=== PATIENT | female | born 1960 | race Caucasian/White ===

== ENCOUNTER → 2018-05-20 | Outpatient (CLI) | payer OTHER ==
--- NOTE | 2018-05-20 11:28 | CT ---
EXAMINATION TYPE: CT chest wo con DATE OF EXAM: 05/20/2018 COMPARISON: Outside x-ray dated 05/04/2018 HISTORY: Sarcoidosis CT DLP: 739.3 mGycm. Automated Exposure Control for Dose Reduction was Utilized. TECHNIQUE: CT scan of the thorax is performed without IV contrast. FINDINGS: LUNGS: There is a 5 mm subpleural nodule posterior segment right upper lobe axial image 14. There is an additional nodule within the right middle lobe measuring 4 mm axial image 24. There is a subpleura l nodule within the right lower lobe measuring 6.2 mm. No pleural effusion. No pneumothorax. No conso lidative pneumonia.. MEDIASTINUM: Lack of IV contrast is noted to limit evaluation for mediastinal and especially hilar ad enopathy. There are no definitive greater than 1 cm hilar or mediastinal lymph nodes. Heart is mildly enlarged and there is a small pericardial effusion.. OTHER: Moderate sized hiatal hernia noted.. IMPRESSION: 1. There are multiple 6 mm left pulmonary nodules which appear predominantly subpleural. Most likely are postinflammatory however would recommend a repeat 6 month follow-up to confirm stability and excl ude other etiologies. 2. Moderate-sized hiatal hernia. 3. Mild cardiomegaly with small pericardial effusion.
== END ==
LOC: RADCTMAIN 07:34
PROVIDERS: ATTEND Internal Medicine Rheumatology
DX: I31.3 Pericardial effusion (noninflammatory) (principal); K44.9 Diaphragmatic hernia without obstruction or gangrene; R91.8 Other nonspecific abnormal finding of lung field; F17.200 Nicotine dependence, unspecified, uncomplicated
CPT/HCPCS: 71250

== ENCOUNTER → 2018-06-29 | Outpatient (CLI) | payer OTHER ==
--- NOTE | 2018-06-29 11:59 | MR ---
EXAMINATION TYPE: MR lumbar spine wo con DATE OF EXAM: 06/29/2018 COMPARISON: None HISTORY: 57-year-old female Radiculopathy, lumbar region TECHNIQUE: Multiplanar, multisequence images of the lumbar spine were acquired. FINDINGS: Vertebral body heights are preserved and alignment is maintained. No suspicious bone marrow replacement. Conus medullaris is normal. No prevertebral or paravertebral soft tissue abnormality. Mild multilevel degenerative disc disease characterized by variable mild disc desiccation and disc bu lging. Ligamentum flavum thickening mid to lower lumbar spine with facet arthropathy. There is a component of mild congenital spinal canal narrowing in the mid lumbar spine with AP canal dimension of 1.3 cm. At T12-L1, minimal bulging disc without significant canal or foraminal stenosis. At L1-L2, no significant canal or foraminal stenosis. At L2-L3, there is a left intraforaminal disc bulge minimally narrowing the left inferior foramen. Di sc material closely approaches but does not clearly abut the traversing left L3 nerve root. Mild face t arthropathy. No significant spinal canal stenosis. At L3-L4, mild disc bulge and facet degenerative change. No significant spinal canal or neuroforamina l stenosis. At L4-L5, hypertrophic facet arthropathy and minimal bulging disc. No significant spinal canal or for aminal stenosis. At L5-S1, facet arthropathy with prominent epidural fat ventrally narrowing the thecal sac. No signif icant spinal canal or neuroforaminal stenosis. IMPRESSION: 1. Mild multilevel degenerative disc disease. Hypertrophic facet arthropathy mid to lower lumbar spin e. 2. Changes are superimposed on a component of mild congenital canal narrowing in the mid lumbar spine . There is no significant spinal canal stenosis seen. 3. Prominent epidural fat at L5-S1 circumferentially attenuating the thecal sac causing trefoil confi guration. 4. Left intraforaminal disc bulge at L2-L3 minimally narrowing the inferior aspect of the left neurof oramen. Also, disc material closely approaches but does not clearly abut the traversing left L3 nerve root at this level. Correlate as to the level and side of radiculopathy.
== END ==
LOC: RADMRIMAIN 08:39
PROVIDERS: ATTEND Nurse Practitioner
DX: M48.061 Spinal stenosis, lumbar region without neurogenic claudication (principal); M51.16 Intervertebral disc disorders with radiculopathy, lumbar region; M46.96 Unspecified inflammatory spondylopathy, lumbar region
CPT/HCPCS: 72148

== ENCOUNTER → 2018-07-06 | Outpatient (CLI) | payer OTHER ==
[2018-07-06 17:01] LABS: T4, Free (Free Thyroxine) 0.8 ng/dL (0.80-1.80)
== END ==
LOC: LABWHC1 09:53
PROVIDERS: ATTEND Internal Medicine Interventional Cardiology
DX: E05.90 Thyrotoxicosis, unspecified without thyrotoxic crisis or storm (principal)
CPT/HCPCS: 36415; 84439; 84443

== ENCOUNTER → 2018-10-26 | Outpatient (CLI) | payer OTHER ==
[2018-10-26 12:48] VITALS: BP 140/81; PULSE 83; RESP 16
--- NOTE | 2018-10-26 13:06 | P.CONS ---
History of Present Illness - Reason for Consult Consult date: 10/26/18 - Chief Complaint Lower back and bilateral leg pain - History of Present Illness This is a 57-year-old morbidly obese lady with history of chronic lower back pain with radiation to the lower extremities down to the feet with numbness and tingling and mild weakness. The pain gets worse by activities and improves by lying down in bed. The patient works in [employer] and prolonged standing increases her back pain. She had what seems to be intramuscular steroid injection by her stress analyst which gave her. Her most recent MRI showed neural foraminal stenosis with possible compression of the left L3 nerve root, disc bulging, facet arthropathy. The patient denies any history of diabetes. The patient takes Lyrica for her history of fibromyalgia and occasionally she takes [place] for her back pain. Review of Systems Cardiovascular: Denies chest pain, Denies shortness of breath Respiratory: Denies cough Gastrointestinal: Denies abdominal pain, Denies diarrhea, Denies nausea, Denies vomiting Musculoskeletal: Reports as per HPI Neurological: Reports as per HPI Past Medical History Past Medical History: Cancer, Mitral Valve Prolapse (MVP), Musculoskeletal Disorder, Osteoarthritis (OA), Rheumatoid Arthritis (RA) Additional Past Medical History / Comment(s): bulging disc w/sciatic pain going down both legs, hx. uterine cancer 2017, ?RA-one says yes, one has said no History of Any Multi-Drug Resistant Organisms: None Reported Past Surgical History: Hysterectomy, Joint Replacement, Tonsillectomy Additional Past Surgical History / Comment(s): rojelio knees replaced, cataracts removed Past Anesthesia/Blood Transfusion Reactions: Postoperative Nausea & Vomiting (PONV) Past Psychological History: No Psychological Hx Reported Smoking Status: Former smoker Past Alcohol Use History: Rare Additional Past Alcohol Use History / Comment(s): quit smoking 16 yrs. ago, smoked <ppd for 20 yrs. Past Drug Use History: None Reported - Past Family History Mother Family Medical History: No Reported History Medications and Allergies Home Medications Medication Instructions Recorded Confirmed Type Effexor(Unknown Dose) 1 tab PO HS 10/24/18 History HYDROcodone/APAP 7.5-325MG [[place] 1 tab PO Q6HR PRN 10/24/18 10/24/18 History 7.5-325] Lipitor(Unknown Dose) 1 tab PO HS 10/24/18 History Pregabalin [Lyrica] 200 mg PO TID 10/24/18 10/24/18 History Ranitidine HCl [Zantac] 150 mg PO HS 10/24/18 10/24/18 History traZODone HCL 50 mg PO HS 10/24/18 10/24/18 History Allergies Allergy/AdvReac Type Severity Reaction Status Date / Time No Known Allergies Allergy Verified 10/26/18 12:42 Physical Exam Vitals: Vital Signs Pulse Resp BP Pulse Ox 10/26/18 12:43 83 16 140/81 97 - Constitutional General appearance: morbidly obese - EENT Eyes: PERRLA - Respiratory Respiratory: bilateral: CTA - Cardiovascular Rhythm: regular - Neurologic Neuro exam of the lower extremities showed absent knee reflexes due to her previous knee replacement bilaterally. Normal ankle reflexes. Normal muscle strength in the lower extremity is bilaterally. Straight leg raising test negative bilaterally. Positive facet loading test on the lumbar spine. Positive tenderness in the lower lumbar paravertebral musculature and around the sacroiliac joints. Caden's test positive bilaterally. Internal and external rotation of the hip joints did not elicit any pain. Neurologic: CNII-XII intact - Psychiatric Psychiatric: A&O x's 3, appropriate affect, intact judgment & insight Assessment and Plan Plan: This is a 57-year-old morbidly obese lady with lumbar spondylosis without myelopathy and lumbar radiculopathy. The patient may benefit from today because of procedures we will start by doing lumbar epidural steroid injection under fluoroscopic guidance at the L4 5 level and lower back pain continues to be a problem then we will plan on doing diagnostic lumbar medial branch block. The above-mentioned procedures were explained to the patient and she was agreeable to them. I thank you for the referral
== END | disposition home or self-care (01) ==
LOC: PNWHC3 12:04
PROVIDERS: ATTEND Anesthesiology
DX: G89.29 Other chronic pain (principal); M47.816 Spondylosis without myelopathy or radiculopathy, lumbar region; E66.01 Morbid (severe) obesity due to excess calories; Z87.891 Personal history of nicotine dependence; Z68.42 Body mass index [BMI] 45.0-49.9, adult
CPT/HCPCS: 99211

== ENCOUNTER 2018-11-07 09:20 | Day surgery (SDC) | payer OTHER ==
[2018-11-03 15:12] VITALS: BMI 45.2
[~2018-11-07 09:20] MED LIST: LACTATED RINGERS 1,000 ML IV SCH
[2018-11-07 09:40] VITALS: TEMP 97.2
--- NOTE | 2018-11-07 10:35 | P.PCN ---
Date of Procedure: 11/07/18 Procedure(s) Performed: PREOPERATIVE DIAGNOSIS: 1- Lumbar radiculopathy 2-Lumbar spondylosis with Facet arthropathy without myelopathy POSTOPERATIVE DIAGNOSIS: 1-Lumber radiculopathy 2-Lumbar spondylosis with Facet arthropathy without myelopathy PROCEDURE 1. Lumbar epidural steroid injection under fluoroscopic guidance at the L3-4 level. (Attempted at L4 5, and L5-S1 was not successful ) 2. Lumbar epidurogram. ANESTHESIA: Local with 1% lidocaine 3 ml and , moderate sedation with intravenous Versed 2 mg ,and fentanyle 100 Mcg EBL: Minimal PROCEDURE INDICATION: The patient with low back pain and radiculitis symptoms unresponsive to conservative treatment. Fluoroscopy was used to optimize visualization of the needle placement and to maximize safety. PROCEDURE DESCRIPTION / TECHNIQUE: The patient was seen and identified in the preoperative area. Risks, benefits, complications including but not limited to infections ,bleeding ,allergic reaction to the medications ,nerve damage and not complete pain releife , and alternatives were discussed with the patient. The patient agreed to proceed with the procedure and signed the consent. IV was started, and vital signs were stable. Patient was taken to the OR and time out was completed. The patient was placed in the prone position on procedure table and a pillow was placed under the abdomen to reduce lumbar lordosis. The lumbosacral area was prepped and draped in the usual sterile fashion.ere closely monitored during the procedure. Conscious sedation was used during the procedure to decrease patients anxiety. Vital signs was monitered during the entire procedure. Using anterior-posterior fluoroscopy, the L3-4 interlaminar space was identified and the skin over this site was marked and then infiltrated with 1% lidocaine subcutaneously. Subsequently, a 18 -gauge 6 inches long Tuohy epidural needle was inserted and advanced toward the epidural space using the ``Loss of resistance technique and guided by AP and lateral fluoroscopy. The correct needle position in the epidural space was verified with the injection of 2 mL of the water soluble contrast dye Isovue 200 contrast and observing an excellent epidurogram with the epidural spread of the dye, after negative aspiration for blood and CSF and in the absence of paresthesias. Again after negative aspiration, a 6 ml mixture containing 80 mg of Depo-medrol , and 2 ml of preservative free Normal Saline, and 2 ml of preservative free lidocaine 1% solution was injected and a washout of epidurogram was seen. Needle was withdrawn intact, skin was cleansed, and bandages were applied. The procedure was attempted at L4 5 and then at the L5-S1 was not successful, then I did the procedure at L3 4 levels. COMPLICATIONS: None DISPOSITION / PLANS: The patient was placed in a supine position and transferred to the recovery area in a stable condition for observation. There was no evidence of lower extremity motor or sensory deficit after the procedure. Patient was discharged from the recovery room after meeting discharge criteria. Home discharge instructions were given to the patient by the staff. The patient was reexamined prior to discharge. The patient will schedule a follow up in the clinic in 2-4 weeks.
[2018-11-07] MEDS ORDERED: IV FLUID CONTINUATION 1,000 ML IV ONE (10:41)
[2018-11-07 10:42] VITALS: RESP 18
[2018-11-07 11:01] VITALS: BP 111/68; PULSE 71
--- NOTE | 2018-11-07 14:24 | FL ---
Fluoroscopy HISTORY: Pain 18 seconds fluoroscopy time supplied to the referring clinician. 1 intraoperative C-arm images docum ent the procedure. See dictated report from anesthesia.
== END 2018-11-07 11:10 | disposition home or self-care (01) ==
LOC: ORPAIN 09:20
PROVIDERS: ATTEND Anesthesiology
DX: M47.26 Other spondylosis with radiculopathy, lumbar region (principal); M48.061 Spinal stenosis, lumbar region without neurogenic claudication; M51.16 Intervertebral disc disorders with radiculopathy, lumbar region; I34.1 Nonrheumatic mitral (valve) prolapse; M79.7 Fibromyalgia; M06.9 Rheumatoid arthritis, unspecified; M19.90 Unspecified osteoarthritis, unspecified site; E66.01 Morbid (severe) obesity due to excess calories; Z68.42 Body mass index [BMI] 45.0-49.9, adult; Z79.891 Long term (current) use of opiate analgesic; Z79.899 Other long term (current) drug therapy; Z85.42 Personal history of malignant neoplasm of other parts of uterus; Z90.710 Acquired absence of both cervix and uterus; Z96.653 Presence of artificial knee joint, bilateral; Z87.891 Personal history of nicotine dependence
CPT/HCPCS: 62323; J2250; J1030; J3010; 99152

== ENCOUNTER 2018-11-24 08:19 | Day surgery (SDC) | payer OTHER ==
[2018-11-23 11:48] VITALS: BMI 45.4
[2018-11-24 08:44] VITALS: RESP 16; TEMP 97.7
[2018-11-24] MEDS ORDERED: LIDOCAINE 1% 20 ML VIAL (10MG/ML) FOR IV START INTRADERMA ONE (08:51)
--- NOTE | 2018-11-24 09:45 | P.PCN ---
Date of Procedure: 11/24/18 Procedure(s) Performed: PREOPERATIVE DIAGNOSIS: 1- Lumbar radiculopathy, Lumbar Degenerative Disc Diseases 2-Lumbar spondylosis with Facet arthropathy without myelopathy POSTOPERATIVE DIAGNOSIS: 1-Lumber Degenerative Disc Diseases 2-Lumbar spondylosis with Facet arthropathy without myelopathy PROCEDURE 1. Lumbar epidural steroid injection under fluoroscopic guidance at the L2-L3 level using a left paramedian approach 2. Lumbar epidurogram. ANESTHESIA: Local with 1% lidocaine 3 ml, moderate sedation with intravenous Versed and fentanyl Fluoroscopy was used for the procedure and images were saved in the radiology portion of the chart. EBL: Minimal PROCEDURE INDICATION: The patient with low back pain and radiculitis symptoms unresponsive to conservative treatment. Fluoroscopy was used to optimize visualization of the needle placement and to maximize safety. PROCEDURE DESCRIPTION / TECHNIQUE: The patient was seen and identified in the preoperative area. Risks, benefits, complications including but not limited to infections ,bleeding ,allergic reaction to the medications ,nerve damage and incomplete pain releif , and alternatives were discussed with the patient. The patient agreed to proceed with the procedure and signed the consent. IV was started, and vital signs were stable. Patient was taken to the OR and time out was completed. The patient was placed in the prone position on procedure table and a pillow was placed under the abdomen to reduce lumbar lordosis. The lumbosacral area was prepped and draped in the usual sterile fashion. Vitals were closely monitored during the procedure. Conscious sedation was used during the procedure to decrease patients anxiety. Using anterior-posterior fluoroscopy, the L2L3 interlaminar space was identified and the skin over this site was marked and then infiltrated with 1% lidocaine subcutaneously. Subsequently, a 18 guage 6" Tuohy epidural needle was inserted and advanced toward the epidural space using the loss of resistance technique and guided by AP and lateral/ oblique fluoroscopy. The correct needle position in the epidural space was verified with the injection of 2 mL of the water soluble contrast dye Isovue 200 contrast under live fluoroscopy, observing an excellent epidurogram. Then, after negative aspiration for blood and CSF and in the absence of paresthesias, a 5 ml mixture containing 80 mg of Depo-medrol , 3 ml of preservative free Normal Saline, and 1 ml of preservative free lidocaine 1% solution was injected and a washout of epidurogram was seen. Needle was withdrawn intact, skin was cleansed, and bandages were applied. COMPLICATIONS: Dural puncture at L3-L4. Procedure aborted at L3-L4 and reattempted at L2-L3 with good epidurogram. DISPOSITION / PLANS: The patient was placed in a supine position and transferred to the recovery area in a stable condition for observation. There was no evidence of lower extremity motor or sensory deficit after the procedure. Patient was discharged from the recovery room after meeting discharge criteria. Home discharge instructions were given to the patient by the staff. The patient will schedule a follow up in the clinic in 2-4 weeks.
[2018-11-24] MEDS ORDERED: IV FLUID CONTINUATION 1,000 ML IV ONE (09:49)
[2018-11-24 10:22] VITALS: BP 116/58; PULSE 80
--- NOTE | 2018-11-24 12:23 | FL ---
Fluoroscopy HISTORY: Pain 20 seconds fluoroscopy time supplied to the referring clinician. 3 intraoperative C-arm images docum ent the procedure. See dictated report from anesthesia.
== END 2018-11-24 10:42 | disposition home or self-care (01) ==
LOC: ORPAIN 08:19
PROVIDERS: ATTEND Anesthesiology
DX: M51.16 Intervertebral disc disorders with radiculopathy, lumbar region (principal); M47.26 Other spondylosis with radiculopathy, lumbar region
CPT/HCPCS: 62323; J2250; J1030; J3010; Q9966; 99152

== ENCOUNTER → 2018-12-21 | Outpatient (CLI) | payer OTHER ==
--- NOTE | 2018-12-21 15:56 | P.PAINPG ---
Subjective Progress Note Date: 12/21/18 Patient returns for follow-up after her epidural steroid injections. She is extremely happy with the results and states that her leg pain is essentially resolved. She continues to have some mild axial back pain. She is extremely functional and works at all date. Otherwise she denies any new symptoms and has no new complaints. Most of the visit was taken discussing how to prevent symptoms from recurring and what the next steps would be. Objective - Vital Signs Vital signs: Vital Signs Temp Pulse 99 12/21/18 13:54 Resp 18 12/21/18 13:54 BP 131/86 12/21/18 13:54 Pulse Ox 96 12/21/18 13:54 Intake & Output 12/20/18 12/21/18 12/21/18 18:59 06:59 18:59 Weight 128.82 kg - Exam Vital Signs: Reviewed in EMR GENERAL: Well appearing, in no acute distress, PSYCH: Mood and affect is appropriate. Awake, alert, and oriented SKIN: Skin color, texture, turgor normal, no rashes or lesions HEENT: Normocephalic, atraumatic. EOM intact CV: No pedal edema RESP: Respirations are unlabored, no audible wheezing GI: Abdomen non-distended MUSCULOSKELETAL: Bilateral upper and lower extremity strength is normal and symmetric. No atrophy or tone abnormalities are noted. Lumbar spine: Mild pain to palpation over the lumbar spine and paraspinous muscles. Buttocks: No pain to palpation over the PSIS, Truong test is negative bilaterally Extremities: Peripheral joint ROM is full and pain free without obvious instability or laxity in all four extremities. No edema or skin discolorations noted. Gait: Gait is anantalgic NEUR: No loss of sensation is noted. Cranial nerves are grossly intact. Assessment and Plan Assessment: This is a 58-year-old who was suffering from lumbar radicular pain. This is essentially resolved with her epidural. Assessment and plan: 1. Lumbar radicular pain 2. DDD 1. Interventions none at this time if her symptoms return she can call to make an appointment 2. Physical Therapy continue home exercises 3. Medications none 4. Follow up: In 3 months or she can call to schedule another epidural. , PQRS Measure Charge Sheet Measure #226: Tobacco Use: Screen & Cessation Intervention: Pt not a tobacco user Measure #111: Pneumonia Vaccination: Pneumococcal vaccine NOT administered or previously given Measure #47: Advance Care Plan: Advance care planning discussed & documented, pt chose/unable to give Measure #408: Opioid Therapy Follow-up Evaluation: Patient had f/u eval minimum every 3 months during opioid therapy Measure #128: Body Mass Index (BMI) Screening & Follow-up: BMI documented ABOVE normal parameters - f/u documented Measure #131: Pain Assessment & Follow-up: Pain positive & plan documented Measure #431: Unhealthy Alcohol Use Preventative Care & Scrn: Patient not identified as an unhealthy alcohol user PQRS Narrative: Smoking Status Former smoker Blood Pressure 131/86 Pain Intensity [Lower Back] 4 Scale Used Numeric (1 - 10) Hx Alcohol Use (MH) Yes Home Medications: Ambulatory Orders Atorvastatin [Lipitor] 20 mg PO HS 10/24/18 HYDROcodone/APAP 7.5-325MG [[place] 7.5-325] 1 tab PO Q6HR PRN 10/24/18 Pregabalin [Lyrica] 200 mg PO TID 10/24/18 Ranitidine HCl [Zantac] 150 mg PO HS 10/24/18 Venlafaxine HCl [Effexor] 50 mg PO DAILY 10/24/18 Pantoprazole Sodium [Protonix] 20 mg PO BID 11/03/18 Controlled Substance Measures - Controlled Substance Measures Is patient prescribed a controlled substance at discharge?: No
== END ==
CPT/HCPCS: 99211

== ENCOUNTER → 2019-01-06 | Outpatient (CLI) | payer OTHER ==
[2019-01-06 13:06] LABS: Basophils % (A) 0 %; Eosinophils % (A) 1 %; HCT 41.7 % (34.0-46.0); HGB 13.3 gm/dL (11.4-16.0); Lymphocytes # (A) 1.7 k/uL (1.0-4.8); Lymphocytes % (A) 24 %; MCH 29.5 pg (25.0-35.0); MCHC 31.8 g/dL (31.0-37.0); MCV 92.5 fL (80.0-100.0); Mean Platelet Volume 6.8; Monocytes # (A) 0.4 k/uL (0-1.0); Monocytes % (A) 5 %; Neutrophils # (A) 4.8 k/uL (1.3-7.7); Neutrophils % (A) 67 %; Platelet Count 281 k/uL (150-450); RBC 4.51 m/uL (3.80-5.40); RDW 13.8 % (11.5-15.5); WBC 7.2 k/uL (3.8-10.6)
[2019-01-06 18:38] LABS: African American GFR (CKD) 82.8 (60.0-200.0); Albumin 4.5 g/dL (3.80-4.90); Albumin/Globulin Ratio 2.5 (1.60-3.17); Anion Gap 9.4 mmol/L (4.00-12.00); Calcium 9.6 mg/dL (8.7-10.3); Carbon Dioxide 25.6 mmol/L (21.6-31.8); Chol/HDL Ratio 2.24; Globulin 1.8 g/dL (1.6-3.3); LDL Cholesterol,Calculated 75.8 mg/dL (0.0-131.0); Potassium 4.2 mmol/L (3.5-5.5); Total Bilirubin 0.7 mg/dL (0.2-1.2); Total Protein 6.3 g/dL (6.2-8.2); VLDL Calculation 11.2 mg/dL (5.00-40.00)
[2019-01-06 19:42] LABS: Urine Alcohol Negative (Negative); Urine Barbiturate Negative (Negative); Urine Cocaine Negative (Negative); Urine Methadone Negative (Negative); Urine Opiates Positive (Negative); Urine Phencyclidine Negative (Negative)
== END | disposition home or self-care (01) ==
LOC: LABWHC1 12:34
PROVIDERS: ATTEND Nurse Practitioner
DX: Z13.220 Encounter for screening for lipoid disorders (principal); Z51.81 Encounter for therapeutic drug level monitoring; Z79.899 Other long term (current) drug therapy; M25.50 Pain in unspecified joint
CPT/HCPCS: 36415; 80053; 80061; 80306; 82306; 85025

== ENCOUNTER → 2019-06-14 | Outpatient (CLI) | payer OTHER ==
[2019-06-14 13:50] VITALS: BP 128/86; PULSE 100; RESP 18
--- NOTE | 2019-06-14 19:42 | P.PAINPG ---
Subjective Progress Note Date: 06/14/19 this is a follow-up visit for this 58 years old female, she was diagnosed with lumbar radiculopathy lumbar degenerative disc disease, lumbar spondylosis with lumbar facet arthropathy, in 2019. Have done lumbar epidural steroid injections 2 and at that time it helped her low back pain significantly, she had excellent pain relief for more than 6 months,thank you she is complaining of severe low back pain with radiation to the lower extremity bilaterally more prominent on the right side, associated with some numbness and tingling sensation, mostly of the pain interfere with her quality of life and ability to work, he continued to use pain medication [place] 10/325 every 6 hours and Lyrica 200 mg 3 times a day she denies any side effect of the medication and she reported that the current medication helping her to improve her pain, is getting prescription refills from her primary care Objective - Vital Signs Vital signs: Vital Signs Temp Pulse 100 06/14/19 13:44 Resp 18 06/14/19 13:44 BP 128/86 06/14/19 13:44 Pulse Ox 97 06/14/19 13:44 Intake & Output 06/14/19 06/14/19 06/15/19 06:59 18:59 06:59 Weight 131.542 kg - Exam Physical Examinations : -Constitutiona : Cooperative , not in acute distress . -HEENT : nech : supple , no Lymphadenopathy , normal thyroid size . : eyes : no ptosis , no icterus, no photophobia . - neurologic : Cranial nerve II to XII intact , no focal neurological deffecit . -psychatric : alert , oriented X 3 , appropriate affect , intact judgment and insight . -Lymphatic : no Lymphadenopathy . - musculoskeltal : Lumber spine moter stegnth lower extremities ,thigh and legs 4/5 Right side , 5/5 Left side deep tendon reflexes : normal Knee Jerk , normal ankle Jerk lumber facet Loading Test =positive Right , positive Left Range of motion of the lumbar spine Flexion 30 degrees, extension 10 degrees strait leg raising test = positive at 30 degree Fabere test= positive Right , and positive LT . Assessment and Plan Plan: assessment and plan= lumbar radiculopathy. Lumbar degenerative disc disease. Lumbar spondylosis with lumbar facet arthropathy. patient could benefit from lumbar epidural steroid injection at L3 4 levels , if she continued to have pain after lumbar epidural steroid injection will consider doing diagnostic medial branch block lumbar area at L2 /L 3/ L4/L 5. patient should continue to use her current medication [place] 7.5/325 when necessary,Lyrica 200 mg 3 times a day prescription from PCP Time with Patient: Less than 30 PQRS Measure Charge Sheet Measure #130: Documentation of Current Meds in Medical Chart: Patient's medications documented in chart Measure #226: Tobacco Use: Screen & Cessation Intervention: Pt not a tobacco user Measure #111: Pneumonia Vaccination: Pneumococcal vaccine NOT administered or previously given Measure #47: Advance Care Plan: Advance care planning discussed & documented, pt chose/unable to give Measure #412: Opioid Treatment Agreement: No documentation of signed opioid treatment agreement Measure #408: Opioid Therapy Follow-up Evaluation: Patient had NO f/u eval minimum every 3 months during opioid therapy Measure #317: Preventitive Care & Scrn High Bld Press & F/U: Normal blood pressure, f/u not required Measure #128: Body Mass Index (BMI) Screening & Follow-up: BMI documented ABOVE normal parameters - f/u documented Measure #131: Pain Assessment & Follow-up: Pain positive & plan documented, Follow-up scheduled Measure #431: Unhealthy Alcohol Use Preventative Care & Scrn: Patient not identified as an unhealthy alcohol user PQRS Narrative: Smoking Status Former smoker Blood Pressure 128/86 Pain Intensity [Lower Back] 4 Scale Used Numeric (1 - 10) Hx Alcohol Use (MH) No Home Medications: Ambulatory Orders Atorvastatin [Lipitor] 20 mg PO HS 10/24/18 HYDROcodone/APAP 7.5-325MG [[place] 7.5-325] 1 tab PO Q6HR PRN 10/24/18 Pregabalin [Lyrica] 200 mg PO TID 10/24/18 Ranitidine HCl [Zantac] 150 mg PO HS 10/24/18 Venlafaxine HCl [Effexor] 50 mg PO DAILY 10/24/18 Pantoprazole Sodium [Protonix] 20 mg PO BID 11/03/18 Controlled Substance Measures - Controlled Substance Measures Is patient prescribed a controlled substance at discharge?: No
== END | disposition home or self-care (01) ==
LOC: PNWHC3 13:26
PROVIDERS: ATTEND Anesthesiology
DX: G89.29 Other chronic pain (principal); M51.16 Intervertebral disc disorders with radiculopathy, lumbar region; M47.26 Other spondylosis with radiculopathy, lumbar region; M46.96 Unspecified inflammatory spondylopathy, lumbar region; Z87.891 Personal history of nicotine dependence; Z79.899 Other long term (current) drug therapy
CPT/HCPCS: 99211

== ENCOUNTER 2019-06-28 07:05 | Day surgery (SDC) | payer OTHER ==
[2019-06-27 08:11] VITALS: BMI 45.4
[~2019-06-28 07:05] MED LIST changes: +IOPAMIDOL M200 10 ML VIAL ONE; -LACTATED RINGERS 1,000 ML IV SCH; +MIDAZOLAM 2 MG/2 ML VIAL ONE; +fentaNYL (PF) 50 MCG/ML 2 ML AMP ONE; +methylPREDNISolone ACETATE 40 MG/ML 1 ML VIAL ONE
[2019-06-28] MEDS ORDERED: LACTATED RINGERS 1,000 ML IV ONE (07:30)
[2019-06-28 07:39] VITALS: TEMP 97.6
--- NOTE | 2019-06-28 08:29 | P.PCN ---
Date of Procedure: 06/28/19 Description of Procedure: PREOPERATIVE DIAGNOSIS: lumbar radiculopathy POSTOPERATIVE DIAGNOSIS: Lumbar radiculopathy PROCEDURE 1. Lumbar epidural steroid injection under fluoroscopic guidance at the L3/4 level via transforaminal approach - Unable to enter through interlaminar approach 2. Lumbar epidurogram. Imaging: Fluoroscopy was used, images where saved to the medical record ANESTHESIA: Local with 1% lidocaine 5 ml and fentanyl and Versed moderate sedation EBL: Minimal PROCEDURE INDICATION: The patient with low back pain and radiculitis symptoms unresponsive to conservative treatment. Fluoroscopy was used to optimize visualization of the needle placement and to maximize safety. PROCEDURE DESCRIPTION / TECHNIQUE: The patient was seen and identified in the preoperative area. Risks, benefits, complications including but not limited to infections ,bleeding ,allergic reaction to the medications, nerve damage and incomplete pain relief , as well as alternatives to the procedure were discussed with the patient. The patient agreed to proceed with the procedure and signed the consent. IV was started, and vital signs were stable. Patient was taken to the OR and time out was completed. The patient was placed in the prone position on procedure table and a pillow was placed under the abdomen to reduce lumbar lordosis. The lumbosacral area was prepped and draped in the usual sterile fashion. Vitals were closely monitored during the procedure. Using anterior-posterior fluoroscopy, the L 34 interlaminar space was identified and the skin over this site was marked and then infiltrated with 1% lidocaine subcutaneously. Subsequently, a 20-gauge Tuohy epidural needle was inserted and advanced toward the epidural space. Were unable to gain access through the interlaminar approach, so 22-gauge spinal needle was directed in the oblique view towards the L3 pedicle at the junction of the inferior articulating process. Supraneural approach was accessed through the foramen showed excellent epidurogram with spread of contrast to both sides of the epidural space. The correct needle position in the epidural space was verified with the injection of 1 mL of Omnipaque 180 contrast to observe an acceptable epidurogram, after negative aspiration for blood and CSF and in the absence of paresthesias. Again after negative aspiration, a 2 ml mixture containing 40mg of depomedrol and 1 ml of preservative free Normal Saline was injected and a washout of epidurogram was seen. Needle was withdrawn intact, skin was cleansed, and bandages were applied. COMPLICATIONS: None DISPOSITION / PLANS: The patient was placed in a supine position and transferred to the recovery area in a stable condition for observation. There was no evidence of lower extremity motor or sensory deficit after the procedure. Patient was discharged from the recovery room after meeting discharge criteria. Home discharge instructions were given to the patient by the staff. The patient was reexamined prior to discharge. The patient will follow up as directed.
[2019-06-28] MEDS ORDERED: IV FLUID CONTINUATION 1,000 ML IV ONE (08:38)
[2019-06-28 08:40] VITALS: PULSE 83
[2019-06-28 08:46] VITALS: BP 150/79; RESP 18
--- NOTE | 2019-06-28 09:20 | FL ---
Fluoroscopy HISTORY: Pain 14 seconds fluoroscopy time supplied to the referring clinician. 1 intraoperative C-arm images docum ent the procedure. See dictated report from anesthesia.
== END 2019-06-28 09:02 | disposition home or self-care (01) ==
LOC: ORPAIN 07:05
PROVIDERS: ATTEND Hospitalist
DX: M54.16 Radiculopathy, lumbar region (principal); Z90.710 Acquired absence of both cervix and uterus
CPT/HCPCS: 62323; J2250; J1030; J3010; Q9966; 99152

== ENCOUNTER 2019-08-14 13:20 | Inpatient (IN) | payer OTHER ==
[2019-08-14] MEDS ORDERED: SODIUM CHLORIDE 0.9% 1,000 ML IV ONE (14:13)
[2019-08-14 14:37] LABS: Basophils % (A) 0 %; Eosinophils % (A) 0 %; HCT 40.7 % (34.0-46.0); HGB 13.3 gm/dL (11.4-16.0); Lymphocytes # (A) 0.9 k/uL (1.0-4.8); Lymphocytes % (A) 19 %; MCH 28.9 pg (25.0-35.0); MCHC 32.6 g/dL (31.0-37.0); MCV 88.7 fL (80.0-100.0); Mean Platelet Volume 7.8; Monocytes # (A) 0.4 k/uL (0-1.0); Monocytes % (A) 9 %; Neutrophils # (A) 3.1 k/uL (1.3-7.7); Neutrophils % (A) 68 %; Platelet Count 269 k/uL (150-450); RDW 13.9 % (11.5-15.5); WBC 4.5 k/uL (3.8-10.6)
[2019-08-14 14:42] LABS: ALT 17 U/L (4-34); AST 45 U/L (14-36); African American GFR (CKD) >90 (>60 ml/min/1.73 sqM); Albumin 3.2 g/dL (3.5-5.0); Alkaline Phosphatase 77 U/L (38-126); Anion Gap 3 mmol/L; Blood Urea Nitrogen 14 mg/dL (7-17); Calcium 8.2 mg/dL (8.4-10.2); Carbon Dioxide 29 mmol/L (22-30); Chloride 106 mmol/L (98-107); Creatine Kinase 75 U/L (30-135); Glucose 105 mg/dL (74-99); LDH 1789 U/L (313-618); Non-African American GFR(CKD) >90 (>60 ml/min/1.73 sqM); Potassium 4.2 mmol/L (3.5-5.1); Sodium 138 mmol/L (137-145); Total Bilirubin 0.3 mg/dL (0.2-1.3); Total Protein 5.9 g/dL (6.3-8.2)
--- NOTE | 2019-08-14 14:59 | XR ---
EXAMINATION TYPE: XR chest 1V portable DATE OF EXAM: 08/14/2019 Comparison: None Clinical History: 58-year-old female Suspected COVID-19 pneumonia Findings: Heart upper limits of normal in size. Multifocal patchy and confluent airspace opacities, right great er than left. No pleural effusion. Impression: Multifocal airspace disease, right greater than left. Findings may be compatible with COVID pneumonia .
[2019-08-14] MEDS ORDERED: ACETAMINOPHEN TAB 325 MG TAB PO PRN (16:42)
[2019-08-14] MEDS ORDERED: NALOXONE 0.4 MG/ML 1 ML VIAL IV PRN (16:42)
--- NOTE | 2019-08-14 16:42 | ED ---
SOB HPI - General Chief Complaint: Shortness of Breath Stated Complaint: Shortness of Breath Time Seen by Provider: 08/14/19 13:30 Source: patient, EMS Mode of arrival: EMS Limitations: no limitations - History of Present Illness Initial Comments: The patient is a 58-year-old female past medical history of fibromyalgia and arthritis who presents to the emergency department with cough, shortness of breath and body aches for the past 8 days. She also reports to fatigue and headache. The patient took Tylenol at 10:00 today. She denies any sick conta cts with similar symptoms. No history of underlying lung conditions. When EMS arrived to her house for all oxygen sat was in the 70s. She is put on a nonrebreather and came up appropriately to 90%. She was also hypotensive and she was given 900 mL of normal saline. She denies having any exposures patient is a covid. Also denies recent travel. Denies a productive cough. No lower extremity edema. Denies a history of heart failure. No history of DVT or PE. No Pain or swelling. There are no alleviating, precipitating or modifying factors - Related Data Home Medications Medication Instructions Recorded Confirmed Atorvastatin [Lipitor] 20 mg PO HS 10/24/18 08/14/19 HYDROcodone/APAP 7.5-325MG [[place] 1 tab PO BID 10/24/18 08/14/19 7.5-325] Pregabalin [Lyrica] 200 mg PO TID 10/24/18 08/14/19 Diclofenac Sodium [Voltaren] 75 mg PO BID 08/14/19 08/14/19 Lidocaine 5% Patch [Lidoderm] 1 patch TOPICAL DAILY PRN 08/14/19 08/14/19 Pantoprazole Sodium [Protonix] 40 mg PO BID 08/14/19 08/14/19 Ranitidine HCl [Zantac] 150 mg PO BID 08/14/19 08/14/19 Venlafaxine HCl [Effexor XR] 150 mg PO DAILY 08/14/19 08/14/19 Allergies Allergy/AdvReac Type Severity Reaction Status Date / Time No Known Allergies Allergy Verified 08/14/19 14:14 Review of Systems ROS Statement: Those systems with pertinent positive or pertinent negative responses have been documented in the HPI. ROS Other: All systems not noted in ROS Statement are negative. Past Medical History Past Medical History: Cancer, Mitral Valve Prolapse (MVP), Musculoskeletal Disorder, Osteoarthritis (OA), Rheumatoid Arthritis (RA) Additional Past Medical History / Comment(s): bulging disc w/sciatic pain going down both legs, hx. uterine cancer 2017, ?RA-one says yes, one has said no History of Any Multi-Drug Resistant Organisms: None Reported Past Surgical History: Hysterectomy, Joint Replacement, Tonsillectomy Additional Past Surgical History / Comment(s): rojelio knees replaced, cataracts removed, PAIN CLINIC PROCEDURES Past Anesthesia/Blood Transfusion Reactions: Postoperative Nausea & Vomiting ( PONV) Past Psychological History: No Psychological Hx Reported Smoking Status: Former smoker Past Alcohol Use History: None Reported Past Drug Use History: None Reported - Past Family History Mother Family Medical History: No Reported History General Exam Limitations: no limitations General appearance: alert, in no apparent distress Eye exam: Present: normal appearance, PERRL, EOMI. Absent: scleral icterus, conjunctival injection, periorbital swelling ENT exam: Present: normal exam, mucous membranes moist Neck exam: Present: normal inspection. Absent: tenderness, meningismus, lymphadenopathy Respiratory exam: Present: other (tachypnia, mild conversational dyspnea) Cardiovascular Exam: Present: regular rate, normal rhythm, normal heart sounds. Absent: systolic murmur, diastolic murmur, rubs, gallop, clicks GI/Abdominal exam: Present: soft, normal bowel sounds. Absent: distended, tenderness, guarding, rebound, rigid Extremities exam: Present: normal inspection, full ROM, normal capillary refill. Absent: tenderness, pedal edema, joint swelling, calf tenderness Neurological exam: Present: alert, oriented X3, CN II-XII intact Psychiatric exam: Present: normal affect, normal mood Skin exam: Present: warm, dry, intact, normal color. Absent: rash Course Vital Signs 08/14/19 08/14/19 08/14/19 13:25 13:27 17:19 Temperature 98.3 F Pulse Rate 72 67 Pulse Rate [ Pulse Oximetery ] Respiratory 20 16 Rate Blood Pressure 123/76 130/87 Blood Pressure [Left Arm] O2 Sat by Pulse 87 L 98 97 Oximetry 08/14/19 17:47 Temperature 97.7 F Pulse Rate Pulse Rate [ 85 Pulse Oximetery ] Respiratory 20 Rate Blood Pressure Blood Pressure 95/63 [Left Arm] O2 Sat by Pulse 93 L Oximetry Medical Decision Making - Medical Decision Making Upon arrival the patient is placed into room 4. Thorough history and physical exam was performed. The patient is saturating 98% on nonrebreather. Blood pressure is stable after EMS fluid administration. Patient afebrile. Laboratory studies were conducted and demonstrate a d-dimer 0.94. LDH of 1789. Influenza A and B are negative. Patient has a portable chest x-ray performed which demonstrates multifocal airspace disease. Right greater than left. Might be compatible with Covid pneumonia. The patient's clinical picture is consistent with this. She is reevaluated and is resting comfortably in the room. No signs of respiratory distress. We attempted to take the patient off of the non rebreather however she did desaturate into the 80s. She is saturating 96% on the nonrebreather. At this time I did recommend admission to the hospital for 2 patient did agree. She'll be admitted to [facility]. I have paged them I am currently awaiting callback - Lab Data Result diagrams: 08/19/19 04:10 08/19/19 04:10 Lab Results 08/14/19 08/14/19 08/14/19 Range/Units 13:38 13:38 13:38 WBC 4.5 (3.8-10.6) k/uL RBC 4.60 (3.80-5.40) m/uL Hgb 13.3 (11.4-16.0) gm/dL Hct 40.7 (34.0-46.0) % MCV 88.7 (80.0-100.0) fL MCH 28.9 (25.0-35.0) pg MCHC 32.6 (31.0-37.0) g/dL RDW 13.9 (11.5-15.5) % Plt Count 269 (150-450) k/uL Neutrophils % 68 % Lymphocytes % 19 % Monocytes % 9 % Eosinophils % 0 % Basophils % 0 % Neutrophils # 3.1 (1.3-7.7) k/uL Lymphocytes # 0.9 L (1.0-4.8) k/uL Monocytes # 0.4 (0-1.0) k/uL Eosinophils # 0.0 (0-0.7) k/uL Basophils # 0.0 (0-0.2) k/uL D-Dimer 0.94 H (<0.60) mg/L FEU Sodium 138 (137-145) mmol/L Potassium 4.2 (3.5-5.1) mmol/L Chloride 106 (98-107) mmol/L Carbon Dioxide 29 (22-30) mmol/L Anion Gap 3 mmol/L BUN 14 (7-17) mg/dL Creatinine 0.65 (0.52-1.04) mg/dL Est GFR (CKD-EPI)AfAm >90 (>60 ml/min/1.73 sqM) Est GFR (CKD-EPI)NonAf >90 (>60 ml/min/1.73 sqM) Glucose 105 H (74-99) mg/dL Plasma Lactic Acid Gio (0.7-2.0) mmol/L Calcium 8.2 L (8.4-10.2) mg/dL Ferritin 367.8 H (10.0-291.0) ng/mL Total Bilirubin 0.3 (0.2-1.3) mg/dL AST 45 H (14-36) U/L ALT 17 (4-34) U/L Alkaline Phosphatase 77 (38-126) U/L Lactate Dehydrogenase 1789 H (313-618) U/L Creatine Kinase 75 (30-135) U/L Total Protein 5.9 L (6.3-8.2) g/dL Albumin 3.2 L (3.5-5.0) g/dL Procalcitonin (0.02-0.09) ng/mL Coronavirus (PCR) (Not Detected) Influenza Type A RNA (Not Detectd) Influenza Type B (PCR) (Not Detectd) 08/14/19 08/14/19 08/14/19 Range/Units 13:38 13:38 14:30 WBC (3.8-10.6) k/uL RBC (3.80-5.40) m/uL Hgb (11.4-16.0) gm/dL Hct (34.0-46.0) % MCV (80.0-100.0) fL MCH (25.0-35.0) pg MCHC (31.0-37.0) g/dL RDW (11.5-15.5) % Plt Count (150-450) k/uL Neutrophils % % Lymphocytes % % Monocytes % % Eosinophils % % Basophils % % Neutrophils # (1.3-7.7) k/uL Lymphocytes # (1.0-4.8) k/uL Monocytes # (0-1.0) k/uL Eosinophils # (0-0.7) k/uL Basophils # (0-0.2) k/uL D-Dimer (<0.60) mg/L FEU Sodium (137-145) mmol/L Potassium (3.5-5.1) mmol/L Chloride (98-107) mmol/L Carbon Dioxide (22-30) mmol/L Anion Gap mmol/L BUN (7-17) mg/dL Creatinine (0.52-1.04) mg/dL Est GFR (CKD-EPI)AfAm (>60 ml/min/1.73 sqM) Est GFR (CKD-EPI)NonAf (>60 ml/min/1.73 sqM) Glucose (74-99) mg/dL Plasma Lactic Acid Gio 1.0 (0.7-2.0) mmol/L Calcium (8.4-10.2) mg/dL Ferritin (10.0-291.0) ng/mL Total Bilirubin (0.2-1.3) mg/dL AST (14-36) U/L ALT (4-34) U/L Alkaline Phosphatase (38-126) U/L Lactate Dehydrogenase (313-618) U/L Creatine Kinase (30-135) U/L Total Protein (6.3-8.2) g/dL Albumin (3.5-5.0) g/dL Procalcitonin 0.05 (0.02-0.09) ng/mL Coronavirus (PCR) (Not Detected) Influenza Type A RNA Not Detected (Not Detectd) Influenza Type B (PCR) Not Detected (Not Detectd) 08/14/19 Range/Units 14:30 WBC (3.8-10.6) k/uL RBC (3.80-5.40) m/uL Hgb (11.4-16.0) gm/dL Hct (34.0-46.0) % MCV (80.0-100.0) fL MCH (25.0-35.0) pg MCHC (31.0-37.0) g/dL RDW (11.5-15.5) % Plt Count (150-450) k/uL Neutrophils % % Lymphocytes % % Monocytes % % Eosinophils % % Basophils % % Neutrophils # (1.3-7.7) k/uL Lymphocytes # (1.0-4.8) k/uL Monocytes # (0-1.0) k/uL Eosinophils # (0-0.7) k/uL Basophils # (0-0.2) k/uL D-Dimer (<0.60) mg/L FEU Sodium (137-145) mmol/L Potassium (3.5-5.1) mmol/L Chloride (98-107) mmol/L Carbon Dioxide (22-30) mmol/L Anion Gap mmol/L BUN (7-17) mg/dL Creatinine (0.52-1.04) mg/dL Est GFR (CKD-EPI)AfAm (>60 ml/min/1.73 sqM) Est GFR (CKD-EPI)NonAf (>60 ml/min/1.73 sqM) Glucose (74-99) mg/dL Plasma Lactic Acid Gio (0.7-2.0) mmol/L Calcium (8.4-10.2) mg/dL Ferritin (10.0-291.0) ng/mL Total Bilirubin (0.2-1.3) mg/dL AST (14-36) U/L ALT (4-34) U/L Alkaline Phosphatase (38-126) U/L Lactate Dehydrogenase (313-618) U/L Creatine Kinase (30-135) U/L Total Protein (6.3-8.2) g/dL Albumin (3.5-5.0) g/dL Procalcitonin (0.02-0.09) ng/mL Coronavirus (PCR) Detected H (Not Detected) Influenza Type A RNA (Not Detectd) Influenza Type B (PCR) (Not Detectd) - EKG Data EKG Comments: EKG demonstrates a normal sinus rhythm with ventricular rate of 73. NV interval 140. QRS 94. QTC of 434. No acute ST segment elevations or depressions concerning for ischemic changes Disposition Clinical Impression: Shortness of breath, Suspected COVID-19 virus infection Disposition: ADMITTED IP TO THIS HOSP Condition: Stable Is patient prescribed a controlled substance at d/c from ED?: No Decision to Admit Reason: Admit from EC Decision Date: 08/14/19 Decision Time: 16:42
[2019-08-14] MEDS ORDERED: AZITHROMYCIN 500 MG in SODIUM CHLORIDE 0.9% 250 ML IVPB STA (17:16)
[2019-08-14 19:08] LABS: Ferritin 367.8 ng/mL (10.0-291.0)
[2019-08-14] MEDS: ALBUTEROL HFA INHALER INHALATION SCH (19:34)
[2019-08-14] MEDS: ATORVASTATIN 20 MG TAB PO SCH (20:15)
[2019-08-14] MEDS: FAMOTIDINE 20 MG TAB PO SCH (20:15)
[2019-08-14] MEDS: PREGABALIN 100 MG CAP PO SCH (20:15)
[2019-08-14] MEDS: VENLAFAXINE HCL ER 150 MG CAP PO SCH (20:54)
[2019-08-14] MEDS ORDERED: HYDROcodone/APAP 7.5-325MG 1 EACH TAB PO PRN (21:00)
[2019-08-14] MEDS: LIDOCAINE 5% PATCH TOPICAL PRN (23:03)
[2019-08-14 23:48] LABS: Glucose,Whole Blood 106 mg/dL (75-99)
[2019-08-15 00:09] LABS: ABG Base Excess 0.5 mmol/L; ABG HCO3 25 mmol/L (21-25); ABG Oxygen Saturation 95.9 % (94-97); ABG PCO2 42 mmHg (35-45); ABG PH 7.39 (7.35-7.45); ABG PO2 80 mmHg (83-108); ABG TCO2 27 mmol/L (19-24); Allen Test Performed? Yes
[2019-08-15] MEDS: HYDROXYCHLOROQUINE SULFATE 200 MG TAB PO SCH ×2 (00:59→08:23)
[2019-08-15] MEDS: ALBUTEROL HFA INHALER INHALATION SCH ×4 (01:21→19:24)
[2019-08-15 05:43] LABS: Basophils % (A) 0 %; Eosinophils % (A) 0 %; HCT 39.6 % (34.0-46.0); HGB 12.7 gm/dL (11.4-16.0); Lymphocytes # (A) 0.8 k/uL (1.0-4.8); Lymphocytes % (A) 13 %; MCH 28.8 pg (25.0-35.0); MCHC 32.1 g/dL (31.0-37.0); MCV 89.8 fL (80.0-100.0); Mean Platelet Volume 7.8; Monocytes # (A) 0.4 k/uL (0-1.0); Monocytes % (A) 7 %; Neutrophils # (A) 4.7 k/uL (1.3-7.7); Neutrophils % (A) 78 %; Platelet Count 253 k/uL (150-450); RDW 13.9 % (11.5-15.5); WBC 6.1 k/uL (3.8-10.6)
[2019-08-15 06:02] LABS: ALT 15 U/L (4-34); AST 50 U/L (14-36); African American GFR (CKD) >90 (>60 ml/min/1.73 sqM); Albumin 2.9 g/dL (3.5-5.0); Alkaline Phosphatase 74 U/L (38-126); Anion Gap 6 mmol/L; Blood Urea Nitrogen 13 mg/dL (7-17); Carbon Dioxide 24 mmol/L (22-30); Chloride 107 mmol/L (98-107); Creatine Kinase 66 U/L (30-135); Glucose 117 mg/dL (74-99); Non-African American GFR(CKD) >90 (>60 ml/min/1.73 sqM); Potassium 4.1 mmol/L (3.5-5.1); Sodium 137 mmol/L (137-145); Total Bilirubin 0.4 mg/dL (0.2-1.3); Total Protein 5.5 g/dL (6.3-8.2)
[2019-08-15 06:15] LABS: LDH 1981 U/L (313-618)
[2019-08-15 06:16] LABS: C Reactive Protein 153.7 mg/L (<10.0)
--- NOTE | 2019-08-15 07:05 | XR ---
EXAMINATION TYPE: XR chest 1V portable DATE OF EXAM: 08/15/2019 Comparison: 08/14/2019 Clinical History: 58-year-old female shortness of breath Findings: Heart mildly enlarged. Diffuse bilateral airspace disease persists. No sizable pleural effusion. Impression: Persisting diffuse bilateral airspace disease.
[2019-08-15] MEDS: ZINC SULFATE 220 MG CAP PO SCH (08:23)
[2019-08-15] MEDS: FAMOTIDINE 20 MG TAB PO SCH ×2 (08:24→20:36)
[2019-08-15] MEDS: PREGABALIN 100 MG CAP PO SCH ×3 (08:25→21:46)
[2019-08-15] MEDS ORDERED: FUROSEMIDE 10 MG/ML 4 ML VIAL IV STA (08:32)
[2019-08-15 08:40] LABS: ABG Base Excess 0.8 mmol/L; ABG HCO3 26 mmol/L (21-25); ABG Oxygen Saturation 96.4 % (94-97); ABG PCO2 42 mmHg (35-45); ABG PO2 86 mmHg (83-108); ABG TCO2 27 mmol/L (19-24); Allen Test Performed? Yes
[2019-08-15] MEDS: methylPREDNISolone SOD SUCCI 125 MG/2 ML VIAL IV SCH ×2 (08:43→20:36)
[2019-08-15] MEDS ORDERED: VENLAFAXINE HCL ER 150 MG CAP PO SCH (09:00)
[2019-08-15] MEDS ORDERED: methylPREDNISolone SOD SUCCI 40 MG/ML 1 ML VIAL IV SCH (09:00)
[2019-08-15] MEDS ORDERED: SUCCINYLCHOLINE CHLORIDE VIAL 200 MG/10 ML VIAL IV ONE (09:12)
[2019-08-15] MEDS ORDERED: PROPOFOL 10 MG/ML 20 ML VIAL IV ONE (09:12)
[2019-08-15 09:28] LABS: Appearance,Urine Clear (Clear); Bilirubin,Urine Negative (Negative); Blood,Urine Negative (Negative); Color,Urine Yellow; Glucose,Urine (UA) Negative (Negative); Ketones,Urine 1+ (Negative); Leukocyte Esterase,Urine Negative (Negative); Nitrite,Urine Negative (Negative); Protein,Urine Trace (Negative); Specific Gravity,Urine 1.017 (1.001-1.035)
[2019-08-15] MEDS: PROPOFOL 1,000 MG in EMPTY BAG 1 BAG IV SCH ×4 (09:30→22:11)
[2019-08-15] MEDS ORDERED: CISATRACURIUM 2 MG/ML 5 ML VIAL IV ONE (09:36)
[2019-08-15] MEDS: CISATRACURIUM 200 MG in SODIUM CHLORIDE 0.9% 180 ML IV SCH (09:58)
[2019-08-15 10:20] LABS: ABG HCO3 27 mmol/L (21-25); ABG Oxygen Saturation 98.2 % (94-97); ABG PCO2 50 mmHg (35-45); ABG PH 7.34 (7.35-7.45); ABG PO2 336 mmHg (83-108); ABG TCO2 28 mmol/L (19-24)
[2019-08-15 10:23] LABS: Allen Test Performed? no
--- NOTE | 2019-08-15 10:53 | XR ---
EXAMINATION TYPE: XR chest 1V portable DATE OF EXAM: 08/15/2019 Comparison: Earlier today Clinical History: 58-year-old female Tube placement Findings: ET tube tip at the level of the medial clavicular heads. Heart normal size. Aorta within normal limit s. Diffuse bilateral airspace opacity persists. Minimal improving aeration. No pleural effusion. Impression: 1. ET tube tip at the medial clavicular heads. 2. Continued diffuse bilateral airspace disease. Aeration may be minimally improved.
[2019-08-15 11:34] LABS: Ferritin 303.3 ng/mL (10.0-291.0)
--- NOTE | 2019-08-15 12:24 | P.HPIM ---
History of Present Illness Patient is a pleasant 58-year-old female came to emergency department with compensative cough shortness of breath. She was comparing of fatigue and headache as well patient was having body aches for last 3 days. Patient is significant for hypoxic overnight patient was on 15 L of oxygen was transferred to ICU patient on her subsequently on 100% nonrebreather and today morning patient and up being intubated. Patient was hypotensive and received about a liter of IV fluids now presently is receiving Lasix as as per pulmonology. Patient is presently on 50% FiO2 PEEP of 16 set up respiratory of 18 breathing over the ventilator and a tidal volume of 450. Patient is also on the paralytic agents Nimbex and sedatives. Patient appears to have hypoxic respiratory failure now does have some hypercapnia as well. Patient was having high-grade fever highly suspicious for COVID 19 with a lymphopenia increased to pro- calcitonin and highly elevated LDH, typical chest x-ray findings of multifocal pneumonia or interstitial pneumonia. Review of Systems Unable to obtain as patient is intubated Past Medical History Past Medical History: Cancer, Mitral Valve Prolapse (MVP), Musculoskeletal Disorder, Osteoarthritis (OA), Rheumatoid Arthritis (RA) Additional Past Medical History / Comment(s): bulging disc w/sciatic pain going down both legs, hx. uterine cancer 2017, ?RA-one says yes, one has said no History of Any Multi-Drug Resistant Organisms: None Reported Past Surgical History: Hysterectomy, Joint Replacement, Tonsillectomy Additional Past Surgical History / Comment(s): rojleio knees replaced, cataracts removed, PAIN CLINIC PROCEDURES Past Anesthesia/Blood Transfusion Reactions: Postoperative Nausea & Vomiting (PONV) Past Psychological History: No Psychological Hx Reported Smoking Status: Former smoker Past Alcohol Use History: None Reported Additional Past Alcohol Use History / Comment(s): quit smoking 16 yrs. ago, smoked <ppd for 20 yrs. Past Drug Use History: None Reported - Past Family History Mother Family Medical History: No Reported History Medications and Allergies Home Medications Medication Instructions Recorded Confirmed Type Atorvastatin [Lipitor] 20 mg PO HS 10/24/18 08/14/19 History HYDROcodone/APAP 7.5-325MG [[place] 1 tab PO BID 10/24/18 08/14/19 History 7.5-325] Pregabalin [Lyrica] 200 mg PO TID 10/24/18 08/14/19 History Diclofenac Sodium [Voltaren] 75 mg PO BID 08/14/19 08/14/19 History Lidocaine 5% Patch [Lidoderm] 1 patch TOPICAL DAILY PRN 08/14/19 08/14/19 History Pantoprazole Sodium [Protonix] 40 mg PO BID 08/14/19 08/14/19 History Ranitidine HCl [Zantac] 150 mg PO BID 08/14/19 08/14/19 History Venlafaxine HCl [Effexor XR] 150 mg PO DAILY 08/14/19 08/14/19 History Allergies Allergy/AdvReac Type Severity Reaction Status Date / Time No Known Allergies Allergy Verified 08/14/19 14:14 Physical Exam Vitals: Vital Signs Temp Pulse Pulse Resp BP BP Pulse Ox 08/15/19 07:00 74 22 136/73 91 L 08/15/19 06:00 76 36 H 125/78 88 L 08/15/19 05:00 73 24 124/62 90 L 08/15/19 04:00 97.7 F 77 16 122/62 90 L 08/15/19 03:00 79 18 123/80 91 L 08/15/19 02:00 74 27 H 127/70 88 L 08/15/19 01:00 71 31 H 113/76 89 L 08/14/19 23:45 97.7 F 78 36 H 118/69 93 L 08/14/19 23:23 68 28 H 08/14/19 23:21 28 H 134/66 89 L 08/14/19 23:01 98.9 F 24 133/62 91 L 08/14/19 22:00 26 H 88 L 08/14/19 21:30 92 L 08/14/19 20:00 98.7 F 22 93 L 08/14/19 19:39 96 08/14/19 18:50 68 26 H 110/69 96 08/14/19 17:47 97.7 F 85 20 95/63 93 L 08/14/19 17:19 67 16 130/87 97 08/14/19 13:27 98 08/14/19 13:25 98.3 F 72 20 123/76 87 L Intake and Output 08/14/19 08/15/19 08/15/19 22:59 06:59 14:59 Intake Total 580 27.235 Balance 580 27.235 Intake: IV 100 20 0.9 100 20 Intake, IV Titration 7.235 Amount Cisatracurium 200 mg In 7.235 Sodium Chloride 0.9% 180 ml @ 1 MCG/KG/MIN 7.893 mls/hr IV .Q24H [facility] Rx#: [id number] Tube Feeding 480 Other: Voiding Method Bedside Commode Bedside Commode Weight 131.542 kg PHYSICAL EXAMINATION: GENERAL: Patient is intubated sedated, obese HEENT: Pupils are round and equally reacting to light. EOMI. No scleral icterus. No conjunctival pallor. Normocephalic, atraumatic. No pharyngeal erythema. No thyromegaly. CARDIOVASCULAR: S1 and S2 present. No murmurs, rubs, or gallops. PULMONARY: Crackles in the bases ABDOMEN: Soft, nontender, nondistended, normoactive bowel sounds. No palpable organomegaly. MUSCULOSKELETAL: No joint swelling or deformity. EXTREMITIES: No cyanosis, clubbing, or pedal edema. NEUROLOGICAL: Sedated and please refer to nursing staff documentation for level of sedation SKIN: No rashes. Note: Because of [facility] [place] 19 isolation, some of the history and physical exam findings or indirect and obtained from nursing staff, and other physician examinations to avoid unnecessary contact with the patient. Results CBC & Chem 7: 08/15/19 04:27 08/15/19 04:27 Labs: Abnormal Lab Results - Last 24 Hours (Table) 08/14/19 08/14/19 08/14/19 Range/Units 13:38 13:38 13:38 Lymphocytes # 0.9 L (1.0-4.8) k/uL D-Dimer 0.94 H (<0.60) mg/L FEU ABG pH (7.35-7.45) ABG pCO2 (35-45) mmHg ABG pO2 (83-108) mmHg ABG HCO3 (21-25) mmol/L ABG Total CO2 (19-24) mmol/L ABG O2 Saturation (94-97) % Glucose 105 H (74-99) mg/dL POC Glucose (mg/dL) (75-99) mg/dL Calcium 8.2 L (8.4-10.2) mg/dL Ferritin 367.8 H (10.0-291.0) ng/mL AST 45 H (14-36) U/L Lactate Dehydrogenase 1789 H (313-618) U/L C-Reactive Protein (<10.0) mg/L Total Protein 5.9 L (6.3-8.2) g/dL Albumin 3.2 L (3.5-5.0) g/dL Urine Protein (Negative) Urine Ketones (Negative) 08/14/19 08/15/19 08/15/19 Range/Units 23:46 00:02 04:27 Lymphocytes # 0.8 L (1.0-4.8) k/uL D-Dimer (<0.60) mg/L FEU ABG pH (7.35-7.45) ABG pCO2 (35-45) mmHg ABG pO2 80 L (83-108) mmHg ABG HCO3 (21-25) mmol/L ABG Total CO2 27 H (19-24) mmol/L ABG O2 Saturation (94-97) % Glucose (74-99) mg/dL POC Glucose (mg/dL) 106 H (75-99) mg/dL Calcium (8.4-10.2) mg/dL Ferritin (10.0-291.0) ng/mL AST (14-36) U/L Lactate Dehydrogenase (313-618) U/L C-Reactive Protein (<10.0) mg/L Total Protein (6.3-8.2) g/dL Albumin (3.5-5.0) g/dL Urine Protein (Negative) Urine Ketones (Negative) 08/15/19 08/15/19 08/15/19 Range/Units 04:27 08:38 09:00 Lymphocytes # (1.0-4.8) k/uL D-Dimer (<0.60) mg/L FEU ABG pH (7.35-7.45) ABG pCO2 (35-45) mmHg ABG pO2 (83-108) mmHg ABG HCO3 26 H (21-25) mmol/L ABG Total CO2 27 H (19-24) mmol/L ABG O2 Saturation (94-97) % Glucose 117 H (74-99) mg/dL POC Glucose (mg/dL) (75-99) mg/dL Calcium 8.0 L (8.4-10.2) mg/dL Ferritin 303.3 H (10.0-291.0) ng/mL AST 50 H (14-36) U/L Lactate Dehydrogenase 1981 H (313-618) U/L C-Reactive Protein 153.7 H (<10.0) mg/L Total Protein 5.5 L (6.3-8.2) g/dL Albumin 2.9 L (3.5-5.0) g/dL Urine Protein Trace H (Negative) Urine Ketones 1+ H (Negative) 08/15/19 Range/Units 10:18 Lymphocytes # (1.0-4.8) k/uL D-Dimer (<0.60) mg/L FEU ABG pH 7.34 L (7.35-7.45) ABG pCO2 50 H (35-45) mmHg ABG pO2 336 H (83-108) mmHg ABG HCO3 27 H (21-25) mmol/L ABG Total CO2 28 H (19-24) mmol/L ABG O2 Saturation 98.2 H (94-97) % Glucose (74-99) mg/dL POC Glucose (mg/dL) (75-99) mg/dL Calcium (8.4-10.2) mg/dL Ferritin (10.0-291.0) ng/mL AST (14-36) U/L Lactate Dehydrogenase (313-618) U/L C-Reactive Protein (<10.0) mg/L Total Protein (6.3-8.2) g/dL Albumin (3.5-5.0) g/dL Urine Protein (Negative) Urine Ketones (Negative) Thrombosis Risk Factor Assmnt - Choose All That Apply Any of the Below Risk Factors Present?: Yes Each Factor Represents 1 point: Age 41-60 years, Obesity (BMI >25) Thrombosis Risk Factor Assessment Total Risk Factor Score: 2 Thrombosis Risk Factor Assessment Level: Low Risk Assessment and Plan Plan: -Acute hypoxic and hypercapnic respiratory failure secondary to most probably COVID 19 and patient wasn't medically started on hydroxychloroquine patient is also on to make steroids. Patient received a dose of Lasix. Eventually may require IV fluids. Continue with ventilatory support -Sepsis secondary to Covid 19 infection most probably. -History of for gout arthritis -History of multiple mitral valve prolapse -Hyperlipidemia -Gastroesophageal reflux disease -DVT prophylaxis with subcutaneous heparin
--- NOTE | 2019-08-15 12:36 | PCN ---
PROCEDURE NOTE PROCEDURE: Placement of the left radial arterial line. PREOPERATIVE DIAGNOSIS: Acute hypoxic respiratory failure. POSTOPERATIVE DIAGNOSIS: Acute hypoxic respiratory failure. ANESTHESIA USED: None deployed. PROCEDURE DESCRIPTION: The patient was placed in the supine position, the left wrist was prepared in a sterile fashion. Drapes was applied. The left radial artery was palpated, cannulated easily and a guidewire was placed. A Cook catheter was inserted over the guidewire, and the guidewire was removed. Good blood flow and waveform noted, line was secured using 3.0 silk sutures. MMODL / IJN: [id number] /
--- NOTE | 2019-08-15 12:51 | PCN ---
PROCEDURE NOTE OPERATIVE REPORT: Placement of the right femoral arterial line. PREOPERATIVE DIAGNOSIS: Acute hypoxic respiratory failure. POSTOPERATIVE DIAGNOSIS: Acute hypoxic respiratory failure. ANESTHESIA USED: 2 mL of 1% lidocaine. PROCEDURE: The right groin was prepared in a sterile fashion and drapes were applied. The patient was already in a supine position. Then, the right groin was anesthetized with lidocaine. The right femoral vein was cannulated easily, a guidewire was placed. Triple-lumen catheter was inserted over the guidewire, and the guidewire was removed. Good flow was noted in the 3 different ports of the triple-lumen catheter. The line was secured using 3.0 silk sutures. No evidence of any complications. MMODL / IJN: [id number] /
--- NOTE | 2019-08-15 14:00 | P.CNPUL ---
History of Present Illness Consult date: 08/15/19 Reason for consult: pneumonia Chief complaint: Shortness of breath and cough History of present illness: This is a 58-year-old female with history of multiple medical problems including rheumatoid arthritis, degenerative joint disease, mitral valve prolapse, history of uterine cancer. History of dyslipidemia. Depression. Patient was brought into the ER yesterday with a few days' history of increased shortness of breath and cough. Patient has also been complaining of profound fatigue, headache, generalized aches and pains for the last 3 days. Her chest x-ray showed diffuse pneumonitis. Patient required a high flow nasal cannula to barely maintain O2 saturation in the low 90s and she was on 15 L/m via high flow nasal cannula. She was later switched to 100% nonrebreather, remained relatively hypoxic. Randa fernando was having intermittent episodes of cough, and she was noted to be profoundly short of breath. After evaluating the patient today, I felt that the patient is developing severe hypoxic respiratory failure, and I recommended intubation by the anesthesia team since the patient is highly suspicious for covid 19 pneumonitis. Patient was intubated, placed on assist control mode of mechanical ventilation. Rate of 18 tidal volume is 400 FiO2 is 100% and PEEP is 16. After repeat ABG, her FiO2 was decreased down to 50%. And tidal volume was changed to 450. Patient had to be placed on propofol, fentanyl, and Nimbex. She was also already placed on hydroxychloroquine, Zithromax, and on Solu-Medrol at 60 mg IV push every 12 hours. ABG post intubation showed a pO2 of 336 pCO2 of 50 pH of 7.34. Hence her FiO2 was decreased down to 50%. And A PEEP of 16. Inflammatory markers were noted to be elevated including C-reactive protein of 154 LDH 1981 ferritin 303 and no d-dimer was done. Review of Systems Constitutional: Aches and pains and profound weakness for the last 3 days. Plus fever. HEENT: Denies any sore throat, no loss of sensation of smell or taste. Pulmonary: Cough productive with yellow phlegm, and shortness of breath. Cardiac: Denies any orthopnea PND or palpitations. GI: Denies any nausea vomiting abdominal pain melena or hematemesis. Genitourinary: Denies any dysuria frequency urgency or hematuria. Musculoskeletal: Generalized aches and pains. Endocrine: Denies any heat or cold intolerance. Neurologic: Had headaches for the last 3 days, denies any blurred vision or dizziness. Psychiatric: No symptoms of active depression. Hematologic: No clotting bleeding or bruising Skin: No rashes. Past Medical History Past Medical History: Cancer, Mitral Valve Prolapse (MVP), Musculoskeletal Disorder, Osteoarthritis (OA), Rheumatoid Arthritis (RA) Additional Past Medical History / Comment(s): bulging disc w/sciatic pain going down both legs, hx. uterine cancer 2017, ?RA-one says yes, one has said no History of Any Multi-Drug Resistant Organisms: None Reported Past Surgical History: Hysterectomy, Joint Replacement, Tonsillectomy Additional Past Surgical History / Comment(s): rojelio knees replaced, cataracts removed, PAIN CLINIC PROCEDURES Past Anesthesia/Blood Transfusion Reactions: Postoperative Nausea & Vomiting (PONV) Past Psychological History: No Psychological Hx Reported Smoking Status: Former smoker Past Alcohol Use History: None Reported Additional Past Alcohol Use History / Comment(s): quit smoking 16 yrs. ago, smoked <ppd for 20 yrs. Past Drug Use History: None Reported - Past Family History Mother Family Medical History: No Reported History Medications and Allergies Home Medications Medication Instructions Recorded Confirmed Type Atorvastatin [Lipitor] 20 mg PO HS 10/24/18 08/14/19 History HYDROcodone/APAP 7.5-325MG [Holly 1 tab PO BID 10/24/18 08/14/19 History 7.5-325] Pregabalin [Lyrica] 200 mg PO TID 10/24/18 08/14/19 History Diclofenac Sodium [Voltaren] 75 mg PO BID 08/14/19 08/14/19 History Lidocaine 5% Patch [Lidoderm] 1 patch TOPICAL DAILY PRN 08/14/19 08/14/19 History Pantoprazole Sodium [Protonix] 40 mg PO BID 08/14/19 08/14/19 History Ranitidine HCl [Zantac] 150 mg PO BID 08/14/19 08/14/19 History Venlafaxine HCl [Effexor XR] 150 mg PO DAILY 08/14/19 08/14/19 History Allergies Allergy/AdvReac Type Severity Reaction Status Date / Time No Known Allergies Allergy Verified 08/14/19 14:14 Physical Exam Vitals: Vital Signs Temp Pulse Pulse Resp BP BP Pulse Ox 08/15/19 13:00 80 18 96 08/15/19 12:00 98 F 99 18 145/75 96 08/15/19 11:00 76 24 94 L 08/15/19 10:00 98 21 139/76 97 08/15/19 09:00 84 30 H 134/75 92 L 08/15/19 08:00 97.9 F 79 28 H 131/77 90 L 08/15/19 07:00 74 22 136/73 91 L 08/15/19 06:00 76 36 H 125/78 88 L 08/15/19 05:00 73 24 124/62 90 L 08/15/19 04:00 97.7 F 77 16 122/62 90 L 08/15/19 03:00 79 18 123/80 91 L 08/15/19 02:00 74 27 H 127/70 88 L 08/15/19 01:00 71 31 H 113/76 89 L 08/14/19 23:45 97.7 F 78 36 H 118/69 93 L 08/14/19 23:23 68 28 H 08/14/19 23:21 28 H 134/66 89 L 08/14/19 23:01 98.9 F 24 133/62 91 L 08/14/19 22:00 26 H 88 L 08/14/19 21:30 92 L 08/14/19 20:00 98.7 F 22 93 L 08/14/19 19:39 96 08/14/19 18:50 68 26 H 110/69 96 08/14/19 17:47 97.7 F 85 20 95/63 93 L 08/14/19 17:19 67 16 130/87 97 Intake and Output 08/14/19 08/15/19 08/15/19 22:59 06:59 14:59 Intake Total 580 249.629 Output Total 2225 Balance 580 -1975.371 Intake: IV 100 149 0.9 100 140 Pressure Bag 9 Intake, IV Titration 100.629 Amount Cisatracurium 200 mg In 7.235 Sodium Chloride 0.9% 180 ml @ 1 MCG/KG/MIN 7.893 mls/hr IV .Q24H RAYNE Rx#: [id number] Propofol 1,000 mg In 93.394 Empty Bag 1 bag @ Titrate IV .Q0M [facility] Rx#: [id number] Tube Feeding 480 Output: Urine 2225 Other: Voiding Method Bedside Commode Bedside Commode Weight 131.542 kg ABP, PAP, CO, CI - Last 8 Hours Arterial Blood Pressure 124/69 Arterial Blood Pressure 158/103 Arterial Blood Pressure 103/68 Physical Exam: Revealed 58-year-old female, obese, in moderate respiratory distress. Head: Atraumatic normocephalic. Moist mucous membranes. HEENT:[Neck is supple.] [No neck masses.] [No thyromegaly.] [No JVD.] Chest: [Symmetrical chest expansion, crackles at the bases bilaterally. Cardiac Exam: [Normal S1 and S2, no S3 gallop, no murmur.] Abdomen: [Soft, nontender, no megaly, no rebound, no guarding, normal bowel sounds.] Extremities: [No clubbing, no edema, no cyanosis.] Neurological Exam: Alert and oriented 3. No focal neurologic deficit.] Psychiatric: Normal mood, affect and normal mental status examination. Skin: No rashes. Musculoskeletal: No deformities and no limitation in range of motion. Results - Laboratory Findings CBC and BMP: 08/15/19 04:27 08/15/19 04:27 ABG ABG pH 7.34 (7.35-7.45) L 08/15/19 10:18 ABG pCO2 50 mmHg (35-45) H 08/15/19 10:18 ABG pO2 336 mmHg (83-108) H 08/15/19 10:18 ABG O2 Saturation 98.2 % (94-97) H 08/15/19 10:18 PT/INR, D-dimer D-Dimer 0.94 mg/L FEU (<0.60) H 08/14/19 13:38 Abnormal lab findings: Abnormal Labs 08/14/19 08/14/19 08/14/19 13:38 13:38 13:38 Lymphocytes # 0.9 L D-Dimer 0.94 H ABG pH ABG pCO2 ABG pO2 ABG HCO3 ABG Total CO2 ABG O2 Saturation Glucose 105 H POC Glucose (mg/dL) Calcium 8.2 L Ferritin 367.8 H AST 45 H Lactate Dehydrogenase 1789 H C-Reactive Protein Total Protein 5.9 L Albumin 3.2 L Urine Protein Urine Ketones 08/14/19 08/15/19 08/15/19 23:46 00:02 04:27 Lymphocytes # 0.8 L D-Dimer ABG pH ABG pCO2 ABG pO2 80 L ABG HCO3 ABG Total CO2 27 H ABG O2 Saturation Glucose POC Glucose (mg/dL) 106 H Calcium Ferritin AST Lactate Dehydrogenase C-Reactive Protein Total Protein Albumin Urine Protein Urine Ketones 08/15/19 08/15/19 08/15/19 04:27 08:38 09:00 Lymphocytes # D-Dimer ABG pH ABG pCO2 ABG pO2 ABG HCO3 26 H ABG Total CO2 27 H ABG O2 Saturation Glucose 117 H POC Glucose (mg/dL) Calcium 8.0 L Ferritin 303.3 H AST 50 H Lactate Dehydrogenase 1981 H C-Reactive Protein 153.7 H Total Protein 5.5 L Albumin 2.9 L Urine Protein Trace H Urine Ketones 1+ H 08/15/19 10:18 Lymphocytes # D-Dimer ABG pH 7.34 L ABG pCO2 50 H ABG pO2 336 H ABG HCO3 27 H ABG Total CO2 28 H ABG O2 Saturation 98.2 H Glucose POC Glucose (mg/dL) Calcium Ferritin AST Lactate Dehydrogenase C-Reactive Protein Total Protein Albumin Urine Protein Urine Ketones - Diagnostic Findings Chest x-ray: image reviewed (As noted in HPI.) Assessment and Plan Assessment: Impression: Acute hypoxic respiratory failure requiring intubation and mechanical ventilation felt to be secondary to covid 19 pneumonitis unless proven otherwise. Acute hypercapnic respiratory failure secondary to pneumonitis as above. Severe sepsis secondary to pneumonitis. History of gouty arthritis. History of mitral valve prolapse. History of dyslipidemia. History of uterine cancer. History of depression. History of GERD without esophagitis. Recommendation: Continue ventilatory support. Start the nutritional support. GI and DVT prophylaxis. Started the patient on hydroxychloroquine and on low-dose steroids. And Zithromax. Follow inflammatory markers Addressed ventilator settings accordingly and based on the ABG, presently on 50% and PEEP of 16, assist control rate of 18 and tidal volume is 450 Prognosis is guarded. Critical care time is 45 minutes not including time spent on procedures. Time with Patient: Greater than 30
[2019-08-15] MEDS: AZITHROMYCIN 500 MG in SODIUM CHLORIDE 0.9% 250 ML IVPB SCH (15:24)
[2019-08-15] MEDS: HEPARIN SODIUM,PORCINE 5,000 UNIT/ML 1 ML VIAL SQ SCH (15:26)
[2019-08-15] MEDS ORDERED: PANTOPRAZOLE 40 MG TABLET PO SCH ×2 (17:30→21:00)
[2019-08-15] MEDS ORDERED: AZITHROMYCIN 500 MG TAB PO SCH (18:00)
[2019-08-15] MEDS: VENLAFAXINE HCL ER 150 MG CAP PO SCH (20:36)
[2019-08-15] MEDS: ATORVASTATIN 20 MG TAB PO SCH (20:36)
[2019-08-15] MEDS: HYDROXYCHLOROQUINE ORAL SUSP 200 MG/8 ML ORAL.SYRG PO SCH (20:37)
[2019-08-15] MEDS: ARTIFICIAL TEARS OINTMENT 3.5 GM TUBE BOTH EYES SCH (21:47)
[2019-08-16] MEDS: CISATRACURIUM 200 MG in SODIUM CHLORIDE 0.9% 180 ML IV SCH (00:01)
[2019-08-16] MEDS: HEPARIN SODIUM,PORCINE 5,000 UNIT/ML 1 ML VIAL SQ SCH ×4 (00:01→23:43)
[2019-08-16] MEDS: ARTIFICIAL TEARS OINTMENT 3.5 GM TUBE BOTH EYES SCH ×7 (00:04→23:44)
[2019-08-16] MEDS: INSULIN ASPART (NovoLOG) 100 UNIT/ML VIAL SQ SCH ×5 (00:13→23:51)
[2019-08-16 00:14] LABS: Glucose,Whole Blood 186 mg/dL (75-99)
[2019-08-16] MEDS: PROPOFOL 1,000 MG in EMPTY BAG 1 BAG IV SCH ×9 (02:03→23:43)
[2019-08-16] MEDS: ALBUTEROL HFA INHALER INHALATION SCH ×4 (03:40→20:04)
[2019-08-16 05:54] LABS: Glucose,Whole Blood 157 mg/dL (75-99)
[2019-08-16 06:11] LABS: Basophils % (A) 0 %; Eosinophils % (A) 0 %; HCT 39.1 % (34.0-46.0); HGB 12.2 gm/dL (11.4-16.0); Lymphocytes # (A) 0.5 k/uL (1.0-4.8); Lymphocytes % (A) 7 %; MCHC 31.1 g/dL (31.0-37.0); MCV 90.1 fL (80.0-100.0); Monocytes # (A) 0.4 k/uL (0-1.0); Monocytes % (A) 5 %; Neutrophils # (A) 7.1 k/uL (1.3-7.7); Neutrophils % (A) 88 %; Platelet Count 279 k/uL (150-450); RBC 4.34 m/uL (3.80-5.40); RDW 13.9 % (11.5-15.5); WBC 8.1 k/uL (3.8-10.6)
[2019-08-16 06:23] LABS: ALT 14 U/L (4-34); AST 38 U/L (14-36); African American GFR (CKD) >90 (>60 ml/min/1.73 sqM); Alkaline Phosphatase 80 U/L (38-126); Anion Gap 4 mmol/L; Blood Urea Nitrogen 13 mg/dL (7-17); Calcium 8.4 mg/dL (8.4-10.2); Carbon Dioxide 30 mmol/L (22-30); Chloride 105 mmol/L (98-107); Creatine Kinase 44 U/L (30-135); Glucose 157 mg/dL (74-99); LDH 1617 U/L (313-618); Non-African American GFR(CKD) >90 (>60 ml/min/1.73 sqM); Sodium 139 mmol/L (137-145); Total Bilirubin 0.5 mg/dL (0.2-1.3); Total Protein 5.7 g/dL (6.3-8.2)
[2019-08-16 06:49] LABS: C Reactive Protein 212.6 mg/L (<10.0)
--- NOTE | 2019-08-16 07:18 | XR ---
EXAMINATION TYPE: XR chest 1V portable DATE OF EXAM: 08/16/2019 COMPARISON: 08/15/2019 HISTORY: SOB, Follow Up FINDINGS: Endotracheal tube is unchanged. NG tube seen coursing into the stomach. Slight improvement in mixed infiltrates seen throughout both lung milian right greater than left. Stable appearance of the cardio-mediastinal structures at this time. Pleural effusion unchanged. IMPRESSION: 1. Slight improvement in mixed infiltrates seen throughout both lung milian right greater than left.
[2019-08-16 08:02] LABS: ABG Base Excess 3.2 mmol/L; ABG HCO3 29 mmol/L (21-25); ABG Oxygen Saturation 97.1 % (94-97); ABG PCO2 51 mmHg (35-45); ABG PH 7.36 (7.35-7.45); ABG PO2 116 mmHg (83-108); ABG TCO2 30 mmol/L (19-24)
[2019-08-16 08:04] LABS: Allen Test Performed? no
[2019-08-16] MEDS: methylPREDNISolone SOD SUCCI 125 MG/2 ML VIAL IV SCH ×2 (08:38→21:19)
[2019-08-16] MEDS: PANTOPRAZOLE 40 MG/10 ML VIAL IVP SCH (08:38)
[2019-08-16] MEDS: AZITHROMYCIN 500 MG in SODIUM CHLORIDE 0.9% 250 ML IVPB SCH (08:39)
[2019-08-16] MEDS: PREGABALIN 100 MG CAP PO SCH ×3 (08:40→21:21)
[2019-08-16] MEDS: HYDROXYCHLOROQUINE ORAL SUSP 200 MG/8 ML ORAL.SYRG PO SCH ×2 (08:42→21:20)
[2019-08-16] MEDS: fentaNYL (PF) 1,000 MCG in SODIUM CHLORIDE 0.9% 80 ML IV SCH ×3 (09:47→22:18)
[2019-08-16] MEDS: ZINC SULFATE 220 MG CAP PO SCH (10:05)
--- NOTE | 2019-08-16 11:41 | P.PN ---
Subjective Patient is a 58-year-old female admitted for acute respiratory failure secondary to COVID 19 pneumonia, patient remains intubated patient PEEP is presently 15 FiO2 of 40% set up respiratory rate 18 breathing the or the ventilator tidal volume of 450. Patient remains on paralytic agents and sedatives. Patient the is positive for Covid 19. Patient is being evaluated for biologic agents which are interleukin-6 antagonists Tocilizumab. Review of systems: Unable to obtain due to her clinical condition All inpatient medications were reviewed and appropriate changes in these medications as dictated in the interval history and assessment and plan. Objective - Vital Signs Vital signs: Vital Signs Temp 98 F 08/16/19 08:00 Pulse 58 L 08/16/19 11:00 Resp 18 08/16/19 11:00 BP 121/80 08/15/19 23:00 Pulse Ox 95 08/16/19 11:00 Intake & Output 08/15/19 08/16/19 08/16/19 18:59 06:59 18:59 Intake Total 714.629 753.478 736.520 Output Total 2690 605 170 Balance -1975.371 148.478 566.520 Weight 131.542 kg 135 kg 135 kg Intake: IV 514 276 365 0.9 240 240 100 Azithromycin 500 mg In 250 250 Sodium Chloride 0.9% 250 ml @ 250 mls/hr IVPB DAILY [facility] Rx#:[id number] Pressure Bag 24 36 15 Intake, IV Titration 200.629 477.478 311.520 Amount Cisatracurium 200 mg In 7.235 192.765 119.967 Sodium Chloride 0.9% 180 ml @ 1 MCG/KG/MIN 7.893 mls/hr IV .Q24H [facility] Rx#: [id number] Propofol 1,000 mg In 193.394 284.713 191.553 Empty Bag 1 bag @ Titrate IV .Q0M [facility] Rx#: [id number] Tube Feeding 20 Other 40 Output: Urine 2690 605 170 Other: Voiding Method Indwelling Catheter Indwelling Catheter Indwelling Catheter ABP, PAP, CO, CI - Last Documented Arterial Blood Pressure 103/52 - Exam PHYSICAL EXAMINATION: GENERAL: Patient is intubated sedated, obese HEENT: Pupils are round and equally reacting to light. EOMI. No scleral icterus. No conjunctival pallor. Normocephalic, atraumatic. No pharyngeal erythema. No thyromegaly. CARDIOVASCULAR: S1 and S2 present. No murmurs, rubs, or gallops. PULMONARY: Crackles in the bases ABDOMEN: Soft, nontender, nondistended, normoactive bowel sounds. No palpable organomegaly. MUSCULOSKELETAL: No joint swelling or deformity. EXTREMITIES: No cyanosis, clubbing, or pedal edema. NEUROLOGICAL: Sedated and please refer to nursing staff documentation for level of sedation SKIN: No rashes. - Labs CBC & Chem 7: 08/16/19 05:48 08/16/19 05:48 Labs: Abnormal Lab Results - Last 24 Hours (Table) 08/14/19 08/16/19 08/16/19 Range/Units 14:30 00:12 05:48 Lymphocytes # 0.5 L (1.0-4.8) k/uL D-Dimer (<0.60) mg/L FEU ABG pCO2 (35-45) mmHg ABG pO2 (83-108) mmHg ABG HCO3 (21-25) mmol/L ABG Total CO2 (19-24) mmol/L ABG O2 Saturation (94-97) % Glucose (74-99) mg/dL POC Glucose (mg/dL) 186 H (75-99) mg/dL AST (14-36) U/L Lactate Dehydrogenase (313-618) U/L C-Reactive Protein (<10.0) mg/L Total Protein (6.3-8.2) g/dL Albumin (3.5-5.0) g/dL Coronavirus (PCR) Detected H (Not Detected) 08/16/19 08/16/19 08/16/19 Range/Units 05:48 05:48 05:53 Lymphocytes # (1.0-4.8) k/uL D-Dimer 14.15 H (<0.60) mg/L FEU ABG pCO2 (35-45) mmHg ABG pO2 (83-108) mmHg ABG HCO3 (21-25) mmol/L ABG Total CO2 (19-24) mmol/L ABG O2 Saturation (94-97) % Glucose 157 H (74-99) mg/dL POC Glucose (mg/dL) 157 H (75-99) mg/dL AST 38 H (14-36) U/L Lactate Dehydrogenase 1617 H (313-618) U/L C-Reactive Protein 212.6 H (<10.0) mg/L Total Protein 5.7 L (6.3-8.2) g/dL Albumin 3.0 L (3.5-5.0) g/dL Coronavirus (PCR) (Not Detected) 08/16/19 Range/Units 08:00 Lymphocytes # (1.0-4.8) k/uL D-Dimer (<0.60) mg/L FEU ABG pCO2 51 H (35-45) mmHg ABG pO2 116 H (83-108) mmHg ABG HCO3 29 H (21-25) mmol/L ABG Total CO2 30 H (19-24) mmol/L ABG O2 Saturation 97.1 H (94-97) % Glucose (74-99) mg/dL POC Glucose (mg/dL) (75-99) mg/dL AST (14-36) U/L Lactate Dehydrogenase (313-618) U/L C-Reactive Protein (<10.0) mg/L Total Protein (6.3-8.2) g/dL Albumin (3.5-5.0) g/dL Coronavirus (PCR) (Not Detected) Microbiology - Last 24 Hours (Table) 08/14/19 13:38 Blood Culture - Preliminary Blood No Growth after 24 hours Assessment and Plan Plan: -Acute hypoxic and hypercapnic respiratory failure secondary to COVID 19 pneumonia and patient is on hydroxychloroquine patient is also on to make steroids. Patient received a dose of Lasix. Patient is also being evaluated for Tocilizumab, a monoclonal antibody for interleukin-6 receptor. Continue with ventilatory support -Sepsis secondary to Covid 19 infection . -History of for gout arthritis -History of multiple mitral valve prolapse -Hyperlipidemia -Gastroesophageal reflux disease -DVT prophylaxis with subcutaneous heparin
[2019-08-16 11:43] LABS: Glucose,Whole Blood 159 mg/dL (75-99)
--- NOTE | 2019-08-16 12:59 | P.PN ---
Subjective Progress Note Date: 08/16/19 Principal diagnosis: Acute hypoxic respiratory failure secondary to covid 19 pneumonitis This is a 58-year-old female with history of multiple medical problems including rheumatoid arthritis, degenerative joint disease, mitral valve prolapse, history of uterine cancer. History of dyslipidemia. Depression. Patient was brought into the ER yesterday with a few days' history of increased shortness of breath and cough. Patient has also been complaining of profound fatigue, headache, generalized aches and pains for the last 3 days. Her chest x-ray showed diffuse pneumonitis. Patient required a high flow nasal cannula to barely maintain O2 saturation in the low 90s and she was on 15 L/m via high flow nasal cannula. She was later switched to 100% nonrebreather, remained relatively hypoxic. Patient was having intermittent episodes of cough, and she was noted to be prof oundly short of breath. After evaluating the patient today, I felt that the patient is developing severe hypoxic respiratory failure, and I recommended intubation by the anesthesia team since the patient is highly suspicious for covid 19 pneumonitis. Patient was intubated, placed on assist control mode of mechanical ventilation. Rate of 18 tidal volume is 400 FiO2 is 100% and PEEP is 16. After repeat ABG, her FiO2 was decreased down to 50%. And tidal volume was changed to 450. Patient had to be placed on propofol, fentanyl, and Nimbex. She was also already placed on hydroxychloroquine, Zithromax, and on Solu-Medrol at 60 mg IV push every 12 hours. ABG post intubation showed a pO2 of 336 pCO2 of 50 pH of 7.34. Hence her FiO2 was decreased down to 50%. And A PEEP of 16. Inflammatory markers were noted to be elevated including C-reactive protein of 154 LDH 1981 ferritin 303 and no d-dimer was done. Patient was reevaluated today on 08/16/19, patient is positive for covid 19, betsy ins on mechanical ventilation, presently in the ICU. She is presently on multiple drips including propofol at 50 mcg/kg/h, she is also on fentanyl, and on Nimbex. I plan to discontinue Nimbex today, and continue to sedate the patient with fentanyl and the prevent. Her ventilator settings today are assist control rate of 18 tidal volume is 450 FiO2 is 45% PEEP is 16, and I cut it down to 14. Her peak airway pressure is 29 and her plateau pressure is 26. FiO2 was cut down to 45% yesterday. ABG today showed a pO2 of 116 pCO2 of 51 pH of 7.36. Basic metabolic profile is normal, renal profile is normal. Inflammatory markers including C-reactive protein is 212 LDH is 1617 and d-dimer is 14.5. Interleukin-6 was ordered, will decide whether the patient could qualify for actemra, so far she doesn't. PaO2/FiO2 is 257 Objective - Vital Signs Vital signs: Vital Signs Temp 97.8 F 08/16/19 12:00 Pulse 62 08/16/19 12:00 Resp 18 08/16/19 12:00 BP 121/80 08/15/19 23:00 Pulse Ox 95 08/16/19 12:00 Intake & Output 08/15/19 08/16/19 08/16/19 18:59 06:59 18:59 Intake Total 714.629 753.478 799.520 Output Total 2690 605 215 Balance -1975.371 148.478 584.520 Weight 131.542 kg 135 kg 135 kg Intake: IV 514 276 388 0.9 240 240 120 Azithromycin 500 mg In 250 250 Sodium Chloride 0.9% 250 ml @ 250 mls/hr IVPB DAILY [facility] Rx#:[id number] Pressure Bag 24 36 18 Intake, IV Titration 200.629 477.478 311.520 Amount Cisatracurium 200 mg In 7.235 192.765 119.967 Sodium Chloride 0.9% 180 ml @ 1 MCG/KG/MIN 7.893 mls/hr IV .Q24H [facility] Rx#: [id number] Propofol 1,000 mg In 193.394 284.713 191.553 Empty Bag 1 bag @ Titrate IV .Q0M [facility] Rx#: [id number] Tube Feeding 30 Other 70 Output: Urine 2690 605 215 Other: Voiding Method Indwelling Catheter Indwelling Catheter Indwelling Catheter ABP, PAP, CO, CI - Last Documented Arterial Blood Pressure 112/54 - Exam Physical Exam: Revealed 58-year-old female, obese, on mechanical ventilation, sedated. Head: Atraumatic normocephalic. Moist mucous membranes. Endotracheal tube and orogastric tube are intact HEENT:[Neck is supple.] [No neck masses.] [No thyromegaly.] [No JVD.] Chest: [Symmetrical chest expansion, crackles at the bases bilaterally. Cardiac Exam: [Normal S1 and S2, no S3 gallop, no murmur.] Abdomen: [Soft, nontender, no megaly, no rebound, no guarding, normal bowel sounds.] Extremities: [No clubbing, no edema, no cyanosis.] Neurological Exam: Sedated, on propofol, and on Nimbex, cannot be assessed. Psychiatric: Cannot be assessed. Skin: No rashes. Musculoskeletal: No deformities - Labs CBC & Chem 7: 08/16/19 05:48 08/16/19 05:48 Labs: Abnormal Lab Results - Last 24 Hours (Table) 08/14/19 08/16/19 08/16/19 Range/Units 14:30 00:12 05:48 Lymphocytes # 0.5 L (1.0-4.8) k/uL D-Dimer (<0.60) mg/L FEU ABG pCO2 (35-45) mmHg ABG pO2 (83-108) mmHg ABG HCO3 (21-25) mmol/L ABG Total CO2 (19-24) mmol/L ABG O2 Saturation (94-97) % Glucose (74-99) mg/dL POC Glucose (mg/dL) 186 H (75-99) mg/dL AST (14-36) U/L Lactate Dehydrogenase (313-618) U/L C-Reactive Protein (<10.0) mg/L Total Protein (6.3-8.2) g/dL Albumin (3.5-5.0) g/dL Coronavirus (PCR) Detected H (Not Detected) 08/16/19 08/16/19 08/16/19 Range/Units 05:48 05:48 05:53 Lymphocytes # (1.0-4.8) k/uL D-Dimer 14.15 H (<0.60) mg/L FEU ABG pCO2 (35-45) mmHg ABG pO2 (83-108) mmHg ABG HCO3 (21-25) mmol/L ABG Total CO2 (19-24) mmol/L ABG O2 Saturation (94-97) % Glucose 157 H (74-99) mg/dL POC Glucose (mg/dL) 157 H (75-99) mg/dL AST 38 H (14-36) U/L Lactate Dehydrogenase 1617 H (313-618) U/L C-Reactive Protein 212.6 H (<10.0) mg/L Total Protein 5.7 L (6.3-8.2) g/dL Albumin 3.0 L (3.5-5.0) g/dL Coronavirus (PCR) (Not Detected) 08/16/19 08/16/19 Range/Units 08:00 11:43 Lymphocytes # (1.0-4.8) k/uL D-Dimer (<0.60) mg/L FEU ABG pCO2 51 H (35-45) mmHg ABG pO2 116 H (83-108) mmHg ABG HCO3 29 H (21-25) mmol/L ABG Total CO2 30 H (19-24) mmol/L ABG O2 Saturation 97.1 H (94-97) % Glucose (74-99) mg/dL POC Glucose (mg/dL) 159 H (75-99) mg/dL AST (14-36) U/L Lactate Dehydrogenase (313-618) U/L C-Reactive Protein (<10.0) mg/L Total Protein (6.3-8.2) g/dL Albumin (3.5-5.0) g/dL Coronavirus (PCR) (Not Detected) Microbiology - Last 24 Hours (Table) 08/14/19 13:38 Blood Culture - Preliminary Blood No Growth after 24 hours Assessment and Plan Assessment: Impression: Acute hypoxic respiratory failure requiring intubation and mechanical ventilation secondary to covid 19 pneumonitis Acute hypercapnic respiratory failure secondary to pneumonitis as above. Severe sepsis secondary to pneumonitis. History of gouty arthritis. History of mitral valve prolapse. History of dyslipidemia. History of uterine cancer. History of depression. History of GERD without esophagitis. Recommendation: Continue ventilatory support. Consider stopping Nimbex and replace it with fentanyl. Continue propofol. Decrease PEEP to 14. FiO2 at 45%. Start enteral feeding today. GI and DVT prophylaxis. Continue hydroxychloroquine and on low-dose steroids. Zithromax Follow inflammatory markers ordered interleukin-6 level. Prognosis is guarded. Critical care time is 35minutes Time with Patient: Greater than 30
[2019-08-16 15:47] LABS: Ferritin 363.6 ng/mL (10.0-291.0)
[2019-08-16 18:02] LABS: Glucose,Whole Blood 154 mg/dL (75-99)
[2019-08-16] MEDS: CHLORHEXIDINE GLUCONATE 15 ML CUP MUCOUS MEM SCH (21:20)
[2019-08-16] MEDS: ATORVASTATIN 20 MG TAB PO SCH (21:20)
[2019-08-16] MEDS: VENLAFAXINE HCL ER 150 MG CAP PO SCH (22:18)
[2019-08-16 23:49] LABS: Glucose,Whole Blood 170 mg/dL (75-99)
[2019-08-17] MEDS: PROPOFOL 1,000 MG in EMPTY BAG 1 BAG IV SCH ×11 (02:32→22:06)
[2019-08-17] MEDS: ALBUTEROL HFA INHALER INHALATION SCH ×4 (03:28→21:16)
[2019-08-17] MEDS: ARTIFICIAL TEARS OINTMENT 3.5 GM TUBE BOTH EYES SCH ×5 (03:57→22:24)
[2019-08-17 04:45] LABS: Basophils % (A) 0 %; Eosinophils % (A) 0 %; HCT 36.1 % (34.0-46.0); HGB 11.5 gm/dL (11.4-16.0); Lymphocytes # (A) 0.6 k/uL (1.0-4.8); Lymphocytes % (A) 7 %; MCH 28.6 pg (25.0-35.0); MCHC 31.7 g/dL (31.0-37.0); Mean Platelet Volume 7.8; Monocytes # (A) 0.4 k/uL (0-1.0); Monocytes % (A) 4 %; Neutrophils # (A) 7.6 k/uL (1.3-7.7); Neutrophils % (A) 87 %; Platelet Count 360 k/uL (150-450); RBC 4.01 m/uL (3.80-5.40); WBC 8.7 k/uL (3.8-10.6)
[2019-08-17 04:56] LABS: Anion Gap 3 mmol/L; Blood Urea Nitrogen 18 mg/dL (7-17); Carbon Dioxide 31 mmol/L (22-30); Chloride 104 mmol/L (98-107); Glucose 175 mg/dL (74-99); Potassium 4.2 mmol/L (3.5-5.1); Sodium 138 mmol/L (137-145)
[2019-08-17 04:57] LABS: ALT 13 U/L (4-34); AST 26 U/L (14-36); African American GFR (CKD) >90 (>60 ml/min/1.73 sqM); Albumin 2.8 g/dL (3.5-5.0); Alkaline Phosphatase 74 U/L (38-126); C Reactive Protein 84.7 mg/L (<10.0); Calcium 8.5 mg/dL (8.4-10.2); Creatine Kinase 37 U/L (30-135); LDH 1141 U/L (313-618); Non-African American GFR(CKD) >90 (>60 ml/min/1.73 sqM); Total Bilirubin 0.4 mg/dL (0.2-1.3); Total Protein 5.4 g/dL (6.3-8.2)
[2019-08-17 05:37] LABS: Glucose,Whole Blood 176 mg/dL (75-99)
[2019-08-17] MEDS: fentaNYL (PF) 1,000 MCG in SODIUM CHLORIDE 0.9% 80 ML IV SCH ×3 (05:37→21:25)
[2019-08-17] MEDS: INSULIN ASPART (NovoLOG) 100 UNIT/ML VIAL SQ SCH ×3 (05:41→18:02)
[2019-08-17 07:31] LABS: ABG Base Excess 4.3 mmol/L; ABG HCO3 29 mmol/L (21-25); ABG Oxygen Saturation 95.7 % (94-97); ABG PCO2 47 mmHg (35-45); ABG PO2 86 mmHg (83-108); ABG TCO2 31 mmol/L (19-24)
[2019-08-17 07:33] LABS: Allen Test Performed? no
--- NOTE | 2019-08-17 08:00 | XR ---
EXAMINATION TYPE: XR chest 1V portable DATE OF EXAM: 08/17/2019 COMPARISON: 08/16/2019 INDICATION: Tube placement TECHNIQUE: Single frontal view of the chest is obtained. FINDINGS: The heart size is normal. The pulmonary vasculature is prominent. Diffuse increased lung markings are present bilaterally. Endotracheal tube tip is above the genie. Nasogastric tube transverses the thorax. IMPRESSION: 1. Diffuse increased lung markings bilaterally essentially stable 2. Lines catheters discussed above.
[2019-08-17] MEDS: AZITHROMYCIN 500 MG in SODIUM CHLORIDE 0.9% 250 ML IVPB SCH (09:05)
[2019-08-17] MEDS: PANTOPRAZOLE 40 MG/10 ML VIAL IVP SCH (09:06)
[2019-08-17] MEDS: ZINC SULFATE 220 MG CAP PO SCH (09:06)
[2019-08-17] MEDS: PREGABALIN 100 MG CAP PO SCH ×3 (09:06→19:49)
[2019-08-17] MEDS: methylPREDNISolone SOD SUCCI 125 MG/2 ML VIAL IV SCH ×2 (09:08→19:48)
[2019-08-17] MEDS: HYDROXYCHLOROQUINE ORAL SUSP 200 MG/8 ML ORAL.SYRG PO SCH ×2 (09:08→22:06)
[2019-08-17] MEDS: HEPARIN SODIUM,PORCINE 5,000 UNIT/ML 1 ML VIAL SQ SCH ×3 (09:08→23:55)
[2019-08-17] MEDS: CHLORHEXIDINE GLUCONATE 15 ML CUP MUCOUS MEM SCH ×2 (09:09→19:50)
--- NOTE | 2019-08-17 10:56 | P.PN ---
Subjective Patient is a 58-year-old female admitted for acute respiratory failure secondary to COVID 19 pneumonia, patient remains intubated patient PEEP is presently 15 FiO2 of 40% set up respiratory rate 18 breathing the or the ventilator tidal volume of 450. Patient remains on paralytic agents and sedatives. Patient the is positive for Covid 19. Patient is being evaluated for biologic agents which are interleukin-6 antagonists Tocilizumab. 08/17/2019 Patient's IL 6 levels are still pending a pulmonary is recommending a low-dose of systemic steroids. Patient is presently on PEEP of 10 and FiO2 of 45%, patient is not undergoing weaning trial today. Set up respiratory of 18 patient is breathing over the ventilator patient is on high-dose of sedatives Review of systems: Unable to obtain due to her clinical condition All inpatient medications were reviewed and appropriate changes in these medications as dictated in the interval history and assessment and plan. Objective - Vital Signs Vital signs: Vital Signs Temp 99.1 F 08/17/19 09:00 Pulse 55 L 08/17/19 09:00 Resp 18 08/17/19 09:00 BP 99/57 08/16/19 19:00 Pulse Ox 94 L 08/17/19 09:00 Intake & Output 08/16/19 08/17/19 08/17/19 18:59 06:59 18:59 Intake Total 0492.922 5305.350 232.45 Output Total 445 378 70 Balance 943.620 707.350 162.45 Weight 135 kg 135 kg Intake: IV 526 276 46 0.9 240 240 40 Azithromycin 500 mg In 250 Sodium Chloride 0.9% 250 ml @ 250 mls/hr IVPB DAILY [facility] Rx#:[id number] Pressure Bag 36 36 6 Intake, IV Titration 662.620 589.350 136.45 Amount Cisatracurium 200 mg In 119.967 Sodium Chloride 0.9% 180 ml @ 1 MCG/KG/MIN 7.893 mls/hr IV .Q24H [facility] Rx#: [id number] Propofol 1,000 mg In 469.078 395.175 136.45 Empty Bag 1 bag @ Titrate IV .Q0M [facility] Rx#: [id number] fentaNYL (PF) 1,000 mcg 73.575 194.175 In Sodium Chloride 0.9% 80 ml @ 1 MCG/KG/HR 13.5 mls/hr IV .Q7H25M [facility] Rx# :[id number] Tube Feeding 100 160 20 Other 100 60 30 Output: Urine 445 378 70 Other: Voiding Method Indwelling Catheter Indwelling Catheter ABP, PAP, CO, CI - Last Documented Arterial Blood Pressure 112/56 - Exam PHYSICAL EXAMINATION: GENERAL: Patient is intubated sedated, obese HEENT: Pupils are round and equally reacting to light. EOMI. No scleral icterus. No conjunctival pallor. Normocephalic, atraumatic. No pharyngeal erythema. No thyromegaly. CARDIOVASCULAR: S1 and S2 present. No murmurs, rubs, or gallops. PULMONARY: Crackles in the bases ABDOMEN: Soft, nontender, nondistended, normoactive bowel sounds. No palpable organomegaly. MUSCULOSKELETAL: No joint swelling or deformity. EXTREMITIES: No cyanosis, clubbing, or pedal edema. NEUROLOGICAL: Sedated and please refer to nursing staff documentation for level of sedation SKIN: No rashes. - Labs CBC & Chem 7: 08/17/19 04:00 08/17/19 04:00 Labs: Abnormal Lab Results - Last 24 Hours (Table) 08/16/19 08/16/19 08/16/19 Range/Units 05:48 11:43 18:01 Lymphocytes # (1.0-4.8) k/uL ABG pCO2 (35-45) mmHg ABG HCO3 (21-25) mmol/L ABG Total CO2 (19-24) mmol/L Carbon Dioxide (22-30) mmol/L BUN (7-17) mg/dL Glucose (74-99) mg/dL POC Glucose (mg/dL) 159 H 154 H (75-99) mg/dL Ferritin 363.6 H (10.0-291.0) ng/mL Lactate Dehydrogenase (313-618) U/L C-Reactive Protein (<10.0) mg/L Total Protein (6.3-8.2) g/dL Albumin (3.5-5.0) g/dL 08/16/19 08/17/19 08/17/19 Range/Units 23:47 04:00 04:00 Lymphocytes # 0.6 L (1.0-4.8) k/uL ABG pCO2 (35-45) mmHg ABG HCO3 (21-25) mmol/L ABG Total CO2 (19-24) mmol/L Carbon Dioxide 31 H (22-30) mmol/L BUN 18 H (7-17) mg/dL Glucose 175 H (74-99) mg/dL POC Glucose (mg/dL) 170 H (75-99) mg/dL Ferritin (10.0-291.0) ng/mL Lactate Dehydrogenase 1141 H (313-618) U/L C-Reactive Protein 84.7 H (<10.0) mg/L Total Protein 5.4 L (6.3-8.2) g/dL Albumin 2.8 L (3.5-5.0) g/dL 08/17/19 08/17/19 Range/Units 05:35 07:27 Lymphocytes # (1.0-4.8) k/uL ABG pCO2 47 H (35-45) mmHg ABG HCO3 29 H (21-25) mmol/L ABG Total CO2 31 H (19-24) mmol/L Carbon Dioxide (22-30) mmol/L BUN (7-17) mg/dL Glucose (74-99) mg/dL POC Glucose (mg/dL) 176 H (75-99) mg/dL Ferritin (10.0-291.0) ng/mL Lactate Dehydrogenase (313-618) U/L C-Reactive Protein (<10.0) mg/L Total Protein (6.3-8.2) g/dL Albumin (3.5-5.0) g/dL Microbiology - Last 24 Hours (Table) 08/14/19 13:38 Blood Culture - Preliminary Blood No Growth after 48 hours Assessment and Plan Plan: -Acute hypoxic and hypercapnic respiratory failure secondary to COVID 19 pneumonia and patient is on hydroxychloroquine patient is also on to systemic steroids. Patient is also being evaluated for Tocilizumab, interleukin-6 receptor antagonist. Continue with ventilatory support. Patient has elevated highly elevated d-dimer which is expected in Covid 19 infection -Sepsis secondary to Covid 19 infection . -History of for gout arthritis -History of multiple mitral valve prolapse -Hyperlipidemia -Gastroesophageal reflux disease -DVT prophylaxis with subcutaneous heparin
[2019-08-17 11:33] LABS: Ferritin 454.7 ng/mL (10.0-291.0)
[2019-08-17 11:41] LABS: Glucose,Whole Blood 179 mg/dL (75-99)
--- NOTE | 2019-08-17 12:40 | P.PN ---
Subjective Progress Note Date: 08/17/19 Principal diagnosis: Acute hypoxic respiratory failure secondary to covid 19 pneumonitis This is a 58-year-old female with history of multiple medical problems including rheumatoid arthritis, degenerative joint disease, mitral valve prolapse, history of uterine cancer. History of dyslipidemia. Depression. Patient was brought into the ER yesterday with a few days' history of increased shortness of breath and cough. Patient has also been complaining of profound fatigue, headache, generalized aches and pains for the last 3 days. Her chest x-ray showed diffuse pneumonitis. Patient required a high flow nasal cannula to barely maintain O2 saturation in the low 90s and she was on 15 L/m via high flow nasal cannula. She was later switched to 100% nonrebreather, remained relatively hypoxic. Patient was having intermittent episodes of cough, and she was noted to be prof oundly short of breath. After evaluating the patient today, I felt that the patient is developing severe hypoxic respiratory failure, and I recommended intubation by the anesthesia team since the patient is highly suspicious for covid 19 pneumonitis. Patient was intubated, placed on assist control mode of mechanical ventilation. Rate of 18 tidal volume is 400 FiO2 is 100% and PEEP is 16. After repeat ABG, her FiO2 was decreased down to 50%. And tidal volume was changed to 450. Patient had to be placed on propofol, fentanyl, and Nimbex. She was also already placed on hydroxychloroquine, Zithromax, and on Solu-Medrol at 60 mg IV push every 12 hours. ABG post intubation showed a pO2 of 336 pCO2 of 50 pH of 7.34. Hence her FiO2 was decreased down to 50%. And A PEEP of 16. Inflammatory markers were noted to be elevated including C-reactive protein of 154 LDH 1981 ferritin 303 and no d-dimer was done. Patient was reevaluated today on 08/16/19, patient is positive for covid 19, betsy ins on mechanical ventilation, presently in the ICU. She is presently on multiple drips including propofol at 50 mcg/kg/h, she is also on fentanyl, and on Nimbex. I plan to discontinue Nimbex today, and continue to sedate the patient with fentanyl and the prevent. Her ventilator settings today are assist control rate of 18 tidal volume is 450 FiO2 is 45% PEEP is 16, and I cut it down to 14. Her peak airway pressure is 29 and her plateau pressure is 26. FiO2 was cut down to 45% yesterday. ABG today showed a pO2 of 116 pCO2 of 51 pH of 7.36. Basic metabolic profile is normal, renal profile is normal. Inflammatory markers including C-reactive protein is 212 LDH is 1617 and d-dimer is 14.5. Interleukin-6 was ordered, will decide whether the patient could qualify for actemra, so far she doesn't. PaO2/FiO2 is 257 Reevaluated today on 08/17/19, patient remains in the ICU, intubated and mechanically ventilated. Her ventilator settings are assist control rate of 18 tidal volume is 450 FiO2 is 45% PEEP is 14. Patient is on propofol at 60 mcg/kg/m, and she is also on fentanyl at 20 mcg/kg/h. Continues to have low- grade fever with a temp of 99.1. Chest x-ray is showing slight improvement in her interstitial infiltrates. Hence I was able to decrease the PEEP down to 10, however if she desaturates the patient is to have a PEEP increased back to 14, and continue FiO2 anywhere between 45-50%. ABG today on FiO2 of 45% and PEEP of 14 showed a pO2 of 86 pCO2 of 47 pH of 7.40. WBC count is 8.7 hemoglobin is 11.5. Electrolytes and renal profile are normal. Ferritin is 454 LDH is 1141 C-reactive protein is 84.7. Objective - Vital Signs Vital signs: Vital Signs Temp 98.3 F 08/17/19 12:00 Pulse 65 08/17/19 12:00 Resp 18 08/17/19 12:00 BP 99/57 08/17/19 12:00 Pulse Ox 90 L 08/17/19 12:00 Intake & Output 08/16/19 08/17/19 08/17/19 18:59 06:59 18:59 Intake Total 3807.867 4445.350 633.425 Output Total 445 378 160 Balance 943.620 707.350 473.425 Weight 135 kg 135 kg Intake: IV 526 276 138 0.9 240 240 120 Azithromycin 500 mg In 250 Sodium Chloride 0.9% 250 ml @ 250 mls/hr IVPB DAILY [facility] Rx#:[id number] Pressure Bag 36 36 18 Intake, IV Titration 662.620 589.350 215.425 Amount Cisatracurium 200 mg In 119.967 Sodium Chloride 0.9% 180 ml @ 1 MCG/KG/MIN 7.893 mls/hr IV .Q24H [facility] Rx#: [id number] Propofol 1,000 mg In 469.078 395.175 215.425 Empty Bag 1 bag @ Titrate IV .Q0M [facility] Rx#: [id number] fentaNYL (PF) 1,000 mcg 73.575 194.175 In Sodium Chloride 0.9% 80 ml @ 1 MCG/KG/HR 13.5 mls/hr IV .Q7H25M [facility] Rx# :[id number] Oral 100 Tube Feeding 100 160 120 Blood Product 30 Other 100 60 30 Output: Urine 445 378 160 Other: Voiding Method Indwelling Catheter Indwelling Catheter ABP, PAP, CO, CI - Last Documented Arterial Blood Pressure 129/66 - Exam Physical Exam: Revealed 58-year-old female, obese, on mechanical ventilation, seems to be arousable when propofol was on hold, and the patient was biting on her endotracheal tube. Hence she had to be given a bolus dose of propofol to prevent biting on the tube Head: Atraumatic normocephalic. Moist mucous membranes. Endotracheal tube and orogastric tube are intact HEENT:[Neck is supple.] [No neck masses.] [No thyromegaly.] [No JVD.] Chest: [Symmetrical chest expansion, crackles at the bases bilaterally. Cardiac Exam: [Normal S1 and S2, no S3 gallop, no murmur.] Abdomen: [Soft, nontender, no megaly, no rebound, no guarding, normal bowel sounds.] Extremities: [No clubbing, no edema, no cyanosis.] Neurological Exam: Arousable but extremely agitated required a bolus dose of propofol. Psychiatric: Agitated Skin: No rashes. Musculoskeletal: No deformities - Labs CBC & Chem 7: 08/17/19 04:00 08/17/19 04:00 Labs: Abnormal Lab Results - Last 24 Hours (Table) 08/16/19 08/16/19 08/16/19 Range/Units 05:48 18:01 23:47 Lymphocytes # (1.0-4.8) k/uL ABG pCO2 (35-45) mmHg ABG HCO3 (21-25) mmol/L ABG Total CO2 (19-24) mmol/L Carbon Dioxide (22-30) mmol/L BUN (7-17) mg/dL Glucose (74-99) mg/dL POC Glucose (mg/dL) 154 H 170 H (75-99) mg/dL Ferritin 363.6 H (10.0-291.0) ng/mL Lactate Dehydrogenase (313-618) U/L C-Reactive Protein (<10.0) mg/L Total Protein (6.3-8.2) g/dL Albumin (3.5-5.0) g/dL 08/17/19 08/17/19 08/17/19 Range/Units 04:00 04:00 05:35 Lymphocytes # 0.6 L (1.0-4.8) k/uL ABG pCO2 (35-45) mmHg ABG HCO3 (21-25) mmol/L ABG Total CO2 (19-24) mmol/L Carbon Dioxide 31 H (22-30) mmol/L BUN 18 H (7-17) mg/dL Glucose 175 H (74-99) mg/dL POC Glucose (mg/dL) 176 H (75-99) mg/dL Ferritin 454.7 H (10.0-291.0) ng/mL Lactate Dehydrogenase 1141 H (313-618) U/L C-Reactive Protein 84.7 H (<10.0) mg/L Total Protein 5.4 L (6.3-8.2) g/dL Albumin 2.8 L (3.5-5.0) g/dL 08/17/19 08/17/19 Range/Units 07:27 11:38 Lymphocytes # (1.0-4.8) k/uL ABG pCO2 47 H (35-45) mmHg ABG HCO3 29 H (21-25) mmol/L ABG Total CO2 31 H (19-24) mmol/L Carbon Dioxide (22-30) mmol/L BUN (7-17) mg/dL Glucose (74-99) mg/dL POC Glucose (mg/dL) 179 H (75-99) mg/dL Ferritin (10.0-291.0) ng/mL Lactate Dehydrogenase (313-618) U/L C-Reactive Protein (<10.0) mg/L Total Protein (6.3-8.2) g/dL Albumin (3.5-5.0) g/dL Microbiology - Last 24 Hours (Table) 08/14/19 13:38 Blood Culture - Preliminary Blood No Growth after 48 hours Assessment and Plan Assessment: Impression: Acute hypoxic respiratory failure requiring intubation and mechanical ventilation secondary to covid 19 pneumonitis Acute hypercapnic respiratory failure secondary to pneumonitis as above. Severe sepsis secondary to pneumonitis. History of gouty arthritis. History of mitral valve prolapse. History of dyslipidemia. History of uterine cancer. History of depression. History of GERD without esophagitis. Recommendation: Continue ventilatory support. Adjust PEEP and FiO2 accordingly. Continue propofol and fentanyl. Keep patient off Nimbex if possible. PEEP down to 10, FiO2 is now 50%. Continue enteral feeding. GI and DVT prophylaxis. Continue hydroxychloroquine and on low-dose steroids. Zithromax Follow inflammatory markers ordered interleukin-6 level. Prognosis remains relatively poor and guarded. Critical care time is 34 minutes We'll continue to follow Time with Patient: Greater than 30
[2019-08-17 17:57] LABS: Glucose,Whole Blood 172 mg/dL (75-99)
[2019-08-17] MEDS: ATORVASTATIN 20 MG TAB PO SCH (19:49)
[2019-08-17] MEDS: VENLAFAXINE HCL ER 150 MG CAP PO SCH (22:06)
[2019-08-18 00:05] LABS: Glucose,Whole Blood 159 mg/dL (75-99)
[2019-08-18] MEDS: INSULIN ASPART (NovoLOG) 100 UNIT/ML VIAL SQ SCH ×4 (00:09→17:31)
[2019-08-18] MEDS: PROPOFOL 1,000 MG in EMPTY BAG 1 BAG IV SCH ×8 (00:12→22:36)
[2019-08-18] MEDS: ARTIFICIAL TEARS OINTMENT 3.5 GM TUBE BOTH EYES SCH ×6 (02:44→20:15)
[2019-08-18] MEDS: ALBUTEROL HFA INHALER INHALATION SCH ×4 (03:01→20:36)
[2019-08-18] MEDS: fentaNYL (PF) 1,000 MCG in SODIUM CHLORIDE 0.9% 80 ML IV SCH ×4 (03:52→23:05)
[2019-08-18 05:10] LABS: Basophils % (A) 0 %; Eosinophils % (A) 0 %; HCT 36.2 % (34.0-46.0); HGB 11.4 gm/dL (11.4-16.0); Lymphocytes # (A) 0.5 k/uL (1.0-4.8); Lymphocytes % (A) 4 %; MCH 28.6 pg (25.0-35.0); MCHC 31.4 g/dL (31.0-37.0); MCV 90.9 fL (80.0-100.0); Mean Platelet Volume 7.9; Monocytes # (A) 0.6 k/uL (0-1.0); Monocytes % (A) 5 %; Neutrophils # (A) 10.4 k/uL (1.3-7.7); Neutrophils % (A) 89 %; Platelet Count 365 k/uL (150-450); RBC 3.98 m/uL (3.80-5.40); RDW 14.1 % (11.5-15.5); WBC 11.7 k/uL (3.8-10.6)
[2019-08-18 05:21] LABS: ALT 12 U/L (4-34); AST 19 U/L (14-36); African American GFR (CKD) >90 (>60 ml/min/1.73 sqM); Alkaline Phosphatase 75 U/L (38-126); Anion Gap 6 mmol/L; Blood Urea Nitrogen 23 mg/dL (7-17); C Reactive Protein 39.6 mg/L (<10.0); Calcium 8.6 mg/dL (8.4-10.2); Carbon Dioxide 28 mmol/L (22-30); Chloride 103 mmol/L (98-107); Creatine Kinase 23 U/L (30-135); Glucose 172 mg/dL (74-99); LDH 973 U/L (313-618); Non-African American GFR(CKD) >90 (>60 ml/min/1.73 sqM); Potassium 4.4 mmol/L (3.5-5.1); Sodium 137 mmol/L (137-145); Total Bilirubin 0.4 mg/dL (0.2-1.3); Total Protein 5.7 g/dL (6.3-8.2)
[2019-08-18 05:52] LABS: Glucose,Whole Blood 176 mg/dL (75-99)
--- NOTE | 2019-08-18 06:59 | XR ---
EXAMINATION TYPE: XR chest 1V portable DATE OF EXAM: 08/18/2019 CLINICAL HISTORY: Difficulty breathing progress study. TECHNIQUE: Single AP portable upright view of the chest is obtained. COMPARISON: Chest x-ray from one day earlier and older studies. FINDINGS: Stable endotracheal and orogastric tubes. Current exam suboptimal due to overlying tubes a nd devices. Overlying EKG leads redemonstrated. Some increased markings lateral left mid lung with im proved aeration left lung base. Increased markings throughout the right lung greatest in the right yoli ng base. No large pleural effusion or pneumothorax. Cardiac silhouette size stable and within normal limits. Osseous structures are intact. IMPRESSION: Right greater than left alveolar and interstitial edema and/or infiltrates. Right-sided f indings fairly stable. Prepped some interval improved left basilar infiltrates are felt present.
[2019-08-18 07:15] LABS: ABG Base Excess 3.1 mmol/L; ABG HCO3 28 mmol/L (21-25); ABG Oxygen Saturation 94.7 % (94-97); ABG PCO2 48 mmHg (35-45); ABG PH 7.38 (7.35-7.45); ABG PO2 80 mmHg (83-108); ABG TCO2 30 mmol/L (19-24)
[2019-08-18 07:57] LABS: Allen Test Performed? no
[2019-08-18] MEDS: methylPREDNISolone SOD SUCCI 125 MG/2 ML VIAL IV SCH ×2 (08:11→20:13)
[2019-08-18] MEDS: PANTOPRAZOLE 40 MG/10 ML VIAL IVP SCH (08:11)
[2019-08-18] MEDS: PREGABALIN 100 MG CAP PO SCH ×3 (08:12→21:00)
[2019-08-18] MEDS: CHLORHEXIDINE GLUCONATE 15 ML CUP MUCOUS MEM SCH ×2 (08:12→20:13)
[2019-08-18] MEDS: HEPARIN SODIUM,PORCINE 5,000 UNIT/ML 1 ML VIAL SQ SCH (08:12)
[2019-08-18] MEDS: AZITHROMYCIN 500 MG in SODIUM CHLORIDE 0.9% 250 ML IVPB SCH (08:18)
[2019-08-18] MEDS: ZINC SULFATE 220 MG CAP PO SCH (08:20)
[2019-08-18] MEDS: HYDROXYCHLOROQUINE ORAL SUSP 200 MG/8 ML ORAL.SYRG PO SCH ×2 (10:11→20:13)
[2019-08-18 11:18] LABS: Ferritin 375.1 ng/mL (10.0-291.0)
--- NOTE | 2019-08-18 11:19 | P.PN ---
Subjective Patient is a 58-year-old female admitted for acute respiratory failure secondary to COVID 19 pneumonia, patient remains intubated patient PEEP is presently 15 FiO2 of 40% set up respiratory rate 18 breathing the or the ventilator tidal volume of 450. Patient remains on paralytic agents and sedatives. Patient the is positive for Covid 19. Patient is being evaluated for biologic agents which are interleukin-6 antagonists Tocilizumab. 08/17/2019 Patient's IL 6 levels are still pending a pulmonary is recommending a low-dose of systemic steroids. Patient is presently on PEEP of 10 and FiO2 of 45%, patient is not undergoing weaning trial today. Set up respiratory of 18 patient is breathing over the ventilator patient is on high-dose of sedatives 08/18/2019 Patient appears to have been improving steadily and slowly. Patient is on PEEP of 10 as opposed of 15 yesterday and FiO2 of 40%. Patient remains on high doses of sedatives at this time. Review of systems: Unable to obtain due to her clinical condition All inpatient medications were reviewed and appropriate changes in these medications as dictated in the interval history and assessment and plan. Objective - Vital Signs Vital signs: Vital Signs Temp 98.2 F 08/18/19 08:00 Pulse 68 08/18/19 10:00 Resp 18 08/18/19 10:00 BP 121/70 08/18/19 10:00 Pulse Ox 94 L 08/18/19 10:00 Intake & Output 08/17/19 08/18/19 08/18/19 18:59 06:59 18:59 Intake Total 0302.862 2369.931 363.946 Output Total 505 505 150 Balance 603.867 0215.931 213.946 Weight 133.9 kg 138.1 kg Intake: IV 276 276 73 0.9 240 240 40 Pressure Bag 36 36 33 Intake, IV Titration 594.400 771.931 154.946 Amount Propofol 1,000 mg In 494.400 584.856 69.896 Empty Bag 1 bag @ Titrate IV .Q0M [facility] Rx#: [id number] fentaNYL (PF) 1,000 mcg 100 187.075 85.05 In Sodium Chloride 0.9% 80 ml @ 1 MCG/KG/HR 13.5 mls/hr IV .Q7H25M [facility] Rx# :[id number] Oral 100 Tube Feeding 316 408 136 Blood Product 30 Other 30 90 Output: Urine 505 505 150 Other: Voiding Method Indwelling Catheter Indwelling Catheter Indwelling Catheter ABP, PAP, CO, CI - Last Documented Arterial Blood Pressure 139/70 - Exam PHYSICAL EXAMINATION: GENERAL: Patient is intubated sedated, obese HEENT: Pupils are round and equally reacting to light. EOMI. No scleral icterus. No conjunctival pallor. Normocephalic, atraumatic. No pharyngeal erythema. No thyromegaly. CARDIOVASCULAR: S1 and S2 present. No murmurs, rubs, or gallops. PULMONARY: Crackles in the bases ABDOMEN: Soft, nontender, nondistended, normoactive bowel sounds. No palpable organomegaly. MUSCULOSKELETAL: No joint swelling or deformity. EXTREMITIES: No cyanosis, clubbing, or pedal edema. NEUROLOGICAL: Sedated and please refer to nursing staff documentation for level of sedation SKIN: No rashes. - Labs CBC & Chem 7: 08/18/19 04:40 08/18/19 04:40 Labs: Abnormal Lab Results - Last 24 Hours (Table) 08/17/19 08/17/19 08/17/19 Range/Units 04:00 11:38 17:55 WBC (3.8-10.6) k/uL Neutrophils # (1.3-7.7) k/uL Lymphocytes # (1.0-4.8) k/uL D-Dimer (<0.60) mg/L FEU ABG pCO2 (35-45) mmHg ABG pO2 (83-108) mmHg ABG HCO3 (21-25) mmol/L ABG Total CO2 (19-24) mmol/L BUN (7-17) mg/dL Glucose (74-99) mg/dL POC Glucose (mg/dL) 179 H 172 H (75-99) mg/dL Ferritin 454.7 H (10.0-291.0) ng/mL Lactate Dehydrogenase (313-618) U/L Creatine Kinase (30-135) U/L C-Reactive Protein (<10.0) mg/L Total Protein (6.3-8.2) g/dL Albumin (3.5-5.0) g/dL 08/18/19 08/18/19 08/18/19 Range/Units 00:03 04:40 04:40 WBC 11.7 H (3.8-10.6) k/uL Neutrophils # 10.4 H (1.3-7.7) k/uL Lymphocytes # 0.5 L (1.0-4.8) k/uL D-Dimer (<0.60) mg/L FEU ABG pCO2 (35-45) mmHg ABG pO2 (83-108) mmHg ABG HCO3 (21-25) mmol/L ABG Total CO2 (19-24) mmol/L BUN 23 H (7-17) mg/dL Glucose 172 H (74-99) mg/dL POC Glucose (mg/dL) 159 H (75-99) mg/dL Ferritin (10.0-291.0) ng/mL Lactate Dehydrogenase 973 H (313-618) U/L Creatine Kinase 23 L (30-135) U/L C-Reactive Protein 39.6 H (<10.0) mg/L Total Protein 5.7 L (6.3-8.2) g/dL Albumin 3.0 L (3.5-5.0) g/dL 08/18/19 08/18/19 08/18/19 Range/Units 04:40 05:50 07:11 WBC (3.8-10.6) k/uL Neutrophils # (1.3-7.7) k/uL Lymphocytes # (1.0-4.8) k/uL D-Dimer 10.80 H (<0.60) mg/L FEU ABG pCO2 48 H (35-45) mmHg ABG pO2 80 L (83-108) mmHg ABG HCO3 28 H (21-25) mmol/L ABG Total CO2 30 H (19-24) mmol/L BUN (7-17) mg/dL Glucose (74-99) mg/dL POC Glucose (mg/dL) 176 H (75-99) mg/dL Ferritin (10.0-291.0) ng/mL Lactate Dehydrogenase (313-618) U/L Creatine Kinase (30-135) U/L C-Reactive Protein (<10.0) mg/L Total Protein (6.3-8.2) g/dL Albumin (3.5-5.0) g/dL Microbiology - Last 24 Hours (Table) 08/14/19 13:38 Blood Culture - Preliminary Blood No Growth after 72 hours Assessment and Plan Plan: -Acute hypoxic and hypercapnic respiratory failure secondary to COVID 19 pneumonia and patient is on hydroxychloroquine patient is also on to systemic steroids. Patient is also being evaluated for Tocilizumab, interleukin-6 receptor antagonist. Continue with ventilatory support. Patient has elevated highly elevated d-dimer which is expected in Covid 19 infection patient remains on ventilator support with the above-mentioned settings. -Sepsis secondary to Covid 19 infection . -History of for gout arthritis -History of multiple mitral valve prolapse -Hyperlipidemia -Gastroesophageal reflux disease -DVT prophylaxis with subcutaneous heparin
--- NOTE | 2019-08-18 12:25 | P.PN ---
Subjective Progress Note Date: 08/18/19 Principal diagnosis: Acute hypoxic respiratory failure secondary to covid 19 pneumonitis This is a 58-year-old female with history of multiple medical problems including rheumatoid arthritis, degenerative joint disease, mitral valve prolapse, history of uterine cancer. History of dyslipidemia. Depression. Patient was brought into the ER yesterday with a few days' history of increased shortness of breath and cough. Patient has also been complaining of profound fatigue, headache, generalized aches and pains for the last 3 days. Her chest x-ray showed diffuse pneumonitis. Patient required a high flow nasal cannula to barely maintain O2 saturation in the low 90s and she was on 15 L/m via high flow nasal cannula. She was later switched to 100% nonrebreather, remained relatively hypoxic. Patient was having intermittent episodes of cough, and she was noted to be prof oundly short of breath. After evaluating the patient today, I felt that the patient is developing severe hypoxic respiratory failure, and I recommended intubation by the anesthesia team since the patient is highly suspicious for covid 19 pneumonitis. Patient was intubated, placed on assist control mode of mechanical ventilation. Rate of 18 tidal volume is 400 FiO2 is 100% and PEEP is 16. After repeat ABG, her FiO2 was decreased down to 50%. And tidal volume was changed to 450. Patient had to be placed on propofol, fentanyl, and Nimbex. She was also already placed on hydroxychloroquine, Zithromax, and on Solu-Medrol at 60 mg IV push every 12 hours. ABG post intubation showed a pO2 of 336 pCO2 of 50 pH of 7.34. Hence her FiO2 was decreased down to 50%. And A PEEP of 16. Inflammatory markers were noted to be elevated including C-reactive protein of 154 LDH 1981 ferritin 303 and no d-dimer was done. Patient was reevaluated today on 08/16/19, patient is positive for covid 19, betsy ins on mechanical ventilation, presently in the ICU. She is presently on multiple drips including propofol at 50 mcg/kg/h, she is also on fentanyl, and on Nimbex. I plan to discontinue Nimbex today, and continue to sedate the patient with fentanyl and the prevent. Her ventilator settings today are assist control rate of 18 tidal volume is 450 FiO2 is 45% PEEP is 16, and I cut it down to 14. Her peak airway pressure is 29 and her plateau pressure is 26. FiO2 was cut down to 45% yesterday. ABG today showed a pO2 of 116 pCO2 of 51 pH of 7.36. Basic metabolic profile is normal, renal profile is normal. Inflammatory markers including C-reactive protein is 212 LDH is 1617 and d-dimer is 14.5. Interleukin-6 was ordered, will decide whether the patient could qualify for actemra, so far she doesn't. PaO2/FiO2 is 257 Reevaluated today on 08/17/19, patient remains in the ICU, intubated and mechanically ventilated. Her ventilator settings are assist control rate of 18 tidal volume is 450 FiO2 is 45% PEEP is 14. Patient is on propofol at 60 mcg/kg/m, and she is also on fentanyl at 20 mcg/kg/h. Continues to have low- grade fever with a temp of 99.1. Chest x-ray is showing slight improvement in her interstitial infiltrates. Hence I was able to decrease the PEEP down to 10, however if she desaturates the patient is to have a PEEP increased back to 14, and continue FiO2 anywhere between 45-50%. ABG today on FiO2 of 45% and PEEP of 14 showed a pO2 of 86 pCO2 of 47 pH of 7.40. WBC count is 8.7 hemoglobin is 11.5. Electrolytes and renal profile are normal. Ferritin is 454 LDH is 1141 C-reactive protein is 84.7. Reevaluated today on 08/18/19, remains in the ICU, intubated and mechanically ventilated. Her ventilator settings are assist control rate of 18 tidal volume is 450 FiO2 is 50% and PEEP is 16 I cut it down to 14. ABG showed a pO2 of 80 pCO2 of 48 pH of 7.48. Electrolytes in the upper profile are normal CBC is normal d-dimer is 10.80, improved compared to yesterday were and it was 14.15. Inflammatory markers including ferritin, LDH, C-reactive protein are improving. Chest x-ray continues to show by bilateral interstitial infiltrates, slightly improved compared to baseline chest x-ray however the patient is on a relatively higher PEEP at present. Patient is sedated, she is on propofol at 55 and sentinel at 1 mcg/kg/h. Objective - Vital Signs Vital signs: Vital Signs Temp 98.2 F 08/18/19 08:00 Pulse 64 08/18/19 11:00 Resp 17 08/18/19 11:00 BP 121/70 08/18/19 10:00 Pulse Ox 92 L 08/18/19 11:00 Intake & Output 08/17/19 08/18/19 08/18/19 18:59 06:59 18:59 Intake Total 3207.072 3871.931 447.946 Output Total 505 505 200 Balance 439.818 6127.931 247.946 Weight 133.9 kg 138.1 kg Intake: IV 276 276 93 0.9 240 240 50 Pressure Bag 36 36 43 Intake, IV Titration 594.400 771.931 154.946 Amount Propofol 1,000 mg In 494.400 584.856 69.896 Empty Bag 1 bag @ Titrate IV .Q0M [facility] Rx#: [id number] fentaNYL (PF) 1,000 mcg 100 187.075 85.05 In Sodium Chloride 0.9% 80 ml @ 1 MCG/KG/HR 13.5 mls/hr IV .Q7H25M [facility] Rx# :[id number] Oral 100 Tube Feeding 316 408 170 Blood Product 30 Other 30 90 30 Output: Urine 505 505 200 Other: Voiding Method Indwelling Catheter Indwelling Catheter Indwelling Catheter ABP, PAP, CO, CI - Last Documented Arterial Blood Pressure 138/69 - Exam Physical Exam: Revealed 58-year-old female, obese, on mechanical ventilation, sedated, not paralyzed Head: Atraumatic normocephalic. Moist mucous membranes. Endotracheal tube and orogastric tube are intact HEENT:[Neck is supple.] [No neck masses.] [No thyromegaly.] [No JVD.] Chest: [Symmetrical chest expansion, crackles at the bases bilaterally. Cardiac Exam: [Normal S1 and S2, no S3 gallop, no murmur.] Abdomen: [Soft, nontender, no megaly, no rebound, no guarding, normal bowel sounds.] Extremities: [No clubbing, no edema, no cyanosis.] Neurological Exam: Sedated, could not be assessed. Psychiatric: Sedated, on propofol and fentanyl. Skin: No rashes. Musculoskeletal: No deformities - Labs CBC & Chem 7: 08/18/19 04:40 08/18/19 04:40 Labs: Abnormal Lab Results - Last 24 Hours (Table) 08/17/19 08/18/19 08/18/19 Range/Units 17:55 00:03 04:40 WBC 11.7 H (3.8-10.6) k/uL Neutrophils # 10.4 H (1.3-7.7) k/uL Lymphocytes # 0.5 L (1.0-4.8) k/uL D-Dimer (<0.60) mg/L FEU ABG pCO2 (35-45) mmHg ABG pO2 (83-108) mmHg ABG HCO3 (21-25) mmol/L ABG Total CO2 (19-24) mmol/L BUN (7-17) mg/dL Glucose (74-99) mg/dL POC Glucose (mg/dL) 172 H 159 H (75-99) mg/dL Ferritin (10.0-291.0) ng/mL Lactate Dehydrogenase (313-618) U/L Creatine Kinase (30-135) U/L C-Reactive Protein (<10.0) mg/L Total Protein (6.3-8.2) g/dL Albumin (3.5-5.0) g/dL 08/18/19 08/18/19 08/18/19 Range/Units 04:40 04:40 05:50 WBC (3.8-10.6) k/uL Neutrophils # (1.3-7.7) k/uL Lymphocytes # (1.0-4.8) k/uL D-Dimer 10.80 H (<0.60) mg/L FEU ABG pCO2 (35-45) mmHg ABG pO2 (83-108) mmHg ABG HCO3 (21-25) mmol/L ABG Total CO2 (19-24) mmol/L BUN 23 H (7-17) mg/dL Glucose 172 H (74-99) mg/dL POC Glucose (mg/dL) 176 H (75-99) mg/dL Ferritin 375.1 H (10.0-291.0) ng/mL Lactate Dehydrogenase 973 H (313-618) U/L Creatine Kinase 23 L (30-135) U/L C-Reactive Protein 39.6 H (<10.0) mg/L Total Protein 5.7 L (6.3-8.2) g/dL Albumin 3.0 L (3.5-5.0) g/dL 08/18/19 Range/Units 07:11 WBC (3.8-10.6) k/uL Neutrophils # (1.3-7.7) k/uL Lymphocytes # (1.0-4.8) k/uL D-Dimer (<0.60) mg/L FEU ABG pCO2 48 H (35-45) mmHg ABG pO2 80 L (83-108) mmHg ABG HCO3 28 H (21-25) mmol/L ABG Total CO2 30 H (19-24) mmol/L BUN (7-17) mg/dL Glucose (74-99) mg/dL POC Glucose (mg/dL) (75-99) mg/dL Ferritin (10.0-291.0) ng/mL Lactate Dehydrogenase (313-618) U/L Creatine Kinase (30-135) U/L C-Reactive Protein (<10.0) mg/L Total Protein (6.3-8.2) g/dL Albumin (3.5-5.0) g/dL Microbiology - Last 24 Hours (Table) 08/14/19 13:38 Blood Culture - Preliminary Blood No Growth after 72 hours Assessment and Plan Assessment: Impression: Acute hypoxic respiratory failure secondary to covid 19 pneumonitis Acute hypercapnic respiratory failure secondary to pneumonitis as above. Severe sepsis secondary to pneumonitis. History of gouty arthritis. History of mitral valve prolapse. History of dyslipidemia. History of uterine cancer. History of depression. History of GERD without esophagitis. Recommendation: Continue ventilatory support. Cut down PEEP to 14, continue FiO2 at 50%.. Continue propofol and fentanyl. Avoid paralytics if possible.. Continue enteral feeding. GI and DVT prophylaxis. Continue hydroxychloroquine and on low-dose steroids. Zithromax Follow inflammatory markers ordered interleukin-6 level. Seems to be improving today. Prognosis remains relatively poor and guarded. Critical care time is 33 minutes We'll continue to follow Time with Patient: Greater than 30
[2019-08-18 12:53] LABS: Glucose,Whole Blood 158 mg/dL (75-99)
[2019-08-18] MEDS ORDERED: ENOXAPARIN 40 MG/0.4 ML SYRINGE SQ SCH ×2 (16:00→21:00)
[2019-08-18 17:12] LABS: Glucose,Whole Blood 173 mg/dL (75-99)
[2019-08-18 17:59] LABS: Glucose,Whole Blood 187 mg/dL (75-99)
[2019-08-18] MEDS: ATORVASTATIN 20 MG TAB PO SCH (20:12)
[2019-08-18] MEDS: VENLAFAXINE HCL ER 150 MG CAP PO SCH (20:13)
[2019-08-18] MEDS: ENOXAPARIN 80 MG/0.8 ML SYRINGE SQ SCH (20:14)
[2019-08-18 23:52] LABS: Glucose,Whole Blood 165 mg/dL (75-99)
[2019-08-19] MEDS: PROPOFOL 1,000 MG in EMPTY BAG 1 BAG IV SCH ×10 (00:14→22:29)
[2019-08-19] MEDS: INSULIN ASPART (NovoLOG) 100 UNIT/ML VIAL SQ SCH ×4 (00:14→19:04)
[2019-08-19] MEDS: ARTIFICIAL TEARS OINTMENT 3.5 GM TUBE BOTH EYES SCH ×7 (00:15→23:41)
[2019-08-19] MEDS: ALBUTEROL HFA INHALER INHALATION SCH ×4 (03:30→19:20)
[2019-08-19 04:27] LABS: Basophils # (A) 0.1 k/uL (0-0.2); Basophils % (A) 0 %; Eosinophils % (A) 0 %; HCT 35.6 % (34.0-46.0); HGB 11.3 gm/dL (11.4-16.0); Lymphocytes # (A) 0.6 k/uL (1.0-4.8); Lymphocytes % (A) 6 %; MCH 28.9 pg (25.0-35.0); MCHC 31.7 g/dL (31.0-37.0); Mean Platelet Volume 7.8; Monocytes # (A) 0.5 k/uL (0-1.0); Monocytes % (A) 4 %; Neutrophils # (A) 10.2 k/uL (1.3-7.7); Neutrophils % (A) 89 %; Platelet Count 379 k/uL (150-450); RBC 3.91 m/uL (3.80-5.40); RDW 14.2 % (11.5-15.5); WBC 11.5 k/uL (3.8-10.6)
[2019-08-19 04:40] LABS: ALT 11 U/L (4-34); AST 16 U/L (14-36); African American GFR (CKD) >90 (>60 ml/min/1.73 sqM); Alkaline Phosphatase 71 U/L (38-126); Anion Gap 4 mmol/L; Blood Urea Nitrogen 25 mg/dL (7-17); C Reactive Protein 28.1 mg/L (<10.0); Calcium 8.3 mg/dL (8.4-10.2); Carbon Dioxide 30 mmol/L (22-30); Chloride 105 mmol/L (98-107); Creatine Kinase 20 U/L (30-135); Glucose 193 mg/dL (74-99); Non-African American GFR(CKD) >90 (>60 ml/min/1.73 sqM); Potassium 4.8 mmol/L (3.5-5.1); Sodium 139 mmol/L (137-145); Total Bilirubin 0.3 mg/dL (0.2-1.3); Total Protein 5.7 g/dL (6.3-8.2)
[2019-08-19] MEDS: fentaNYL (PF) 1,000 MCG in SODIUM CHLORIDE 0.9% 80 ML IV SCH ×3 (05:49→20:41)
[2019-08-19 05:56] LABS: Glucose,Whole Blood 191 mg/dL (75-99)
[2019-08-19 06:30] LABS: ABG HCO3 29 mmol/L (21-25); ABG Oxygen Saturation 95.4 % (94-97); ABG PCO2 48 mmHg (35-45); ABG PH 7.39 (7.35-7.45); ABG PO2 79 mmHg (83-108); ABG TCO2 31 mmol/L (19-24); Allen Test Performed? Yes
--- NOTE | 2019-08-19 06:52 | XR ---
EXAMINATION TYPE: XR chest 1V portable DATE OF EXAM: 08/19/2019 HISTORY: Tube placement. REFERENCE: Previous study dated 08/18/2019. FINDINGS: The patient is ET tube and NG tube remain in place, unchanged in appearance. Mildly enlarged. There is both interstitial and alveolar airspace disease present bilaterally. This i s worsened slightly. There is some blunting of the right CP angle. We difficult to exclude a small ri ght effusion. IMPRESSION: 1. WORSENING ALVEOLAR AND INTERSTITIAL AIRSPACE DISEASE. 2. IT WOULD BE DIFFICULT TO EXCLUDE A SMALL RIGHT EFFUSION.
[2019-08-19] MEDS: methylPREDNISolone SOD SUCCI 125 MG/2 ML VIAL IV SCH ×2 (08:52→20:44)
[2019-08-19] MEDS: CHLORHEXIDINE GLUCONATE 15 ML CUP MUCOUS MEM SCH ×2 (08:53→20:42)
[2019-08-19] MEDS: PANTOPRAZOLE 40 MG/10 ML VIAL IVP SCH (08:53)
[2019-08-19] MEDS: HYDROXYCHLOROQUINE ORAL SUSP 200 MG/8 ML ORAL.SYRG PO SCH (08:53)
[2019-08-19] MEDS: AZITHROMYCIN 500 MG in SODIUM CHLORIDE 0.9% 250 ML IVPB SCH (08:54)
[2019-08-19] MEDS: ZINC SULFATE 220 MG CAP PO SCH (08:55)
[2019-08-19] MEDS: ENOXAPARIN 80 MG/0.8 ML SYRINGE SQ SCH ×2 (08:55→20:42)
[2019-08-19] MEDS: PREGABALIN 100 MG CAP PO SCH ×3 (08:55→21:06)
[2019-08-19 11:18] LABS: Ferritin 300.8 ng/mL (10.0-291.0)
--- NOTE | 2019-08-19 12:37 | P.PN ---
Subjective Progress Note Date: 08/19/19 Principal diagnosis: Acute hypoxic respiratory failure secondary to covid 19 pneumonitis This is a 58-year-old female with history of multiple medical problems including rheumatoid arthritis, degenerative joint disease, mitral valve prolapse, history of uterine cancer. History of dyslipidemia. Depression. Patient was brought into the ER yesterday with a few days' history of increased shortness of breath and cough. Patient has also been complaining of profound fatigue, headache, generalized aches and pains for the last 3 days. Her chest x-ray showed diffuse pneumonitis. Patient required a high flow nasal cannula to barely maintain O2 saturation in the low 90s and she was on 15 L/m via high flow nasal cannula. She was later switched to 100% nonrebreather, remained relatively hypoxic. Patient was having intermittent episodes of cough, and she was noted to be prof oundly short of breath. After evaluating the patient today, I felt that the patient is developing severe hypoxic respiratory failure, and I recommended intubation by the anesthesia team since the patient is highly suspicious for covid 19 pneumonitis. Patient was intubated, placed on assist control mode of mechanical ventilation. Rate of 18 tidal volume is 400 FiO2 is 100% and PEEP is 16. After repeat ABG, her FiO2 was decreased down to 50%. And tidal volume was changed to 450. Patient had to be placed on propofol, fentanyl, and Nimbex. She was also already placed on hydroxychloroquine, Zithromax, and on Solu-Medrol at 60 mg IV push every 12 hours. ABG post intubation showed a pO2 of 336 pCO2 of 50 pH of 7.34. Hence her FiO2 was decreased down to 50%. And A PEEP of 16. Inflammatory markers were noted to be elevated including C-reactive protein of 154 LDH 1981 ferritin 303 and no d-dimer was done. Patient was reevaluated today on 08/16/19, patient is positive for covid 19, betsy ins on mechanical ventilation, presently in the ICU. She is presently on multiple drips including propofol at 50 mcg/kg/h, she is also on fentanyl, and on Nimbex. I plan to discontinue Nimbex today, and continue to sedate the patient with fentanyl and the prevent. Her ventilator settings today are assist control rate of 18 tidal volume is 450 FiO2 is 45% PEEP is 16, and I cut it down to 14. Her peak airway pressure is 29 and her plateau pressure is 26. FiO2 was cut down to 45% yesterday. ABG today showed a pO2 of 116 pCO2 of 51 pH of 7.36. Basic metabolic profile is normal, renal profile is normal. Inflammatory markers including C-reactive protein is 212 LDH is 1617 and d-dimer is 14.5. Interleukin-6 was ordered, will decide whether the patient could qualify for actemra, so far she doesn't. PaO2/FiO2 is 257 Reevaluated today on 08/17/19, patient remains in the ICU, intubated and mechanically ventilated. Her ventilator settings are assist control rate of 18 tidal volume is 450 FiO2 is 45% PEEP is 14. Patient is on propofol at 60 mcg/kg/m, and she is also on fentanyl at 20 mcg/kg/h. Continues to have low- grade fever with a temp of 99.1. Chest x-ray is showing slight improvement in her interstitial infiltrates. Hence I was able to decrease the PEEP down to 10, however if she desaturates the patient is to have a PEEP increased back to 14, and continue FiO2 anywhere between 45-50%. ABG today on FiO2 of 45% and PEEP of 14 showed a pO2 of 86 pCO2 of 47 pH of 7.40. WBC count is 8.7 hemoglobin is 11.5. Electrolytes and renal profile are normal. Ferritin is 454 LDH is 1141 C-reactive protein is 84.7. Reevaluated today on 08/18/19, remains in the ICU, intubated and mechanically ventilated. Her ventilator settings are assist control rate of 18 tidal volume is 450 FiO2 is 50% and PEEP is 16 I cut it down to 14. ABG showed a pO2 of 80 pCO2 of 48 pH of 7.48. Electrolytes in the upper profile are normal CBC is normal d-dimer is 10.80, improved compared to yesterday were and it was 14.15. Inflammatory markers including ferritin, LDH, C-reactive protein are improving. Chest x-ray continues to show by bilateral interstitial infiltrates, slightly improved compared to baseline chest x-ray however the patient is on a relatively higher PEEP at present. Patient is sedated, she is on propofol at 55 and sentinel at 1 mcg/kg/h. Reevaluated today on 08/19/19, patient remains intubated and mechanically ventilated. Patient vent settings are assist control rate of 18 tidal volume is 450 FiO2 is 50% and PEEP is 14. Peak airway pressure is 31 plateau pressures is 26. Patient remains on fentanyl at 1 mcg/kg/h, propofol at 60 mcg/kg/m. Her Lovenox was increased yesterday to 70 mg subcu every 12 hours mostly because of her elevated d-dimer. Chest x-ray showing slight improvement in her interstitial infiltrates. Endotracheal tube was noted to be high, and it will be advanced down by 2 cm. ABG showed a pO2 of 79 pCO2 of 48 patient of 7.39. CBC is relatively normal basic metabolic profile is normal.inflammatory markers noted to improve C-reactive protein is down to 28 ferritin is 300.8 d-dimer is down to 8.09. . Objective - Vital Signs Vital signs: Vital Signs Temp 98.4 F 08/19/19 08:00 Pulse 67 08/19/19 12:00 Resp 17 08/19/19 12:00 BP 134/72 08/19/19 08:00 Pulse Ox 96 08/19/19 12:00 Intake & Output 08/18/19 08/19/19 08/19/19 18:59 06:59 18:59 Intake Total 3943.219 6185.706 675 Output Total 875 860 465 Balance 539.721 507.706 210 Weight 139.2 kg 139.2 kg Intake: IV 313 283 173 0.9 200 240 120 Pressure Bag 113 43 53 Intake, IV Titration 535.721 552.706 200 Amount Propofol 1,000 mg In 369.896 368.206 200 Empty Bag 1 bag @ Titrate IV .Q0M [facility] Rx#: [id number] fentaNYL (PF) 1,000 mcg 165.825 184.5 In Sodium Chloride 0.9% 80 ml @ 1 MCG/KG/HR 13.5 mls/hr IV .Q7H25M [facility] Rx# :[id number] Tube Feeding 476 442 272 Other 90 90 30 Output: Urine 875 860 465 Other: Voiding Method Indwelling Catheter Indwelling Catheter Indwelling Catheter ABP, PAP, CO, CI - Last Documented Arterial Blood Pressure 147/69 - Exam Physical Exam: Revealed 58-year-old female, obese, on mechanical ventilation, sedated Head: Atraumatic normocephalic. Moist mucous membranes. Endotracheal tube and orogastric tube are intact, endotracheal tube will be advanced 2 cm HEENT:[Neck is supple.] [No neck masses.] [No thyromegaly.] [No JVD.] Chest: [Symmetrical chest expansion, crackles at the bases bilaterally. Cardiac Exam: [Normal S1 and S2, no S3 gallop, no murmur.] Abdomen: [Soft, nontender, no megaly, no rebound, no guarding, normal bowel sounds.] Extremities: [No clubbing, no edema, no cyanosis.] Neurological Exam: Sedated, could not be assessed. Psychiatric: Sedated, on propofol and fentanyl. Skin: No rashes. Musculoskeletal: No deformities - Labs CBC & Chem 7: 08/19/19 04:10 08/19/19 04:10 Labs: Abnormal Lab Results - Last 24 Hours (Table) 08/18/19 08/18/19 08/18/19 Range/Units 12:51 17:11 17:58 WBC (3.8-10.6) k/uL Hgb (11.4-16.0) gm/dL Neutrophils # (1.3-7.7) k/uL Lymphocytes # (1.0-4.8) k/uL D-Dimer (<0.60) mg/L FEU ABG pCO2 (35-45) mmHg ABG pO2 (83-108) mmHg ABG HCO3 (21-25) mmol/L ABG Total CO2 (19-24) mmol/L BUN (7-17) mg/dL Glucose (74-99) mg/dL POC Glucose (mg/dL) 158 H 173 H 187 H (75-99) mg/dL Calcium (8.4-10.2) mg/dL Ferritin (10.0-291.0) ng/mL Creatine Kinase (30-135) U/L C-Reactive Protein (<10.0) mg/L Total Protein (6.3-8.2) g/dL Albumin (3.5-5.0) g/dL 08/18/19 08/19/19 08/19/19 Range/Units 23:50 04:10 04:10 WBC 11.5 H (3.8-10.6) k/uL Hgb 11.3 L (11.4-16.0) gm/dL Neutrophils # 10.2 H (1.3-7.7) k/uL Lymphocytes # 0.6 L (1.0-4.8) k/uL D-Dimer 8.09 H (<0.60) mg/L FEU ABG pCO2 (35-45) mmHg ABG pO2 (83-108) mmHg ABG HCO3 (21-25) mmol/L ABG Total CO2 (19-24) mmol/L BUN (7-17) mg/dL Glucose (74-99) mg/dL POC Glucose (mg/dL) 165 H (75-99) mg/dL Calcium (8.4-10.2) mg/dL Ferritin (10.0-291.0) ng/mL Creatine Kinase (30-135) U/L C-Reactive Protein (<10.0) mg/L Total Protein (6.3-8.2) g/dL Albumin (3.5-5.0) g/dL 08/19/19 08/19/19 08/19/19 Range/Units 04:10 05:55 06:26 WBC (3.8-10.6) k/uL Hgb (11.4-16.0) gm/dL Neutrophils # (1.3-7.7) k/uL Lymphocytes # (1.0-4.8) k/uL D-Dimer (<0.60) mg/L FEU ABG pCO2 48 H (35-45) mmHg ABG pO2 79 L (83-108) mmHg ABG HCO3 29 H (21-25) mmol/L ABG Total CO2 31 H (19-24) mmol/L BUN 25 H (7-17) mg/dL Glucose 193 H (74-99) mg/dL POC Glucose (mg/dL) 191 H (75-99) mg/dL Calcium 8.3 L (8.4-10.2) mg/dL Ferritin 300.8 H (10.0-291.0) ng/mL Creatine Kinase 20 L (30-135) U/L C-Reactive Protein 28.1 H (<10.0) mg/L Total Protein 5.7 L (6.3-8.2) g/dL Albumin 3.0 L (3.5-5.0) g/dL Microbiology - Last 24 Hours (Table) 08/14/19 13:38 Blood Culture - Preliminary Blood No Growth after 96 hours Assessment and Plan Assessment: Impression: Acute hypoxic respiratory failure secondary to covid 19 pneumonitis Acute hypercapnic respiratory failure secondary to pneumonitis as above. Severe sepsis secondary to pneumonitis. History of gouty arthritis. History of mitral valve prolapse. History of dyslipidemia. History of uterine cancer. History of depression. History of GERD without esophagitis. Recommendation: Continue ventilatory support. no changes made on her present ventilator settings. My next move would be to cut down the PEEP from 14-12. Continue propofol and fentanyl. Continue enteral feeding. GI and DVT prophylaxis. Continue hydroxychloroquine and on low-dose steroids.and Zithromax. increase Lovenox to 70 mg subcu every 12 hours because of elevated d-dimer. Follow inflammatory markers , they continued to improve. Prognosis remains relatively poor and guarded. Critical care time is 32 minutes We'll continue to follow Time with Patient: Greater than 30
[2019-08-19 12:44] LABS: Glucose,Whole Blood 154 mg/dL (75-99)
[2019-08-19 18:50] LABS: Glucose,Whole Blood 173 mg/dL (75-99)
[2019-08-19] MEDS: ATORVASTATIN 20 MG TAB PO SCH (20:42)
[2019-08-19] MEDS: VENLAFAXINE HCL ER 150 MG CAP PO SCH (20:43)
[2019-08-19 23:57] LABS: Glucose,Whole Blood 175 mg/dL (75-99)
[2019-08-20] MEDS: INSULIN ASPART (NovoLOG) 100 UNIT/ML VIAL SQ SCH ×5 (00:04→23:48)
[2019-08-20] MEDS: PROPOFOL 1,000 MG in EMPTY BAG 1 BAG IV SCH ×11 (00:33→23:11)
[2019-08-20] MEDS: fentaNYL (PF) 1,000 MCG in SODIUM CHLORIDE 0.9% 80 ML IV SCH ×3 (02:09→17:01)
[2019-08-20] MEDS: ALBUTEROL HFA INHALER INHALATION SCH ×4 (03:16→19:19)
[2019-08-20] MEDS: ARTIFICIAL TEARS OINTMENT 3.5 GM TUBE BOTH EYES SCH ×3 (03:37→12:18)
[2019-08-20 05:03] LABS: Basophils % (A) 0 %; Eosinophils % (A) 0 %; HCT 34.6 % (34.0-46.0); HGB 11.1 gm/dL (11.4-16.0); Lymphocytes # (A) 0.7 k/uL (1.0-4.8); Lymphocytes % (A) 6 %; MCHC 32.2 g/dL (31.0-37.0); MCV 90.2 fL (80.0-100.0); Mean Platelet Volume 7.7; Monocytes # (A) 0.5 k/uL (0-1.0); Monocytes % (A) 4 %; Neutrophils # (A) 10.4 k/uL (1.3-7.7); Neutrophils % (A) 89 %; Platelet Count 449 k/uL (150-450); RBC 3.83 m/uL (3.80-5.40); RDW 14.1 % (11.5-15.5); WBC 11.7 k/uL (3.8-10.6)
[2019-08-20 05:17] LABS: ALT 11 U/L (4-34); AST 15 U/L (14-36); African American GFR (CKD) >90 (>60 ml/min/1.73 sqM); Albumin 2.9 g/dL (3.5-5.0); Alkaline Phosphatase 65 U/L (38-126); Anion Gap 3 mmol/L; Blood Urea Nitrogen 26 mg/dL (7-17); C Reactive Protein 16.4 mg/L (<10.0); Calcium 8.2 mg/dL (8.4-10.2); Carbon Dioxide 30 mmol/L (22-30); Chloride 105 mmol/L (98-107); Creatine Kinase 39 U/L (30-135); Glucose 174 mg/dL (74-99); Non-African American GFR(CKD) >90 (>60 ml/min/1.73 sqM); Potassium 4.9 mmol/L (3.5-5.1); Sodium 138 mmol/L (137-145); Total Bilirubin 0.3 mg/dL (0.2-1.3); Total Protein 5.6 g/dL (6.3-8.2)
[2019-08-20 06:10] LABS: Glucose,Whole Blood 163 mg/dL (75-99)
--- NOTE | 2019-08-20 06:54 | XR ---
EXAMINATION TYPE: XR chest 1V portable DATE OF EXAM: 08/20/2019 HISTORY: Tube placement. REFERENCE: Previous study dated 08/19/2019. FINDINGS: The patient's NG tube and ET tube remain in place, unchanged in appearance. Heart size upper limits of normal. Overall aeration of both lungs is improved. Some interstitial rich ge persists. Pleural spaces are clear. IMPRESSION: IMPROVED AERATION, BOTH LUNGS.
[2019-08-20 07:46] LABS: ABG Base Excess 5.9 mmol/L; ABG HCO3 31 mmol/L (21-25); ABG Oxygen Saturation 98.1 % (94-97); ABG PCO2 53 mmHg (35-45); ABG PH 7.38 (7.35-7.45); ABG PO2 117 mmHg (83-108); ABG TCO2 33 mmol/L (19-24); Allen Test Performed? Yes
[2019-08-20] MEDS: PANTOPRAZOLE 40 MG/10 ML VIAL IVP SCH (08:26)
[2019-08-20] MEDS: CHLORHEXIDINE GLUCONATE 15 ML CUP MUCOUS MEM SCH ×2 (08:27→20:29)
[2019-08-20] MEDS: ENOXAPARIN 80 MG/0.8 ML SYRINGE SQ SCH ×2 (08:27→20:28)
[2019-08-20] MEDS: methylPREDNISolone SOD SUCCI 125 MG/2 ML VIAL IV SCH ×2 (08:27→20:28)
[2019-08-20] MEDS: AZITHROMYCIN 500 MG in SODIUM CHLORIDE 0.9% 250 ML IVPB SCH (08:27)
[2019-08-20] MEDS: ZINC SULFATE 220 MG CAP PO SCH (08:28)
[2019-08-20] MEDS: PREGABALIN 100 MG CAP PO SCH ×3 (08:28→20:28)
[2019-08-20] MEDS ORDERED: PROPOFOL 10 MG/ML 20 ML VIAL IV ONE (09:12)
[2019-08-20] MEDS ORDERED: SUCCINYLCHOLINE CHLORIDE VIAL 200 MG/10 ML VIAL IV ONE (09:12)
--- NOTE | 2019-08-20 10:34 | XR ---
EXAMINATION TYPE: XR chest 1V portable DATE OF EXAM: 08/20/2019 HISTORY: tube placement. REFERENCE: Previous study dated 08/20/2019. FINDINGS: The patient is NG tube has its tip within the stomach. The patient's endotracheal tube has its tip above the level of the clavicles and should likely be advanced somewhat. Heart size upper limits of normal. There continue to be patchy infiltrates present bilaterally. These may have worsened on the right. There is blunting of the left CP angle. I could not exclude a small left effusion. IMPRESSION: 1. ET TUBE SOMEWHAT HIGH RIDING WITH ITS TIP OVERLYING THE T1 VERTEBRAL BODY. THIS SHOULD LIKELY BE A DVANCED. 2. WORSENING, PATCHY INFILTRATES MOSTLY IN THE RIGHT LUNG BUT ALSO PRESENT ON THE LEFT.
[2019-08-20 11:54] LABS: Glucose,Whole Blood 128 mg/dL (75-99)
--- NOTE | 2019-08-20 12:03 | P.PN ---
Subjective Progress Note Date: 08/20/19 Principal diagnosis: Acute hypoxic respiratory failure secondary to covid 19 pneumonitis This is a 58-year-old female with history of multiple medical problems including rheumatoid arthritis, degenerative joint disease, mitral valve prolapse, history of uterine cancer. History of dyslipidemia. Depression. Patient was brought into the ER yesterday with a few days' history of increased shortness of breath and cough. Patient has also been complaining of profound fatigue, headache, generalized aches and pains for the last 3 days. Her chest x-ray showed diffuse pneumonitis. Patient required a high flow nasal cannula to barely maintain O2 saturation in the low 90s and she was on 15 L/m via high flow nasal cannula. She was later switched to 100% nonrebreather, remained relatively hypoxic. Patient was having intermittent episodes of cough, and she was noted to be prof oundly short of breath. After evaluating the patient today, I felt that the patient is developing severe hypoxic respiratory failure, and I recommended intubation by the anesthesia team since the patient is highly suspicious for covid 19 pneumonitis. Patient was intubated, placed on assist control mode of mechanical ventilation. Rate of 18 tidal volume is 400 FiO2 is 100% and PEEP is 16. After repeat ABG, her FiO2 was decreased down to 50%. And tidal volume was changed to 450. Patient had to be placed on propofol, fentanyl, and Nimbex. She was also already placed on hydroxychloroquine, Zithromax, and on Solu-Medrol at 60 mg IV push every 12 hours. ABG post intubation showed a pO2 of 336 pCO2 of 50 pH of 7.34. Hence her FiO2 was decreased down to 50%. And A PEEP of 16. Inflammatory markers were noted to be elevated including C-reactive protein of 154 LDH 1981 ferritin 303 and no d-dimer was done. Patient was reevaluated today on 08/16/19, patient is positive for covid 19, betsy ins on mechanical ventilation, presently in the ICU. She is presently on multiple drips including propofol at 50 mcg/kg/h, she is also on fentanyl, and on Nimbex. I plan to discontinue Nimbex today, and continue to sedate the patient with fentanyl and the prevent. Her ventilator settings today are assist control rate of 18 tidal volume is 450 FiO2 is 45% PEEP is 16, and I cut it down to 14. Her peak airway pressure is 29 and her plateau pressure is 26. FiO2 was cut down to 45% yesterday. ABG today showed a pO2 of 116 pCO2 of 51 pH of 7.36. Basic metabolic profile is normal, renal profile is normal. Inflammatory markers including C-reactive protein is 212 LDH is 1617 and d-dimer is 14.5. Interleukin-6 was ordered, will decide whether the patient could qualify for actemra, so far she doesn't. PaO2/FiO2 is 257 Reevaluated today on 08/17/19, patient remains in the ICU, intubated and mechanically ventilated. Her ventilator settings are assist control rate of 18 tidal volume is 450 FiO2 is 45% PEEP is 14. Patient is on propofol at 60 mcg/kg/m, and she is also on fentanyl at 20 mcg/kg/h. Continues to have low- grade fever with a temp of 99.1. Chest x-ray is showing slight improvement in her interstitial infiltrates. Hence I was able to decrease the PEEP down to 10, however if she desaturates the patient is to have a PEEP increased back to 14, and continue FiO2 anywhere between 45-50%. ABG today on FiO2 of 45% and PEEP of 14 showed a pO2 of 86 pCO2 of 47 pH of 7.40. WBC count is 8.7 hemoglobin is 11.5. Electrolytes and renal profile are normal. Ferritin is 454 LDH is 1141 C-reactive protein is 84.7. Reevaluated today on 08/18/19, remains in the ICU, intubated and mechanically ventilated. Her ventilator settings are assist control rate of 18 tidal volume is 450 FiO2 is 50% and PEEP is 16 I cut it down to 14. ABG showed a pO2 of 80 pCO2 of 48 pH of 7.48. Electrolytes in the upper profile are normal CBC is normal d-dimer is 10.80, improved compared to yesterday were and it was 14.15. Inflammatory markers including ferritin, LDH, C-reactive protein are improving. Chest x-ray continues to show by bilateral interstitial infiltrates, slightly improved compared to baseline chest x-ray however the patient is on a relatively higher PEEP at present. Patient is sedated, she is on propofol at 55 and sentinel at 1 mcg/kg/h. Reevaluated today on 08/19/19, patient remains intubated and mechanically ventilated. Patient vent settings are assist control rate of 18 tidal volume is 450 FiO2 is 50% and PEEP is 14. Peak airway pressure is 31 plateau pressures is 26. Patient remains on fentanyl at 1 mcg/kg/h, propofol at 60 mcg/kg/m. Her Lovenox was increased yesterday to 70 mg subcu every 12 hours mostly because of her elevated d-dimer. Chest x-ray showing slight improvement in her interstitial infiltrates. Endotracheal tube was noted to be high, and it will be advanced down by 2 cm. ABG showed a pO2 of 79 pCO2 of 48 patient of 7.39. CBC is relatively normal basic metabolic profile is normal.inflammatory markers noted to improve C-reactive protein is down to 28 ferritin is 300.8 d-dimer is down to 8.09. Reevaluated today on 08/20/19, patient remains intubated and mechanically ventilated. Her ventilator settings are tidal volume of 450 assist-control rate of 18 FiO2 is 50% PEEP at 14 on a cardiac down to 10. ABG showed a pO2 of 117 pCO2 of 53 pH of 7.38. Patient remains on propofol at 60 mcg/kg/m, fentanyl 1 mcg/kg/h. Chest x-ray is showing slight improvement in her bilateral interstitial infiltrates. However the endotracheal tube was noted to be sitting high in the trachea, and I have recommended advancing the tube at least 2-3 cm down. Respirator therapy was instructed on advancing the endotracheal tube and have repeat chest x-ray. Patient is sedated, and seems to be doing better, compared to the last few days. ABG is reflecting improvement in her pulmonary status. CBC is relatively normal. Electrolytes and renal profile is normal. C-reactive protein today is down to 16.4. D-dimer is down to 6.6 to patient remains on therapeutic dose of Lovenox, 70 mg subcu every 12 hours. Objective - Vital Signs Vital signs: Vital Signs Temp 96.8 F L 08/20/19 08:00 Pulse 59 L 08/20/19 11:00 Resp 18 08/20/19 11:00 BP 134/72 08/20/19 08:00 Pulse Ox 95 08/20/19 11:00 Intake & Output 08/19/19 08/20/19 08/20/19 18:59 06:59 18:59 Intake Total 8649.325 9376.700 810.314 Output Total 1005 975 275 Balance 404.025 437.700 535.314 Weight 139.2 kg 139.1 kg 139.1 kg Intake: IV 353 283 365 0.9 240 240 100 Azithromycin 500 mg In 250 Sodium Chloride 0.9% 250 ml @ 250 mls/hr IVPB DAILY [facility] Rx#:[id number] Pressure Bag 113 43 15 Intake, IV Titration 492.025 727.700 277.314 Amount Propofol 1,000 mg In 400 553.900 181.014 Empty Bag 1 bag @ Titrate IV .Q0M [facility] Rx#: [id number] fentaNYL (PF) 1,000 mcg 92.025 173.8 96.3 In Sodium Chloride 0.9% 80 ml @ 1 MCG/KG/HR 13.5 mls/hr IV .Q7H25M [facility] Rx# :[id number] Tube Feeding 504 312 78 Other 60 90 90 Output: Urine 1005 975 275 Other: Voiding Method Indwelling Catheter Indwelling Catheter Indwelling Catheter ABP, PAP, CO, CI - Last Documented Arterial Blood Pressure 141/66 - Exam Physical Exam: Revealed 58-year-old female, obese, on mechanical ventilation, sedated Head: Atraumatic normocephalic. Moist mucous membranes. Endotracheal tube and orogastric tube are intact, endotracheal tube will be advanced 3 cm HEENT:[Neck is supple.] [No neck masses.] [No thyromegaly.] [No JVD.] Chest: [Symmetrical chest expansion, crackles at the bases bilaterally. Cardiac Exam: [Normal S1 and S2, no S3 gallop, no murmur.] Abdomen: [Soft, nontender, no megaly, no rebound, no guarding, normal bowel sounds.] Extremities: [No clubbing, no edema, no cyanosis.] Neurological Exam: Sedated, could not be assessed. Psychiatric: Sedated, on propofol and fentanyl. Skin: No rashes. Musculoskeletal: No deformities - Labs CBC & Chem 7: 08/20/19 04:45 08/20/19 04:45 Labs: Abnormal Lab Results - Last 24 Hours (Table) 08/19/19 08/19/19 08/19/19 Range/Units 12:41 18:50 23:56 WBC (3.8-10.6) k/uL Hgb (11.4-16.0) gm/dL Neutrophils # (1.3-7.7) k/uL Lymphocytes # (1.0-4.8) k/uL D-Dimer (<0.60) mg/L FEU ABG pCO2 (35-45) mmHg ABG pO2 (83-108) mmHg ABG HCO3 (21-25) mmol/L ABG Total CO2 (19-24) mmol/L ABG O2 Saturation (94-97) % BUN (7-17) mg/dL Glucose (74-99) mg/dL POC Glucose (mg/dL) 154 H 173 H 175 H (75-99) mg/dL Calcium (8.4-10.2) mg/dL C-Reactive Protein (<10.0) mg/L Total Protein (6.3-8.2) g/dL Albumin (3.5-5.0) g/dL 08/20/19 08/20/19 08/20/19 Range/Units 04:45 04:45 04:45 WBC 11.7 H (3.8-10.6) k/uL Hgb 11.1 L (11.4-16.0) gm/dL Neutrophils # 10.4 H (1.3-7.7) k/uL Lymphocytes # 0.7 L (1.0-4.8) k/uL D-Dimer 6.62 H (<0.60) mg/L FEU ABG pCO2 (35-45) mmHg ABG pO2 (83-108) mmHg ABG HCO3 (21-25) mmol/L ABG Total CO2 (19-24) mmol/L ABG O2 Saturation (94-97) % BUN 26 H (7-17) mg/dL Glucose 174 H (74-99) mg/dL POC Glucose (mg/dL) (75-99) mg/dL Calcium 8.2 L (8.4-10.2) mg/dL C-Reactive Protein 16.4 H (<10.0) mg/L Total Protein 5.6 L (6.3-8.2) g/dL Albumin 2.9 L (3.5-5.0) g/dL 08/20/19 08/20/19 08/20/19 Range/Units 06:09 07:42 11:52 WBC (3.8-10.6) k/uL Hgb (11.4-16.0) gm/dL Neutrophils # (1.3-7.7) k/uL Lymphocytes # (1.0-4.8) k/uL D-Dimer (<0.60) mg/L FEU ABG pCO2 53 H (35-45) mmHg ABG pO2 117 H (83-108) mmHg ABG HCO3 31 H (21-25) mmol/L ABG Total CO2 33 H (19-24) mmol/L ABG O2 Saturation 98.1 H (94-97) % BUN (7-17) mg/dL Glucose (74-99) mg/dL POC Glucose (mg/dL) 163 H 128 H (75-99) mg/dL Calcium (8.4-10.2) mg/dL C-Reactive Protein (<10.0) mg/L Total Protein (6.3-8.2) g/dL Albumin (3.5-5.0) g/dL Microbiology - Last 24 Hours (Table) 08/14/19 13:38 Blood Culture - Preliminary Blood No Growth after 120 hours Assessment and Plan Assessment: Impression: Acute hypoxic respiratory failure secondary to covid 19 pneumonitis Acute hypercapnic respiratory failure secondary to pneumonitis as above. Severe sepsis secondary to pneumonitis. History of gouty arthritis. History of mitral valve prolapse. History of dyslipidemia. History of uterine cancer. History of depression. History of GERD without esophagitis. Recommendation: Continue ventilatory support. Continue FiO2 at 50%, decrease PEEP to 10, titrate FiO2 to keep O2 saturation above 90%. Advanced endotracheal tube and have follow-up chest x-ray. Continue propofol and fentanyl. May consider a trial of sedation interruption if the patient maintains adequate saturation on a PEEP of 10. And may even consider a weaning trial. Continue enteral feeding. GI and DVT prophylaxis. Continue hydroxychloroquine and on low-dose steroids.and Zithromax. Continue Lovenox 70 mg subcu every 12 hours because of elevated d-dimer. Follow inflammatory markers , they continued to improve. Prognosis remains relatively poor and guarded. Critical care time is 34 minutes We'll continue to follow Time with Patient: Greater than 30
--- NOTE | 2019-08-20 13:00 | XR ---
EXAMINATION TYPE: XR chest 1V portable DATE OF EXAM: 08/20/2019 HISTORY: ETT advanced. REFERENCE: Previous study of earlier today. FINDINGS: ET tube remains in place. The tip still projects over the T2 vertebral body. Heart size upper limits of normal. There continue to be patchy infiltrates present bilaterally. There is blunting of the right CP angle. I could not exclude a small right effusion. IMPRESSION: THE PATIENT IS ET TUBE IS STILL SOMEWHAT HIGH RIDING.
--- NOTE | 2019-08-20 14:34 | XR ---
EXAMINATION TYPE: XR chest 1V portable DATE OF EXAM: 08/20/2019 HISTORY: Shortness of breath. COMPARISON: 08/20/2019 TECHNIQUE: Single view of the chest is submitted. FINDINGS: Endotracheal tube is noted with its distal tip 1.4 cm from the genie near the origin of the right ma instem bronchus. Endotracheal tube should be pulled back 2 to 3 cm. NG tube is seen coursing into the stomach. Demonstrated are scattered senescent parenchymal change. Bilateral infiltrates persist unchanged. The heart is stable. Hilar and mediastinal structures are within normal limits. Degenerative changes are seen of the dorsal spine. IMPRESSION: 1. Endotracheal tube is noted with its distal tip 1.4 cm from the genie near the origin of the righ t mainstem bronchus. Endotracheal tube should be pulled back 2 to 3 cm.
[2019-08-20] MEDS ORDERED: POLYETHYLENE GLYCOL 3350 17 GM POWD.PACK PO PRN (16:00)
[2019-08-20 17:07] LABS: Glucose,Whole Blood 164 mg/dL (75-99)
[2019-08-20] MEDS: ATORVASTATIN 20 MG TAB PO SCH (20:28)
[2019-08-20] MEDS: VENLAFAXINE HCL ER 150 MG CAP PO SCH (20:29)
--- NOTE | 2019-08-20 23:13 | P.PN ---
Subjective Progress Note Date: 08/20/19 Principal diagnosis: Acute hypoxic and hypercapnic respiratory failure Ms. Chiu is a 58-year-old female with a past medical history of mitral valve prolapse, osteoarthritis, rheumatoid arthritis who was admitted to the hospital on 08/14/2019 for the chief complaint of difficulty in breathing and generalized body aches for the past 8 days. Patient was also having fatigue and headache. In the emergency department patient was on a nonrebreather and was hypotensive. Patient was tested negative for influenza a and B. Chest x-ray was positive for multifocal air space disease right greater than left. The chest x-ray was compatible with covid pneumonia along with her labs which go in favor of it. Later on patient was intubated, and the patient tested positive for covid 19. On 08/19/2019 -patient still remains intubated and mechanically ventilated. She is sedated on propofol and also fentanyl. Patient is on assist control mode with 18 of tidal volume, 450 FiO2 is 50% and a PEEP of 14. Patient remains on azithromycin and Solu-Medrol 60 mg IV every 12 hours. She is also on zinc sulfate anticoagulation with Lovenox. Patient's labs reviewed today showing hemoglobin of 9.3, white count of 11.5, there is a slow uptrend of white count. There is a downtrend of CRP levels. On 08/20/2019 - Patient still remains intubated and mechanically ventilated. As per the nursing staff report patient had a chest x-ray this morning showing endotracheal tube is higher up. As they tried to push p.o. further down they could not do so the endotracheal tube has been replaced. Patient's CBC has been stable and electrolytes show no new changes. Inflammatory markers are trending down. Active Medications Acetaminophen (Tylenol Tab) 650 mg PO Q6HR PRN PRN Reason: Mild Pain or Fever > 100.5 Last Admin: 08/15/19 08:21 Dose: 650 mg Documented by: Hydrocodone Bitart/Acetaminophen (Rifle 7.5-325) 1 each PO BID PRN PRN Reason: Moderate pain Albuterol Sulfate (Ventolin Hfa Inhaler) 2 puff INHALATION RT-Q6H [facility] Last Admin: 08/20/19 19:19 Dose: 2 puff Documented by: Atorvastatin Calcium (Lipitor) 20 mg PO HS [facility] Last Admin: 08/19/19 20:42 Dose: 20 mg Documented by: Chlorhexidine Gluconate (Peridex) 15 ml MUCOUS MEM BID [facility] Last Admin: 08/20/19 08:27 Dose: 15 ml Documented by: Enoxaparin Sodium (Lovenox) 70 mg SQ Q12HR [facility] Last Admin: 08/20/19 08:27 Dose: 70 mg Documented by: Propofol 1,000 mg/ IV Solution 100 mls @ 0 mls/hr IV .Q0M [facility]; Protocol Last Admin: 08/20/19 18:26 Dose: 50 mcg/kg/min, 41.73 mls/hr Documented by: Azithromycin 500 mg/ Sodium (Chloride) 250 mls @ 250 mls/hr IVPB DAILY [facility] Last Admin: 08/20/19 08:27 Dose: 250 mls/hr Documented by: Fentanyl Citrate 1,000 mcg/ (Sodium Chloride) 100 mls @ 13.5 mls/hr IV .Q7H25M [facility] Last Admin: 08/20/19 17:01 Dose: 1 mcg/kg/hr, 13.5 mls/hr Documented by: Insulin Aspart (Novolog) 0 unit SQ Q6H [facility]; Protocol Last Admin: 08/20/19 17:19 Dose: 3 unit Documented by: Lidocaine (Lidoderm) 1 patch TOPICAL DAILY PRN PRN Reason: Pain Last Admin: 08/14/19 23:03 Dose: 1 patch Documented by: Methylprednisolone Sodium Succinate (Solu-Medrol) 60 mg IV Q12HR [facility] Last Admin: 08/20/19 08:27 Dose: 60 mg Documented by: Naloxone HCl (Narcan) 0.2 mg IV Q2M PRN PRN Reason: Opioid Reversal Pantoprazole Sodium (Protonix) 40 mg IVP DAILY [facility] Last Admin: 08/20/19 08:26 Dose: 40 mg Documented by: Polyethylene Glycol (Miralax) 17 gm PO ONCE PRN PRN Reason: Constipation Stop: 08/20/19 23:59 Pregabalin (Lyrica) 200 mg PO TID [facility] Last Admin: 08/20/19 15:59 Dose: 200 mg Documented by: Venlafaxine HCl (Effexor Xr) 150 mg PO HS [facility] Last Admin: 08/19/19 20:43 Dose: 150 mg Documented by: Zinc Sulfate (Orazinc) 220 mg PO DAILY [facility] Last Admin: 08/20/19 08:28 Dose: 220 mg Documented by: Objective - Vital Signs Vital signs: Vital Signs Temp 98.1 F 08/20/19 12:00 Pulse 55 L 08/20/19 15:00 Resp 17 08/20/19 15:00 BP 134/72 08/20/19 08:00 Pulse Ox 98 08/20/19 15:00 Intake & Output 08/19/19 08/20/19 08/20/19 18:59 06:59 18:59 Intake Total 2469.813 9112.700 1165.514 Output Total 7263 274 0988 Balance 404.025 437.700 -6805.486 Weight 139.2 kg 139.1 kg 139.1 kg Intake: IV 353 283 457 0.9 240 240 180 Azithromycin 500 mg In 250 Sodium Chloride 0.9% 250 ml @ 250 mls/hr IVPB DAILY [facility] Rx#:[id number] Pressure Bag 113 43 27 Intake, IV Titration 492.025 727.700 354.514 Amount Propofol 1,000 mg In 400 553.900 258.214 Empty Bag 1 bag @ Titrate IV .Q0M [facility] Rx#: [id number] fentaNYL (PF) 1,000 mcg 92.025 173.8 96.3 In Sodium Chloride 0.9% 80 ml @ 1 MCG/KG/HR 13.5 mls/hr IV .Q7H25M [facility] Rx# :[id number] Tube Feeding 504 312 234 Other 60 90 120 Output: Urine 8107 626 3634 Other: Voiding Method Indwelling Catheter Indwelling Catheter Indwelling Catheter ABP, PAP, CO, CI - Last Documented Arterial Blood Pressure 158/71 - Exam PHYSICAL EXAM GENERAL: She is intubated and sedated . Morbidly obese HEENT: ET tube and orogastric tube in place CARDIOVASCULAR: S1 and S2 present. PULMONARY: Crackles in the bases ABDOMEN: Soft, nontender, nondistended. Thick abdominal wall. MUSCULOSKELETAL: No joint swelling or deformity. EXTREMITIES: No cyanosis, clubbing or pedal edema. NEUROLOGICAL: Sedated and please refer to nursing staff documentation for level of sedation SKIN: No rashes. Note: Because of COVID 19 isolation, some of the history and physical exam findings are indirect and obtained from nursing staff, and other physician examinations to avoid unnecessary contact with the patient. - Labs CBC & Chem 7: 08/20/19 04:45 08/20/19 04:45 Labs: Abnormal Lab Results - Last 24 Hours (Table) 08/19/19 08/19/19 08/20/19 Range/Units 18:50 23:56 04:45 WBC 11.7 H (3.8-10.6) k/uL Hgb 11.1 L (11.4-16.0) gm/dL Neutrophils # 10.4 H (1.3-7.7) k/uL Lymphocytes # 0.7 L (1.0-4.8) k/uL D-Dimer (<0.60) mg/L FEU ABG pCO2 (35-45) mmHg ABG pO2 (83-108) mmHg ABG HCO3 (21-25) mmol/L ABG Total CO2 (19-24) mmol/L ABG O2 Saturation (94-97) % BUN (7-17) mg/dL Glucose (74-99) mg/dL POC Glucose (mg/dL) 173 H 175 H (75-99) mg/dL Calcium (8.4-10.2) mg/dL C-Reactive Protein (<10.0) mg/L Total Protein (6.3-8.2) g/dL Albumin (3.5-5.0) g/dL 08/20/19 08/20/19 08/20/19 Range/Units 04:45 04:45 06:09 WBC (3.8-10.6) k/uL Hgb (11.4-16.0) gm/dL Neutrophils # (1.3-7.7) k/uL Lymphocytes # (1.0-4.8) k/uL D-Dimer 6.62 H (<0.60) mg/L FEU ABG pCO2 (35-45) mmHg ABG pO2 (83-108) mmHg ABG HCO3 (21-25) mmol/L ABG Total CO2 (19-24) mmol/L ABG O2 Saturation (94-97) % BUN 26 H (7-17) mg/dL Glucose 174 H (74-99) mg/dL POC Glucose (mg/dL) 163 H (75-99) mg/dL Calcium 8.2 L (8.4-10.2) mg/dL C-Reactive Protein 16.4 H (<10.0) mg/L Total Protein 5.6 L (6.3-8.2) g/dL Albumin 2.9 L (3.5-5.0) g/dL 08/20/19 08/20/19 Range/Units 07:42 11:52 WBC (3.8-10.6) k/uL Hgb (11.4-16.0) gm/dL Neutrophils # (1.3-7.7) k/uL Lymphocytes # (1.0-4.8) k/uL D-Dimer (<0.60) mg/L FEU ABG pCO2 53 H (35-45) mmHg ABG pO2 117 H (83-108) mmHg ABG HCO3 31 H (21-25) mmol/L ABG Total CO2 33 H (19-24) mmol/L ABG O2 Saturation 98.1 H (94-97) % BUN (7-17) mg/dL Glucose (74-99) mg/dL POC Glucose (mg/dL) 128 H (75-99) mg/dL Calcium (8.4-10.2) mg/dL C-Reactive Protein (<10.0) mg/L Total Protein (6.3-8.2) g/dL Albumin (3.5-5.0) g/dL Microbiology - Last 24 Hours (Table) 08/14/19 13:38 Blood Culture - Preliminary Blood No Growth after 120 hours Assessment and Plan Assessment: ASSESSMENT Acute hypoxic and hypercapnic respiratory failure secondary to COVID 19 pneumonia Severe sepsis secondary to #1 History of mitral valve prolapse History of gouty arthritis History of uterine cancer Hyperlipidemia GERD Elevated d-dimer PLAN: Patient to be continued on mechanical ventilation. . She is being sudha nued on hydroxychloroquine and azithromycin. Patient's inflammatory markers are improving. Continue with Lovenox 70 mg subcu twice daily due to elevated d- dimer levels. Overall prognosis remains poor. Further recommendations depending on the progress of the patient.
--- NOTE | 2019-08-20 23:13 | P.PN ---
Subjective Progress Note Date: 08/19/19 Principal diagnosis: Acute hypoxic respiratory failure Ms. Chiu is a 58-year-old female with a past medical history of mitral valve prolapse, osteoarthritis, rheumatoid arthritis who was admitted to the hospital on 08/14/2019 for the chief complaint of difficulty in breathing and generalized body aches for the past 8 days. Patient was also having fatigue and headache. In the emergency department patient was on a nonrebreather and was hypotensive. Patient was tested negative for influenza a and B. Chest x-ray was positive for multifocal air space disease right greater than left. The chest x-ray was compatible with covid pneumonia along with her labs which go in favor of it. Later on patient was intubated, and the patient tested positive for covid 19. On 08/19/2019 -patient still remains intubated and mechanically ventilated. She is sedated on propofol and also fentanyl. Patient is on assist control mode with 18 of tidal volume, 450 FiO2 is 50% and a PEEP of 14. Patient remains on azithromycin and Solu-Medrol 60 mg IV every 12 hours. She is also on zinc sulfate anticoagulation with Lovenox. Patient's labs reviewed today showing hemoglobin of 9.3, white count of 11.5, there is a slow uptrend of white count. There is a downtrend of CRP levels. Active Medications Acetaminophen (Tylenol Tab) 650 mg PO Q6HR PRN PRN Reason: Mild Pain or Fever > 100.5 Last Admin: 08/15/19 08:21 Dose: 650 mg Documented by: Hydrocodone Bitart/Acetaminophen ([place] 7.5-325) 1 each PO BID PRN PRN Reason: Moderate pain Albuterol Sulfate (Ventolin Hfa Inhaler) 2 puff INHALATION RT-Q6H [facility] Last Admin: 08/19/19 15:02 Dose: 2 puff Documented by: Atorvastatin Calcium (Lipitor) 20 mg PO HS [facility] Last Admin: 08/18/19 20:12 Dose: 20 mg Documented by: Chlorhexidine Gluconate (Peridex) 15 ml MUCOUS MEM BID [facility] Last Admin: 08/19/19 08:53 Dose: 15 ml Documented by: Enoxaparin Sodium (Lovenox) 70 mg SQ Q12HR [facility] Last Admin: 08/19/19 08:55 Dose: 70 mg Documented by: Propofol 1,000 mg/ IV Solution 100 mls @ 0 mls/hr IV .Q0M [facility]; Protocol Last Admin: 08/19/19 15:16 Dose: 60 mcg/kg/min, 50.112 mls/hr Documented by: Azithromycin 500 mg/ Sodium (Chloride) 250 mls @ 250 mls/hr IVPB DAILY [facility] Last Admin: 08/19/19 08:54 Dose: 250 mls/hr Documented by: Fentanyl Citrate 1,000 mcg/ (Sodium Chloride) 100 mls @ 13.5 mls/hr IV .Q7H25M [facility] Last Admin: 08/19/19 12:38 Dose: 1 mcg/kg/hr, 13.5 mls/hr Documented by: Insulin Aspart (Novolog) 0 unit SQ Q6H [facility]; Protocol Last Admin: 08/19/19 12:48 Dose: 2 unit Documented by: Lidocaine (Lidoderm) 1 patch TOPICAL DAILY PRN PRN Reason: Pain Last Admin: 08/14/19 23:03 Dose: 1 patch Documented by: Methylprednisolone Sodium Succinate (Solu-Medrol) 60 mg IV Q12HR [facility] Last Admin: 08/19/19 08:52 Dose: 60 mg Documented by: Multi-Ingred Cream/Lotion/Oil/Oint (Lubrifresh Pm Ointment) 1 applic BOTH EYES Q4HR [facility] Last Admin: 08/19/19 15:18 Dose: 1 applic Documented by: Naloxone HCl (Narcan) 0.2 mg IV Q2M PRN PRN Reason: Opioid Reversal Pantoprazole Sodium (Protonix) 40 mg IVP DAILY [facility] Last Admin: 08/19/19 08:53 Dose: 40 mg Documented by: Pregabalin (Lyrica) 200 mg PO TID [facility] Last Admin: 08/19/19 08:55 Dose: 200 mg Documented by: Venlafaxine HCl (Effexor Xr) 150 mg PO HS [facility] Last Admin: 08/18/19 20:13 Dose: 150 mg Documented by: Zinc Sulfate (Orazinc) 220 mg PO DAILY [facility] Last Admin: 08/19/19 08:55 Dose: 220 mg Documented by: Objective - Vital Signs Vital signs: Vital Signs Temp 98.4 F 08/19/19 08:00 Pulse 61 08/19/19 14:00 Resp 18 08/19/19 14:00 BP 134/72 08/19/19 08:00 Pulse Ox 96 08/19/19 14:00 Intake & Output 08/18/19 08/19/19 08/19/19 18:59 06:59 18:59 Intake Total 7241.911 3326.706 929.025 Output Total 875 860 565 Balance 539.721 507.706 364.025 Weight 139.2 kg 139.2 kg Intake: IV 313 283 233 0.9 200 240 160 Pressure Bag 113 43 73 Intake, IV Titration 535.721 552.706 292.025 Amount Propofol 1,000 mg In 369.896 368.206 200 Empty Bag 1 bag @ Titrate IV .Q0M [facility] Rx#: [id number] fentaNYL (PF) 1,000 mcg 165.825 184.5 92.025 In Sodium Chloride 0.9% 80 ml @ 1 MCG/KG/HR 13.5 mls/hr IV .Q7H25M [facility] Rx# :[id number] Tube Feeding 476 442 374 Other 90 90 30 Output: Urine 875 860 565 Other: Voiding Method Indwelling Catheter Indwelling Catheter Indwelling Catheter ABP, PAP, CO, CI - Last Documented Arterial Blood Pressure 107/84 - Exam PHYSICAL EXAMINATION: GENERAL: She is intubated and sedated . Morbidly obese HEENT: ET tube and orogastric tube in place CARDIOVASCULAR: S1 and S2 present. PULMONARY: Crackles in the bases ABDOMEN: Soft, nontender, nondistended. Thick abdominal wall. MUSCULOSKELETAL: No joint swelling or deformity. EXTREMITIES: No cyanosis, clubbing or pedal edema. NEUROLOGICAL: Sedated and please refer to nursing staff documentation for level of sedation SKIN: No rashes. Note: Because of COVID 19 isolation, some of the history and physical exam findings are indirect and obtained from nursing staff, and other physician examinations to avoid unnecessary contact with the patient. - Labs CBC & Chem 7: 08/19/19 04:10 08/19/19 04:10 Labs: Abnormal Lab Results - Last 24 Hours (Table) 08/18/19 08/18/19 08/18/19 Range/Units 17:11 17:58 23:50 WBC (3.8-10.6) k/uL Hgb (11.4-16.0) gm/dL Neutrophils # (1.3-7.7) k/uL Lymphocytes # (1.0-4.8) k/uL D-Dimer (<0.60) mg/L FEU ABG pCO2 (35-45) mmHg ABG pO2 (83-108) mmHg ABG HCO3 (21-25) mmol/L ABG Total CO2 (19-24) mmol/L BUN (7-17) mg/dL Glucose (74-99) mg/dL POC Glucose (mg/dL) 173 H 187 H 165 H (75-99) mg/dL Calcium (8.4-10.2) mg/dL Ferritin (10.0-291.0) ng/mL Creatine Kinase (30-135) U/L C-Reactive Protein (<10.0) mg/L Total Protein (6.3-8.2) g/dL Albumin (3.5-5.0) g/dL 08/19/19 08/19/19 08/19/19 Range/Units 04:10 04:10 04:10 WBC 11.5 H (3.8-10.6) k/uL Hgb 11.3 L (11.4-16.0) gm/dL Neutrophils # 10.2 H (1.3-7.7) k/uL Lymphocytes # 0.6 L (1.0-4.8) k/uL D-Dimer 8.09 H (<0.60) mg/L FEU ABG pCO2 (35-45) mmHg ABG pO2 (83-108) mmHg ABG HCO3 (21-25) mmol/L ABG Total CO2 (19-24) mmol/L BUN 25 H (7-17) mg/dL Glucose 193 H (74-99) mg/dL POC Glucose (mg/dL) (75-99) mg/dL Calcium 8.3 L (8.4-10.2) mg/dL Ferritin 300.8 H (10.0-291.0) ng/mL Creatine Kinase 20 L (30-135) U/L C-Reactive Protein 28.1 H (<10.0) mg/L Total Protein 5.7 L (6.3-8.2) g/dL Albumin 3.0 L (3.5-5.0) g/dL 08/19/19 08/19/19 08/19/19 Range/Units 05:55 06:26 12:41 WBC (3.8-10.6) k/uL Hgb (11.4-16.0) gm/dL Neutrophils # (1.3-7.7) k/uL Lymphocytes # (1.0-4.8) k/uL D-Dimer (<0.60) mg/L FEU ABG pCO2 48 H (35-45) mmHg ABG pO2 79 L (83-108) mmHg ABG HCO3 29 H (21-25) mmol/L ABG Total CO2 31 H (19-24) mmol/L BUN (7-17) mg/dL Glucose (74-99) mg/dL POC Glucose (mg/dL) 191 H 154 H (75-99) mg/dL Calcium (8.4-10.2) mg/dL Ferritin (10.0-291.0) ng/mL Creatine Kinase (30-135) U/L C-Reactive Protein (<10.0) mg/L Total Protein (6.3-8.2) g/dL Albumin (3.5-5.0) g/dL Microbiology - Last 24 Hours (Table) 08/14/19 13:38 Blood Culture - Preliminary Blood No Growth after 96 hours Assessment and Plan Assessment: ASSESSMENT Acute hypoxic and hypercapnic respiratory failure secondary to COVID 19 pneumonia Severe sepsis secondary to #1 History of mitral valve prolapse History of gouty arthritis History of uterine cancer Hyperlipidemia GERD Elevated d-dimer PLAN: Patient to be continued on mechanical ventilation. Patient's white count has been slowly trending up and CRP levels are decreasing. She is being continued on hydroxychloroquine and azithromycin. As per the new guidelines due to her elevated d-dimer patient has been started on Lovenox 70 mg subcu twice daily. Overall prognosis is poor. Further recommendations to follow depending on the progress of the patient.
[2019-08-20 23:46] LABS: Glucose,Whole Blood 167 mg/dL (75-99)
[2019-08-21] MEDS: fentaNYL (PF) 1,000 MCG in SODIUM CHLORIDE 0.9% 80 ML IV SCH ×4 (00:03→19:44)
[2019-08-21] MEDS: PROPOFOL 1,000 MG in EMPTY BAG 1 BAG IV SCH ×9 (00:48→23:51)
[2019-08-21] MEDS: ALBUTEROL HFA INHALER INHALATION SCH ×4 (01:12→21:24)
[2019-08-21 03:47] LABS: Basophils % (A) 0 %; Eosinophils % (A) 0 %; HCT 36.5 % (34.0-46.0); HGB 11.4 gm/dL (11.4-16.0); Lymphocytes # (A) 0.6 k/uL (1.0-4.8); Lymphocytes % (A) 4 %; MCH 28.3 pg (25.0-35.0); MCHC 31.2 g/dL (31.0-37.0); MCV 90.7 fL (80.0-100.0); Mean Platelet Volume 7.7; Monocytes # (A) 0.5 k/uL (0-1.0); Monocytes % (A) 3 %; Neutrophils # (A) 13.7 k/uL (1.3-7.7); Neutrophils % (A) 92 %; Platelet Count 494 k/uL (150-450); RBC 4.03 m/uL (3.80-5.40); RDW 14.4 % (11.5-15.5); WBC 14.9 k/uL (3.8-10.6)
[2019-08-21 03:57] LABS: ALT 12 U/L (4-34); AST 18 U/L (14-36); African American GFR (CKD) >90 (>60 ml/min/1.73 sqM); Alkaline Phosphatase 67 U/L (38-126); Anion Gap 2 mmol/L; Blood Urea Nitrogen 27 mg/dL (7-17); C Reactive Protein 11.9 mg/L (<10.0); Calcium 8.3 mg/dL (8.4-10.2); Carbon Dioxide 32 mmol/L (22-30); Chloride 104 mmol/L (98-107); Creatine Kinase 72 U/L (30-135); Glucose 170 mg/dL (74-99); Non-African American GFR(CKD) >90 (>60 ml/min/1.73 sqM); Sodium 138 mmol/L (137-145); Total Bilirubin 0.4 mg/dL (0.2-1.3); Total Protein 5.8 g/dL (6.3-8.2)
[2019-08-21 05:20] LABS: Glucose,Whole Blood 167 mg/dL (75-99)
[2019-08-21] MEDS: INSULIN ASPART (NovoLOG) 100 UNIT/ML VIAL SQ SCH ×4 (05:21→23:50)
[2019-08-21 05:43] LABS: ABG Base Excess 5.8 mmol/L; ABG HCO3 31 mmol/L (21-25); ABG Oxygen Saturation 97.9 % (94-97); ABG PCO2 52 mmHg (35-45); ABG PH 7.39 (7.35-7.45); ABG PO2 109 mmHg (83-108); ABG TCO2 32 mmol/L (19-24)
[2019-08-21 06:20] LABS: Allen Test Performed? no
--- NOTE | 2019-08-21 07:31 | XR ---
EXAMINATION TYPE: XR chest 1V portable DATE OF EXAM: 08/21/2019 COMPARISON: 08/20/2019 HISTORY: SOB, Follow Up FINDINGS: Indwelling tubes and catheters are unchanged. Scattered interstitial and right infrahilar alveolar infiltrates persist. Slight progression noted ri ght lower lobe. Stable appearance of the cardio-mediastinal structures at this time. IMPRESSION: 1. Scattered interstitial and right infrahilar alveolar infiltrates persist. Slight progression note d right lower lobe. Clinical correlation and follow up until resolution is recommended.
[2019-08-21] MEDS: PANTOPRAZOLE 40 MG/10 ML VIAL IVP SCH (09:10)
[2019-08-21] MEDS: methylPREDNISolone SOD SUCCI 125 MG/2 ML VIAL IV SCH ×2 (09:10→20:01)
[2019-08-21] MEDS: CHLORHEXIDINE GLUCONATE 15 ML CUP MUCOUS MEM SCH ×2 (09:10→20:02)
[2019-08-21] MEDS: PREGABALIN 100 MG CAP PO SCH ×3 (09:11→20:01)
[2019-08-21] MEDS: AZITHROMYCIN 500 MG in SODIUM CHLORIDE 0.9% 250 ML IVPB SCH (09:11)
[2019-08-21] MEDS: ZINC SULFATE 220 MG CAP PO SCH (09:12)
[2019-08-21] MEDS: ENOXAPARIN 150 MG/ML SYRINGE SQ SCH ×2 (09:19→20:02)
[2019-08-21] MEDS ORDERED: CISATRACURIUM 2 MG/ML 5 ML VIAL IV ONE (09:55)
[2019-08-21 10:39] LABS: Ferritin 216.9 ng/mL (10.0-291.0)
[2019-08-21 11:49] LABS: Glucose,Whole Blood 130 mg/dL (75-99)
[2019-08-21 13:00] LABS: Ferritin 175.9 ng/mL (10.0-291.0)
--- NOTE | 2019-08-21 13:16 | P.PN ---
Subjective Progress Note Date: 08/21/19 Principal diagnosis: Acute hypoxic respiratory failure secondary to CoVID 19 pneumonitis This is a 58-year-old female with history of multiple medical problems including rheumatoid arthritis, degenerative joint disease, mitral valve prolapse, history of uterine cancer. History of dyslipidemia. Depression. Patient was brought into the ER yesterday with a few days' history of increased shortness of breath and cough. Patient has also been complaining of profound fatigue, headache, generalized aches and pains for the last 3 days. Her chest x-ray showed diffuse pneumonitis. Patient required a high flow nasal cannula to barely maintain O2 saturation in the low 90s and she was on 15 L/m via high flow nasal cannula. She was later switched to 100% nonrebreather, remained relatively hypoxic. Patient was having intermittent episodes of cough, and she was noted to be pro foundly short of breath. After evaluating the patient today, I felt that the patient is developing severe hypoxic respiratory failure, and I recommended intubation by the anesthesia team since the patient is highly suspicious for covid 19 pneumonitis. Patient was intubated, placed on assist control mode of mechanical ventilation. Rate of 18 tidal volume is 400 FiO2 is 100% and PEEP is 16. After repeat ABG, her FiO2 was decreased down to 50%. And tidal volume was changed to 450. Patient had to be placed on propofol, fentanyl, and Nimbex. She was also already placed on hydroxychloroquine, Zithromax, and on Solu-Medrol at 60 mg IV push every 12 hours. ABG post intubation showed a pO2 of 336 pCO2 of 50 pH of 7.34. Hence her FiO2 was decreased down to 50%. And A PEEP of 16. Inflammatory markers were noted to be elevated including C-reactive protein of 154 LDH 1981 ferritin 303 and no d-dimer was done. Patient was reevaluated today on 08/16/19, patient is positive for covid 19, rem ains on mechanical ventilation, presently in the ICU. She is presently on multiple drips including propofol at 50 mcg/kg/h, she is also on fentanyl, and on Nimbex. I plan to discontinue Nimbex today, and continue to sedate the patient with fentanyl and the prevent. Her ventilator settings today are assist control rate of 18 tidal volume is 450 FiO2 is 45% PEEP is 16, and I cut it down to 14. Her peak airway pressure is 29 and her plateau pressure is 26. FiO2 was cut down to 45% yesterday. ABG today showed a pO2 of 116 pCO2 of 51 pH of 7.36. Basic metabolic profile is normal, renal profile is normal. Inflammatory markers including C-reactive protein is 212 LDH is 1617 and d-dimer is 14.5. Interleukin-6 was ordered, will decide whether the patient could qualify for actemra, so far she doesn't. PaO2/FiO2 is 257 Reevaluated today on 08/17/19, patient remains in the ICU, intubated and mechanically ventilated. Her ventilator settings are assist control rate of 18 tidal volume is 450 FiO2 is 45% PEEP is 14. Patient is on propofol at 60 mcg/kg/m, and she is also on fentanyl at 20 mcg/kg/h. Continues to have low- grade fever with a temp of 99.1. Chest x-ray is showing slight improvement in her interstitial infiltrates. Hence I was able to decrease the PEEP down to 10, however if she desaturates the patient is to have a PEEP increased back to 14, and continue FiO2 anywhere between 45-50%. ABG today on FiO2 of 45% and PEEP of 14 showed a pO2 of 86 pCO2 of 47 pH of 7.40. WBC count is 8.7 hemoglobin is 11.5. Electrolytes and renal profile are normal. Ferritin is 454 LDH is 1141 C-reactive protein is 84.7. Reevaluated today on 08/18/19, remains in the ICU, intubated and mechanically ventilated. Her ventilator settings are assist control rate of 18 tidal volume is 450 FiO2 is 50% and PEEP is 16 I cut it down to 14. ABG showed a pO2 of 80 pCO2 of 48 pH of 7.48. Electrolytes in the upper profile are normal CBC is normal d-dimer is 10.80, improved compared to yesterday were and it was 14.15. Inflammatory markers including ferritin, LDH, C-reactive protein are improving. Chest x-ray continues to show by bilateral interstitial infiltrates, slightly improved compared to baseline chest x-ray however the patient is on a relatively higher PEEP at present. Patient is sedated, she is on propofol at 55 and sentinel at 1 mcg/kg/h. Reevaluated today on 08/19/19, patient remains intubated and mechanically ventilated. Patient vent settings are assist control rate of 18 tidal volume is 450 FiO2 is 50% and PEEP is 14. Peak airway pressure is 31 plateau pressures is 26. Patient remains on fentanyl at 1 mcg/kg/h, propofol at 60 mcg/kg/m. Her Lovenox was increased yesterday to 70 mg subcu every 12 hours mostly because of her elevated d-dimer. Chest x-ray showing slight improvement in her interstitial infiltrates. Endotracheal tube was noted to be high, and it will be advanced down by 2 cm. ABG showed a pO2 of 79 pCO2 of 48 patient of 7.39. CBC is relatively normal basic metabolic profile is normal.inflammatory markers noted to improve C-reactive protein is down to 28 ferritin is 300.8 d-dimer is down to 8.09. Reevaluated today on 08/20/19, patient remains intubated and mechanically ventilated. Her ventilator settings are tidal volume of 450 assist-control rate of 18 FiO2 is 50% PEEP at 14 on a cardiac down to 10. ABG showed a pO2 of 117 pCO2 of 53 pH of 7.38. Patient remains on propofol at 60 mcg/kg/m, fentanyl 1 mcg/kg/h. Chest x-ray is showing slight improvement in her bilateral interstitial infiltrates. However the endotracheal tube was noted to be sitting high in the trachea, and I have recommended advancing the tube at least 2-3 cm down. Respirator therapy was instructed on advancing the endotracheal tube and have repeat chest x-ray. Patient is sedated, and seems to be doing better, compared to the last few days. ABG is reflecting improvement in her pulmonary status. CBC is relatively normal. Electrolytes and renal profile is normal. C-reactive protein today is down to 16.4. D-dimer is down to 6.6 to patient remains on therapeutic dose of Lovenox, 70 mg subcu every 12 hours. The patient is seen today 08/21/2019 in follow-up in the intensive care unit. She remains intubated and on the mechanical ventilator. Current settings assist-control of 18, tidal volume 450, FiO2 60% and a PEEP of 10. Morning blood gases reveal a P O2 of 109, pCO2 52, pH 7.39. She did require endotracheal tube change out yesterday due to possible kinking of the tube and displacement. Today's chest x-ray reveals good placement of the endotracheal tube. There is scattered interstitial and right infrahilar alveolar infiltrates that persists. Slight progression noted in the right lower lobe. She has completed her course of Plaquenil. She is continued on azithromycin. Continue nonsedating. She is on Solu-Medrol 60 mg every 12 hours. She is sedated on propofol at 45 mcg/kg/m. Fentanyl at 1 mg per hour. 0.9 normal saline at 20. Vital HP at 26 ML's per hour which is goal. White count 14.9. Hemoglobin 11.4. Platelets 494. D-dimer remains elevated at 8.49. Lovenox 140 mg every 12 hours subcutaneous. Objective - Vital Signs Vital signs: Vital Signs Temp 97.4 F L 08/21/19 12:00 Pulse 62 08/21/19 13:00 Resp 22 08/21/19 13:00 BP 134/72 08/20/19 08:00 Pulse Ox 97 08/21/19 13:00 Intake & Output 08/20/19 08/21/19 08/21/19 18:59 06:59 18:59 Intake Total 8079.860 1034.459 614.825 Output Total 8106 645 275 Balance -6463.486 758.459 339.825 Weight 139.1 kg 138.6 kg Intake: IV 526 299 92 0.9 240 260 80 Azithromycin 500 mg In 250 Sodium Chloride 0.9% 250 ml @ 250 mls/hr IVPB DAILY [facility] Rx#:[id number] Pressure Bag 36 39 12 Intake, IV Titration 654.514 650.459 284.825 Amount Propofol 1,000 mg In 458.214 464.834 200 Empty Bag 1 bag @ Titrate IV .Q0M [facility] Rx#: [id number] fentaNYL (PF) 1,000 mcg 196.3 185.625 84.825 In Sodium Chloride 0.9% 80 ml @ 1 MCG/KG/HR 13.5 mls/hr IV .Q7H25M [facility] Rx# :[id number] Tube Feeding 312 364 208 Other 150 90 30 Output: Urine 8106 645 275 Other: Voiding Method Indwelling Catheter Indwelling Catheter Indwelling Catheter ABP, PAP, CO, CI - Last Documented Arterial Blood Pressure 141/62 - Exam GENERAL EXAM: Intubated, sedated 58-year-old female patient, maintaining O2 saturations in the 90s on 60% FiO2 and a PEEP of 10 comfortable in no apparent distress. HEAD: Normocephalic. EYES: Sluggish reaction of pupils, equal size. NOSE: Clear with pink turbinates. THROAT: Oral endotracheal tube and gastric tube secured in place erythema or exudates. NECK: No masses, no JVD. CHEST: No chest wall deformity. LUNGS: Equal air entry with bilateral scattered rhonchi. CVS: S1 and S2 normal with no audible murmur, regular rhythm. ABDOMEN: No hepatosplenomegaly, normal bowel sounds, no guarding or rigidity. SPINE: No scoliosis or deformity SKIN: No rashes CENTRAL NERVOUS SYSTEM: Sedated, tone is normal in all 4 extremities. EXTREMITIES: There is no peripheral edema. No clubbing, no cyanosis. Peripheral pulses are intact. - Labs CBC & Chem 7: 08/21/19 03:33 08/21/19 03:33 Labs: Abnormal Lab Results - Last 24 Hours (Table) 08/20/19 08/20/19 08/21/19 Range/Units 17:06 23:44 03:33 WBC 14.9 H (3.8-10.6) k/uL Plt Count 494 H (150-450) k/uL Neutrophils # 13.7 H (1.3-7.7) k/uL Lymphocytes # 0.6 L (1.0-4.8) k/uL D-Dimer (<0.60) mg/L FEU ABG pCO2 (35-45) mmHg ABG pO2 (83-108) mmHg ABG HCO3 (21-25) mmol/L ABG Total CO2 (19-24) mmol/L ABG O2 Saturation (94-97) % Carbon Dioxide (22-30) mmol/L BUN (7-17) mg/dL Glucose (74-99) mg/dL POC Glucose (mg/dL) 164 H 167 H (75-99) mg/dL Calcium (8.4-10.2) mg/dL C-Reactive Protein (<10.0) mg/L Total Protein (6.3-8.2) g/dL Albumin (3.5-5.0) g/dL 08/21/19 08/21/19 08/21/19 Range/Units 03:33 03:33 05:19 WBC (3.8-10.6) k/uL Plt Count (150-450) k/uL Neutrophils # (1.3-7.7) k/uL Lymphocytes # (1.0-4.8) k/uL D-Dimer 8.49 H (<0.60) mg/L FEU ABG pCO2 (35-45) mmHg ABG pO2 (83-108) mmHg ABG HCO3 (21-25) mmol/L ABG Total CO2 (19-24) mmol/L ABG O2 Saturation (94-97) % Carbon Dioxide 32 H (22-30) mmol/L BUN 27 H (7-17) mg/dL Glucose 170 H (74-99) mg/dL POC Glucose (mg/dL) 167 H (75-99) mg/dL Calcium 8.3 L (8.4-10.2) mg/dL C-Reactive Protein 11.9 H (<10.0) mg/L Total Protein 5.8 L (6.3-8.2) g/dL Albumin 3.0 L (3.5-5.0) g/dL 08/21/19 08/21/19 Range/Units 05:42 11:48 WBC (3.8-10.6) k/uL Plt Count (150-450) k/uL Neutrophils # (1.3-7.7) k/uL Lymphocytes # (1.0-4.8) k/uL D-Dimer (<0.60) mg/L FEU ABG pCO2 52 H (35-45) mmHg ABG pO2 109 H (83-108) mmHg ABG HCO3 31 H (21-25) mmol/L ABG Total CO2 32 H (19-24) mmol/L ABG O2 Saturation 97.9 H (94-97) % Carbon Dioxide (22-30) mmol/L BUN (7-17) mg/dL Glucose (74-99) mg/dL POC Glucose (mg/dL) 130 H (75-99) mg/dL Calcium (8.4-10.2) mg/dL C-Reactive Protein (<10.0) mg/L Total Protein (6.3-8.2) g/dL Albumin (3.5-5.0) g/dL Microbiology - Last 24 Hours (Table) 08/14/19 13:38 Blood Culture - Final Blood No Growth after 144 hours Assessment and Plan Assessment: 1 Acute hypoxic respiratory failure secondary to covid 19 pneumonitis 2 Acute hypercapnic respiratory failure secondary to pneumonitis as above. 3 Severe sepsis secondary to pneumonitis. 4 History of gouty arthritis. 5 History of mitral valve prolapse. 6 History of dyslipidemia. 7 History of uterine cancer. 8 History of depression. 9 History of GERD without esophagitis. Plan: The patient was seen and evaluated by Dr. Simons. Chest x-ray, ABGs and labs all reviewed. We did decrease the FiO2 to 50%, increase the PEEP to 13, increased respiratory rate 22 and decrease tidal volume to 350 Increase Lovenox to 140 mg subcu every 12 Continue azithromycin and zinc. Continue Solu-Medrol Daily interruption of sedation and weaning parameters We will continue to follow and make further recommendations based on her clinical status. Critical care time 40 minutes I, the cosigning physician, performed a history & physical examination of the patient. Lungs sounds with bilateral scattered rhonchi. Maintaining good O2 saturations in the 90s on 60% FiO2 via the mechanical ventilator. I discussed the assessment and plan of care with my nurse practitioner, Mirna Fraire. I attest to the above note as dictated by her.
[2019-08-21 18:35] LABS: Glucose,Whole Blood 146 mg/dL (75-99)
[2019-08-21] MEDS: ATORVASTATIN 20 MG TAB PO SCH (20:01)
[2019-08-21] MEDS: VENLAFAXINE HCL ER 150 MG CAP PO SCH (20:01)
--- NOTE | 2019-08-21 20:06 | P.PN ---
Subjective Progress Note Date: 08/21/19 Principal diagnosis: Acute hypoxic and hypercapnic respiratory failure Ms. Chiu is a 58-year-old female with a past medical history of mitral valve prolapse, osteoarthritis, rheumatoid arthritis who was admitted to the hospital on 08/14/2019 for the chief complaint of difficulty in breathing and generalized body aches for the past 8 days. Patient was also having fatigue and headache. In the emergency department patient was on a nonrebreather and was hypotensive. Patient was tested negative for influenza a and B. Chest x-ray was positive for multifocal air space disease right greater than left. The chest x-ray was compatible with covid pneumonia along with her labs which go in favor of it. Later on patient was intubated, and the patient tested positive for covid 19. On 08/19/2019 -patient still remains intubated and mechanically ventilated. She is sedated on propofol and also fentanyl. Patient is on assist control mode with 18 of tidal volume, 450 FiO2 is 50% and a PEEP of 14. Patient remains on azithromycin and Solu-Medrol 60 mg IV every 12 hours. She is also on zinc sulfate anticoagulation with Lovenox. Patient's labs reviewed today showing hemoglobin of 9.3, white count of 11.5, there is a slow uptrend of white count. There is a downtrend of CRP levels. On 08/20/2019 - Patient still remains intubated and mechanically ventilated. As per the nursing staff report patient had a chest x-ray this morning showing endotracheal tube is higher up. As they tried to push p.o. further down they could not do so the endotracheal tube has been replaced. Patient's CBC has been stable and electrolytes show no new changes. Inflammatory markers are trending down. On 08/21/2019 - Patient still remains intubated and mechanically ventilated in the ICU. Overnight no acute events reported by nursing staff. Chest x-ray from this morning shows good placement of endotracheal tube. Patient still did not have a bowel movement, will give a trial of MiraLAX. She continues to be sedated. She is continued on steroids IV Solu-Medrol 60 mg twice daily. Active Medications Acetaminophen (Tylenol Tab) 650 mg PO Q6HR PRN PRN Reason: Mild Pain or Fever > 100.5 Last Admin: 08/15/19 08:21 Dose: 650 mg Documented by: Hydrocodone Bitart/Acetaminophen ([place] 7.5-325) 1 each PO BID PRN PRN Reason: Moderate pain Albuterol Sulfate (Ventolin Hfa Inhaler) 2 puff INHALATION RT-Q6H [facility] Last Admin: 08/21/19 13:01 Dose: 2 puff Documented by: Atorvastatin Calcium (Lipitor) 20 mg PO HS [facility] Last Admin: 08/21/19 20:01 Dose: 20 mg Documented by: Chlorhexidine Gluconate (Peridex) 15 ml MUCOUS MEM BID [facility] Last Admin: 08/21/19 20:02 Dose: 15 ml Documented by: Enoxaparin Sodium (Lovenox) 140 mg SQ Q12HR [facility] Last Admin: 08/21/19 20:02 Dose: 140 mg Documented by: Propofol 1,000 mg/ IV Solution 100 mls @ 0 mls/hr IV .Q0M [facility]; Protocol Last Admin: 08/21/19 19:45 Dose: 45 mcg/kg/min, 37.422 mls/hr Documented by: Azithromycin 500 mg/ Sodium (Chloride) 250 mls @ 250 mls/hr IVPB DAILY [facility] Last Admin: 08/21/19 09:11 Dose: 250 mls/hr Documented by: Fentanyl Citrate 1,000 mcg/ (Sodium Chloride) 100 mls @ 13.5 mls/hr IV .Q7H25M [facility] Last Admin: 08/21/19 19:44 Dose: 1 mcg/kg/hr, 13.5 mls/hr Documented by: Insulin Aspart (Novolog) 0 unit SQ Q6H [facility]; Protocol Last Admin: 08/21/19 18:39 Dose: 2 unit Documented by: Lidocaine (Lidoderm) 1 patch TOPICAL DAILY PRN PRN Reason: Pain Last Admin: 08/14/19 23:03 Dose: 1 patch Documented by: Methylprednisolone Sodium Succinate (Solu-Medrol) 60 mg IV Q12HR [facility] Last Admin: 08/21/19 20:01 Dose: 60 mg Documented by: Naloxone HCl (Narcan) 0.2 mg IV Q2M PRN PRN Reason: Opioid Reversal Pantoprazole Sodium (Protonix) 40 mg IVP DAILY [facility] Last Admin: 08/21/19 09:10 Dose: 40 mg Documented by: Polyethylene Glycol (Miralax) 17 gm PO DAILY PRN PRN Reason: Constipation Pregabalin (Lyrica) 200 mg PO TID [facility] Last Admin: 08/21/19 20:01 Dose: 200 mg Documented by: Venlafaxine HCl (Effexor Xr) 150 mg PO HS [facility] Last Admin: 08/21/19 20:01 Dose: 150 mg Documented by: Zinc Sulfate (Orazinc) 220 mg PO DAILY [facility] Last Admin: 08/21/19 09:12 Dose: 220 mg Documented by: Objective - Vital Signs Vital signs: Vital Signs Temp 97.4 F L 08/21/19 12:00 Pulse 53 L 08/21/19 19:00 Resp 22 08/21/19 19:00 BP 134/72 08/20/19 08:00 Pulse Ox 97 08/21/19 19:00 Intake & Output 08/21/19 08/21/19 08/22/19 06:59 18:59 06:59 Intake Total 3274.138 6928.332 190.225 Output Total 645 790 Balance 758.459 475.332 190.225 Weight 138.6 kg Intake: IV 299 276 0.9 260 240 Pressure Bag 39 36 Intake, IV Titration 650.459 461.332 190.225 Amount Propofol 1,000 mg In 464.834 376.507 100 Empty Bag 1 bag @ Titrate IV .Q0M [facility] Rx#: [id number] fentaNYL (PF) 1,000 mcg 185.625 84.825 90.225 In Sodium Chloride 0.9% 80 ml @ 1 MCG/KG/HR 13.5 mls/hr IV .Q7H25M [facility] Rx# :[id number] Tube Feeding 364 468 Other 90 60 Output: Urine 645 790 Other: Voiding Method Indwelling Catheter Indwelling Catheter ABP, PAP, CO, CI - Last Documented Arterial Blood Pressure 132/62 - Exam PHYSICAL EXAM GENERAL: She is intubated and sedated . Morbidly obese HEENT: ET tube and orogastric tube in place CARDIOVASCULAR: S1 and S2 present. PULMONARY: Crackles in the bases ABDOMEN: Soft, nontender, nondistended. Thick abdominal wall. MUSCULOSKELETAL: No joint swelling or deformity. EXTREMITIES: No cyanosis, mild pedal edema. NEUROLOGICAL: Sedated and please refer to nursing staff documentation for level of sedation SKIN: No rashes. Note: Because of COVID 19 isolation, some of the history and physical exam findings are indirect and obtained from nursing staff, and other physician examinations to avoid unnecessary contact with the patient. - Labs CBC & Chem 7: 08/21/19 03:33 08/21/19 03:33 Labs: Abnormal Lab Results - Last 24 Hours (Table) 08/20/19 08/21/19 08/21/19 Range/Units 23:44 03:33 03:33 WBC 14.9 H (3.8-10.6) k/uL Plt Count 494 H (150-450) k/uL Neutrophils # 13.7 H (1.3-7.7) k/uL Lymphocytes # 0.6 L (1.0-4.8) k/uL D-Dimer 8.49 H (<0.60) mg/L FEU ABG pCO2 (35-45) mmHg ABG pO2 (83-108) mmHg ABG HCO3 (21-25) mmol/L ABG Total CO2 (19-24) mmol/L ABG O2 Saturation (94-97) % Carbon Dioxide (22-30) mmol/L BUN (7-17) mg/dL Glucose (74-99) mg/dL POC Glucose (mg/dL) 167 H (75-99) mg/dL Calcium (8.4-10.2) mg/dL C-Reactive Protein (<10.0) mg/L Total Protein (6.3-8.2) g/dL Albumin (3.5-5.0) g/dL 08/21/19 08/21/19 08/21/19 Range/Units 03:33 05:19 05:42 WBC (3.8-10.6) k/uL Plt Count (150-450) k/uL Neutrophils # (1.3-7.7) k/uL Lymphocytes # (1.0-4.8) k/uL D-Dimer (<0.60) mg/L FEU ABG pCO2 52 H (35-45) mmHg ABG pO2 109 H (83-108) mmHg ABG HCO3 31 H (21-25) mmol/L ABG Total CO2 32 H (19-24) mmol/L ABG O2 Saturation 97.9 H (94-97) % Carbon Dioxide 32 H (22-30) mmol/L BUN 27 H (7-17) mg/dL Glucose 170 H (74-99) mg/dL POC Glucose (mg/dL) 167 H (75-99) mg/dL Calcium 8.3 L (8.4-10.2) mg/dL C-Reactive Protein 11.9 H (<10.0) mg/L Total Protein 5.8 L (6.3-8.2) g/dL Albumin 3.0 L (3.5-5.0) g/dL 08/21/19 08/21/19 Range/Units 11:48 18:34 WBC (3.8-10.6) k/uL Plt Count (150-450) k/uL Neutrophils # (1.3-7.7) k/uL Lymphocytes # (1.0-4.8) k/uL D-Dimer (<0.60) mg/L FEU ABG pCO2 (35-45) mmHg ABG pO2 (83-108) mmHg ABG HCO3 (21-25) mmol/L ABG Total CO2 (19-24) mmol/L ABG O2 Saturation (94-97) % Carbon Dioxide (22-30) mmol/L BUN (7-17) mg/dL Glucose (74-99) mg/dL POC Glucose (mg/dL) 130 H 146 H (75-99) mg/dL Calcium (8.4-10.2) mg/dL C-Reactive Protein (<10.0) mg/L Total Protein (6.3-8.2) g/dL Albumin (3.5-5.0) g/dL Microbiology - Last 24 Hours (Table) 08/14/19 13:38 Blood Culture - Final Blood No Growth after 144 hours Assessment and Plan Assessment: ASSESSMENT Acute hypoxic and hypercapnic respiratory failure secondary to COVID 19 pneumonia Severe sepsis secondary to #1 History of mitral valve prolapse History of gouty arthritis History of uterine cancer Hyperlipidemia GERD Elevated d-dimer PLAN: Patient to be continued on mechanical ventilation. . She completed hydroxychloroquine and being continued on azithromycin. Patient's inflammatory markers are improving. MiraLAx for constipation. Continue with Lovenox 70 mg subcu twice daily due to elevated d-dimer levels. Overall prognosis remains poor. Further recommendations depending on the progress of the patient.
[2019-08-21 23:35] LABS: Glucose,Whole Blood 140 mg/dL (75-99)
[2019-08-22] MEDS: ALBUTEROL HFA INHALER INHALATION SCH ×6 (02:04→21:04)
[2019-08-22] MEDS: PROPOFOL 1,000 MG in EMPTY BAG 1 BAG IV SCH ×4 (02:37→09:25)
[2019-08-22] MEDS: fentaNYL (PF) 1,000 MCG in SODIUM CHLORIDE 0.9% 80 ML IV SCH ×2 (02:49→09:26)
[2019-08-22 05:04] LABS: ABG Base Excess 7.6 mmol/L; ABG HCO3 33 mmol/L (21-25); ABG Oxygen Saturation 97.5 % (94-97); ABG PCO2 55 mmHg (35-45); ABG PH 7.38 (7.35-7.45); ABG PO2 102 mmHg (83-108); ABG TCO2 34 mmol/L (19-24); Allen Test Performed? Yes
[2019-08-22] MEDS: POLYETHYLENE GLYCOL 3350 17 GM POWD.PACK PO PRN (05:11)
[2019-08-22 05:40] LABS: Basophils % (A) 0 %; Eosinophils % (A) 0 %; HCT 35.8 % (34.0-46.0); HGB 11.4 gm/dL (11.4-16.0); Lymphocytes # (A) 0.5 k/uL (1.0-4.8); Lymphocytes % (A) 6 %; MCHC 31.8 g/dL (31.0-37.0); MCV 91.2 fL (80.0-100.0); Monocytes # (A) 0.5 k/uL (0-1.0); Monocytes % (A) 5 %; Neutrophils # (A) 8.1 k/uL (1.3-7.7); Neutrophils % (A) 88 %; Platelet Count 431 k/uL (150-450); RBC 3.92 m/uL (3.80-5.40); RDW 14.5 % (11.5-15.5); WBC 9.2 k/uL (3.8-10.6)
[2019-08-22 05:55] LABS: ALT 12 U/L (4-34); AST 18 U/L (14-36); African American GFR (CKD) >90 (>60 ml/min/1.73 sqM); Albumin 2.8 g/dL (3.5-5.0); Alkaline Phosphatase 62 U/L (38-126); Anion Gap -1 mmol/L; Blood Urea Nitrogen 28 mg/dL (7-17); C Reactive Protein 19.8 mg/L (<10.0); Calcium 8.4 mg/dL (8.4-10.2); Carbon Dioxide 34 mmol/L (22-30); Chloride 103 mmol/L (98-107); Creatine Kinase 119 U/L (30-135); Glucose 138 mg/dL (74-99); LDH 873 U/L (313-618); Non-African American GFR(CKD) >90 (>60 ml/min/1.73 sqM); Potassium 4.8 mmol/L (3.5-5.1); Sodium 136 mmol/L (137-145); Total Bilirubin 0.4 mg/dL (0.2-1.3); Total Protein 5.4 g/dL (6.3-8.2)
[2019-08-22] MEDS: INSULIN ASPART (NovoLOG) 100 UNIT/ML VIAL SQ SCH ×3 (06:38→18:00)
--- NOTE | 2019-08-22 07:13 | XR ---
EXAMINATION TYPE: XR chest 1V portable DATE OF EXAM: 08/22/2019 COMPARISON: 08/21/2019 HISTORY: Shortness of breath TECHNIQUE: Single frontal view of the chest is obtained. FINDINGS: Persistent interstitial pattern seen with tiny bilateral effusions and right perihilar and left lower lobe infiltrate. No significant interval change. Thorax. IMPRESSION: 1. Mixed interstitial and alveolar bilateral pattern could been the basis. Venous congestion felt les s likely correlate clinically.
[2019-08-22] MEDS: methylPREDNISolone SOD SUCCI 125 MG/2 ML VIAL IV SCH ×2 (08:08→19:42)
[2019-08-22] MEDS: ENOXAPARIN 150 MG/ML SYRINGE SQ SCH ×2 (08:08→19:42)
[2019-08-22] MEDS: CHLORHEXIDINE GLUCONATE 15 ML CUP MUCOUS MEM SCH ×2 (08:08→19:42)
[2019-08-22] MEDS: AZITHROMYCIN 500 MG in SODIUM CHLORIDE 0.9% 250 ML IVPB SCH (08:08)
[2019-08-22] MEDS: PANTOPRAZOLE 40 MG/10 ML VIAL IVP SCH (08:09)
[2019-08-22] MEDS: PREGABALIN 100 MG CAP PO SCH ×3 (08:09→19:31)
[2019-08-22] MEDS: ZINC SULFATE 220 MG CAP PO SCH (08:09)
[2019-08-22 10:41] LABS: Ferritin 174.2 ng/mL (10.0-291.0)
--- NOTE | 2019-08-22 11:32 | P.PN ---
Subjective Progress Note Date: 08/22/19 Principal diagnosis: Acute hypoxic respiratory failure secondary to CoVID 19 pneumonitis This is a 58-year-old female with history of multiple medical problems including rheumatoid arthritis, degenerative joint disease, mitral valve prolapse, history of uterine cancer. History of dyslipidemia. Depression. Patient was brought into the ER yesterday with a few days' history of increased shortness of breath and cough. Patient has also been complaining of profound fatigue, headache, generalized aches and pains for the last 3 days. Her chest x-ray showed diffuse pneumonitis. Patient required a high flow nasal cannula to barely maintain O2 saturation in the low 90s and she was on 15 L/m via high flow nasal cannula. She was later switched to 100% nonrebreather, remained relatively hypoxic. Patient was having intermittent episodes of cough, and she was noted to be pro foundly short of breath. After evaluating the patient today, I felt that the patient is developing severe hypoxic respiratory failure, and I recommended intubation by the anesthesia team since the patient is highly suspicious for covid 19 pneumonitis. Patient was intubated, placed on assist control mode of mechanical ventilation. Rate of 18 tidal volume is 400 FiO2 is 100% and PEEP is 16. After repeat ABG, her FiO2 was decreased down to 50%. And tidal volume was changed to 450. Patient had to be placed on propofol, fentanyl, and Nimbex. She was also already placed on hydroxychloroquine, Zithromax, and on Solu-Medrol at 60 mg IV push every 12 hours. ABG post intubation showed a pO2 of 336 pCO2 of 50 pH of 7.34. Hence her FiO2 was decreased down to 50%. And A PEEP of 16. Inflammatory markers were noted to be elevated including C-reactive protein of 154 LDH 1981 ferritin 303 and no d-dimer was done. Patient was reevaluated today on 08/16/19, patient is positive for covid 19, rem ains on mechanical ventilation, presently in the ICU. She is presently on multiple drips including propofol at 50 mcg/kg/h, she is also on fentanyl, and on Nimbex. I plan to discontinue Nimbex today, and continue to sedate the patient with fentanyl and the prevent. Her ventilator settings today are assist control rate of 18 tidal volume is 450 FiO2 is 45% PEEP is 16, and I cut it down to 14. Her peak airway pressure is 29 and her plateau pressure is 26. FiO2 was cut down to 45% yesterday. ABG today showed a pO2 of 116 pCO2 of 51 pH of 7.36. Basic metabolic profile is normal, renal profile is normal. Inflammatory markers including C-reactive protein is 212 LDH is 1617 and d-dimer is 14.5. Interleukin-6 was ordered, will decide whether the patient could qualify for actemra, so far she doesn't. PaO2/FiO2 is 257 Reevaluated today on 08/17/19, patient remains in the ICU, intubated and mechanically ventilated. Her ventilator settings are assist control rate of 18 tidal volume is 450 FiO2 is 45% PEEP is 14. Patient is on propofol at 60 mcg/kg/m, and she is also on fentanyl at 20 mcg/kg/h. Continues to have low- grade fever with a temp of 99.1. Chest x-ray is showing slight improvement in her interstitial infiltrates. Hence I was able to decrease the PEEP down to 10, however if she desaturates the patient is to have a PEEP increased back to 14, and continue FiO2 anywhere between 45-50%. ABG today on FiO2 of 45% and PEEP of 14 showed a pO2 of 86 pCO2 of 47 pH of 7.40. WBC count is 8.7 hemoglobin is 11.5. Electrolytes and renal profile are normal. Ferritin is 454 LDH is 1141 C-reactive protein is 84.7. Reevaluated today on 08/18/19, remains in the ICU, intubated and mechanically ventilated. Her ventilator settings are assist control rate of 18 tidal volume is 450 FiO2 is 50% and PEEP is 16 I cut it down to 14. ABG showed a pO2 of 80 pCO2 of 48 pH of 7.48. Electrolytes in the upper profile are normal CBC is normal d-dimer is 10.80, improved compared to yesterday were and it was 14.15. Inflammatory markers including ferritin, LDH, C-reactive protein are improving. Chest x-ray continues to show by bilateral interstitial infiltrates, slightly improved compared to baseline chest x-ray however the patient is on a relatively higher PEEP at present. Patient is sedated, she is on propofol at 55 and sentinel at 1 mcg/kg/h. Reevaluated today on 08/19/19, patient remains intubated and mechanically ventilated. Patient vent settings are assist control rate of 18 tidal volume is 450 FiO2 is 50% and PEEP is 14. Peak airway pressure is 31 plateau pressures is 26. Patient remains on fentanyl at 1 mcg/kg/h, propofol at 60 mcg/kg/m. Her Lovenox was increased yesterday to 70 mg subcu every 12 hours mostly because of her elevated d-dimer. Chest x-ray showing slight improvement in her interstitial infiltrates. Endotracheal tube was noted to be high, and it will be advanced down by 2 cm. ABG showed a pO2 of 79 pCO2 of 48 patient of 7.39. CBC is relatively normal basic metabolic profile is normal.inflammatory markers noted to improve C-reactive protein is down to 28 ferritin is 300.8 d-dimer is down to 8.09. Reevaluated today on 08/20/19, patient remains intubated and mechanically ventilated. Her ventilator settings are tidal volume of 450 assist-control rate of 18 FiO2 is 50% PEEP at 14 on a cardiac down to 10. ABG showed a pO2 of 117 pCO2 of 53 pH of 7.38. Patient remains on propofol at 60 mcg/kg/m, fentanyl 1 mcg/kg/h. Chest x-ray is showing slight improvement in her bilateral interstitial infiltrates. However the endotracheal tube was noted to be sitting high in the trachea, and I have recommended advancing the tube at least 2-3 cm down. Respirator therapy was instructed on advancing the endotracheal tube and have repeat chest x-ray. Patient is sedated, and seems to be doing better, compared to the last few days. ABG is reflecting improvement in her pulmonary status. CBC is relatively normal. Electrolytes and renal profile is normal. C-reactive protein today is down to 16.4. D-dimer is down to 6.6 to patient remains on therapeutic dose of Lovenox, 70 mg subcu every 12 hours. The patient is seen today 08/21/2019 in follow-up in the intensive care unit. She remains intubated and on the mechanical ventilator. Current settings assist-control of 18, tidal volume 450, FiO2 60% and a PEEP of 10. Morning blood gases reveal a P O2 of 109, pCO2 52, pH 7.39. She did require endotracheal tube change out yesterday due to possible kinking of the tube and displacement. Today's chest x-ray reveals good placement of the endotracheal tube. There is scattered interstitial and right infrahilar alveolar infiltrates that persists. Slight progression noted in the right lower lobe. She has completed her course of Plaquenil. She is continued on azithromycin. Continue nonsedating. She is on Solu-Medrol 60 mg every 12 hours. She is sedated on propofol at 45 mcg/kg/m. Fentanyl at 1 mg per hour. 0.9 normal saline at 20. Vital HP at 26 ML's per hour which is goal. White count 14.9. Hemoglobin 11.4. Platelets 494. D-dimer remains elevated at 8.49. Lovenox 140 mg every 12 hours subcutaneous. Patient is seen today 08/22/2019 in follow-up in the intensive care unit. She remains intubated and on the mechanical ventilator currently with a rate of 22, tidal volume 350. FiO2 50% and a PEEP of 13. She is sedated on propofol at 45 mcg/kg/m. Fentanyl at 1 mcg/kg/h. 0.9 normal saline at 20 ML's per hour. She is being nourished with Vital HP at 26 ML's per hour which is her goal. Blood cultures reveal no growth. White count 9.2. Hemoglobin 11.4. D-dimer 6.82. Sodium 136. Potassium 4.8. Creatinine 0.53. LDH 873. C-reactive protein 19.8. Ferritin level 174. She is continued on Lovenox at 140 ML milligrams subcutaneous every 12 hours. Continue on azithromycin, zinc IV Solu-Medrol Objective - Vital Signs Vital signs: Vital Signs Temp 97.3 F L 08/22/19 08:00 Pulse 54 L 08/22/19 10:00 Resp 22 08/22/19 10:00 BP 125/72 08/22/19 07:00 Pulse Ox 95 08/22/19 10:00 Intake & Output 08/21/19 08/22/19 08/22/19 18:59 06:59 18:59 Intake Total 3380.298 2709.409 577.985 Output Total 790 625 355 Balance 475.332 745.409 222.985 Weight 139 kg 139 kg Intake: IV 276 253 115 0.9 240 220 100 Pressure Bag 36 33 15 Intake, IV Titration 461.332 637.409 250.985 Amount Propofol 1,000 mg In 376.507 451.559 161.660 Empty Bag 1 bag @ Titrate IV .Q0M [facility] Rx#: [id number] fentaNYL (PF) 1,000 mcg 84.825 185.850 89.325 In Sodium Chloride 0.9% 80 ml @ 1 MCG/KG/HR 13.5 mls/hr IV .Q7H25M [facility] Rx# :[id number] Tube Feeding 468 390 182 Other 60 90 30 Output: Urine 790 625 355 Other: Voiding Method Indwelling Catheter Indwelling Catheter Indwelling Catheter ABP, PAP, CO, CI - Last Documented Arterial Blood Pressure 128/65 - Exam GENERAL EXAM: Intubated, sedated 58-year-old female patient, maintaining O2 saturations in the 90s on 50% FiO2 and a PEEP of 13 comfortable in no apparent distress. HEAD: Normocephalic. EYES: Sluggish reaction of pupils, equal size. NOSE: Clear with pink turbinates. THROAT: Oral endotracheal tube and gastric tube secured in place erythema or exudates. NECK: No masses, no JVD. CHEST: No chest wall deformity. LUNGS: Equal air entry with bilateral scattered rhonchi. CVS: S1 and S2 normal with no audible murmur, regular rhythm. ABDOMEN: No hepatosplenomegaly, normal bowel sounds, no guarding or rigidity. SPINE: No scoliosis or deformity SKIN: No rashes CENTRAL NERVOUS SYSTEM: Sedated, tone is normal in all 4 extremities. EXTREMITIES: There is no peripheral edema. No clubbing, no cyanosis. Peripheral pulses are intact. - Labs CBC & Chem 7: 08/22/19 05:10 08/22/19 05:10 Labs: Abnormal Lab Results - Last 24 Hours (Table) 08/21/19 08/21/19 08/21/19 Range/Units 11:48 18:34 23:33 Neutrophils # (1.3-7.7) k/uL Lymphocytes # (1.0-4.8) k/uL D-Dimer (<0.60) mg/L FEU ABG pCO2 (35-45) mmHg ABG HCO3 (21-25) mmol/L ABG Total CO2 (19-24) mmol/L ABG O2 Saturation (94-97) % Sodium (137-145) mmol/L Carbon Dioxide (22-30) mmol/L BUN (7-17) mg/dL Glucose (74-99) mg/dL POC Glucose (mg/dL) 130 H 146 H 140 H (75-99) mg/dL Lactate Dehydrogenase (313-618) U/L C-Reactive Protein (<10.0) mg/L Total Protein (6.3-8.2) g/dL Albumin (3.5-5.0) g/dL 08/22/19 08/22/19 08/22/19 Range/Units 05:00 05:10 05:10 Neutrophils # 8.1 H (1.3-7.7) k/uL Lymphocytes # 0.5 L (1.0-4.8) k/uL D-Dimer 6.82 H (<0.60) mg/L FEU ABG pCO2 55 H (35-45) mmHg ABG HCO3 33 H (21-25) mmol/L ABG Total CO2 34 H (19-24) mmol/L ABG O2 Saturation 97.5 H (94-97) % Sodium (137-145) mmol/L Carbon Dioxide (22-30) mmol/L BUN (7-17) mg/dL Glucose (74-99) mg/dL POC Glucose (mg/dL) (75-99) mg/dL Lactate Dehydrogenase (313-618) U/L C-Reactive Protein (<10.0) mg/L Total Protein (6.3-8.2) g/dL Albumin (3.5-5.0) g/dL 08/22/19 Range/Units 05:10 Neutrophils # (1.3-7.7) k/uL Lymphocytes # (1.0-4.8) k/uL D-Dimer (<0.60) mg/L FEU ABG pCO2 (35-45) mmHg ABG HCO3 (21-25) mmol/L ABG Total CO2 (19-24) mmol/L ABG O2 Saturation (94-97) % Sodium 136 L (137-145) mmol/L Carbon Dioxide 34 H (22-30) mmol/L BUN 28 H (7-17) mg/dL Glucose 138 H (74-99) mg/dL POC Glucose (mg/dL) (75-99) mg/dL Lactate Dehydrogenase 873 H (313-618) U/L C-Reactive Protein 19.8 H (<10.0) mg/L Total Protein 5.4 L (6.3-8.2) g/dL Albumin 2.8 L (3.5-5.0) g/dL Assessment and Plan Assessment: 1 Acute hypoxic respiratory failure secondary to covid 19 pneumonitis requiring intubation mechanical ventilatory support 2 Acute hypercapnic respiratory failure secondary to pneumonitis as above. 3 Severe sepsis secondary to pneumonitis. 4 History of gouty arthritis. 5 History of mitral valve prolapse. 6 History of dyslipidemia. 7 History of uterine cancer. 8 History of depression. 9 History of GERD without esophagitis. Plan: The patient was seen and evaluated by Dr. Simons. Chest x-ray, ABGs and labs all reviewed. We did decrease the PEEP to 10. Interruption of sedation. Trial on pressure support of 10 and CPAP of 5. Obtain weaning parameters if tolerated. Continue Lovenox to 140 mg subcu every 12 Continue azithromycin and zinc. Continue Solu-Medrol We will continue to follow and make further recommendations based on her clinical status. Critical care time 35 minutes I, the cosigning physician, performed a history & physical examination of the patient. Lungs sounds with bilateral scattered rhonchi. Maintaining good O2 saturations in the 90s on 50% FiO2 with a PEEP of 13 via the mechanical ventilator. I discussed the assessment and plan of care with my nurse practitioner, Mirna Fraire. I attest to the above note as dictated by her.
[2019-08-22 11:55] LABS: Glucose,Whole Blood 127 mg/dL (75-99)
[2019-08-22] MEDS: CLEVIDIPINE BUTYRATE 25 MG in EMPTY BAG 1 BAG IV SCH ×3 (13:36→18:44)
--- NOTE | 2019-08-22 14:12 | CDI ---
Documentation Clarification Form Date: 08/22/2019 02:06:36 PM From: Loren Lan RN, CCDS Admit Date: 08/14/2019 04:42:00 PM Patient Name: Rosa Elena Chiu Visit Number: [id number] ATTENTION: The Clinical Documentation Specialists (CDI) and [facility] Coding Staff appreciate your assistance in clarifying documentation. Please respond to the clarification below the line at the bottom and electronically sign. The CDI & [facility] Coding staff will review the response and follow-up if needed. Please note: Queries are made part of the Legal Health Record. If you have any questions, please contact the author of this message via ITS. Dr. Rand Please render your opinion on the clinical significance of the patients low hemoglobin/hematocrit levels. History/Risk Factors: Severe sepsis, Gerd Clinical indicators: Hgb: 10.3/8.7/8.1/8 Hct: 31.7/27.3/25.5/25.4 Treatment: lab monitoring In order to capture the severity of condition, please clarify if the labs/clinical indicators signify: Acute on chronic blood loss anemia Chronic blood loss anemia Iron deficiency anemia Drug induced anemia Nutritional anemia Anemia of chronic disease Unable to determine Other, please specify (Last Form Revision: July 2019) Unable to determine MTDD
[2019-08-22 17:33] LABS: Glucose,Whole Blood 138 mg/dL (75-99)
--- NOTE | 2019-08-22 17:39 | P.PN ---
Subjective From records Ms. Chiu is a 58-year-old female with a past medical history of mitral valve prolapse, osteoarthritis, rheumatoid arthritis who was admitted to the hospital on 08/14/2019 for the chief complaint of difficulty in breathing and generalized body aches for the past 8 days. Patient was also having fatigue and headache. In the emergency department patient was on a nonrebreather and was hypotensive. Patient was tested negative for influenza a and B. Chest x-ray was positive for multifocal air space disease right greater than left. The chest x-ray was compatible with covid pneumonia along with her labs which go in favor of it. Later on patient was intubated, and the patient tested positive for covid 19. On 08/19/2019 -patient still remains intubated and mechanically ventilated. She is sedated on propofol and also fentanyl. Patient is on assist control mode with 18 of tidal volume, 450 FiO2 is 50% and a PEEP of 14. Patient remains on azithromycin and Solu-Medrol 60 mg IV every 12 hours. She is also on zinc sulfate anticoagulation with Lovenox. Patient's labs reviewed today showing hemoglobin of 9.3, white count of 11.5, there is a slow uptrend of white count. There is a downtrend of CRP levels. On 08/20/2019 - Patient still remains intubated and mechanically ventilated. As per the nursing staff report patient had a chest x-ray this morning showing endotracheal tube is higher up. As they tried to push p.o. further down they could not do so the endotracheal tube has been replaced. Patient's CBC has been stable and electrolytes show no new changes. Inflammatory markers are trending down. On 08/21/2019 - Patient still remains intubated and mechanically ventilated in the ICU. Overnight no acute events reported by nursing staff. Chest x-ray from this morning shows good placement of endotracheal tube. Patient still did not have a bowel movement, will give a trial of MiraLAX. She continues to be se dated. She is continued on steroids IV Solu-Medrol 60 mg twice daily. 08/22/2019 Patient is a 58 years old female who was admitted to the hospital on 08/14/19 headache and body aches, she was on 15 l oxygen via nonrebreather, next morning patient got intubated and found to have bilateral Covid 19 pneumonia, patient received Diaz at that time. Today patient remains in the ICU intubated, her chest x-ray showing Scattered interstitial on the right infrahilar alveolar infiltrates persist. Slight progression noted and right lower lobe, Her BNP is stable, sodium 136, creatinine 0.5, carbon dioxide is 34. While WBC came back to normal from 14.9 down to 9.2K, V photopenia presents at 0.5K. Patient is slightly tachycardic with heart rate 96-101. Blood pressure is stable on patient is afebrile. Patient is followed closely by pulmonary/critical care team Review of systems: N/a Active Medications Generic Name Dose Route Start Last Admin Trade Name Freq PRN Reason Stop Dose Admin Acetaminophen 650 mg 08/14/19 16:42 08/15/19 08:21 Tylenol Tab PO 650 mg Q6HR PRN Administration Mild Pain or Fever > 100.5 Hydrocodone Bitart/Acetaminophen 1 each 08/14/19 21:00 [place] 7.5-325 PO BID PRN Moderate pain Albuterol Sulfate 2 puff 08/14/19 20:00 08/22/19 16:20 Ventolin Hfa Inhaler INHALATION 2 puff RT-Q6H [facility] Administration Atorvastatin Calcium 20 mg 08/14/19 21:00 08/21/19 20:01 Lipitor PO 20 mg HS [facility] Administration Chlorhexidine Gluconate 15 ml 08/16/19 21:00 08/22/19 08:08 Peridex MUCOUS MEM 15 ml BID [facility] Administration Enoxaparin Sodium 140 mg 08/21/19 09:00 08/22/19 08:08 Lovenox SQ 140 mg Q12HR [facility] Administration Propofol 1,000 mg/ IV Solution 100 mls @ 0 mls/hr 08/15/19 09:30 08/22/19 11:26 IV 0 mcg/kg/min .Q0M [facility] 0 mls/hr Titration Protocol Titrate Fentanyl Citrate 1,000 mcg/ 100 mls @ 13.5 mls/hr 08/16/19 10:00 08/22/19 14:24 Sodium Chloride IV 0 mcg/kg/hr .Q7H25M [facility] 0 mls/hr Infusion 1 MCG/KG/HR Clevidipine 25 mg/ IV Solution 50 mls @ 2 mls/hr 08/22/19 13:45 08/22/19 15:29 IV 6 mg/hr .Q24H [facility] 12 mls/hr Titration Protocol 1 MG/HR Insulin Aspart 0 unit 08/16/19 00:00 08/22/19 12:35 Novolog SQ Not Given Q6H [facility] Protocol Lidocaine 1 patch 08/14/19 17:16 08/14/19 23:03 Lidoderm TOPICAL 1 patch DAILY PRN Administration Pain Methylprednisolone Sodium Succinate 60 mg 08/15/19 09:00 08/22/19 08:08 Solu-Medrol IV 60 mg Q12HR [facility] Administration Naloxone HCl 0.2 mg 08/14/19 16:42 Narcan IV Q2M PRN Opioid Reversal Pantoprazole Sodium 40 mg 08/16/19 09:00 08/22/19 08:09 Protonix IVP 40 mg DAILY [facility] Administration Polyethylene Glycol 17 gm 08/21/19 16:10 08/22/19 05:11 Miralax PO 17 gm DAILY PRN Administration Constipation Pregabalin 200 mg 08/14/19 22:00 08/22/19 17:24 Lyrica PO Not Given TID [facility] Venlafaxine HCl 150 mg 08/14/19 21:00 08/21/19 20:01 Effexor Xr PO 150 mg HS [facility] Administration Zinc Sulfate 220 mg 08/15/19 09:00 08/22/19 08:09 Orazinc PO 220 mg DAILY [facility] Administration Objective - Vital Signs Vital signs: Vital Signs Temp 98.1 F 08/22/19 12:00 Pulse 96 08/22/19 15:15 Resp 8 L 08/22/19 15:15 BP 136/74 08/22/19 15:15 Pulse Ox 98 08/22/19 15:15 Intake & Output 08/21/19 08/22/19 08/22/19 18:59 06:59 18:59 Intake Total 0916.477 7784.409 766.502 Output Total 790 625 430 Balance 475.332 745.409 336.502 Weight 139 kg 139 kg Intake: IV 276 253 138 0.9 240 220 120 Pressure Bag 36 33 18 Intake, IV Titration 461.332 637.409 338.502 Amount Clevidipine Butyrate 25 19.633 mg In Empty Bag 1 bag @ 1 MG/HR 2 mls/hr IV .Q24H [facility] Rx#:[id number] Propofol 1,000 mg In 376.507 451.559 162.494 Empty Bag 1 bag @ Titrate IV .Q0M [facility] Rx#: [id number] fentaNYL (PF) 1,000 mcg 84.825 185.850 156.375 In Sodium Chloride 0.9% 80 ml @ 1 MCG/KG/HR 13.5 mls/hr IV .Q7H25M [facility] Rx# :[id number] Tube Feeding 468 390 260 Other 60 90 30 Output: Urine 790 625 430 Other: Voiding Method Indwelling Catheter Indwelling Catheter Indwelling Catheter ABP, PAP, CO, CI - Last Documented Arterial Blood Pressure 150/64 - Exam GENERAL: Patient is intubated sedated, obese HEENT: Pupils are round and equally reacting to light. EOMI. No scleral icterus. No conjunctival pallor. Normocephalic, atraumatic. No pharyngeal erythema. No thyromegaly. CARDIOVASCULAR: S1 and S2 present. No murmurs, rubs, or gallops. PULMONARY: Crackles in the bases ABDOMEN: Soft, nontender, nondistended, normoactive bowel sounds. No palpable organomegaly. MUSCULOSKELETAL: No joint swelling or deformity. EXTREMITIES: No cyanosis, clubbing, or pedal edema. NEUROLOGICAL: Sedated and please refer to nursing staff documentation for level of sedation SKIN: No rashes. - Labs CBC & Chem 7: 08/22/19 05:10 08/22/19 05:10 Labs: Abnormal Lab Results - Last 24 Hours (Table) 08/21/19 08/21/19 08/22/19 Range/Units 18:34 23:33 05:00 Neutrophils # (1.3-7.7) k/uL Lymphocytes # (1.0-4.8) k/uL D-Dimer (<0.60) mg/L FEU ABG pCO2 55 H (35-45) mmHg ABG HCO3 33 H (21-25) mmol/L ABG Total CO2 34 H (19-24) mmol/L ABG O2 Saturation 97.5 H (94-97) % Sodium (137-145) mmol/L Carbon Dioxide (22-30) mmol/L BUN (7-17) mg/dL Glucose (74-99) mg/dL POC Glucose (mg/dL) 146 H 140 H (75-99) mg/dL Lactate Dehydrogenase (313-618) U/L C-Reactive Protein (<10.0) mg/L Total Protein (6.3-8.2) g/dL Albumin (3.5-5.0) g/dL 08/22/19 08/22/19 08/22/19 Range/Units 05:10 05:10 05:10 Neutrophils # 8.1 H (1.3-7.7) k/uL Lymphocytes # 0.5 L (1.0-4.8) k/uL D-Dimer 6.82 H (<0.60) mg/L FEU ABG pCO2 (35-45) mmHg ABG HCO3 (21-25) mmol/L ABG Total CO2 (19-24) mmol/L ABG O2 Saturation (94-97) % Sodium 136 L (137-145) mmol/L Carbon Dioxide 34 H (22-30) mmol/L BUN 28 H (7-17) mg/dL Glucose 138 H (74-99) mg/dL POC Glucose (mg/dL) (75-99) mg/dL Lactate Dehydrogenase 873 H (313-618) U/L C-Reactive Protein 19.8 H (<10.0) mg/L Total Protein 5.4 L (6.3-8.2) g/dL Albumin 2.8 L (3.5-5.0) g/dL 08/22/19 Range/Units 11:53 Neutrophils # (1.3-7.7) k/uL Lymphocytes # (1.0-4.8) k/uL D-Dimer (<0.60) mg/L FEU ABG pCO2 (35-45) mmHg ABG HCO3 (21-25) mmol/L ABG Total CO2 (19-24) mmol/L ABG O2 Saturation (94-97) % Sodium (137-145) mmol/L Carbon Dioxide (22-30) mmol/L BUN (7-17) mg/dL Glucose (74-99) mg/dL POC Glucose (mg/dL) 127 H (75-99) mg/dL Lactate Dehydrogenase (313-618) U/L C-Reactive Protein (<10.0) mg/L Total Protein (6.3-8.2) g/dL Albumin (3.5-5.0) g/dL Assessment and Plan Assessment: Acute hypoxic and hypercapnic respiratory failure secondary to COVID 19 pneumonia Severe sepsis secondary to #1 History of mitral valve prolapse History of gouty arthritis History of uterine cancer Hyperlipidemia GERD Elevated d-dimer Plan: Patient to be continued on mechanical ventilation. She completed hydroxychloroquine and being continued on azithromycin (today is last dose). Pulmonary/critical care team are following patient closely MiraLAx for constipation. Continue with Lovenox due to elevated d-dimer levels. Labs and medication were reviewed.. Continue same treatment. Continue with s ymptomatic treatment. Resume home medication. Monitor lytes and vitals. DVT and GI prophylaxis. Further recommendations of the clinical course of the patient DVT prophylaxis: Subcutaneous Lovenox GI Prophylaxis: Ppi Prognosis is guarded
[2019-08-22] MEDS: VENLAFAXINE HCL ER 150 MG CAP PO SCH (19:31)
[2019-08-22] MEDS: ATORVASTATIN 20 MG TAB PO SCH (19:31)
--- NOTE | 2019-08-22 23:26 | XR ---
EXAMINATION TYPE: XR chest 1V portable DATE OF EXAM: 08/22/2019 COMPARISON: Today HISTORY: Vomiting TECHNIQUE: FINDINGS: Endotracheal tube is 4.5 cm from the genie. There is nasogastric tube in the stomach. Ther e are chest leads. There is coarse pulmonary interstitial infiltrates. IMPRESSION: Inspiration is improved compared to exam this morning. Interstitial pneumonia slightly im proved.
[2019-08-23 00:11] LABS: Glucose,Whole Blood 155 mg/dL (75-99)
[2019-08-23] MEDS: PROPOFOL 1,000 MG in EMPTY BAG 1 BAG IV SCH ×8 (00:51→23:40)
[2019-08-23] MEDS: INSULIN ASPART (NovoLOG) 100 UNIT/ML VIAL SQ SCH ×4 (00:52→17:34)
[2019-08-23 05:06] LABS: ABG Base Excess 8.8 mmol/L; ABG HCO3 33 mmol/L (21-25); ABG Oxygen Saturation 97.7 % (94-97); ABG PCO2 48 mmHg (35-45); ABG PH 7.44 (7.35-7.45); ABG PO2 158 mmHg (83-108); ABG TCO2 35 mmol/L (19-24); Allen Test Performed? Yes
[2019-08-23] MEDS: CLEVIDIPINE BUTYRATE 25 MG in EMPTY BAG 1 BAG IV SCH (05:09)
[2019-08-23 05:51] LABS: Glucose,Whole Blood 118 mg/dL (75-99)
[2019-08-23] MEDS: fentaNYL (PF) 1,000 MCG in SODIUM CHLORIDE 0.9% 80 ML IV SCH (06:01)
[2019-08-23 08:13] LABS: Basophils # (A) 0.1 k/uL (0-0.2); Basophils % (A) 0 %; Eosinophils % (A) 0 %; HCT 37.6 % (34.0-46.0); HGB 11.9 gm/dL (11.4-16.0); Lymphocytes # (A) 0.6 k/uL (1.0-4.8); Lymphocytes % (A) 5 %; MCH 28.9 pg (25.0-35.0); MCHC 31.7 g/dL (31.0-37.0); MCV 90.9 fL (80.0-100.0); Mean Platelet Volume 7.8; Monocytes # (A) 0.7 k/uL (0-1.0); Monocytes % (A) 6 %; Neutrophils # (A) 10.6 k/uL (1.3-7.7); Neutrophils % (A) 88 %; Platelet Count 446 k/uL (150-450); RBC 4.14 m/uL (3.80-5.40); RDW 14.4 % (11.5-15.5); WBC 12.1 k/uL (3.8-10.6)
[2019-08-23] MEDS: ALBUTEROL HFA INHALER INHALATION SCH ×3 (08:26→20:16)
[2019-08-23 08:28] LABS: ALT 17 U/L (4-34); AST 35 U/L (14-36); African American GFR (CKD) >90 (>60 ml/min/1.73 sqM); Albumin 2.7 g/dL (3.5-5.0); Alkaline Phosphatase 64 U/L (38-126); Anion Gap 2 mmol/L; Blood Urea Nitrogen 30 mg/dL (7-17); Calcium 8.4 mg/dL (8.4-10.2); Carbon Dioxide 32 mmol/L (22-30); Chloride 104 mmol/L (98-107); Creatine Kinase 377 U/L (30-135); Glucose 114 mg/dL (74-99); LDH 965 U/L (313-618); Non-African American GFR(CKD) >90 (>60 ml/min/1.73 sqM); Potassium 4.4 mmol/L (3.5-5.1); Sodium 138 mmol/L (137-145); Total Bilirubin 0.8 mg/dL (0.2-1.3); Total Protein 5.3 g/dL (6.3-8.2)
[2019-08-23] MEDS: PREGABALIN 100 MG CAP PO SCH ×3 (09:03→20:41)
[2019-08-23] MEDS: ZINC SULFATE 220 MG CAP PO SCH (09:04)
[2019-08-23] MEDS: PANTOPRAZOLE 40 MG/10 ML VIAL IVP SCH ×2 (09:13→20:41)
[2019-08-23] MEDS: methylPREDNISolone SOD SUCCI 125 MG/2 ML VIAL IV SCH ×2 (09:13→20:41)
[2019-08-23] MEDS: ENOXAPARIN 150 MG/ML SYRINGE SQ SCH (09:14)
[2019-08-23] MEDS: CHLORHEXIDINE GLUCONATE 15 ML CUP MUCOUS MEM SCH ×2 (09:14→20:41)
[2019-08-23 09:54] LABS: C Reactive Protein 14.7 mg/L (<10.0)
[2019-08-23] MEDS ORDERED: CISATRACURIUM 2 MG/ML 5 ML VIAL IV ONE (11:32)
--- NOTE | 2019-08-23 11:47 | PCN ---
PROCEDURE NOTE PROCEDURE: Right radial arterial line. COAT CUTTER: Dr. Simons and Kee Carye. PREOPERATIVE DIAGNOSIS: Administration of frequent blood draws and blood gas monitoring. POSTOPERATIVE DIAGNOSIS: Administration of frequent blood draws and blood gas monitoring. A time-out was completed verifying correct patient, procedure, site, positioning, and implant(s) or special equipment if applicable. Rajesh's test was performed to ensure adequate perfusion. The patient's right wrist was prepped and draped in sterile fashion. 1% Lidocaine was used to anesthetize the area. An 18G Arrow arterial line was introduced into the radial artery. The catheter was threaded over the guide wire and the needle was removed with appropriate pulsatile blood return. Blood loss was minimal. The catheter was then sutured in place to the skin and a sterile dressing applied. Perfusion to the extremity distal to the point of catheter insertion was checked and found to be adequate. The patient tolerated the procedure well and there were no complications. The right radial art sterile site was used. There was no immediate complication. There was good blood return and waveform. Catheter was sutured in place. Sterile dressing was applied by the nurse. There was informed consent and universal timeout. Again, no immediate complication. MMODL / IJN: [id number] /
--- NOTE | 2019-08-23 12:11 | PCN ---
PROCEDURE NOTE PROCEDURE: Left internal jugular triple-lumen catheter. PREOPERATIVE DIAGNOSIS: Administration of fluids and pressors. POSTOPERATIVE DIAGNOSIS: Administration of fluids and pressors. OPERATORS: Dr. Simons, and Kee Carey. TRIPLE LUMEN CATHETER PLACEMENT: Indication: Hemodynamic monitoring/Intravenous access. A time-out was completed verifying correct patient, procedure, site, positioning, and implant(s) or special equipment if applicable. The patient was placed in a dependent position appropriate for triple lumen catheter placement based on the vein to be cannulated. The patient's left neck was prepped and draped in sterile fashion. 1% Lidocaine was used to anesthetize the surrounding skin area. A triple lumen 9F Cordis catheter was introduced into the internal jugular vein using Seldinger technique. The catheter was threaded smoothly over the guide wire and appropriate blood return was obtained. Each lumen of the catheter was evacuated of air and flushed with sterile saline. The catheter was then sutured in place to the skin and a sterile dressing applied. Perfusion to the extremity distal to the point of catheter insertion was checked and found to be adequate. We used the left internal jugular site via posterior approach. There was informed consent and universal timeout. There was no immediate complication. The was good blood return from all 3 ports. A sterile dressing was applied by the nurse after the catheter was sutured in place. Chest x-ray showed proper placement of the central line at the junction of the right atrium and superior vena cava. MMODL / IJN: [id number] /
[2019-08-23 12:23] LABS: Glucose,Whole Blood 134 mg/dL (75-99)
--- NOTE | 2019-08-23 12:31 | XR ---
EXAMINATION TYPE: XR chest 1V portable DATE OF EXAM: 08/23/2019 COMPARISON: NONE HISTORY: SOB, Follow Up FINDINGS: Indwelling tubes and catheters are unchanged. Left-sided central venous line with its distal tip over lying the SVC. No evidence for pneumothorax. No change in bibasilar opacities. Stable appearance of the cardio-mediastinal structures at this time. Pleural effusion unchanged. IMPRESSION: 1. Stable portable chest. Clinical correlation and follow up until resolution is recommended.
--- NOTE | 2019-08-23 14:38 | P.PN ---
Subjective Progress Note Date: 08/23/19 On 08/23/2019 patient seen in follow-up in the intensive care unit, she remains intubated, on mechanical ventilator, current vent settings are assist control with a rate of 22, tidal vital 350, FiO2 is 50%, and PEEP of 10, this morning his blood gases have been reviewed showing pO2 of 158, pCO2 of 48, and pH of 7.44, this was done and FiO2 of 50%. Today's chest x-ray has been reviewed after patient had her central line and arterial line replaced and chest x-ray showed no evidence of pneumothorax, central line in appropriate position, ET tube is in appropriate position, and coarse pulmonary interstitial infiltrates, patient is being treated for "with 19 related pneumonia, she remains on IV steroids, and zinc, her Plaquenil has been completed. Fever pattern has been stable, patient has been afebrile, hemodynamically she is stable, maintenance IV fluids 0.9 normal saline at a rate of 10 ML per hour, Diprivan at 25 mics per kilo per minute. Yesterday she was given daily interruption of sedation, and pressure-support trial with pressure support of 10, and CPAP of 5, patient did tolerated for several hours, however she became fatigued, and agitated, and she was placed back on assist control mode of ventilation for night. Today we will give her another daily interruption of sedation, and pressure-support trial with pressure support of 5 and CPAP of 5. Her tube feeding will remain on hold related to vomiting yesterday, will restart at a lower dose if there is no recurrence of vomiting. Objective - Vital Signs Vital signs: Vital Signs Temp 99.4 F 08/23/19 09:00 Pulse 75 08/23/19 14:00 Resp 22 08/23/19 14:00 BP 141/84 08/23/19 11:30 Pulse Ox 100 08/23/19 14:00 Intake & Output 08/22/19 08/23/19 08/23/19 18:59 06:59 18:59 Intake Total 955.235 406.974 149.269 Output Total 830 660 495 Balance 125.235 -253.026 -345.731 Weight 139 kg 138.3 kg 138.3 kg Intake: IV 276 276 23 0.9 240 240 20 Pressure Bag 36 36 3 Intake, IV Titration 363.235 130.974 126.269 Amount Clevidipine Butyrate 25 44.366 41.667 13.2 mg In Empty Bag 1 bag @ 1 MG/HR 2 mls/hr IV .Q24H [facility] Rx#:[id number] Propofol 1,000 mg In 162.494 89.307 113.069 Empty Bag 1 bag @ Titrate IV .Q0M [facility] Rx#: [id number] fentaNYL (PF) 1,000 mcg 156.375 In Sodium Chloride 0.9% 80 ml @ 1 MCG/KG/HR 13.5 mls/hr IV .Q7H25M [facility] Rx# :[id number] Tube Feeding 286 0 Other 30 Output: Urine 830 660 495 Other: Voiding Method Indwelling Catheter Indwelling Catheter Indwelling Catheter # Emeses 3 ABP, PAP, CO, CI - Last Documented Arterial Blood Pressure 162/73 - Exam GENERAL EXAM: Diminished, sedated, 58-year-old white female, on mechanical ventilation, comfortable in no apparent distress. HEAD: Normocephalic/atraumatic. EYES: Normal reaction of pupils, equal size. Conjunctiva pink, sclera white. NOSE: Clear with pink turbinates. THROAT: No erythema or exudates. NECK: No masses, no JVD, no thyroid enlargement, no adenopathy. CHEST: No chest wall deformity. Symmetrical expansion. LUNGS: Equal air entry with no crackles, wheeze, rhonchi or dullness. CVS: Regular rate and rhythm, normal S1 and S2, no gallops, no murmurs, no rubs ABDOMEN: Soft, nontender. No hepatosplenomegaly, normal bowel sounds, no guarding or rigidity. EXTREMITIES: No clubbing, no edema, no cyanosis, 2+ pulses and upper and lower extremities. MUSCULOSKELETAL: Muscle strength and tone normal. SPINE: No scoliosis or deformity SKIN: No rashes CENTRAL NERVOUS SYSTEM: Sedated, intubated. No focal deficits, tone is normal in all 4 extremities. - Labs CBC & Chem 7: 08/23/19 07:45 08/23/19 07:45 Labs: Abnormal Lab Results - Last 24 Hours (Table) 08/22/19 08/23/19 08/23/19 Range/Units 17:31 00:09 05:03 WBC (3.8-10.6) k/uL Neutrophils # (1.3-7.7) k/uL Lymphocytes # (1.0-4.8) k/uL ABG pCO2 48 H (35-45) mmHg ABG pO2 158 H (83-108) mmHg ABG HCO3 33 H (21-25) mmol/L ABG Total CO2 35 H (19-24) mmol/L ABG O2 Saturation 97.7 H (94-97) % Carbon Dioxide (22-30) mmol/L BUN (7-17) mg/dL Glucose (74-99) mg/dL POC Glucose (mg/dL) 138 H 155 H (75-99) mg/dL Lactate Dehydrogenase (313-618) U/L Creatine Kinase (30-135) U/L C-Reactive Protein (<10.0) mg/L Total Protein (6.3-8.2) g/dL Albumin (3.5-5.0) g/dL 08/23/19 08/23/19 08/23/19 Range/Units 05:49 07:45 07:45 WBC 12.1 H (3.8-10.6) k/uL Neutrophils # 10.6 H (1.3-7.7) k/uL Lymphocytes # 0.6 L (1.0-4.8) k/uL ABG pCO2 (35-45) mmHg ABG pO2 (83-108) mmHg ABG HCO3 (21-25) mmol/L ABG Total CO2 (19-24) mmol/L ABG O2 Saturation (94-97) % Carbon Dioxide 32 H (22-30) mmol/L BUN 30 H (7-17) mg/dL Glucose 114 H (74-99) mg/dL POC Glucose (mg/dL) 118 H (75-99) mg/dL Lactate Dehydrogenase 965 H (313-618) U/L Creatine Kinase 377 H (30-135) U/L C-Reactive Protein 14.7 H (<10.0) mg/L Total Protein 5.3 L (6.3-8.2) g/dL Albumin 2.7 L (3.5-5.0) g/dL 08/23/19 Range/Units 12:20 WBC (3.8-10.6) k/uL Neutrophils # (1.3-7.7) k/uL Lymphocytes # (1.0-4.8) k/uL ABG pCO2 (35-45) mmHg ABG pO2 (83-108) mmHg ABG HCO3 (21-25) mmol/L ABG Total CO2 (19-24) mmol/L ABG O2 Saturation (94-97) % Carbon Dioxide (22-30) mmol/L BUN (7-17) mg/dL Glucose (74-99) mg/dL POC Glucose (mg/dL) 134 H (75-99) mg/dL Lactate Dehydrogenase (313-618) U/L Creatine Kinase (30-135) U/L C-Reactive Protein (<10.0) mg/L Total Protein (6.3-8.2) g/dL Albumin (3.5-5.0) g/dL Assessment and Plan Plan: Assessment: #1. Acute hypoxemic and hypercapnic respiratory failure secondary to "with 19 related pneumonia, requiring intubation and mechanical ventilatory support. Patient was intubated on all 08/15/2019 and today on 08/23/2019 patient remains on mechanical ventilator support, however did tolerate pressure support trial yesterday, which will be attempted again today #2. Severe sepsis secondary to pneumonitis #3. Elevated d-dimer, ferritin, LDH related to COVID 19 infection #4. History of gouty arthritis #5. History of mitral valve prolapse #6. History of dyslipidemia #7. History of uterine cancer #8. History of depression #9. History of GERD without esophagitis Plan: Continue current medical treatment, continue same antibiotics, vital signs are stable, today's blood gases have been reviewed, we'll give the patient on another spontaneous awakening trials, and we'll proceed with spontaneous breathing trials with pressure support of 5 and CPAP of 5, continue holding tube feedings for possibility of extubation, and patient can be restarted on tube feedings encase she doesn't get extubated today. Continue GI and DVT prophylaxis, Lovenox at therapeutic doses. I performed a history & physical examination of the patient and discussed their management with my nurse practitioner, Shanna Castillo. I reviewed the nurse practitioner's note and agree with the documented findings and plan of care. Lung sounds are positive for diminished breath sounds. The findings and the impression was discussed with the patient. I attest to the documentation by the nurse practitioner. Time with Patient: Greater than 30
[2019-08-23 16:02] LABS: Ferritin 223.7 ng/mL (10.0-291.0)
[2019-08-23] MEDS: HYDROmorphone 1 MG/ML 1 ML SYRINGE IVP PRN ×2 (17:25→21:25)
[2019-08-23 17:34] LABS: Glucose,Whole Blood 139 mg/dL (75-99)
--- NOTE | 2019-08-23 17:54 | P.PN ---
Subjective From records Ms. Chiu is a 58-year-old female with a past medical history of mitral valve prolapse, osteoarthritis, rheumatoid arthritis who was admitted to the hospital on 08/14/2019 for the chief complaint of difficulty in breathing and generalized body aches for the past 8 days. Patient was also having fatigue and headache. In the emergency department patient was on a nonrebreather and was hypotensive. Patient was tested negative for influenza a and B. Chest x-ray was positive for multifocal air space disease right greater than left. The chest x-ray was compatible with covid pneumonia along with her labs which go in favor of it. Later on patient was intubated, and the patient tested positive for covid 19. On 08/19/2019 -patient still remains intubated and mechanically ventilated. She is sedated on propofol and also fentanyl. Patient is on assist control mode with 18 of tidal volume, 450 FiO2 is 50% and a PEEP of 14. Patient remains on azithromycin and Solu-Medrol 60 mg IV every 12 hours. She is also on zinc sulfate anticoagulation with Lovenox. Patient's labs reviewed today showing hemoglobin of 9.3, white count of 11.5, there is a slow uptrend of white count. There is a downtrend of CRP levels. On 08/20/2019 - Patient still remains intubated and mechanically ventilated. As per the nursing staff report patient had a chest x-ray this morning showing endotracheal tube is higher up. As they tried to push p.o. further down they could not do so the endotracheal tube has been replaced. Patient's CBC has been stable and electrolytes show no new changes. Inflammatory markers are trending down. On 08/21/2019 - Patient still remains intubated and mechanically ventilated in the ICU. Overnight no acute events reported by nursing staff. Chest x-ray from this morning shows good placement of endotracheal tube. Patient still did not have a bowel movement, will give a trial of MiraLAX. She continues to be se dated. She is continued on steroids IV Solu-Medrol 60 mg twice daily. 08/22/2019 Patient is a 58 years old female who was admitted to the hospital on 08/14/19 headache and body aches, she was on 15 l oxygen via nonrebreather, next morning patient got intubated and found to have bilateral Covid 19 pneumonia, patient received Diaz at that time. Today patient remains in the ICU intubated, her chest x-ray showing Scattered interstitial on the right infrahilar alveolar infiltrates persist. Slight progression noted and right lower lobe, Her BNP is stable, sodium 136, creatinine 0.5, carbon dioxide is 34. While WBC came back to normal from 14.9 down to 9.2K, V photopenia presents at 0.5K. Patient is slightly tachycardic with heart rate 96-101. Blood pressure is stable on patient is afebrile. Patient is followed closely by pulmonary/critical care team 08/23/2019 Patient remains in the ICU, she is intubated and sedated. She was undergoing of sedation trial however patient could not tolerate that well. Pulmonary/critical care team R following the case closely and managing her vent, today with lower to her FiO2. Also patient has been experiencing some vomiting and chills. It was held temporarily and resumed later on and she is tolerating that well so far. He was suspicion of blood in the vomit however the suspicion is low since her vitals and hemoglobin are stable. Patient is slightly tachycardic, afebrile with mild leukocytosis of 12.1 K Review of systems: N/a Active Medications Generic Name Dose Route Start Last Admin Trade Name Freq PRN Reason Stop Dose Admin Acetaminophen 650 mg 08/14/19 16:42 08/15/19 08:21 Tylenol Tab PO 650 mg Q6HR PRN Administration Mild Pain or Fever > 100.5 Albuterol Sulfate 2 puff 08/14/19 20:00 08/23/19 13:56 Ventolin Hfa Inhaler INHALATION 2 puff RT-Q6H RAYNE Administration Atorvastatin Calcium 20 mg 08/14/19 21:00 08/22/19 19:31 Lipitor PO Not Given HS RAYNE Chlorhexidine Gluconate 15 ml 08/16/19 21:00 08/23/19 09:14 Peridex MUCOUS MEM 15 ml BID RAYNE Administration Hydromorphone HCl 1 mg 08/23/19 12:16 08/23/19 17:25 Dilaudid IVP 1 mg Q4HR PRN Administration Pain Propofol 1,000 mg/ IV Solution 100 mls @ 0 mls/hr 08/15/19 09:30 08/23/19 17:25 IV 45 mcg/kg/min .Q0M RAYNE 37.341 mls/hr Administration Protocol Titrate Clevidipine 25 mg/ IV Solution 50 mls @ 2 mls/hr 08/22/19 13:45 08/23/19 17:42 IV 0 mg/hr .Q24H RAYNE 0 mls/hr Titration Protocol 1 MG/HR Insulin Aspart 0 unit 08/16/19 00:00 08/23/19 17:34 Novolog SQ 1 unit Q6H RAYNE Administration Protocol Lidocaine 1 patch 08/14/19 17:16 08/14/19 23:03 Lidoderm TOPICAL 1 patch DAILY PRN Administration Pain Methylprednisolone Sodium Succinate 60 mg 08/15/19 09:00 08/23/19 09:13 Solu-Medrol IV 60 mg Q12HR RAYNE Administration Naloxone HCl 0.2 mg 08/14/19 16:42 Narcan IV Q2M PRN Opioid Reversal Pantoprazole Sodium 40 mg 08/23/19 21:00 Protonix IVP BID RAYNE Polyethylene Glycol 17 gm 08/21/19 16:10 08/22/19 05:11 Miralax PO 17 gm DAILY PRN Administration Constipation Pregabalin 200 mg 08/14/19 22:00 08/23/19 17:23 Lyrica PO Not Given TID RAYNE Venlafaxine HCl 150 mg 08/14/19 21:00 08/22/19 19:31 Effexor Xr PO Not Given HS RAYNE Zinc Sulfate 220 mg 08/15/19 09:00 08/23/19 09:04 Orazinc PO Not Given DAILY [facility] Objective - Vital Signs Vital signs: Vital Signs Temp 99.0 F 08/23/19 16:00 Pulse 110 H 08/23/19 17:00 Resp 12 08/23/19 17:00 BP 141/84 08/23/19 11:30 Pulse Ox 99 08/23/19 17:00 Intake & Output 08/22/19 08/23/19 08/23/19 18:59 06:59 18:59 Intake Total 955.235 406.974 249.269 Output Total 830 660 620 Balance 125.235 -253.026 -370.731 Weight 139 kg 138.3 kg 138.3 kg Intake: IV 276 276 23 0.9 240 240 20 Pressure Bag 36 36 3 Intake, IV Titration 363.235 130.974 226.269 Amount Clevidipine Butyrate 25 44.366 41.667 13.2 mg In Empty Bag 1 bag @ 1 MG/HR 2 mls/hr IV .Q24H RAYNE Rx#:[id number] Propofol 1,000 mg In 162.494 89.307 213.069 Empty Bag 1 bag @ Titrate IV .Q0M RAYNE Rx#: [id number] fentaNYL (PF) 1,000 mcg 156.375 In Sodium Chloride 0.9% 80 ml @ 1 MCG/KG/HR 13.5 mls/hr IV .Q7H25M RAYNE Rx# :[id number] Tube Feeding 286 0 Other 30 Output: Urine 830 660 620 Other: Voiding Method Indwelling Catheter Indwelling Catheter Indwelling Catheter # Emeses 3 ABP, PAP, CO, CI - Last Documented Arterial Blood Pressure 171/72 - Exam GENERAL: Patient is intubated sedated, obese HEENT: Pupils are round and equally reacting to light. EOMI. No scleral icterus. No conjunctival pallor. Normocephalic, atraumatic. No pharyngeal erythema. No thyromegaly. CARDIOVASCULAR: S1 and S2 present. No murmurs, rubs, or gallops. PULMONARY: Crackles in the bases ABDOMEN: Soft, nontender, nondistended, normoactive bowel sounds. No palpable organomegaly. MUSCULOSKELETAL: No joint swelling or deformity. EXTREMITIES: No cyanosis, clubbing, or pedal edema. NEUROLOGICAL: Sedated and please refer to nursing staff documentation for level of sedation SKIN: No rashes. - Labs CBC & Chem 7: 08/23/19 07:45 08/23/19 07:45 Labs: Abnormal Lab Results - Last 24 Hours (Table) 08/23/19 08/23/19 08/23/19 Range/Units 00:09 05:03 05:49 WBC (3.8-10.6) k/uL Neutrophils # (1.3-7.7) k/uL Lymphocytes # (1.0-4.8) k/uL ABG pCO2 48 H (35-45) mmHg ABG pO2 158 H (83-108) mmHg ABG HCO3 33 H (21-25) mmol/L ABG Total CO2 35 H (19-24) mmol/L ABG O2 Saturation 97.7 H (94-97) % Carbon Dioxide (22-30) mmol/L BUN (7-17) mg/dL Glucose (74-99) mg/dL POC Glucose (mg/dL) 155 H 118 H (75-99) mg/dL Lactate Dehydrogenase (313-618) U/L Creatine Kinase (30-135) U/L C-Reactive Protein (<10.0) mg/L Total Protein (6.3-8.2) g/dL Albumin (3.5-5.0) g/dL 08/23/19 08/23/19 08/23/19 Range/Units 07:45 07:45 12:20 WBC 12.1 H (3.8-10.6) k/uL Neutrophils # 10.6 H (1.3-7.7) k/uL Lymphocytes # 0.6 L (1.0-4.8) k/uL ABG pCO2 (35-45) mmHg ABG pO2 (83-108) mmHg ABG HCO3 (21-25) mmol/L ABG Total CO2 (19-24) mmol/L ABG O2 Saturation (94-97) % Carbon Dioxide 32 H (22-30) mmol/L BUN 30 H (7-17) mg/dL Glucose 114 H (74-99) mg/dL POC Glucose (mg/dL) 134 H (75-99) mg/dL Lactate Dehydrogenase 965 H (313-618) U/L Creatine Kinase 377 H (30-135) U/L C-Reactive Protein 14.7 H (<10.0) mg/L Total Protein 5.3 L (6.3-8.2) g/dL Albumin 2.7 L (3.5-5.0) g/dL 08/23/19 Range/Units 17:32 WBC (3.8-10.6) k/uL Neutrophils # (1.3-7.7) k/uL Lymphocytes # (1.0-4.8) k/uL ABG pCO2 (35-45) mmHg ABG pO2 (83-108) mmHg ABG HCO3 (21-25) mmol/L ABG Total CO2 (19-24) mmol/L ABG O2 Saturation (94-97) % Carbon Dioxide (22-30) mmol/L BUN (7-17) mg/dL Glucose (74-99) mg/dL POC Glucose (mg/dL) 139 H (75-99) mg/dL Lactate Dehydrogenase (313-618) U/L Creatine Kinase (30-135) U/L C-Reactive Protein (<10.0) mg/L Total Protein (6.3-8.2) g/dL Albumin (3.5-5.0) g/dL Assessment and Plan Assessment: Acute hypoxic and hypercapnic respiratory failure secondary to COVID 19 pneumonia Severe sepsis secondary to #1 History of mitral valve prolapse History of gouty arthritis History of uterine cancer Hyperlipidemia GERD Elevated d-dimer Plan: Patient to be continued on mechanical ventilation. She completed hydroxychloroquine and azithromycin. Pulmonary/critical care team are following patient closely MiraLAx for constipation. Continue with Lovenox due to elevated d-dimer levels. Labs and medication were reviewed.. Continue same treatment. Continue with symptomatic treatment. Resume home medication. Monitor lytes and vitals. DVT and GI prophylaxis. Further recommendations of the clinical course of the patient DVT prophylaxis: Subcutaneous Lovenox GI Prophylaxis: Ppi Prognosis is guarded
[2019-08-23] MEDS: ATORVASTATIN 20 MG TAB PO SCH (20:41)
[2019-08-23] MEDS: VENLAFAXINE HCL ER 150 MG CAP PO SCH (20:43)
[2019-08-24 00:03] LABS: Glucose,Whole Blood 137 mg/dL (75-99)
[2019-08-24] MEDS: INSULIN ASPART (NovoLOG) 100 UNIT/ML VIAL SQ SCH ×5 (00:13→23:59)
[2019-08-24] MEDS: HYDROmorphone 1 MG/ML 1 ML SYRINGE IVP PRN ×6 (01:06→21:00)
[2019-08-24] MEDS: PROPOFOL 1,000 MG in EMPTY BAG 1 BAG IV SCH ×4 (01:41→07:07)
[2019-08-24] MEDS: ALBUTEROL HFA INHALER INHALATION SCH ×4 (02:30→19:37)
[2019-08-24 04:19] LABS: Basophils % (A) 0 %; Eosinophils % (A) 0 %; HCT 34.4 % (34.0-46.0); HGB 10.9 gm/dL (11.4-16.0); Lymphocytes # (A) 0.5 k/uL (1.0-4.8); Lymphocytes % (A) 5 %; MCH 28.7 pg (25.0-35.0); MCHC 31.7 g/dL (31.0-37.0); MCV 90.4 fL (80.0-100.0); Mean Platelet Volume 7.8; Monocytes # (A) 0.5 k/uL (0-1.0); Monocytes % (A) 5 %; Neutrophils # (A) 8.1 k/uL (1.3-7.7); Neutrophils % (A) 89 %; Platelet Count 389 k/uL (150-450); RDW 14.4 % (11.5-15.5); WBC 9.2 k/uL (3.8-10.6)
[2019-08-24 04:39] LABS: ALT 22 U/L (4-34); AST 34 U/L (14-36); African American GFR (CKD) >90 (>60 ml/min/1.73 sqM); Albumin 2.6 g/dL (3.5-5.0); Alkaline Phosphatase 57 U/L (38-126); Anion Gap -1 mmol/L; Blood Urea Nitrogen 29 mg/dL (7-17); C Reactive Protein 14.6 mg/L (<10.0); Calcium 8.3 mg/dL (8.4-10.2); Carbon Dioxide 33 mmol/L (22-30); Chloride 105 mmol/L (98-107); Creatine Kinase 247 U/L (30-135); Glucose 142 mg/dL (74-99); LDH 963 U/L (313-618); Non-African American GFR(CKD) >90 (>60 ml/min/1.73 sqM); Potassium 4.5 mmol/L (3.5-5.1); Sodium 137 mmol/L (137-145); Total Bilirubin 0.7 mg/dL (0.2-1.3); Total Protein 5.1 g/dL (6.3-8.2)
[2019-08-24 05:41] LABS: ABG Base Excess 7.1 mmol/L; ABG HCO3 31 mmol/L (21-25); ABG Oxygen Saturation 96.7 % (94-97); ABG PCO2 45 mmHg (35-45); ABG PH 7.45 (7.35-7.45); ABG PO2 102 mmHg (83-108); ABG TCO2 33 mmol/L (19-24)
--- NOTE | 2019-08-24 07:48 | XR ---
EXAMINATION TYPE: XR chest 1V DATE OF EXAM: 08/24/2019 COMPARISON: 08/23/2019 HISTORY: SOB, Follow Up FINDINGS: Indwelling tubes and catheters are unchanged. Scattered mixed infiltrates persist without significant change. Stable appearance of the cardio-mediastinal structures at this time. IMPRESSION: 1. Stable portable chest. Clinical correlation and follow up until resolution is recommended.
--- NOTE | 2019-08-24 08:38 | CONS ---
CONSULTATION DATE OF DICTATION: 08/24/2019 REASON FOR CONSULTATION: Acute upper GI bleed. HISTORY OF PRESENT ILLNESS: The patient is a 58-year-old pleasant white female with history of mitral valve prolapse, osteoarthritis, rheumatoid arthritis, was admitted to the hospital 8 days ago with COVID-19 pneumonia and acute respiratory failure. She presently remains on the vent, sedated. She has been on broad-spectrum antibiotics. She was started on Lovenox 2 days ago. Two days ago she had some emesis and yesterday she had maroon-colored emesis of approximately 200 mL. The tube feeds have been on hold since then and as per the nursing staff, she continued to remain stable through the ED. This morning, there was approximately 100 mL of dark colored material in the NG tube. Hemoglobin at admission was 12.5 g/dL and over the course of the last 10 days, it gradually dropped and today is 10.7 g/dL. The patient has been on Protonix 40 mg twice daily. No reported bowel movements. PAST MEDICAL HISTORY: Significant for mitral valve prolapse, osteoarthritis, rheumatoid arthritis, chronic back pain. PAST SURGICAL HISTORY: Hysterectomy, tonsillectomy, bilateral cataract surgery, bilateral knee replacements. MEDICATIONS: Medications at home include Lipitor, [place], Lyrica, Voltaren, Lidoderm, Protonix, Zantac, and Effexor. ALLERGIES: None. SOCIAL HISTORY: Former smoker. No alcohol use. FAMILY HISTORY: Mother unremarkable. Father unremarkable. REVIEW OF SYSTEMS: Review of systems could not be obtained, as patient is currently on the vent, sedated. PHYSICAL EXAMINATION: On physical examination, she remains on the vent and sedated. Vital signs showed blood pressure of 161/75, pulse rate 94, temperature 98.8. Physical examination defer to the attending physician. LABS: Labs done from today show WBC 9.2, hemoglobin 10.9, platelets 389. BUN and creatinine are 29 and 0.5 respectively. ABGs: PH is 7.45, pCO2 of 48, pO2 of 102, oxygen saturation 96.7%. AST, ALT, T-bilirubin and alkaline phosphatase are within normal limits. CRP is 14.6. Chest x-ray from today did show stable bilateral infiltrates. IMPRESSION: 1. COVID-19 pneumonia with acute respiratory failure, presently on the vent, intubated, sedated and currently on Solu-Medrol 60 mg q.12 hours. 2. Acute upper gastrointestinal bleed with maroon-colored NG tube aspirate that started about 24 hours ago. She dropped her hemoglobin from 11.5 to 10.7 g/dL. This morning there was small amount of coffee-ground material noted in the NG tube. Patient is hemodynamically stable. Presently on Protonix 40 mg twice daily and Lovenox has been on hold since yesterday morning. 3. History of rheumatoid arthritis. 4. History of mitral valve prolapse. 5. History of uterine cancer in the past. RECOMMENDATIONS: 1. Continue with Protonix 40 mg twice daily. 2. Since the hemoglobin is somewhat stable and is clinically very minimal amount of coffee-ground material in the NG tube, we will restart her tube feeds today. 3. Monitor CBC q.12 hours. 4. Continue to hold the Lovenox for today and if she remains stable, this can be restarted tomorrow. 5. Continue symptomatic and supportive care and management as per ICU. 6. No plans on any endoscopic intervention on this significant amount of GI bleed noted. 7. We will follow with you closely. Thank you for this consultation. MMODL / IJN: [id number] /
[2019-08-24] MEDS: PANTOPRAZOLE 40 MG/10 ML VIAL IVP SCH ×3 (09:05→20:35)
[2019-08-24] MEDS: methylPREDNISolone SOD SUCCI 125 MG/2 ML VIAL IV SCH ×3 (09:05→20:35)
[2019-08-24] MEDS: CHLORHEXIDINE GLUCONATE 15 ML CUP MUCOUS MEM SCH (09:05)
[2019-08-24] MEDS: PREGABALIN 100 MG CAP PO SCH ×3 (09:06→20:02)
[2019-08-24] MEDS: ZINC SULFATE 220 MG CAP PO SCH (09:06)
[2019-08-24 11:07] LABS: Ferritin 279.9 ng/mL (10.0-291.0)
--- NOTE | 2019-08-24 11:40 | P.PN ---
Subjective Progress Note Date: 08/24/19 On 08/23/2019 patient seen in follow-up in the intensive care unit, she remains intubated, on mechanical ventilator, current vent settings are assist control with a rate of 22, tidal vital 350, FiO2 is 50%, and PEEP of 10, this morning his blood gases have been reviewed showing pO2 of 158, pCO2 of 48, and pH of 7.44, this was done and FiO2 of 50%. Today's chest x-ray has been reviewed after patient had her central line and arterial line replaced and chest x-ray showed no evidence of pneumothorax, central line in appropriate position, ET tube is in appropriate position, and coarse pulmonary interstitial infiltrates, patient is being treated for "with 19 related pneumonia, she remains on IV steroids, and zinc, her Plaquenil has been completed. Fever pattern has been stable, patient has been afebrile, hemodynamically she is stable, maintenance IV fluids 0.9 normal saline at a rate of 10 ML per hour, Diprivan at 25 mics per kilo per minute. Yesterday she was given daily interruption of sedation, and pressure-support trial with pressure support of 10, and CPAP of 5, patient did tolerated for several hours, however she became fatigued, and agitated, and she was placed back on assist control mode of ventilation for night. Today we will give her another daily interruption of sedation, and pressure-support trial with pressure support of 5 and CPAP of 5. Her tube feeding will remain on hold related to vomiting yesterday, will restart at a lower dose if there is no recurrence of vomiting. On 08/24/2019 patient seen in follow-up in the intensive care unit, she remains intubated, sedated, current vent settings are assist-control with a rate of 22, tidal volume 350, FiO2 is 50%, and PEEP of 5, her pulse ox is 98%, this morning blood gases showed pO2 of 102, pCO2 45, and pH of 7.45. IV 0.9 normal saline at rate of 20, Diprivan is a 40 mics per kilo per minute, Cleviprex is currently off. Yesterday she had her triple-lumen central catheter replaced, and her arterial line replaced, she did not have an and the pressure support and CPAP trial yesterday. This morning we'll proceed with daily interruption of sedation, her vital signs have been stable, hemodynamically she is been stable, morning his blood work has been reviewed showing no sign of leukocytosis, white blood cell count is 9.2, hemoglobin is 10.9, d-dimer is 6.62, sodium is 137, potassium is 4.5, chloride is 105, CO2 33, B1 is 29 creatinine 0.5, LDH is slightly down from yesterday, 963, CK is trending down and is down to 247, CRP is stable at 14.6. Today's chest x-ray showed scattered mixed infiltrates without any significant change from previous films. Last night patient developed maroon-colored emesis of approximately 200 mL patient has been on therapeutic doses of Lovenox her concern elevated d-dimer secondary to COVID 19 infection. Lovenox has been discontinued. Today's labs showed hemoglobin of 10.9, patient has had no further evidence of hematemesis, she has been on PPI therapy. Objective - Vital Signs Vital signs: Vital Signs Temp 97.8 F 08/24/19 08:00 Pulse 134 H 08/24/19 11:00 Resp 14 08/24/19 11:00 BP 138/82 08/24/19 11:00 Pulse Ox 97 08/24/19 11:17 Intake & Output 08/23/19 08/24/19 08/24/19 18:59 06:59 18:59 Intake Total 428.489 767.329 159.420 Output Total 1395 1155 165 Balance -966.511 -387.671 -5.580 Weight 138.3 kg 137 kg 137 kg Intake: IV 148 276 69 0.9 145 240 60 Pressure Bag 3 36 9 Intake, IV Titration 280.489 491.329 90.420 Amount Clevidipine Butyrate 25 25.1 mg In Empty Bag 1 bag @ 1 MG/HR 2 mls/hr IV .Q24H RAYNE Rx#:[id number] Propofol 1,000 mg In 255.389 491.329 90.420 Empty Bag 1 bag @ Titrate IV .Q0M RAYNE Rx#: [id number] Tube Feeding 0 Output: Urine 1395 855 165 Oral Regurgitation 300 Other: Voiding Method Indwelling Catheter Indwelling Catheter Indwelling Catheter ABP, PAP, CO, CI - Last Documented Arterial Blood Pressure 142/64 - Exam GENERAL EXAM: Diminished, sedated, 58-year-old white female, on mechanical v entilation, comfortable in no apparent distress. HEAD: Normocephalic/atraumatic. EYES: Normal reaction of pupils, equal size. Conjunctiva pink, sclera white. NOSE: Clear with pink turbinates. THROAT: No erythema or exudates. NECK: No masses, no JVD, no thyroid enlargement, no adenopathy. CHEST: No chest wall deformity. Symmetrical expansion. LUNGS: Equal air entry with no crackles, wheeze, rhonchi or dullness. CVS: Regular rate and rhythm, normal S1 and S2, no gallops, no murmurs, no rubs ABDOMEN: Soft, nontender. No hepatosplenomegaly, normal bowel sounds, no guarding or rigidity. EXTREMITIES: No clubbing, no edema, no cyanosis, 2+ pulses and upper and lower extremities. MUSCULOSKELETAL: Muscle strength and tone normal. SPINE: No scoliosis or deformity SKIN: No rashes CENTRAL NERVOUS SYSTEM: Sedated, intubated. No focal deficits, tone is normal in all 4 extremities. - Labs CBC & Chem 7: 08/24/19 04:00 08/24/19 04:00 Labs: Abnormal Lab Results - Last 24 Hours (Table) 08/23/19 08/23/19 08/24/19 Range/Units 12:20 17:32 00:01 Hgb (11.4-16.0) gm/dL Neutrophils # (1.3-7.7) k/uL Lymphocytes # (1.0-4.8) k/uL D-Dimer (<0.60) mg/L FEU ABG HCO3 (21-25) mmol/L ABG Total CO2 (19-24) mmol/L Carbon Dioxide (22-30) mmol/L BUN (7-17) mg/dL Creatinine (0.52-1.04) mg/dL Glucose (74-99) mg/dL POC Glucose (mg/dL) 134 H 139 H 137 H (75-99) mg/dL Calcium (8.4-10.2) mg/dL Lactate Dehydrogenase (313-618) U/L Creatine Kinase (30-135) U/L C-Reactive Protein (<10.0) mg/L Total Protein (6.3-8.2) g/dL Albumin (3.5-5.0) g/dL 08/24/19 08/24/1920 Range/Units 04:00 04:00 04:00 Hgb 10.9 L (11.4-16.0) gm/dL Neutrophils # 8.1 H (1.3-7.7) k/uL Lymphocytes # 0.5 L (1.0-4.8) k/uL D-Dimer 6.62 H (<0.60) mg/L FEU ABG HCO3 (21-25) mmol/L ABG Total CO2 (19-24) mmol/L Carbon Dioxide 33 H (22-30) mmol/L BUN 29 H (7-17) mg/dL Creatinine 0.50 L (0.52-1.04) mg/dL Glucose 142 H (74-99) mg/dL POC Glucose (mg/dL) (75-99) mg/dL Calcium 8.3 L (8.4-10.2) mg/dL Lactate Dehydrogenase 963 H (313-618) U/L Creatine Kinase 247 H (30-135) U/L C-Reactive Protein 14.6 H (<10.0) mg/L Total Protein 5.1 L (6.3-8.2) g/dL Albumin 2.6 L (3.5-5.0) g/dL 08/24/19 Range/Units 05:35 Hgb (11.4-16.0) gm/dL Neutrophils # (1.3-7.7) k/uL Lymphocytes # (1.0-4.8) k/uL D-Dimer (<0.60) mg/L FEU ABG HCO3 31 H (21-25) mmol/L ABG Total CO2 33 H (19-24) mmol/L Carbon Dioxide (22-30) mmol/L BUN (7-17) mg/dL Creatinine (0.52-1.04) mg/dL Glucose (74-99) mg/dL POC Glucose (mg/dL) (75-99) mg/dL Calcium (8.4-10.2) mg/dL Lactate Dehydrogenase (313-618) U/L Creatine Kinase (30-135) U/L C-Reactive Protein (<10.0) mg/L Total Protein (6.3-8.2) g/dL Albumin (3.5-5.0) g/dL Assessment and Plan Plan: Assessment: #1. Acute hypoxemic and hypercapnic respiratory failure secondary to "with 19 related pneumonia, requiring intubation and mechanical ventilatory support. Henry hernandez was intubated on all 08/15/2019 and today on 08/23/2019 patient remains on mechanical ventilator support, however did tolerate pressure support trial yesterday, which will be attempted again today #2. Severe sepsis secondary to pneumonitis #3. Elevated d-dimer, ferritin, LDH related to COVID 19 infection #4. History of gouty arthritis #5. History of mitral valve prolapse #6. History of dyslipidemia #7. History of uterine cancer #8. History of depression #9. History of GERD without esophagitis #11. Hematemesis, Lovenox has been placed on hold Plan: Patient has been given per support trial with pressure support of 5, and CPAP of 5, weaning parameters were obtained, and were satisfactory, patient had a positive cuff leak, we'll extubate the patient to 6 L per nasal cannula, maintain aspiration precautions. Nothing by mouth for 6 hours after extubation, today's chest x-ray has been reviewed showing bilateral infiltrates, fairly stable in appearance from prior exams, inflammatory markers have been reviewed, and are stable or trending down, patient has been afebrile, patient did develop hematemesis last night, with no recurrence, Lovenox is on hold, GI consultation has been requested, hemoglobin 10.6, patient has not required any blood transfusions. Will continue to closely follow I performed a history & physical examination of the patient and discussed their management with my nurse practitioner, Shanna Castillo. I reviewed the nurse practitioner's note and agree with the documented findings and plan of care. Lung sounds are positive for diminished breath sounds. The findings and the impression was discussed with the patient. I attest to the documentation by the nurse practitioner. Time with Patient: Greater than 30
--- NOTE | 2019-08-24 12:16 | P.PN ---
Subjective From records Ms. Chiu is a 58-year-old female with a past medical history of mitral valve prolapse, osteoarthritis, rheumatoid arthritis who was admitted to the hospital on 08/14/2019 for the chief complaint of difficulty in breathing and generalized body aches for the past 8 days. Patient was also having fatigue and headache. In the emergency department patient was on a nonrebreather and was hypotensive. Patient was tested negative for influenza a and B. Chest x-ray was positive for multifocal air space disease right greater than left. The chest x-ray was compatible with covid pneumonia along with her labs which go in favor of it. Later on patient was intubated, and the patient tested positive for covid 19. On 08/19/2019 -patient still remains intubated and mechanically ventilated. She is sedated on propofol and also fentanyl. Patient is on assist control mode with 18 of tidal volume, 450 FiO2 is 50% and a PEEP of 14. Patient remains on azithromycin and Solu-Medrol 60 mg IV every 12 hours. She is also on zinc sulfate anticoagulation with Lovenox. Patient's labs reviewed today showing hemoglobin of 9.3, white count of 11.5, there is a slow uptrend of white count. There is a downtrend of CRP levels. On 08/20/2019 - Patient still remains intubated and mechanically ventilated. As per the nursing staff report patient had a chest x-ray this morning showing endotracheal tube is higher up. As they tried to push p.o. further down they could not do so the endotracheal tube has been replaced. Patient's CBC has been stable and electrolytes show no new changes. Inflammatory markers are trending down. On 08/21/2019 - Patient still remains intubated and mechanically ventilated in the ICU. Overnight no acute events reported by nursing staff. Chest x-ray from this morning shows good placement of endotracheal tube. Patient still did not have a bowel movement, will give a trial of MiraLAX. She continues to be se dated. She is continued on steroids IV Solu-Medrol 60 mg twice daily. 08/22/2019 Patient is a 58 years old female who was admitted to the hospital on 08/14/19 headache and body aches, she was on 15 l oxygen via nonrebreather, next morning patient got intubated and found to have bilateral Covid 19 pneumonia, patient received Diaz at that time. Today patient remains in the ICU intubated, her chest x-ray showing Scattered interstitial on the right infrahilar alveolar infiltrates persist. Slight progression noted and right lower lobe, Her BNP is stable, sodium 136, creatinine 0.5, carbon dioxide is 34. While WBC came back to normal from 14.9 down to 9.2K, V photopenia presents at 0.5K. Patient is slightly tachycardic with heart rate 96-101. Blood pressure is stable on patient is afebrile. Patient is followed closely by pulmonary/critical care team 08/23/2019 Patient remains in the ICU, she is intubated and sedated. She was undergoing of sedation trial however patient could not tolerate that well. Pulmonary/critical care team R following the case closely and managing her vent, today with lower to her FiO2. Also patient has been experiencing some vomiting and chills. It was held temporarily and resumed later on and she is tolerating that well so far. He was suspicion of blood in the vomit however the suspicion is low since her vitals and hemoglobin are stable. Patient is slightly tachycardic, afebrile with mild leukocytosis of 12.1 K 08/24/2019 Patient got extubated today in the ICU. She is currently on 6 L oxygen via nasal cannula and saturating 97%, afebrile undersewn vitals are stable. CBC and BMP were reviewed. Patient has no more emesis however OT tube was taken out, just been consulted for possible upper GI bleed with drop in hemoglobin down to 10.7. GI team recommended Protonix twice daily, hold tube feeding today and Lovenox. Review of systems: N/a, patient is too weak to monitor Active Medications Generic Name Dose Route Start Last Admin Trade Name Freq PRN Reason Stop Dose Admin Acetaminophen 650 mg 08/14/19 16:42 08/15/19 08:21 Tylenol Tab PO 650 mg Q6HR PRN Administration Mild Pain or Fever > 100.5 Albuterol Sulfate 2 puff 08/14/19 20:00 08/24/19 08:06 Ventolin Hfa Inhaler INHALATION 2 puff RT-Q6H RAYNE Administration Atorvastatin Calcium 20 mg 08/14/19 21:00 08/23/19 20:41 Lipitor PO 20 mg HS RAYNE Administration Chlorhexidine Gluconate 15 ml 08/16/19 21:00 08/24/19 09:05 Peridex MUCOUS MEM 15 ml BID RANYE Administration Hydromorphone HCl 1 mg 08/23/19 12:16 08/24/19 09:06 Dilaudid IVP 1 mg Q4HR PRN Administration Pain Propofol 1,000 mg/ IV Solution 100 mls @ 0 mls/hr 08/15/19 09:30 08/24/19 09:30 IV 0 mcg/kg/min .Q0M RAYNE 0 mls/hr Titration Protocol Titrate Clevidipine 25 mg/ IV Solution 50 mls @ 2 mls/hr 08/22/19 13:45 08/24/19 11:51 IV 0 mg/hr .Q24H RAYNE 0 mls/hr Titration Protocol 1 MG/HR Insulin Aspart 0 unit 08/16/19 00:00 08/24/19 05:42 Novolog SQ 1 unit Q6H RAYNE Administration Protocol Lidocaine 1 patch 08/14/19 17:16 08/14/19 23:03 Lidoderm TOPICAL 1 patch DAILY PRN Administration Pain Methylprednisolone Sodium Succinate 60 mg 08/15/19 09:00 08/24/19 09:05 Solu-Medrol IV 60 mg Q12HR RAYNE Administration Naloxone HCl 0.2 mg 08/14/19 16:42 Narcan IV Q2M PRN Opioid Reversal Pantoprazole Sodium 40 mg 08/23/19 21:00 08/24/19 09:05 Protonix IVP 40 mg BID RAYNE Administration Polyethylene Glycol 17 gm 08/21/19 16:10 08/22/19 05:11 Miralax PO 17 gm DAILY PRN Administration Constipation Pregabalin 200 mg 08/14/19 22:00 08/24/19 09:06 Lyrica PO 200 mg TID RAYNE Administration Venlafaxine HCl 150 mg 08/14/19 21:00 08/23/19 20:43 Effexor Xr PO 150 mg HS RAYNE Administration Zinc Sulfate 220 mg 08/15/19 09:00 08/24/19 09:06 Orazinc PO 220 mg DAILY RAYNE Administration Objective - Vital Signs Vital signs: Vital Signs Temp 97.8 F 08/24/19 08:00 Pulse 134 H 08/24/19 11:00 Resp 14 08/24/19 11:00 BP 138/82 08/24/19 11:00 Pulse Ox 97 08/24/19 11:17 Intake & Output 08/23/19 08/24/19 08/24/19 18:59 06:59 18:59 Intake Total 428.489 767.329 183.020 Output Total 1395 1155 165 Balance -966.511 -387.671 18.020 Weight 138.3 kg 137 kg 137 kg Intake: IV 148 276 69 0.9 145 240 60 Pressure Bag 3 36 9 Intake, IV Titration 280.489 491.329 114.020 Amount Clevidipine Butyrate 25 25.1 23.600 mg In Empty Bag 1 bag @ 1 MG/HR 2 mls/hr IV .Q24H RAYNE Rx#:[id number] Propofol 1,000 mg In 255.389 491.329 90.420 Empty Bag 1 bag @ Titrate IV .Q0M RAYNE Rx#: [id number] Tube Feeding 0 Output: Urine 1395 855 165 Oral Regurgitation 300 Other: Voiding Method Indwelling Catheter Indwelling Catheter Indwelling Catheter ABP, PAP, CO, CI - Last Documented Arterial Blood Pressure 142/64 - Exam GENERAL: Patient is intubated sedated, obese HEENT: Pupils are round and equally reacting to light. EOMI. No scleral icterus. No conjunctival pallor. Normocephalic, atraumatic. No pharyngeal erythema. No thyromegaly. CARDIOVASCULAR: S1 and S2 present. No murmurs, rubs, or gallops. PULMONARY: Crackles in the bases ABDOMEN: Soft, nontender, nondistended, normoactive bowel sounds. No palpable organomegaly. MUSCULOSKELETAL: No joint swelling or deformity. EXTREMITIES: No cyanosis, clubbing, or pedal edema. NEUROLOGICAL: Sedated and please refer to nursing staff documentation for level of sedation SKIN: No rashes. - Labs CBC & Chem 7: 08/24/19 04:00 08/24/19 04:00 Labs: Abnormal Lab Results - Last 24 Hours (Table) 08/23/19 08/23/19 08/24/19 Range/Units 12:20 17:32 00:01 Hgb (11.4-16.0) gm/dL Neutrophils # (1.3-7.7) k/uL Lymphocytes # (1.0-4.8) k/uL D-Dimer (<0.60) mg/L FEU ABG HCO3 (21-25) mmol/L ABG Total CO2 (19-24) mmol/L Carbon Dioxide (22-30) mmol/L BUN (7-17) mg/dL Creatinine (0.52-1.04) mg/dL Glucose (74-99) mg/dL POC Glucose (mg/dL) 134 H 139 H 137 H (75-99) mg/dL Calcium (8.4-10.2) mg/dL Lactate Dehydrogenase (313-618) U/L Creatine Kinase (30-135) U/L C-Reactive Protein (<10.0) mg/L Total Protein (6.3-8.2) g/dL Albumin (3.5-5.0) g/dL 08/24/19 08/24/19 08/24/19 Range/Units 04:00 04:00 04:00 Hgb 10.9 L (11.4-16.0) gm/dL Neutrophils # 8.1 H (1.3-7.7) k/uL Lymphocytes # 0.5 L (1.0-4.8) k/uL D-Dimer 6.62 H (<0.60) mg/L FEU ABG HCO3 (21-25) mmol/L ABG Total CO2 (19-24) mmol/L Carbon Dioxide 33 H (22-30) mmol/L BUN 29 H (7-17) mg/dL Creatinine 0.50 L (0.52-1.04) mg/dL Glucose 142 H (74-99) mg/dL POC Glucose (mg/dL) (75-99) mg/dL Calcium 8.3 L (8.4-10.2) mg/dL Lactate Dehydrogenase 963 H (313-618) U/L Creatine Kinase 247 H (30-135) U/L C-Reactive Protein 14.6 H (<10.0) mg/L Total Protein 5.1 L (6.3-8.2) g/dL Albumin 2.6 L (3.5-5.0) g/dL 08/24/19 Range/Units 05:35 Hgb (11.4-16.0) gm/dL Neutrophils # (1.3-7.7) k/uL Lymphocytes # (1.0-4.8) k/uL D-Dimer (<0.60) mg/L FEU ABG HCO3 31 H (21-25) mmol/L ABG Total CO2 33 H (19-24) mmol/L Carbon Dioxide (22-30) mmol/L BUN (7-17) mg/dL Creatinine (0.52-1.04) mg/dL Glucose (74-99) mg/dL POC Glucose (mg/dL) (75-99) mg/dL Calcium (8.4-10.2) mg/dL Lactate Dehydrogenase (313-618) U/L Creatine Kinase (30-135) U/L C-Reactive Protein (<10.0) mg/L Total Protein (6.3-8.2) g/dL Albumin (3.5-5.0) g/dL Assessment and Plan Assessment: Acute hypoxic and hypercapnic respiratory failure secondary to COVID 19 pneumonia Acute upper GI bleed Acute blood loss anemia History of mitral valve prolapse History of gouty arthritis History of uterine cancer Hyperlipidemia GERD Elevated d-dimer Plan: Patient to be continued on mechanical ventilation. She completed hydroxychloroquine and azithromycin. Pulmonary/critical care team are following patient closely. Start Protonix twice a day and monitor hemoglobin closely. GI team has been consulted and no indication for endoscopy now for the consult. Hold Lovenox and it can be restarted when cleared by GI team Labs and medication were reviewed.. Continue same treatment. Continue with symptomatic treatment. Resume home medication. Monitor lytes and vitals. DVT and GI prophylaxis. Further recommendations of the clinical course of the patient DVT prophylaxis: Hold Lovenox, continue with mechanical prophylaxis GI Prophylaxis: Protonix twice daily Prognosis is guarded
[2019-08-24 12:38] LABS: Glucose,Whole Blood 138 mg/dL (75-99)
[2019-08-24] MEDS: CLEVIDIPINE BUTYRATE 25 MG in EMPTY BAG 1 BAG IV SCH ×4 (13:59→23:46)
[2019-08-24] MEDS ORDERED: SODIUM CHLORIDE 0.9% 1,000 ML IV ONE (15:13)
[2019-08-24 17:04] LABS: Glucose,Whole Blood 154 mg/dL (75-99)
[2019-08-24 19:39] LABS: LD Isoenzymes 1 20 % (19-38); LD Isoenzymes 2 40 % (30-43); LD Isoenzymes 3 22 % (16-26); LD Isoenzymes 4 9 % (3-12); LD Isoenzymes 5 9 % (3-14); Lactacte Dehydrogenase(LD) ISO 362 U/L (120-250)
[2019-08-24 19:39] LABS: LD Isoenzymes 1 20 % (19-38); LD Isoenzymes 2 40 % (30-43); LD Isoenzymes 3 22 % (16-26); LD Isoenzymes 4 9 % (3-12); LD Isoenzymes 5 9 % (3-14); Lactacte Dehydrogenase(LD) ISO 326 U/L (120-250)
[2019-08-24] MEDS: ATORVASTATIN 20 MG TAB PO SCH (20:01)
[2019-08-24] MEDS: VENLAFAXINE HCL ER 150 MG CAP PO SCH (20:02)
[2019-08-24] MEDS: LIDOCAINE 5% PATCH TOPICAL PRN (20:36)
[2019-08-24 23:56] LABS: Glucose,Whole Blood 133 mg/dL (75-99)
[2019-08-25] MEDS: HYDROmorphone 1 MG/ML 1 ML SYRINGE IVP PRN ×3 (00:37→06:38)
[2019-08-25] MEDS: ALBUTEROL HFA INHALER INHALATION SCH ×4 (01:07→19:10)
[2019-08-25] MEDS: CLEVIDIPINE BUTYRATE 25 MG in EMPTY BAG 1 BAG IV SCH ×2 (02:00→09:00)
[2019-08-25 04:18] LABS: Basophils % (A) 0 %; Eosinophils % (A) 0 %; HCT 34.4 % (34.0-46.0); HGB 11.3 gm/dL (11.4-16.0); Lymphocytes # (A) 0.4 k/uL (1.0-4.8); Lymphocytes % (A) 3 %; MCH 29.4 pg (25.0-35.0); MCHC 32.8 g/dL (31.0-37.0); MCV 89.6 fL (80.0-100.0); Mean Platelet Volume 8.3; Monocytes # (A) 0.5 k/uL (0-1.0); Monocytes % (A) 4 %; Neutrophils # (A) 10.9 k/uL (1.3-7.7); Neutrophils % (A) 92 %; Platelet Count 340 k/uL (150-450); RBC 3.83 m/uL (3.80-5.40); RDW 14.3 % (11.5-15.5); WBC 11.8 k/uL (3.8-10.6)
[2019-08-25 04:30] LABS: ALT 40 U/L (4-34); AST 72 U/L (14-36); African American GFR (CKD) >90 (>60 ml/min/1.73 sqM); Albumin 2.8 g/dL (3.5-5.0); Alkaline Phosphatase 58 U/L (38-126); Anion Gap 0 mmol/L; Blood Urea Nitrogen 21 mg/dL (7-17); C Reactive Protein 17.5 mg/L (<10.0); Calcium 8.4 mg/dL (8.4-10.2); Carbon Dioxide 33 mmol/L (22-30); Chloride 105 mmol/L (98-107); Creatine Kinase 960 U/L (30-135); Glucose 161 mg/dL (74-99); LDH 1516 U/L (313-618); Non-African American GFR(CKD) >90 (>60 ml/min/1.73 sqM); Potassium 3.7 mmol/L (3.5-5.1); Sodium 138 mmol/L (137-145); Total Protein 5.3 g/dL (6.3-8.2)
[2019-08-25] MEDS ORDERED: Potassium Replacement Protocol 1 EACH MISC MISCELLANE PRN (04:34)
[2019-08-25] MEDS: POTASSIUM CHLORIDE 10 MEQ in WATER FOR INJECTION 1 100ML.BAG IVPB SCH ×2 (04:42→05:43)
[2019-08-25] MEDS: INSULIN ASPART (NovoLOG) 100 UNIT/ML VIAL SQ SCH ×4 (05:17→21:51)
--- NOTE | 2019-08-25 07:47 | XR ---
EXAMINATION TYPE: XR chest 1V DATE OF EXAM: 08/25/2019 COMPARISON: Prior chest x-ray 08/24/2019 HISTORY: Extubated, abnormal chest x-ray TECHNIQUE: Single frontal view of the chest is obtained. FINDINGS: Endotracheal tube has been removed in the interval, left subclavian central venous cathete r remains in place. NG tube is no longer seen. Right hemidiaphragm remains elevated. Some improvement in aeration at the lung bases is noted. No pneumothorax. Heart is stable. IMPRESSION: Interval extubation and improvement in aeration, lung volumes.
[2019-08-25] MEDS: PREGABALIN 100 MG CAP PO SCH ×4 (08:21→21:22)
[2019-08-25] MEDS: ZINC SULFATE 220 MG CAP PO SCH ×2 (08:21→11:24)
[2019-08-25] MEDS: ACETAMINOPHEN IV (For NPO) 1,000 MG in EMPTY BAG 1 BAG IVPB PRN ×2 (09:56→22:21)
[2019-08-25 11:35] LABS: Ferritin 342.3 ng/mL (10.0-291.0)
[2019-08-25 12:04] LABS: Glucose,Whole Blood 134 mg/dL (75-99)
--- NOTE | 2019-08-25 12:18 | P.PN ---
Subjective Progress Note Date: 08/25/19 On 08/23/2019 patient seen in follow-up in the intensive care unit, she remains intubated, on mechanical ventilator, current vent settings are assist control with a rate of 22, tidal vital 350, FiO2 is 50%, and PEEP of 10, this morning his blood gases have been reviewed showing pO2 of 158, pCO2 of 48, and pH of 7.44, this was done and FiO2 of 50%. Today's chest x-ray has been reviewed after patient had her central line and arterial line replaced and chest x-ray showed no evidence of pneumothorax, central line in appropriate position, ET tube is in appropriate position, and coarse pulmonary interstitial infiltrates, patient is being treated for "with 19 related pneumonia, she remains on IV steroids, and zinc, her Plaquenil has been completed. Fever pattern has been stable, patient has been afebrile, hemodynamically she is stable, maintenance IV fluids 0.9 normal saline at a rate of 10 ML per hour, Diprivan at 25 mics per kilo per minute. Yesterday she was given daily interruption of sedation, and pressure-support trial with pressure support of 10, and CPAP of 5, patient did tolerated for several hours, however she became fatigued, and agitated, and she was placed back on assist control mode of ventilation for night. Today we will give her another daily interruption of sedation, and pressure-support trial with pressure support of 5 and CPAP of 5. Her tube feeding will remain on hold related to vomiting yesterday, will restart at a lower dose if there is no recurrence of vomiting. On 08/24/2019 patient seen in follow-up in the intensive care unit, she remains intubated, sedated, current vent settings are assist-control with a rate of 22, tidal volume 350, FiO2 is 50%, and PEEP of 5, her pulse ox is 98%, this morning blood gases showed pO2 of 102, pCO2 45, and pH of 7.45. IV 0.9 normal saline at rate of 20, Diprivan is a 40 mics per kilo per minute, Cleviprex is currently off. Yesterday she had her triple-lumen central catheter replaced, and her arterial line replaced, she did not have an and the pressure support and CPAP trial yesterday. This morning we'll proceed with daily interruption of sedation, her vital signs have been stable, hemodynamically she is been stable, morning his blood work has been reviewed showing no sign of leukocytosis, white blood cell count is 9.2, hemoglobin is 10.9, d-dimer is 6.62, sodium is 137, potassium is 4.5, chloride is 105, CO2 33, B1 is 29 creatinine 0.5, LDH is slightly down from yesterday, 963, CK is trending down and is down to 247, CRP is stable at 14.6. Today's chest x-ray showed scattered mixed infiltrates without any significant change from previous films. Last night patient developed maroon-colored emesis of approximately 200 mL patient has been on therapeutic doses of Lovenox her concern elevated d-dimer secondary to COVID 19 infection. Lovenox has been discontinued. Today's labs showed hemoglobin of 10.9, patient has had no further evidence of hematemesis, she has been on PPI therapy. On 08/25/2019 patient seen in follow-up in the intensive care unit, she is awake and alert, although confused, moaning, and at times more lethargic. She was successfully weaned and extubated from mechanical ventilator yesterday, on 08/24/2019, after being intubated on 08/15/2019. She is currently on 6 L per high flow nasal cannula, her pulse ox 94-95%, hemodynamically she is stable, she is hypertensive requiring Cleviprex infusion at 6 mg per hour, 9 normal saline at a rate of 10 mL per hour. She has received treatment for acute COVID 19 infection. Today's labs have been reviewed showing white blood cell count of 11.8, hemoglobin of 11.3, yesterday's d-dimer was 6.62, and patient was initially on therapeutic doses of Lovenox however she developed metastasis and the Lovenox remains on hold, however hemoglobin is stable patient has not required blood transfusions, today's sodium is 138, potassium 3.7, chloride is 105, B1 is 21, creatinine 0.49, today's ferritin level has increased to 342 from 279 on yesterday's labs, AST is 72, ALT is 40, LDH is trending up and is at 1516, CK is 960, and CRP is 17.5, seems her inflammatory markers have increased on today's labs. Today's chest x-ray shows improvement in aeration, and lung volumes. Objective - Vital Signs Vital signs: Vital Signs Temp 98 F 08/25/19 08:00 Pulse 98 08/25/19 10:00 Resp 22 08/25/19 10:00 BP 142/66 08/25/19 10:00 Pulse Ox 95 08/25/19 10:00 Intake & Output 08/24/19 08/25/19 08/25/19 18:59 06:59 18:59 Intake Total 1433.820 277.533 214.4 Output Total 1315 1315 750 Balance 118.820 -1037.467 -535.6 Weight 137 kg 138.6 kg 138.6 kg Intake: IV 276 143 52 0.9 240 110 40 Pressure Bag 36 33 12 Intake, IV Titration 1157.820 134.533 162.4 Amount ACETAMINOPHEN IV (For NPO 100 ) 1,000 mg In Empty Bag 1 bag @ 400 mls/hr IVPB Q6HR PRN Rx#:[id number] Clevidipine Butyrate 25 67.400 134.533 62.4 mg In Empty Bag 1 bag @ 1 MG/HR 2 mls/hr IV .Q24H RAYNE Rx#:[id number] Propofol 1,000 mg In 90.420 Empty Bag 1 bag @ Titrate IV .Q0M RAYNE Rx#: [id number] Sodium Chloride 0.9% 1, 1000 000 ml @ 999 mls/hr IV . Q1H1M ONE Rx#:[id number] Output: Urine 1315 1315 750 Other: Voiding Method Indwelling Catheter Indwelling Catheter Indwelling Catheter ABP, PAP, CO, CI - Last Documented Arterial Blood Pressure 134/66 - Exam GENERAL EXAM: Confused, a bit lethargic 58-year-old white female, 6 L of oxygen. HEAD: Normocephalic/atraumatic. EYES: Normal reaction of pupils, equal size. Conjunctiva pink, sclera white. NOSE: Clear with pink turbinates. THROAT: No erythema or exudates. NECK: No masses, no JVD, no thyroid enlargement, no adenopathy. CHEST: No chest wall deformity. Symmetrical expansion. LUNGS: Equal air entry with no crackles, wheeze, rhonchi or dullness. CVS: Regular rate and rhythm, normal S1 and S2, no gallops, no murmurs, no rubs ABDOMEN: Soft, nontender. No hepatosplenomegaly, normal bowel sounds, no guarding or rigidity. EXTREMITIES: No clubbing, no edema, no cyanosis, 2+ pulses and upper and lower extremities. MUSCULOSKELETAL: Muscle strength and tone normal. SPINE: No scoliosis or deformity SKIN: No rashes CENTRAL NERVOUS SYSTEM: Somewhat lethargic, but arousable, patient moans. No focal deficits, tone is normal in all 4 extremities. - Labs CBC & Chem 7: 08/25/19 04:00 08/25/19 04:00 Labs: Abnormal Lab Results - Last 24 Hours (Table) 08/19/19 08/20/19 08/24/19 Range/Units 04:10 04:45 12:37 WBC (3.8-10.6) k/uL Hgb (11.4-16.0) gm/dL Neutrophils # (1.3-7.7) k/uL Lymphocytes # (1.0-4.8) k/uL Carbon Dioxide (22-30) mmol/L BUN (7-17) mg/dL Creatinine (0.52-1.04) mg/dL Glucose (74-99) mg/dL POC Glucose (mg/dL) 138 H (75-99) mg/dL Ferritin (10.0-291.0) ng/mL AST (14-36) U/L ALT (4-34) U/L Lactate Dehydrogenase (313-618) U/L LD Isoenzymes 362 H 326 H (120-250) U/L Creatine Kinase (30-135) U/L C-Reactive Protein (<10.0) mg/L Total Protein (6.3-8.2) g/dL Albumin (3.5-5.0) g/dL 08/24/19 08/24/19 08/25/19 Range/Units 17:02 23:53 04:00 WBC 11.8 H (3.8-10.6) k/uL Hgb 11.3 L (11.4-16.0) gm/dL Neutrophils # 10.9 H (1.3-7.7) k/uL Lymphocytes # 0.4 L (1.0-4.8) k/uL Carbon Dioxide (22-30) mmol/L BUN (7-17) mg/dL Creatinine (0.52-1.04) mg/dL Glucose (74-99) mg/dL POC Glucose (mg/dL) 154 H 133 H (75-99) mg/dL Ferritin (10.0-291.0) ng/mL AST (14-36) U/L ALT (4-34) U/L Lactate Dehydrogenase (313-618) U/L LD Isoenzymes (120-250) U/L Creatine Kinase (30-135) U/L C-Reactive Protein (<10.0) mg/L Total Protein (6.3-8.2) g/dL Albumin (3.5-5.0) g/dL 08/25/19 08/25/19 Range/Units 04:00 12:02 WBC (3.8-10.6) k/uL Hgb (11.4-16.0) gm/dL Neutrophils # (1.3-7.7) k/uL Lymphocytes # (1.0-4.8) k/uL Carbon Dioxide 33 H (22-30) mmol/L BUN 21 H (7-17) mg/dL Creatinine 0.49 L (0.52-1.04) mg/dL Glucose 161 H (74-99) mg/dL POC Glucose (mg/dL) 134 H (75-99) mg/dL Ferritin 342.3 H (10.0-291.0) ng/mL AST 72 H (14-36) U/L ALT 40 H (4-34) U/L Lactate Dehydrogenase 1516 H (313-618) U/L LD Isoenzymes (120-250) U/L Creatine Kinase 960 H (30-135) U/L C-Reactive Protein 17.5 H (<10.0) mg/L Total Protein 5.3 L (6.3-8.2) g/dL Albumin 2.8 L (3.5-5.0) g/dL Assessment and Plan Plan: Assessment: #1. Acute hypoxemic and hypercapnic respiratory failure secondary to COVID 19 related pneumonia, requiring intubation and mechanical ventilatory support. Patient was intubated on all 08/15/2019 and today on 08/23/2019 patient remains on mechanical ventilator support, however did tolerate pressure support trial yesterday, which will be attempted again today. Patient was successfully weaned and extubated on 08/24/2019 On 08/25/2019 patient is tolerating extubation well so far, she was extubated yesterday, she is currently on 6 L per high flow nasal cannula, her mentation is still somewhat lethargic, and confused. Today's chest x-ray shows improvement in aeration, and lung volumes, she's been afebrile, have been stable #2. Severe sepsis secondary to pneumonitis #3. Elevated d-dimer, ferritin, LDH related to COVID 19 infection #4. History of gouty arthritis #5. History of mitral valve prolapse #6. History of dyslipidemia #7. History of uterine cancer #8. History of depression #9. History of GERD without esophagitis #11. Hematemesis, Lovenox has been placed on hold #12. Confusion, lethargy, likely related to metabolic encephalopathy/delirium Plan: Patient remains extubated, on 6 L of oxygen, today's chest x-ray shows improved aeration and improved lung volumes, hemodynamically she is stable, she has how ever lethargic at times, she is confused, she moans. Patient required high doses of sedatives while on mechanical ventilator support, is likely encephalopathic, her med list has been reviewed, discontinue her Dilaudid, discontinue Solu-Medrol. We will give the patient IV all form of to manage pain discomfort. She may need brain CT without contrast if her mentation does not improve however in view of her positive Covid 19 status it will be difficult to send her to CT of the brain right now. We'll continue to monitor her mentation, avoid benzodiazepines, narcotics, avoid meds with anticholinergic effect. Maintain aspiration precautions. Today's inflammatory markers were elevated, patient is afebrile, we'll continue to closely follow in the intensive care unit. I performed a history & physical examination of the patient and discussed their management with my nurse practitioner, Shanna Castillo. I reviewed the nurse practitioner's note and agree with the documented findings and plan of care. Lung sounds are positive for diminished breath sounds. The findings and the impression was discussed with the patient. I attest to the documentation by the nurse practitioner. Time with Patient: Less than 30
[2019-08-25] MEDS: POLYETHYLENE GLYCOL 3350 17 GM POWD.PACK PO PRN (12:51)
--- NOTE | 2019-08-25 14:39 | PN ---
PROGRESS NOTE DATE OF SERVICE: 08/25/2019 Patient is a 58-year-old pleasant white female with acute COVID-19 pneumonia who was on the vent for the last few days in the intensive care unit. Apparently, she self- extubated herself early this morning and since then she has been doing fine. She had an NG tube in place which had some coffee-ground emesis as well maroon-colored stools for the last 2 days, which subsequently resolved. NG tube is out, patient is undergoing a swallow evaluation prior to initiating the oral feeds. She denies any symptoms as per the nursing staff. She is not complaining of abdominal pain. She complains of chronic back pain and requesting for pain medications. No nausea, no vomiting, no black stool. PHYSICAL EXAMINATION: Blood pressure 142/66, pulse rate 90, temperature 98. HEENT: Examination unremarkable. Rest of the physical examination as per the attending physician because of her active COVID-19 infection. LABS: From today WBC 11.8, hemoglobin 11.3, platelets 340. Basic metabolic panel showed a BUN of 21, creatinine 0.59. The rest of the labs are within normal limits. CRP 17.5. IMPRESSION: 1. Acute COVID-19 pneumonia. The patient was on the vent for the last few days, she self-extubated herself this morning, doing well. 2. Acute upper gastrointestinal bleed with coffee-grounds emesis and maroon-colored emesis in the NG tube for the last 2 days. She pulled out her NG tube, so far doing well. No active bleeding. Hemoglobin stable at 11.5 g/dL. 3. History of knee arthritis. 4. History of dyslipidemia. 5. History of uterine cancer. RECOMMENDATIONS: 1. Continue with Protonix 40 mg twice daily. 2. Continue to hold off on the Lovenox for now. 3. Will start her after the speech evaluation if her swallowing mechanism was intact. She can be started on a liquid diet and advance as tolerated. 4. No plans for any endoscopy intervention at the present time since the bleeding appears to have resolved. 5. Will follow with you closely. Thank you for this consultation. MMODL / IJN: [id number] /
[2019-08-25 16:48] LABS: Glucose,Whole Blood 100 mg/dL (75-99)
[2019-08-25] MEDS: VENLAFAXINE HCL ER 150 MG CAP PO SCH (21:22)
[2019-08-25] MEDS: ATORVASTATIN 20 MG TAB PO SCH (21:22)
[2019-08-25] MEDS: PANTOPRAZOLE 40 MG/10 ML VIAL IVP SCH (21:22)
--- NOTE | 2019-08-25 21:34 | P.PN ---
Subjective Progress Note Date: 08/25/19 Principal diagnosis: Acute hypoxic/hypercapnic respiratory failure secondary to Covid 19 dilated pneumonia; patient is status post intubation on 08/15/2019 followed by extubation on 08/24/2019 Severe sepsis secondary to pneumonitis 08/25/2019 patient is seen and evaluated for follow-up in ICU, she is awake but confused; patient was successfully weaned and extubated from mechanical ventilator yesterday; currently on 6 L per high flow nasal cannula, her pulse ox 94-95%, hemodynamically she is stable, she remains on Clviprex infusion. Patient is status post treatment for acute COVID 19 infection. Today's labs have been reviewed showing white blood cell count of 11.8, hemoglobin of 11.3, yesterday's d-dimer was 6.62; hemoglobin is stable patient has not required blood transfusions, today's sodium is 138, potassium 3.7, chloride is 105, B1 is 21, creatinine 0.49, today's ferritin level has increased to 342 from 279 on yesterday's labs, AST is 72, ALT is 40, LDH is trending up and is at 1516, CK is 960, and CRP is 17.5, seems her inflammatory markers have increased on today's labs. Today's chest x-ray shows improvement in aeration, and lung volumes; special assemblies supervisor service is recommending to continue monitoring in ICU due to upward trend of inflammatory markers. Objective - Vital Signs Vital signs: Vital Signs Temp 99.1 F 08/25/19 12:00 Pulse 86 08/25/19 13:00 Resp 23 08/25/19 13:00 BP 143/62 08/25/19 13:00 Pulse Ox 94 L 08/25/19 13:00 Intake & Output 08/24/19 08/25/19 08/25/19 18:59 06:59 18:59 Intake Total 1433.820 277.533 366.933 Output Total 1315 1315 1125 Balance 118.820 -1037.467 -758.067 Weight 137 kg 138.6 kg 138.6 kg Intake: IV 276 143 91 0.9 240 110 70 Pressure Bag 36 33 21 Intake, IV Titration 1157.820 134.533 175.933 Amount ACETAMINOPHEN IV (For NPO 100 ) 1,000 mg In Empty Bag 1 bag @ 400 mls/hr IVPB Q6HR PRN Rx#:[id number] Clevidipine Butyrate 25 67.400 134.533 75.933 mg In Empty Bag 1 bag @ 1 MG/HR 2 mls/hr IV .Q24H [facility] Rx#:[id number] Propofol 1,000 mg In 90.420 Empty Bag 1 bag @ Titrate IV .Q0M [facility] Rx#: [id number] Sodium Chloride 0.9% 1, 1000 000 ml @ 999 mls/hr IV . Q1H1M [facility] Rx#:[id number] Oral 100 Output: Urine 1315 1315 1125 Other: Voiding Method Indwelling Catheter Indwelling Catheter Indwelling Catheter ABP, PAP, CO, CI - Last Documented Arterial Blood Pressure 134/66 - Exam PHYSICAL EXAMINATION: GENERAL: The patient is alert and oriented x3, not in any acute distress. Well developed, well nourished. HEENT: Pupils are round and equally reacting to light. EOMI. No scleral icterus. No conjunctival pallor. Normocephalic, atraumatic. No pharyngeal erythema. No thyromegaly. CARDIOVASCULAR: S1 and S2 present. No murmurs, rubs, or gallops. PULMONARY: Chest is clear to auscultation, no wheezing or crackles. ABDOMEN: Soft, nontender, nondistended, normoactive bowel sounds. No palpable organomegaly. MUSCULOSKELETAL: No joint swelling or deformity. EXTREMITIES: No cyanosis, clubbing, or pedal edema. NEUROLOGICAL: Gross neurological examination did not reveal any focal deficits. SKIN: No rashes. - Labs CBC & Chem 7: 08/25/19 04:00 08/25/19 04:00 Labs: Abnormal Lab Results - Last 24 Hours (Table) 08/19/19 08/20/19 08/24/19 Range/Units 04:10 04:45 17:02 WBC (3.8-10.6) k/uL Hgb (11.4-16.0) gm/dL Neutrophils # (1.3-7.7) k/uL Lymphocytes # (1.0-4.8) k/uL Carbon Dioxide (22-30) mmol/L BUN (7-17) mg/dL Creatinine (0.52-1.04) mg/dL Glucose (74-99) mg/dL POC Glucose (mg/dL) 154 H (75-99) mg/dL Ferritin (10.0-291.0) ng/mL AST (14-36) U/L ALT (4-34) U/L Lactate Dehydrogenase (313-618) U/L LD Isoenzymes 362 H 326 H (120-250) U/L Creatine Kinase (30-135) U/L C-Reactive Protein (<10.0) mg/L Total Protein (6.3-8.2) g/dL Albumin (3.5-5.0) g/dL 08/24/19 08/25/19 08/25/19 Range/Units 23:53 04:00 04:00 WBC 11.8 H (3.8-10.6) k/uL Hgb 11.3 L (11.4-16.0) gm/dL Neutrophils # 10.9 H (1.3-7.7) k/uL Lymphocytes # 0.4 L (1.0-4.8) k/uL Carbon Dioxide 33 H (22-30) mmol/L BUN 21 H (7-17) mg/dL Creatinine 0.49 L (0.52-1.04) mg/dL Glucose 161 H (74-99) mg/dL POC Glucose (mg/dL) 133 H (75-99) mg/dL Ferritin 342.3 H (10.0-291.0) ng/mL AST 72 H (14-36) U/L ALT 40 H (4-34) U/L Lactate Dehydrogenase 1516 H (313-618) U/L LD Isoenzymes (120-250) U/L Creatine Kinase 960 H (30-135) U/L C-Reactive Protein 17.5 H (<10.0) mg/L Total Protein 5.3 L (6.3-8.2) g/dL Albumin 2.8 L (3.5-5.0) g/dL 08/25/19 Range/Units 12:02 WBC (3.8-10.6) k/uL Hgb (11.4-16.0) gm/dL Neutrophils # (1.3-7.7) k/uL Lymphocytes # (1.0-4.8) k/uL Carbon Dioxide (22-30) mmol/L BUN (7-17) mg/dL Creatinine (0.52-1.04) mg/dL Glucose (74-99) mg/dL POC Glucose (mg/dL) 134 H (75-99) mg/dL Ferritin (10.0-291.0) ng/mL AST (14-36) U/L ALT (4-34) U/L Lactate Dehydrogenase (313-618) U/L LD Isoenzymes (120-250) U/L Creatine Kinase (30-135) U/L C-Reactive Protein (<10.0) mg/L Total Protein (6.3-8.2) g/dL Albumin (3.5-5.0) g/dL Assessment and Plan Assessment: Acute hypoxic and hypercapnic respiratory failure secondary to COVID 19 pneumonia Acute upper GI bleed Acute blood loss anemia History of mitral valve prolapse History of gouty arthritis History of uterine cancer Hyperlipidemia GERD Elevated d-dimer Plan: Patient to be continued on mechanical ventilation. She completed hydroxychloroquine and azithromycin. Pulmonary/critical care team are following patient closely. Start Protonix twice a day and monitor hemoglobin closely. GI team has been consulted and no indication for endoscopy now for the consult. Hold Lovenox and it can be restarted when cleared by GI team Labs and medication were reviewed.. Continue same treatment. Continue with symptomatic treatment. Resume home medication. Monitor lytes and vitals. DVT and GI prophylaxis. Further recommendations of the clinical course of the patient DVT prophylaxis: Hold Lovenox, continue with mechanical prophylaxis Time with Patient: Greater than 30
[2019-08-25 21:35] LABS: Glucose,Whole Blood 97 mg/dL (75-99)
[2019-08-26] MEDS: ALBUTEROL HFA INHALER INHALATION SCH ×4 (01:47→20:22)
[2019-08-26 04:19] LABS: Basophils % (A) 0 %; Eosinophils % (A) 0 %; HCT 36.9 % (34.0-46.0); HGB 11.5 gm/dL (11.4-16.0); Lymphocytes # (A) 1.1 k/uL (1.0-4.8); Lymphocytes % (A) 13 %; MCH 28.5 pg (25.0-35.0); MCHC 31.3 g/dL (31.0-37.0); Mean Platelet Volume 7.6; Monocytes # (A) 0.6 k/uL (0-1.0); Monocytes % (A) 8 %; Neutrophils # (A) 6.2 k/uL (1.3-7.7); Neutrophils % (A) 77 %; Platelet Count 305 k/uL (150-450); RBC 4.06 m/uL (3.80-5.40); RDW 14.5 % (11.5-15.5); WBC 8.1 k/uL (3.8-10.6)
[2019-08-26 04:26] LABS: ALT 45 U/L (4-34); AST 57 U/L (14-36); African American GFR (CKD) >90 (>60 ml/min/1.73 sqM); Albumin 2.9 g/dL (3.5-5.0); Alkaline Phosphatase 61 U/L (38-126); Anion Gap 0 mmol/L; Blood Urea Nitrogen 28 mg/dL (7-17); C Reactive Protein 16.6 mg/L (<10.0); Calcium 8.5 mg/dL (8.4-10.2); Carbon Dioxide 33 mmol/L (22-30); Chloride 106 mmol/L (98-107); Creatine Kinase 414 U/L (30-135); Glucose 102 mg/dL (74-99); LDH 1545 U/L (313-618); Non-African American GFR(CKD) >90 (>60 ml/min/1.73 sqM); Potassium 3.8 mmol/L (3.5-5.1); Sodium 139 mmol/L (137-145); Total Bilirubin 1.3 mg/dL (0.2-1.3); Total Protein 5.5 g/dL (6.3-8.2)
[2019-08-26] MEDS ORDERED: Potassium Replacement Protocol 1 EACH MISC MISCELLANE PRN (04:49)
[2019-08-26] MEDS: POTASSIUM CHLORIDE 10 MEQ in WATER FOR INJECTION 1 100ML.BAG IVPB SCH ×2 (05:08→06:40)
[2019-08-26] MEDS: INSULIN ASPART (NovoLOG) 100 UNIT/ML VIAL SQ SCH ×4 (07:02→20:33)
--- NOTE | 2019-08-26 07:03 | XR ---
EXAMINATION TYPE: XR chest 1V DATE OF EXAM: 08/26/2019 HISTORY: tube placement . REFERENCE: Previous study dated 08/25/2019. FINDINGS: There is worsening bibasilar airspace disease. Heart size upper limits of normal. There is a left subclavian catheter in place. Its tip is in the right atrium. There is blunting of both CP ang les and I cannot exclude small effusions. IMPRESSION: WORSENING BIBASILAR INFILTRATES.
[2019-08-26] MEDS: PANTOPRAZOLE 40 MG/10 ML VIAL IVP SCH ×2 (08:25→20:37)
[2019-08-26] MEDS: ZINC SULFATE 220 MG CAP PO SCH (08:25)
[2019-08-26] MEDS: PREGABALIN 100 MG CAP PO SCH ×3 (08:25→20:35)
--- NOTE | 2019-08-26 10:02 | PN ---
PROGRESS NOTE DATE OF DICTATION: 08/26/2019 Patient is a 58-year-old pleasant white female admitted to hospital with COVID-19 pneumonia with sepsis. She self-extubated herself yesterday morning. NG tube is out. She had no further episodes of bleeding. She had a speech evaluation done yesterday and passed a swallow evaluation. She has been on a soft diet, tolerating well. As per the nursing staff, she denies having any nausea, vomiting. No rectal bleeding or melena. PHYSICAL EXAMINATION: She appears comfortable, in no apparent distress. VITAL SIGNS: Blood pressure of 122/78, pulse rate 82 per minute and afebrile. HEENT: Examination unremarkable. The rest of the physical examination deferred to the attending physician. LABS: From today WBC 8.1, hemoglobin 11.5, platelets normal. Basic metabolic panel is within normal limits. BUN is 28, creatinine 0.55. AST, ALT 57 and 45 respectively. CRP 16, AST is 1545. IMPRESSION: 1. Upper gastrointestinal bleed, resolved. Patient on a soft diet, tolerating well. No further episodes of coffee-grounds emesis, nausea, vomiting, or rectal bleeding/melena. Hemoglobin remains stable at 11.5 g/dL. 40 mg IV daily twice daily and tolerating well. 2. Active: COVID-19 pneumonia which is gradually improving. Patient extubated yesterday morning, tolerating well. 3. Acute kidney injury, resolved. 4. Mild elevation of serum transaminases consistent with acute COVID-19 pneumonia which are stable. RECOMMENDATIONS: 1. Continue with Protonix 40 mg daily. 2. Monitor CBC on a daily basis. 3. Continue management as per the preparing box tender. Will follow with you. Thank you for this consultation. MMODL / IJN: [id number] /
[2019-08-26 11:29] LABS: Glucose,Whole Blood 87 mg/dL (75-99)
--- NOTE | 2019-08-26 11:43 | P.PN ---
Subjective Progress Note Date: 08/26/19 Principal diagnosis: Acute hypoxic respiratory failure secondary to CoVID 19 pneumonitis The patient is seen today 08/26/2019 in follow-up in the intensive care unit. She had been on the mechanical ventilator from 08/14/2022 08/24/2019. She is currently awake and alert in no acute distress. She's been afebrile. Hemodynamically stable. She is maintaining O2 saturations in the 90s on 4 L/m per nasal cannula. She has a 0.9 normal saline at KVO. Blood cultures reveal no growth. White count 8.1. Hemoglobin 11.5. D-dimer 11.38. Sodium 138. Potassium 3.8. AST 57. ALT 45. LDH 1545. C-reactive protein 16.6. Creatinine kinase for 14. She had been off Lovenox secondary to maroon colored emesis pf approximately 200 mL on 08/23/2019. She has completed her Covid t reatment. She remains on oral zinc. Objective - Vital Signs Vital signs: Vital Signs Temp 97.3 F L 08/26/19 08:00 Pulse 97 08/26/19 11:00 Resp 19 08/26/19 11:00 BP 114/62 08/26/19 11:00 Pulse Ox 95 08/26/19 11:00 Intake & Output 08/25/19 08/26/19 08/26/19 18:59 06:59 18:59 Intake Total 431.933 591 500 Output Total 1345 870 300 Balance -913.067 -279 200 Weight 129.982 kg 134.2 kg Intake: IV 156 591 50 0.9 120 185 50 ACETAMINOPHEN IV (For NPO 400 ) 1,000 mg In Empty Bag 1 bag @ 400 mls/hr IVPB Q6HR PRN Rx#:[id number] Pressure Bag 36 6 Intake, IV Titration 175.933 Amount ACETAMINOPHEN IV (For NPO 100 ) 1,000 mg In Empty Bag 1 bag @ 400 mls/hr IVPB Q6HR PRN Rx#:[id number] Clevidipine Butyrate 25 75.933 mg In Empty Bag 1 bag @ 1 MG/HR 2 mls/hr IV .Q24H [facility] Rx#:[id number] Oral 100 450 Output: Urine 1345 870 300 Other: Voiding Method Indwelling Catheter Indwelling Catheter Indwelling Catheter ABP, PAP, CO, CI - Last Documented Arterial Blood Pressure 134/66 - Exam GENERAL EXAM: Alert, pleasant 58-year-old female patient, on 4 L nasal cannula, comfortable in no apparent distress. HEAD: Normocephalic. EYES: Normal reaction of pupils, equal size. NOSE: Clear with pink turbinates. THROAT: No erythema or exudates. NECK: No masses, no JVD. CHEST: No chest wall deformity. LUNGS: Equal air entry with crackles in the posterior bases. CVS: S1 and S2 normal with no audible murmur, regular rhythm. ABDOMEN: No hepatosplenomegaly, normal bowel sounds, no guarding or rigidity. SPINE: No scoliosis or deformity SKIN: No rashes CENTRAL NERVOUS SYSTEM: No focal deficits, tone is normal in all 4 extremities. EXTREMITIES: There is no peripheral edema. No clubbing, no cyanosis. Peripheral pulses are intact. - Labs CBC & Chem 7: 08/26/19 04:00 08/26/19 04:00 Labs: Abnormal Lab Results - Last 24 Hours (Table) 08/25/19 08/25/19 08/25/19 Range/Units 04:00 12:02 16:46 D-Dimer (<0.60) mg/L FEU Carbon Dioxide (22-30) mmol/L BUN (7-17) mg/dL Glucose (74-99) mg/dL POC Glucose (mg/dL) 134 H 100 H (75-99) mg/dL Ferritin 342.3 H (10.0-291.0) ng/mL AST (14-36) U/L ALT (4-34) U/L Lactate Dehydrogenase (313-618) U/L Creatine Kinase (30-135) U/L C-Reactive Protein (<10.0) mg/L Total Protein (6.3-8.2) g/dL Albumin (3.5-5.0) g/dL 08/26/19 08/26/19 Range/Units 04:00 04:00 D-Dimer 11.38 H (<0.60) mg/L FEU Carbon Dioxide 33 H (22-30) mmol/L BUN 28 H (7-17) mg/dL Glucose 102 H (74-99) mg/dL POC Glucose (mg/dL) (75-99) mg/dL Ferritin (10.0-291.0) ng/mL AST 57 H (14-36) U/L ALT 45 H (4-34) U/L Lactate Dehydrogenase 1545 H (313-618) U/L Creatine Kinase 414 H (30-135) U/L C-Reactive Protein 16.6 H (<10.0) mg/L Total Protein 5.5 L (6.3-8.2) g/dL Albumin 2.9 L (3.5-5.0) g/dL Assessment and Plan Assessment: 1 Acute hypoxic respiratory failure secondary to covid 19 pneumonitis requiring intubation mechanical ventilatory support from 08/14/2021 08/24/2019 On 08/26/2019 the patient is awake and alert. Maintaining O2 saturations in the 90s on 4 L/m per nasal cannula. Chest x-ray continues to show bilateral infiltrates. 2 Acute hypercapnic respiratory failure secondary to pneumonitis as above. 3 Severe sepsis secondary to pneumonitis. 4 History of gouty arthritis. 5 History of mitral valve prolapse. 6 History of dyslipidemia. 7 History of uterine cancer. 8 History of depression. 9 History of GERD without esophagitis. 10 Hematemesis, Lovenox on hold Plan: The patient was seen and evaluated by Dr. Simons. Chest x-ray,and labs all reviewed. No further hematemesis, we'll resume a lower dose of Lovenox at 40 mg subcu daily. Completed her Covid 19 treatment We will continue to follow and make further recommendations based on her clinical status. I, the cosigning physician, performed a history & physical examination of the patient. Lungs sounds with crackles in the bilateral posterior bases Maintaining good O2 saturations in the 90s on 4 L/m per nasal cannula. I discussed the asse ssment and plan of care with my nurse practitioner, Mirna Fraire. I attest to the above note as dictated by her.
--- NOTE | 2019-08-26 14:11 | P.PN ---
Subjective Progress Note Date: 08/26/19 Principal diagnosis: Acute hypoxic/hypercapnic respiratory failure secondary to Covid 19 dilated pneumonia; patient is status post intubation on 08/15/2019 followed by extubation on 08/24/2019 Severe sepsis secondary to pneumonitis 08/25/2019 patient is seen and evaluated for follow-up in ICU, she is awake but confused; patient was successfully weaned and extubated from mechanical ventilator yesterday; currently on 6 L per high flow nasal cannula, her pulse ox 94-95%, hemodynamically she is stable, she remains on Clviprex infusion. Patient is status post treatment for acute COVID 19 infection. Today's labs have been reviewed showing white blood cell count of 11.8, hemoglobin of 11.3, yesterday's d-dimer was 6.62; hemoglobin is stable patient has not required blood transfusions, today's sodium is 138, potassium 3.7, chloride is 105, B1 is 21, creatinine 0.49, today's ferritin level has increased to 342 from 279 on yesterday's labs, AST is 72, ALT is 40, LDH is trending up and is at 1516, CK is 960, and CRP is 17.5, seems her inflammatory markers have increased on today's labs. Today's chest x-ray shows improvement in aeration, and lung volumes; church communications administrator service is recommending to continue monitoring in ICU due to upward trend of inflammatory markers. 08/26/2019 Patient is seen for follow-up in the intensive care unit. She is currently awake and alert in no acute distress. She's been afebrile. Hemodynamically stable. She is maintaining O2 saturations in the 90s on 4 L/m per nasal cannula. She has a 0.9 normal saline at KVO. Blood cultures reveal no growth. White count 8.1. Hemoglobin 11.5. D-dimer 11.38. Sodium 138. Potassium 3.8. AST 57. ALT 45. LDH 1545. C-reactive protein 16.6. Creatinine kinase for 14. She had been off Lovenox secondary to maroon colored emesis of approximately 200 mL on 08/23/2019. She has completed her Covid treatment. She remains on oral zinc. Objective - Vital Signs Vital signs: Vital Signs Temp 98.3 F 08/26/19 12:00 Pulse 73 08/26/19 13:00 Resp 16 08/26/19 13:00 BP 132/67 08/26/19 13:00 Pulse Ox 96 08/26/19 13:00 Intake & Output 08/25/19 08/26/19 08/26/19 18:59 06:59 18:59 Intake Total 431.933 591 520 Output Total 1345 870 480 Balance -913.067 -279 40 Weight 129.982 kg 134.2 kg Intake: IV 156 591 70 0.9 120 185 70 ACETAMINOPHEN IV (For NPO 400 ) 1,000 mg In Empty Bag 1 bag @ 400 mls/hr IVPB Q6HR [facility] Rx#:[id number] Pressure Bag 36 6 Intake, IV Titration 175.933 Amount ACETAMINOPHEN IV (For NPO 100 ) 1,000 mg In Empty Bag 1 bag @ 400 mls/hr IVPB Q6HR [facility] Rx#:[id number] Clevidipine Butyrate 25 75.933 mg In Empty Bag 1 bag @ 1 MG/HR 2 mls/hr IV .Q24H [facility] Rx#:[id number] Oral 100 450 Output: Urine 1345 870 480 Other: Voiding Method Indwelling Catheter Indwelling Catheter Indwelling Catheter ABP, PAP, CO, CI - Last Documented Arterial Blood Pressure 134/66 - Exam PHYSICAL EXAMINATION: GENERAL: The patient is alert and oriented x3, not in any acute distress. Well developed, well nourished. HEENT: Pupils are round and equally reacting to light. EOMI. No scleral icterus. No conjunctival pallor. Normocephalic, atraumatic. No pharyngeal erythema. No thyromegaly. CARDIOVASCULAR: S1 and S2 present. No murmurs, rubs, or gallops. PULMONARY: Chest is clear to auscultation, no wheezing or crackles. ABDOMEN: Soft, nontender, nondistended, normoactive bowel sounds. No palpable organomegaly. MUSCULOSKELETAL: No joint swelling or deformity. EXTREMITIES: No cyanosis, clubbing, or pedal edema. NEUROLOGICAL: Gross neurological examination did not reveal any focal deficits. SKIN: No rashes. - Labs CBC & Chem 7: 08/26/19 04:00 08/26/19 04:00 Labs: Abnormal Lab Results - Last 24 Hours (Table) 08/25/19 08/26/19 08/26/19 Range/Units 16:46 04:00 04:00 D-Dimer 11.38 H (<0.60) mg/L FEU Carbon Dioxide 33 H (22-30) mmol/L BUN 28 H (7-17) mg/dL Glucose 102 H (74-99) mg/dL POC Glucose (mg/dL) 100 H (75-99) mg/dL AST 57 H (14-36) U/L ALT 45 H (4-34) U/L Lactate Dehydrogenase 1545 H (313-618) U/L Creatine Kinase 414 H (30-135) U/L C-Reactive Protein 16.6 H (<10.0) mg/L Total Protein 5.5 L (6.3-8.2) g/dL Albumin 2.9 L (3.5-5.0) g/dL Assessment and Plan Assessment: Acute hypoxic and hypercapnic respiratory failure secondary to COVID 19 pneumonia Acute upper GI bleed Acute blood loss anemia History of mitral valve prolapse History of gouty arthritis History of uterine cancer Hyperlipidemia GERD Elevated d-dimer Plan: Patient to be continued on mechanical ventilation. She completed hydroxychloroquine and azithromycin. Pulmonary/critical care team are following patient closely. Start Protonix twice a day and monitor hemoglobin closely. GI team has been consulted and no indication for endoscopy now for the consult. Hold Lovenox and it can be restarted when cleared by GI team Labs and medication were reviewed.. Continue same treatment. Continue with symptomatic treatment. Resume home medication. Monitor lytes and vitals. DVT and GI prophylaxis. Further recommendations of the clinical course of the patient DVT prophylaxis: Hold Lovenox, continue with mechanical prophylaxis Time with Patient: Greater than 30
[2019-08-26 14:28] LABS: Ferritin 405.3 ng/mL (10.0-291.0)
[2019-08-26] MEDS: ENOXAPARIN 40 MG/0.4 ML SYRINGE SQ SCH (15:52)
[2019-08-26 16:43] LABS: Glucose,Whole Blood 85 mg/dL (75-99)
[2019-08-26 20:33] LABS: Glucose,Whole Blood 91 mg/dL (75-99)
[2019-08-26] MEDS: ATORVASTATIN 20 MG TAB PO SCH (20:35)
[2019-08-26] MEDS: VENLAFAXINE HCL ER 150 MG CAP PO SCH (20:36)
[2019-08-27] MEDS: ALBUTEROL HFA INHALER INHALATION SCH ×4 (01:28→19:15)
[2019-08-27 04:56] LABS: Basophils % (A) 0 %; Eosinophils # (A) 0.1 k/uL (0-0.7); Eosinophils % (A) 1 %; HCT 36.5 % (34.0-46.0); HGB 11.4 gm/dL (11.4-16.0); Lymphocytes # (A) 1.1 k/uL (1.0-4.8); Lymphocytes % (A) 11 %; MCH 28.6 pg (25.0-35.0); MCHC 31.1 g/dL (31.0-37.0); MCV 92.1 fL (80.0-100.0); Mean Platelet Volume 8.3; Monocytes # (A) 0.7 k/uL (0-1.0); Monocytes % (A) 8 %; Neutrophils # (A) 7.8 k/uL (1.3-7.7); Neutrophils % (A) 79 %; Platelet Count 304 k/uL (150-450); RBC 3.96 m/uL (3.80-5.40); RDW 14.5 % (11.5-15.5); WBC 9.8 k/uL (3.8-10.6)
[2019-08-27 05:19] LABS: ALT 40 U/L (4-34); AST 40 U/L (14-36); African American GFR (CKD) >90 (>60 ml/min/1.73 sqM); Albumin 2.8 g/dL (3.5-5.0); Alkaline Phosphatase 62 U/L (38-126); Anion Gap 0 mmol/L; Blood Urea Nitrogen 19 mg/dL (7-17); C Reactive Protein 19.9 mg/L (<10.0); Calcium 8.5 mg/dL (8.4-10.2); Carbon Dioxide 30 mmol/L (22-30); Chloride 106 mmol/L (98-107); Creatine Kinase 151 U/L (30-135); Glucose 98 mg/dL (74-99); LDH 1513 U/L (313-618); Non-African American GFR(CKD) >90 (>60 ml/min/1.73 sqM); Potassium 4.3 mmol/L (3.5-5.1); Sodium 136 mmol/L (137-145); Total Bilirubin 1.1 mg/dL (0.2-1.3); Total Protein 5.3 g/dL (6.3-8.2)
--- NOTE | 2019-08-27 06:43 | XR ---
EXAMINATION TYPE: XR chest 1V portable DATE OF EXAM: 08/27/2019 HISTORY: covid+. REFERENCE: Previous study dated 08/26/2019. FINDINGS: There continue be bilateral infiltrates. The overall appearance has improved with improved aeration bilaterally. Heart size upper limits of normal. A left subclavian catheter remains in place. Its tip is in the right atrium. IMPRESSION: OVERALL IMPROVED AERATION, BOTH LUNGS.
[2019-08-27] MEDS: INSULIN ASPART (NovoLOG) 100 UNIT/ML VIAL SQ SCH (06:44)
[2019-08-27] MEDS: PANTOPRAZOLE 40 MG/10 ML VIAL IVP SCH (08:25)
[2019-08-27] MEDS: PREGABALIN 100 MG CAP PO SCH ×3 (08:25→20:58)
[2019-08-27] MEDS: ENOXAPARIN 40 MG/0.4 ML SYRINGE SQ SCH (08:25)
[2019-08-27] MEDS: ZINC SULFATE 220 MG CAP PO SCH (08:26)
--- NOTE | 2019-08-27 11:20 | P.PN ---
Subjective Progress Note Date: 08/27/19 Principal diagnosis: Acute hypoxic respiratory failure secondary to CoVID 19 pneumonitis The patient is seen today 08/27/2019 in follow-up in the intensive care unit. She is awake and alert in no acute distress. She is maintaining O2 saturations in the 90s on 3 L/m per nasal cannula. Chest x-ray reveals improved aeration in both lungs. She has a 0.9 normal saline at 10 MLS per hour. She remains quite weak. Blood cultures revealed no growth. White count 9.8. Hemoglobin 11.4. Sodium 136. Creatinine 0.48. AST 40, ALT 40, LDH 1513, C-reactive protein 19.9.. No further hematemesis. Lovenox 40 mg subcu daily. Objective - Vital Signs Vital signs: Vital Signs Temp 98.9 F 08/27/19 08:00 Pulse 82 08/27/19 08:00 Resp 18 08/27/19 08:00 BP 109/52 08/27/19 08:00 Pulse Ox 95 08/27/19 08:00 Intake & Output 08/26/19 08/27/19 08/27/19 18:59 06:59 18:59 Intake Total 1145 1320 20 Output Total 880 1950 210 Balance 265 -630 -190 Weight 136.1 kg Intake: IV 120 120 20 0.9 120 120 20 Oral 1025 1200 Output: Urine 880 1950 210 Other: Voiding Method Indwelling Catheter Indwelling Catheter Indwelling Catheter ABP, PAP, CO, CI - Last Documented Arterial Blood Pressure 134/66 - Exam GENERAL EXAM: Alert, pleasant 58-year-old female patient, on 4 L nasal cannula, comfortable in no apparent distress. HEAD: Normocephalic. EYES: Normal reaction of pupils, equal size. NOSE: Clear with pink turbinates. THROAT: No erythema or exudates. NECK: No masses, no JVD. CHEST: No chest wall deformity. LUNGS: Equal air entry with crackles in the posterior bases. CVS: S1 and S2 normal with no audible murmur, regular rhythm. ABDOMEN: No hepatosplenomegaly, normal bowel sounds, no guarding or rigidity. SPINE: No scoliosis or deformity SKIN: No rashes CENTRAL NERVOUS SYSTEM: No focal deficits, tone is normal in all 4 extremities. EXTREMITIES: There is no peripheral edema. No clubbing, no cyanosis. Peripheral pulses are intact. - Labs CBC & Chem 7: 08/27/19 04:09 08/27/19 04:09 Labs: Abnormal Lab Results - Last 24 Hours (Table) 08/26/19 08/27/19 08/27/19 Range/Units 04:00 04:09 04:09 Neutrophils # 7.8 H (1.3-7.7) k/uL Sodium 136 L (137-145) mmol/L BUN 19 H (7-17) mg/dL Creatinine 0.48 L (0.52-1.04) mg/dL Ferritin 405.3 H (10.0-291.0) ng/mL AST 40 H (14-36) U/L ALT 40 H (4-34) U/L Lactate Dehydrogenase 1513 H (313-618) U/L Creatine Kinase 151 H (30-135) U/L C-Reactive Protein 19.9 H (<10.0) mg/L Total Protein 5.3 L (6.3-8.2) g/dL Albumin 2.8 L (3.5-5.0) g/dL Assessment and Plan Assessment: 1 Acute hypoxic respiratory failure secondary to covid 19 pneumonitis requiring intubation mechanical ventilatory support from 08/14/2021 08/24/2019 On 08/27/2019 the patient is awake and alert. Maintaining O2 saturations in the 90s on 4 L/m per nasal cannula. Chest x-ray shows improvement in aeration bilaterally. 2 Acute hypercapnic respiratory failure secondary to pneumonitis as above. 3 Severe sepsis secondary to pneumonitis. 4 History of gouty arthritis. 5 History of mitral valve prolapse. 6 History of dyslipidemia. 7 History of uterine cancer. 8 History of depression. 9 History of GERD without esophagitis. 10 Hematemesis, Lovenox on hold Plan: The patient was seen and evaluated by Dr. Simons. Chest x-ray,and labs all reviewed. No further hematemesis, continue Lovenox at 40 mg subcu daily. Completed her Covid 19 treatment Follow-up inflammatory markers in a.m. She can transfer out of the ICU to the regular Covid floor today We will continue to follow and make further recommendations based on her clinical status. I, the cosigning physician, performed a history & physical examination of the patient. Lungs sounds with crackles in the bilateral posterior bases Maintaining good O2 saturations in the 90s on 4 L/m per nasal cannula. I discussed the assessment and plan of care with my nurse practitioner, Mirna Fraire. I attest to the above note as dictated by her.
--- NOTE | 2019-08-27 11:24 | PN ---
PROGRESS NOTE The patient is a 61-year-old pleasant white female admitted to hospital with acute Covid-19 pneumonia with sepsis and remains in the intensive care unit, extubated 2 days ago, doing well. No further bleeding. She is tolerating regular diet well. As per the nursing staff, she is not complaining of any abdominal pain. No nausea, no vomiting, no rectal bleeding or melena. She is going to be transferred out of intensive care unit today. PHYSICAL EXAMINATION: Vital signs show blood pressure of 109/52, pulse rate 82. Temperature 98.9. The rest of the physical examination: Refer to the attending physician due to active Covid 19 pneumonia. LABS: WBC 9.8, hemoglobin 11.4, platelets normal. Basic metabolic panel is within normal limits. AST and ALT of 40 and 40 respectively. CRP is 19.9. LDH is 1513. CPK is 151. IMPRESSION: 1. Acute Covid-19 pneumonia with acute respiratory failure on the vent for 10 days and just extubated 2 days ago, doing well. 2. Acute upper gastrointestinal bleed, presently resolved. Hemoglobin stable at 11.5 g/dL on Protonix 40 mg q.12 hours. 3. Mild transaminase remained stable. RECOMMENDATIONS: 1. Continue with regular diet. 2. Change Protonix to 40 mg p.o. once daily. 3. Monitor CBC on a daily basis. 4. Monitor LFTs closely. 5. We will follow with you. Thank you for this consultation. FAITH / SUSAN: [id number] /
--- NOTE | 2019-08-27 18:19 | P.PN ---
Subjective Progress Note Date: 08/27/19 Principal diagnosis: Acute hypoxic/hypercapnic respiratory failure secondary to Covid 19 dilated pneumonia; patient is status post intubation on 08/15/2019 followed by extubation on 08/24/2019 Severe sepsis secondary to pneumonitis 08/25/2019 patient is seen and evaluated for follow-up in ICU, she is awake but confused; patient was successfully weaned and extubated from mechanical ventilator yesterday; currently on 6 L per high flow nasal cannula, her pulse ox 94-95%, hemodynamically she is stable, she remains on Clviprex infusion. Patient is status post treatment for acute COVID 19 infection. Today's labs have been reviewed showing white blood cell count of 11.8, hemoglobin of 11.3, yesterday's d-dimer was 6.62; hemoglobin is stable patient has not required blood transfusions, today's sodium is 138, potassium 3.7, chloride is 105, B1 is 21, creatinine 0.49, today's ferritin level has increased to 342 from 279 on yesterday's labs, AST is 72, ALT is 40, LDH is trending up and is at 1516, CK is 960, and CRP is 17.5, seems her inflammatory markers have increased on today's labs. Today's chest x-ray shows improvement in aeration, and lung volumes; [employer] chief service is recommending to continue monitoring in ICU due to upward trend of inflammatory markers. 08/26/2019 Patient is seen for follow-up in the intensive care unit. She is currently awake and alert in no acute distress. She's been afebrile. Hemodynamically stable. She is maintaining O2 saturations in the 90s on 4 L/m per nasal cannula. She has a 0.9 normal saline at KVO. Blood cultures reveal no growth. White count 8.1. Hemoglobin 11.5. D-dimer 11.38. Sodium 138. Potassium 3.8. AST 57. ALT 45. LDH 1545. C-reactive protein 16.6. Creatinine kinase for 14. She had been off Lovenox secondary to maroon colored emesis of approximately 200 mL on 08/23/2019. She has completed her Covid treatment. She remains on oral zinc. 08/27/2019 Patient is seen and evaluated in follow-up; patient is awake and alert; denies any specific complaints; patient has been treated for acute Covid 19 pneumonitis; SpO2 is in 90s on 3 L per nasal cannula; chest x-ray is reviewed and reveals an prove point; blood work is significant for a WBC of 9.8, hemoglobin 11.4, sodium of 136, creatinine of 0.48, AST/ALT is 40 and LDH of 1513; CRP is 19.9; patient hasn't had any further hematemesis and has been started on Lovenox 40 mg subcu daily Patient is completed treatment for Covid 19; plan is to continue to follow inf lammatory markers; patient will be transferred to general medical floor Objective - Vital Signs Vital signs: Vital Signs Temp 98.1 F 08/27/19 13:29 Pulse 82 08/27/19 13:29 Resp 17 08/27/19 13:29 BP 115/76 08/27/19 13:29 Pulse Ox 90 L 08/27/19 13:29 Intake & Output 08/26/19 08/27/19 08/27/19 18:59 06:59 18:59 Intake Total 1145 1320 20 Output Total 880 1950 210 Balance 265 -630 -190 Weight 136.1 kg Intake: IV 120 120 20 0.9 120 120 20 Oral 1025 1200 Output: Urine 880 1950 210 Other: Voiding Method Indwelling Catheter Indwelling Catheter Indwelling Catheter ABP, PAP, CO, CI - Last Documented Arterial Blood Pressure 134/66 - Exam PHYSICAL EXAMINATION: GENERAL: The patient is alert and oriented x3, not in any acute distress. Well developed, well nourished. HEENT: Pupils are round and equally reacting to light. EOMI. No scleral icterus. No conjunctival pallor. Normocephalic, atraumatic. No pharyngeal erythema. No thyromegaly. CARDIOVASCULAR: S1 and S2 present. No murmurs, rubs, or gallops. PULMONARY: Chest is clear to auscultation, no wheezing or crackles. ABDOMEN: Soft, nontender, nondistended, normoactive bowel sounds. No palpable organomegaly. MUSCULOSKELETAL: No joint swelling or deformity. EXTREMITIES: No cyanosis, clubbing, or pedal edema. NEUROLOGICAL: Gross neurological examination did not reveal any focal deficits. SKIN: No rashes. - Labs CBC & Chem 7: 08/27/19 04:09 08/27/19 04:09 Labs: Abnormal Lab Results - Last 24 Hours (Table) 08/27/19 08/27/19 Range/Units 04:09 04:09 Neutrophils # 7.8 H (1.3-7.7) k/uL Sodium 136 L (137-145) mmol/L BUN 19 H (7-17) mg/dL Creatinine 0.48 L (0.52-1.04) mg/dL AST 40 H (14-36) U/L ALT 40 H (4-34) U/L Lactate Dehydrogenase 1513 H (313-618) U/L Creatine Kinase 151 H (30-135) U/L C-Reactive Protein 19.9 H (<10.0) mg/L Total Protein 5.3 L (6.3-8.2) g/dL Albumin 2.8 L (3.5-5.0) g/dL Assessment and Plan Assessment: Acute hypoxic and hypercapnic respiratory failure secondary to COVID 19 pneumonia Acute upper GI bleed Acute blood loss anemia History of mitral valve prolapse History of gouty arthritis History of uterine cancer Hyperlipidemia GERD Elevated d-dimer Plan: Patient to be continued on mechanical ventilation. She completed hydroxychloroquine and azithromycin. Pulmonary/critical care team are following patient closely. Start Protonix twice a day and monitor hemoglobin closely. GI team has been consulted and no indication for endoscopy now for the consult. Hold Lovenox and it can be restarted when cleared by GI team Labs and medication were reviewed.. Continue same treatment. Continue with symptomatic treatment. Resume home medication. Monitor lytes and vitals. DVT and GI prophylaxis. Further recommendations of the clinical course of the patient DVT prophylaxis: Hold Lovenox, continue with mechanical prophylaxis
[2019-08-27] MEDS: VENLAFAXINE HCL ER 150 MG CAP PO SCH (20:59)
[2019-08-27] MEDS: ATORVASTATIN 20 MG TAB PO SCH (20:59)
[2019-08-28] MEDS: ALBUTEROL HFA INHALER INHALATION SCH ×4 (00:32→20:32)
[2019-08-28 06:38] LABS: Basophils % (A) 0 %; Eosinophils # (A) 0.1 k/uL (0-0.7); Eosinophils % (A) 1 %; HCT 36.3 % (34.0-46.0); HGB 11.5 gm/dL (11.4-16.0); Lymphocytes % (A) 10 %; MCH 29.1 pg (25.0-35.0); MCHC 31.7 g/dL (31.0-37.0); MCV 91.9 fL (80.0-100.0); Mean Platelet Volume 7.8; Monocytes # (A) 0.6 k/uL (0-1.0); Monocytes % (A) 7 %; Neutrophils # (A) 7.9 k/uL (1.3-7.7); Neutrophils % (A) 81 %; Platelet Count 235 k/uL (150-450); RBC 3.95 m/uL (3.80-5.40); RDW 14.7 % (11.5-15.5); WBC 9.7 k/uL (3.8-10.6)
[2019-08-28 06:53] LABS: African American GFR (CKD) >90 (>60 ml/min/1.73 sqM); Anion Gap 2 mmol/L; Blood Urea Nitrogen 13 mg/dL (7-17); C Reactive Protein 22.5 mg/L (<10.0); Calcium 8.6 mg/dL (8.4-10.2); Carbon Dioxide 32 mmol/L (22-30); Chloride 104 mmol/L (98-107); Glucose 101 mg/dL (74-99); LDH 1403 U/L (313-618); Non-African American GFR(CKD) >90 (>60 ml/min/1.73 sqM); Potassium 3.9 mmol/L (3.5-5.1); Sodium 138 mmol/L (137-145)
[2019-08-28] MEDS: PANTOPRAZOLE 40 MG TABLET PO SCH (08:34)
[2019-08-28] MEDS: PREGABALIN 100 MG CAP PO SCH ×3 (08:34→21:01)
[2019-08-28] MEDS: ZINC SULFATE 220 MG CAP PO SCH (08:34)
[2019-08-28] MEDS: ENOXAPARIN 40 MG/0.4 ML SYRINGE SQ SCH (08:35)
--- NOTE | 2019-08-28 10:38 | P.PN ---
Subjective Progress Note Date: 08/28/19 On 08/23/2019 patient seen in follow-up in the intensive care unit, she remains intubated, on mechanical ventilator, current vent settings are assist control with a rate of 22, tidal vital 350, FiO2 is 50%, and PEEP of 10, this morning his blood gases have been reviewed showing pO2 of 158, pCO2 of 48, and pH of 7.44, this was done and FiO2 of 50%. Today's chest x-ray has been reviewed after patient had her central line and arterial line replaced and chest x-ray showed no evidence of pneumothorax, central line in appropriate position, ET tube is in appropriate position, and coarse pulmonary interstitial infiltrates, patient is being treated for "with 19 related pneumonia, she remains on IV steroids, and zinc, her Plaquenil has been completed. Fever pattern has been stable, patient has been afebrile, hemodynamically she is stable, maintenance IV fluids 0.9 normal saline at a rate of 10 ML per hour, Diprivan at 25 mics per kilo per minute. Yesterday she was given daily interruption of sedation, and pressure-support trial with pressure support of 10, and CPAP of 5, patient did tolerated for several hours, however she became fatigued, and agitated, and she was placed back on assist control mode of ventilation for night. Today we will give her another daily interruption of sedation, and pressure-support trial with pressure support of 5 and CPAP of 5. Her tube feeding will remain on hold related to vomiting yesterday, will restart at a lower dose if there is no recurrence of vomiting. On 08/24/2019 patient seen in follow-up in the intensive care unit, she remains intubated, sedated, current vent settings are assist-control with a rate of 22, tidal volume 350, FiO2 is 50%, and PEEP of 5, her pulse ox is 98%, this morning blood gases showed pO2 of 102, pCO2 45, and pH of 7.45. IV 0.9 normal saline at rate of 20, Diprivan is a 40 mics per kilo per minute, Cleviprex is currently off. Yesterday she had her triple-lumen central catheter replaced, and her arterial line replaced, she did not have an and the pressure support and CPAP trial yesterday. This morning we'll proceed with daily interruption of sedation, her vital signs have been stable, hemodynamically she is been stable, morning his blood work has been reviewed showing no sign of leukocytosis, white blood cell count is 9.2, hemoglobin is 10.9, d-dimer is 6.62, sodium is 137, potassium is 4.5, chloride is 105, CO2 33, B1 is 29 creatinine 0.5, LDH is slightly down from yesterday, 963, CK is trending down and is down to 247, CRP is stable at 14.6. Today's chest x-ray showed scattered mixed infiltrates without any significant change from previous films. Last night patient developed maroon-colored emesis of approximately 200 mL patient has been on therapeutic doses of Lovenox her concern elevated d-dimer secondary to COVID 19 infection. Lovenox has been discontinued. Today's labs showed hemoglobin of 10.9, patient has had no further evidence of hematemesis, she has been on PPI therapy. On 08/25/2019 patient seen in follow-up in the intensive care unit, she is awake and alert, although confused, moaning, and at times more lethargic. She was successfully weaned and extubated from mechanical ventilator yesterday, on 08/24/2019, after being intubated on 08/15/2019. She is currently on 6 L per high flow nasal cannula, her pulse ox 94-95%, hemodynamically she is stable, she is hypertensive requiring Cleviprex infusion at 6 mg per hour, 9 normal saline at a rate of 10 mL per hour. She has received treatment for acute COVID 19 infection. Today's labs have been reviewed showing white blood cell count of 11.8, hemoglobin of 11.3, yesterday's d-dimer was 6.62, and patient was initially on therapeutic doses of Lovenox however she developed metastasis and the Lovenox remains on hold, however hemoglobin is stable patient has not required blood transfusions, today's sodium is 138, potassium 3.7, chloride is 105, B1 is 21, creatinine 0.49, today's ferritin level has increased to 342 from 279 on yesterday's labs, AST is 72, ALT is 40, LDH is trending up and is at 1516, CK is 960, and CRP is 17.5, seems her inflammatory markers have increased on today's labs. Today's chest x-ray shows improvement in aeration, and lung volumes. On 08/28/2019 patient seen in follow-up on the [facility] medical floor, she is awake and alert, in no acute distress, she is currently on 3 L of oxygen with a pulse ox of 95%, hemodynamically stable, she's been afebrile. She is recovering from COVID 19 related pneumonia, yesterday's chest x-ray showed overall improved aeration in both lungs. Clinically patient is recovering as well. She would like to get up out of bed, and increase her activity, we will consult physical therapy to increase patient's mobility, we'll discontinue the Stoddard catheter. Today's labs have been reviewed. Showing white blood cell count of 9.7, hemoglobin of 11.5, there has been no recurrence of bleeding, patient is back on prophylactic dose of Lovenox 40 mg daily, today's d-dimer is 16.9, electrolytes were unremarkable, with the exception of CO2 of 32, renal profile was within normal limits. LDH is 1403, CRP is 22.5. Patient has completed her treatment for COVID 19 related pneumonia of Plaquenil, azithromycin, IV steroids, zinc. She has done very well, responded well to treatments. Blood cultures have shown no growth. Objective - Vital Signs Vital signs: Vital Signs Temp 97.9 F 08/28/19 07:00 Pulse 82 08/28/19 07:00 Resp 22 08/28/19 07:00 BP 125/74 08/28/19 07:00 Pulse Ox 95 08/28/19 07:00 Intake & Output 08/27/19 08/28/19 08/28/19 18:59 06:59 18:59 Intake Total 20 240 Output Total 1610 1100 Balance -1590 -860 Weight 136.1 kg Intake: IV 20 0.9 20 Oral 240 Output: Urine 1610 1100 Other: Voiding Method Indwelling Catheter Indwelling Catheter Indwelling Catheter ABP, PAP, CO, CI - Last Documented Arterial Blood Pressure 134/66 - Exam GENERAL EXAM: Awake and alert, oriented 3, 58-year-old white female, on 3 L of oxygen with a pulse ox of 95% HEAD: Normocephalic/atraumatic. EYES: Normal reaction of pupils, equal size. Conjunctiva pink, sclera white. NOSE: Clear with pink turbinates. THROAT: No erythema or exudates. NECK: No masses, no JVD, no thyroid enlargement, no adenopathy. CHEST: No chest wall deformity. Symmetrical expansion. LUNGS: Equal air entry with no crackles, wheeze, rhonchi or dullness. CVS: Regular rate and rhythm, normal S1 and S2, no gallops, no murmurs, no rubs ABDOMEN: Soft, nontender. No hepatosplenomegaly, normal bowel sounds, no guarding or rigidity. EXTREMITIES: No clubbing, no edema, no cyanosis, 2+ pulses and upper and lower extremities. MUSCULOSKELETAL: Muscle strength and tone normal. SPINE: No scoliosis or deformity SKIN: No rashes CENTRAL NERVOUS SYSTEM: Awake and alert, oriented 3, No focal deficits, tone is normal in all 4 extremities. - Labs CBC & Chem 7: 08/28/19 05:26 08/28/19 05:26 Labs: Abnormal Lab Results - Last 24 Hours (Table) 08/28/19 08/28/19 08/28/19 Range/Units 05:26 05:26 05:26 Neutrophils # 7.9 H (1.3-7.7) k/uL D-Dimer 16.92 H (<0.60) mg/L FEU Carbon Dioxide 32 H (22-30) mmol/L Glucose 101 H (74-99) mg/dL Lactate Dehydrogenase 1403 H (313-618) U/L C-Reactive Protein 22.5 H (<10.0) mg/L Assessment and Plan Plan: Assessment: #1. Acute hypoxemic and hypercapnic respiratory failure secondary to COVID 19 related pneumonia, requiring intubation and mechanical ventilatory support. Patient was intubated on all 08/15/2019 and today on 08/23/2019 patient remains on mechanical ventilator support, however did tolerate pressure support trial yesterday, which will be attempted again today. Patient was successfully weaned and extubated on 08/24/2019 On 08/25/2019 patient is tolerating extubation well so far, she was extubated yesterday, she is currently on 6 L per high flow nasal cannula, her mentation is still somewhat lethargic, and confused. Today's chest x-ray shows improvement in aeration, and lung volumes, she's been afebrile, have been stable On 08/28/2019 patient seen in follow-up on general medical surgical floor, pa tient was successfully extubated on 08/24/2019, tolerating extubation quite well so far, FiO2 is down to 3 L, patient is making stable oxygenation. No shortness of breath or cough, no fever. Patient has recovered from COVID 19 pneumonia #2. Severe sepsis secondary to pneumonitis, improved #3. Elevated d-dimer, ferritin, LDH related to COVID 19 infection #4. History of gouty arthritis #5. History of mitral valve prolapse #6. History of dyslipidemia #7. History of uterine cancer #8. History of depression #9. History of GERD without esophagitis #11. Hematemesis, Lovenox has been placed on hold #12. Confusion, lethargy, likely related to metabolic encephalopathy/delirium, resolved Plan: Patient is doing very well, FiO2 is down to 3 L, no acute events overnight, she's been afebrile, no difficulty breathing, no new chest x-rays today, yesterday's chest x-ray showed overall improved aeration in both lungs. Patient has completed her treatment for COVID 19 pneumonia. Increase activity as tolerated, discontinue indwelling catheter, with the patient sitting up in the chair. May consider for discharge planning in the next 24 hours. I performed a history & physical examination of the patient and discussed their management with my nurse practitioner, Shanna Castillo. I reviewed the nurse practitioner's note and agree with the documented findings and plan of care. Lung sounds are positive for diminished breath sounds. The findings and the impression was discussed with the patient. I attest to the documentation by the nurse practitioner. Time with Patient: Less than 30
[2019-08-28 11:25] LABS: Ferritin 506.1 ng/mL (10.0-291.0)
[2019-08-28 11:27] LABS: Ferritin 510.1 ng/mL (10.0-291.0)
--- NOTE | 2019-08-28 13:46 | P.PN ---
Subjective Progress Note Date: 08/28/19 Principal diagnosis: Principal diagnosis: Acute hypoxic/hypercapnic respiratory failure secondary to Covid 19 dilated pneumonia; patient is status post intubation on 08/15/2019 followed by extubation on 08/24/2019 Severe sepsis secondary to pneumonitis 08/25/2019 patient is seen and evaluated for follow-up in ICU, she is awake but confused; patient was successfully weaned and extubated from mechanical ventilator yesterday; currently on 6 L per high flow nasal cannula, her pulse ox 94-95%, hemodynamically she is stable, she remains on Clviprex infusion. Patient is status post treatment for acute COVID 19 infection. Today's labs have been reviewed showing white blood cell count of 11.8, hemoglobin of 11.3, yesterday's d-dimer was 6.62; hemoglobin is stable patient has not required blood transfusions, today's sodium is 138, potassium 3.7, chloride is 105, B1 is 21, creatinine 0.49, today's ferritin level has increased to 342 from 279 on yesterday's labs, AST is 72, ALT is 40, LDH is trending up and is at 1516, CK is 960, and CRP is 17.5, seems her inflammatory markers have increased on today's labs. Today's chest x-ray shows improvement in aeration, and lung volumes; nutrition helper service is recommending to continue monitoring in ICU due to upward trend of inflammatory markers. 08/26/2019 Patient is seen for follow-up in the intensive care unit. She is currently awake and alert in no acute distress. She's been afebrile. Hemodynamically stable. She is maintaining O2 saturations in the 90s on 4 L/m per nasal cannula. She has a 0.9 normal saline at KVO. Blood cultures reveal no growth. White count 8.1. Hemoglobin 11.5. D-dimer 11.38. Sodium 138. Potassium 3.8. AST 57. ALT 45. LDH 1545. C-reactive protein 16.6. Creatinine kinase for 14. She had been off Lovenox secondary to maroon colored emesis of approximately 200 mL on 08/23/2019. She has completed her Covid treatment. She remains on oral zinc. 08/27/2019 Patient is seen and evaluated in follow-up; patient is awake and alert; denies any specific complaints; patient has been treated for acute Covid 19 pneumonitis; SpO2 is in 90s on 3 L per nasal cannula; chest x-ray is reviewed and reveals an prove point; blood work is significant for a WBC of 9.8, hemoglobin 11.4, sodium of 136, creatinine of 0.48, AST/ALT is 40 and LDH of 1513; CRP is 19.9; patient hasn't had any further hematemesis and has been started on Lovenox 40 mg subcu daily Patient is completed treatment for Covid 19; plan is to continue to follow inflammatory markers; patient will be transferred to general medical floor 08/28/2019 Patient is seen and evaluated in follow-up on the medical surgical unit awaiting to work with physical therapy. Patient continues to be quite weak requiring 1-2 person assistance with position changes and eating. Patient remains on nasal cannula at 2-3 L and tolerating well. Pulmonary continues to follow. Patient requests to have indwelling Stoddard catheter removed and requesting a bedside commode along with a walker although continues to be quite weak. Case ma lilliana and social work to follow his patient may require ECF rehab. No reports of chest pain, worsening shortness of breath, or palpitations. Patient is afebrile. No reports of nausea or vomiting and patient is tolerating diet. Objective - Vital Signs Vital signs: Vital Signs Temp 98.5 F 08/28/19 11:59 Pulse 103 H 08/28/19 11:59 Resp 16 08/28/19 11:59 BP 136/75 08/28/19 11:59 Pulse Ox 98 08/28/19 11:59 Intake & Output 08/27/19 08/28/19 08/28/19 18:59 06:59 18:59 Intake Total 20 240 Output Total 1610 1100 Balance -1590 -860 Weight 136.1 kg Intake: IV 20 0.9 20 Oral 240 Output: Urine 1610 1100 Other: Voiding Method Indwelling Catheter Indwelling Catheter Indwelling Catheter ABP, PAP, CO, CI - Last Documented Arterial Blood Pressure 134/66 - Exam GENERAL: The patient is alert and oriented x3, not in any acute distress. Well developed, well nourished. HEENT: Pupils are round and equally reacting to light. EOMI. No scleral icterus. No conjunctival pallor. Normocephalic, atraumatic. No pharyngeal erythema. No t hyromegaly. CARDIOVASCULAR: S1 and S2 present. No murmurs, rubs, or gallops. PULMONARY: Chest is clear to auscultation, no wheezing or crackles. ABDOMEN: Soft, nontender, nondistended, normoactive bowel sounds. No palpable organomegaly. MUSCULOSKELETAL: No joint swelling or deformity. EXTREMITIES: No cyanosis, clubbing, or pedal edema. NEUROLOGICAL: Gross neurological examination did not reveal any focal deficits. SKIN: No rashes. - Labs CBC & Chem 7: 08/28/19 05:26 08/28/19 05:26 Labs: Abnormal Lab Results - Last 24 Hours (Table) 08/27/19 08/28/19 08/28/19 Range/Units 04:09 05:26 05:26 Neutrophils # 7.9 H (1.3-7.7) k/uL D-Dimer 16.92 H (<0.60) mg/L FEU Carbon Dioxide (22-30) mmol/L Glucose (74-99) mg/dL Ferritin 506.1 H (10.0-291.0) ng/mL Lactate Dehydrogenase (313-618) U/L C-Reactive Protein (<10.0) mg/L 08/28/19 Range/Units 05:26 Neutrophils # (1.3-7.7) k/uL D-Dimer (<0.60) mg/L FEU Carbon Dioxide 32 H (22-30) mmol/L Glucose 101 H (74-99) mg/dL Ferritin 510.1 H (10.0-291.0) ng/mL Lactate Dehydrogenase 1403 H (313-618) U/L C-Reactive Protein 22.5 H (<10.0) mg/L Assessment and Plan Assessment: Acute hypoxic and hypercapnic respiratory failure secondary to COVID 19 pneumonia Acute upper GI bleed Acute blood loss anemia History of mitral valve prolapse History of gouty arthritis History of uterine cancer Hyperlipidemia GERD Elevated d-dimer DVT prophylaxis: Subcu Lovenox GI prophylaxis: Protonix Plan: To continue current medications, management, and symptomatic treatment. PT/OT following as patient remains quite weak requiring 1-2 person assistance for position changes and also assistance with feeding. Pulmonary is following. GI following and recommending no endoscopy at this time. Patient remains on Protonix and will continue at this time. No active bleeding noted. Hemoglobin is stable at 11.5. Lovenox has been resumed for DVT prophylaxis. Monitor lytes and vitals. DVT and GI prophylaxis. Further recommendations to follow depending on the clinical course of the patient. Case management and social work to follow for possible placement for continued PT/OT therapy for strength and mobility.
[2019-08-28] MEDS: VENLAFAXINE HCL ER 150 MG CAP PO SCH (21:01)
[2019-08-28] MEDS: ATORVASTATIN 20 MG TAB PO SCH (21:01)
[2019-08-29] MEDS: ALBUTEROL HFA INHALER INHALATION SCH ×5 (05:46→23:52)
[2019-08-29 08:05] LABS: Basophils % (A) 0 %; Eosinophils # (A) 0.1 k/uL (0-0.7); Eosinophils % (A) 1 %; HCT 35.7 % (34.0-46.0); HGB 11.5 gm/dL (11.4-16.0); Lymphocytes # (A) 1.2 k/uL (1.0-4.8); Lymphocytes % (A) 12 %; MCHC 32.2 g/dL (31.0-37.0); MCV 93.1 fL (80.0-100.0); Mean Platelet Volume 7.7; Monocytes # (A) 0.7 k/uL (0-1.0); Monocytes % (A) 7 %; Neutrophils # (A) 8.1 k/uL (1.3-7.7); Neutrophils % (A) 79 %; Platelet Count 200 k/uL (150-450); RBC 3.83 m/uL (3.80-5.40); WBC 10.3 k/uL (3.8-10.6)
[2019-08-29 08:16] LABS: African American GFR (CKD) >90 (>60 ml/min/1.73 sqM); Anion Gap 2 mmol/L; Blood Urea Nitrogen 11 mg/dL (7-17); Calcium 8.6 mg/dL (8.4-10.2); Carbon Dioxide 29 mmol/L (22-30); Chloride 107 mmol/L (98-107); Glucose 105 mg/dL (74-99); Non-African American GFR(CKD) >90 (>60 ml/min/1.73 sqM); Sodium 138 mmol/L (137-145)
[2019-08-29] MEDS: PANTOPRAZOLE 40 MG TABLET PO SCH (08:20)
[2019-08-29] MEDS: ENOXAPARIN 40 MG/0.4 ML SYRINGE SQ SCH (08:20)
[2019-08-29] MEDS: ZINC SULFATE 220 MG CAP PO SCH (08:20)
[2019-08-29] MEDS: PREGABALIN 100 MG CAP PO SCH ×3 (08:20→20:49)
[2019-08-29 10:19] VITALS: BMI 47.0
--- NOTE | 2019-08-29 11:15 | P.PN ---
Subjective Progress Note Date: 08/29/19 On 08/23/2019 patient seen in follow-up in the intensive care unit, she remains intubated, on mechanical ventilator, current vent settings are assist control with a rate of 22, tidal vital 350, FiO2 is 50%, and PEEP of 10, this morning his blood gases have been reviewed showing pO2 of 158, pCO2 of 48, and pH of 7.44, this was done and FiO2 of 50%. Today's chest x-ray has been reviewed after patient had her central line and arterial line replaced and chest x-ray showed no evidence of pneumothorax, central line in appropriate position, ET tube is in appropriate position, and coarse pulmonary interstitial infiltrates, patient is being treated for "with 19 related pneumonia, she remains on IV steroids, and zinc, her Plaquenil has been completed. Fever pattern has been stable, patient has been afebrile, hemodynamically she is stable, maintenance IV fluids 0.9 normal saline at a rate of 10 ML per hour, Diprivan at 25 mics per kilo per minute. Yesterday she was given daily interruption of sedation, and pressure-support trial with pressure support of 10, and CPAP of 5, patient did tolerated for several hours, however she became fatigued, and agitated, and she was placed back on assist control mode of ventilation for night. Today we will give her another daily interruption of sedation, and pressure-support trial with pressure support of 5 and CPAP of 5. Her tube feeding will remain on hold related to vomiting yesterday, will restart at a lower dose if there is no recurrence of vomiting. On 08/24/2019 patient seen in follow-up in the intensive care unit, she remains intubated, sedated, current vent settings are assist-control with a rate of 22, tidal volume 350, FiO2 is 50%, and PEEP of 5, her pulse ox is 98%, this morning blood gases showed pO2 of 102, pCO2 45, and pH of 7.45. IV 0.9 normal saline at rate of 20, Diprivan is a 40 mics per kilo per minute, Cleviprex is currently off. Yesterday she had her triple-lumen central catheter replaced, and her arterial line replaced, she did not have an and the pressure support and CPAP trial yesterday. This morning we'll proceed with daily interruption of sedation, her vital signs have been stable, hemodynamically she is been stable, morning his blood work has been reviewed showing no sign of leukocytosis, white blood cell count is 9.2, hemoglobin is 10.9, d-dimer is 6.62, sodium is 137, potassium is 4.5, chloride is 105, CO2 33, B1 is 29 creatinine 0.5, LDH is slightly down from yesterday, 963, CK is trending down and is down to 247, CRP is stable at 14.6. Today's chest x-ray showed scattered mixed infiltrates without any significant change from previous films. Last night patient developed maroon-colored emesis of approximately 200 mL patient has been on therapeutic doses of Lovenox her concern elevated d-dimer secondary to COVID 19 infection. Lovenox has been discontinued. Today's labs showed hemoglobin of 10.9, patient has had no further evidence of hematemesis, she has been on PPI therapy. On 08/25/2019 patient seen in follow-up in the intensive care unit, she is awake and alert, although confused, moaning, and at times more lethargic. She was successfully weaned and extubated from mechanical ventilator yesterday, on 08/24/2019, after being intubated on 08/15/2019. She is currently on 6 L per high flow nasal cannula, her pulse ox 94-95%, hemodynamically she is stable, she is hypertensive requiring Cleviprex infusion at 6 mg per hour, 9 normal saline at a rate of 10 mL per hour. She has received treatment for acute COVID 19 infection. Today's labs have been reviewed showing white blood cell count of 11.8, hemoglobin of 11.3, yesterday's d-dimer was 6.62, and patient was initially on therapeutic doses of Lovenox however she developed metastasis and the Lovenox remains on hold, however hemoglobin is stable patient has not required blood transfusions, today's sodium is 138, potassium 3.7, chloride is 105, B1 is 21, creatinine 0.49, today's ferritin level has increased to 342 from 279 on yesterday's labs, AST is 72, ALT is 40, LDH is trending up and is at 1516, CK is 960, and CRP is 17.5, seems her inflammatory markers have increased on today's labs. Today's chest x-ray shows improvement in aeration, and lung volumes. On 08/28/2019 patient seen in follow-up on the [facility] medical floor, she is awake and alert, in no acute distress, she is currently on 3 L of oxygen with a pulse ox of 95%, hemodynamically stable, she's been afebrile. She is recovering from COVID 19 related pneumonia, yesterday's chest x-ray showed overall improved aeration in both lungs. Clinically patient is recovering as well. She would like to get up out of bed, and increase her activity, we will consult physical therapy to increase patient's mobility, we'll discontinue the Stoddard catheter. Today's labs have been reviewed. Showing white blood cell count of 9.7, hemoglobin of 11.5, there has been no recurrence of bleeding, patient is back on prophylactic dose of Lovenox 40 mg daily, today's d-dimer is 16.9, electrolytes were unremarkable, with the exception of CO2 of 32, renal profile was within normal limits. LDH is 1403, CRP is 22.5. Patient has completed her treatment for COVID 19 related pneumonia of Plaquenil, azithromycin, IV steroids, zinc. She has done very well, responded well to treatments. Blood cultures have shown no growth. On 08/29/2019 patient seen in follow-up under medical floor, she is up in the recliner today, physical therapy assisted patient out of bed, and then the patient is very weak and could hardly stand with 2 person assistance. Mentation is appropriate, patient is awake and alert and oriented 3, answering questions appropriately, FiO2 is down to 3 L, her pulse ox is 92%, hemodynamically she is stable, she's been afebrile, she is recovering from Covid 19 related pneumonia with acute hypoxic respiratory failure requiring intubation and mechanical ventilation, patient was successfully extubated on 08/24/2019, tolerating extubation quite well. Stoddard catheter remains in place related to patient's impaired mobility and severe generalized weakness. We will monitor her strength and ability to be able to use bedside commode and would like to discontinue the Stoddard catheter. Vital signs have been stable, no acute events overnight, patient is tolerating oral diet, no nausea vomiting or diarrhea. Today's labs have been reviewed, CBC and BMP were done, no inflammatory markers were repeated today, but they were trending down on yesterday's labs. D-dimer however remains elevated at 16.9, patient is just on therapeutic doses of Lovenox, has been no recurrence of GI bleeding, hemoglobin today is 11.5 Objective - Vital Signs Vital signs: Vital Signs Temp 98.2 F 08/29/19 10:56 Pulse 116 H 08/29/19 10:56 Resp 20 08/29/19 10:56 BP 110/76 08/29/19 10:56 Pulse Ox 92 L 08/29/19 10:56 Intake & Output 08/28/19 08/29/19 08/29/19 18:59 06:59 18:59 Intake Total 360 Output Total 400 1100 Balance -400 -740 Weight 136.1 kg Intake: Oral 360 Output: Urine 400 1100 Uretheral (Stoddard) 400 1100 Other: Voiding Method Indwelling Catheter Indwelling Catheter Indwelling Catheter # Bowel Movements 1 ABP, PAP, CO, CI - Last Documented Arterial Blood Pressure 134/66 - Exam GENERAL EXAM: Awake and alert, oriented 3, 58-year-old white female, on 3 L of oxygen with a pulse ox of 95% HEAD: Normocephalic/atraumatic. EYES: Normal reaction of pupils, equal size. Conjunctiva pink, sclera white. NOSE: Clear with pink turbinates. THROAT: No erythema or exudates. NECK: No masses, no JVD, no thyroid enlargement, no adenopathy. CHEST: No chest wall deformity. Symmetrical expansion. LUNGS: Equal air entry with no crackles, wheeze, rhonchi or dullness. CVS: Regular rate and rhythm, normal S1 and S2, no gallops, no murmurs, no rubs ABDOMEN: Soft, nontender. No hepatosplenomegaly, normal bowel sounds, no guarding or rigidity. EXTREMITIES: No clubbing, no edema, no cyanosis, 2+ pulses and upper and lower extremities. MUSCULOSKELETAL: Muscle strength and tone normal. SPINE: No scoliosis or deformity SKIN: No rashes CENTRAL NERVOUS SYSTEM: Awake and alert, oriented 3, No focal deficits, tone is normal in all 4 extremities. - Labs CBC & Chem 7: 08/29/19 07:36 08/29/19 07:36 Labs: Abnormal Lab Results - Last 24 Hours (Table) 08/27/19 08/28/19 08/29/19 Range/Units 04:09 05:26 07:36 Neutrophils # 8.1 H (1.3-7.7) k/uL Glucose (74-99) mg/dL Ferritin 506.1 H 510.1 H (10.0-291.0) ng/mL 08/29/19 Range/Units 07:36 Neutrophils # (1.3-7.7) k/uL Glucose 105 H (74-99) mg/dL Ferritin (10.0-291.0) ng/mL Assessment and Plan Plan: Assessment: #1. Acute hypoxemic and hypercapnic respiratory failure secondary to COVID 19 related pneumonia, requiring intubation and mechanical ventilatory support. Patient was intubated on all 08/15/2019 and today on 08/23/2019 patient remains on mechanical ventilator support, however did tolerate pressure support trial yesterday, which will be attempted again today. Patient was successfully weaned and extubated on 08/24/2019 On 08/25/2019 patient is tolerating extubation well so far, she was extubated yesterday, she is currently on 6 L per high flow nasal cannula, her mentation is still somewhat lethargic, and confused. Today's chest x-ray shows improvement in aeration, and lung volumes, she's been afebrile, have been stable On 08/28/2019 patient seen in follow-up on general medical surgical floor, patient was successfully extubated on 08/24/2019, tolerating extubation quite well so far, FiO2 is down to 3 L, patient is making stable oxygenation. No shortness of breath or cough, no fever. Patient has recovered from COVID 19 pneumonia On 08/29/2019 patient is doing well, she is recovering from Covid 19 related pneumonia, she is on general medical surgical floor, he is on 3 L of oxygen, her pulse ox is 92%, she does however have severe generalized weakness, but was able to get up in the recliner with 2 person assist from physical therapy #2. Severe sepsis secondary to pneumonitis, improved #3. Elevated d-dimer, ferritin, LDH related to COVID 19 infection #4. History of gouty arthritis #5. History of mitral valve prolapse #6. History of dyslipidemia #7. History of uterine cancer #8. History of depression #9. History of GERD without esophagitis #11. Hematemesis, Lovenox has been placed on hold #12. Confusion, lethargy, likely related to metabolic encephalopathy/delirium, resolved Plan: Patient is doing well, increase activity as tolerated, she is generally weak, physical therapy is working with the patient, discontinue Stoddard catheter as soon as the patient is able to use bedside commode. She has completed her treatment for Covid 19 related pneumonia, has been afebrile, vital signs have been stable, patient apparently is being considered for subacute rehabilitation, one of the facilities is reviewing the patient's chart and considering the patient for admission. I performed a history & physical examination of the patient and discussed their management with my nurse practitioner, Shanna Castillo. I reviewed the nurse practitioner's note and agree with the documented findings and plan of care. Lung sounds are positive for diminished breath sounds. The findings and the impression was discussed with the patient. I attest to the documentation by the nurse practitioner. Time with Patient: Less than 30
--- NOTE | 2019-08-29 13:42 | P.PN ---
Subjective Progress Note Date: 08/29/19 Principal diagnosis: Principal diagnosis: Acute hypoxic/hypercapnic respiratory failure secondary to Covid 19 dilated pneumonia; patient is status post intubation on 08/15/2019 followed by extubation on 08/24/2019 Severe sepsis secondary to pneumonitis 08/25/2019 patient is seen and evaluated for follow-up in ICU, she is awake but confused; patient was successfully weaned and extubated from mechanical ventilator yesterday; currently on 6 L per high flow nasal cannula, her pulse ox 94-95%, hemodynamically she is stable, she remains on Clviprex infusion. Patient is status post treatment for acute COVID 19 infection. Today's labs have been reviewed showing white blood cell count of 11.8, hemoglobin of 11.3, yesterday's d-dimer was 6.62; hemoglobin is stable patient has not required blood transfusions, today's sodium is 138, potassium 3.7, chloride is 105, B1 is 21, creatinine 0.49, today's ferritin level has increased to 342 from 279 on yesterday's labs, AST is 72, ALT is 40, LDH is trending up and is at 1516, CK is 960, and CRP is 17.5, seems her inflammatory markers have increased on today's labs. Today's chest x-ray shows improvement in aeration, and lung volumes; channel worker service is recommending to continue monitoring in ICU due to upward trend of inflammatory markers. 08/26/2019 Patient is seen for follow-up in the intensive care unit. She is currently awake and alert in no acute distress. She's been afebrile. Hemodynamically stable. She is maintaining O2 saturations in the 90s on 4 L/m per nasal cannula. She has a 0.9 normal saline at KVO. Blood cultures reveal no growth. White count 8.1. Hemoglobin 11.5. D-dimer 11.38. Sodium 138. Potassium 3.8. AST 57. ALT 45. LDH 1545. C-reactive protein 16.6. Creatinine kinase for 14. She had been off Lovenox secondary to maroon colored emesis of approximately 200 mL on 08/23/2019. She has completed her Covid treatment. She remains on oral zinc. 08/27/2019 Patient is seen and evaluated in follow-up; patient is awake and alert; denies any specific complaints; patient has been treated for acute Covid 19 pneumonitis; SpO2 is in 90s on 3 L per nasal cannula; chest x-ray is reviewed and reveals an prove point; blood work is significant for a WBC of 9.8, hemoglobin 11.4, sodium of 136, creatinine of 0.48, AST/ALT is 40 and LDH of 1513; CRP is 19.9; patient hasn't had any further hematemesis and has been started on Lovenox 40 mg subcu daily Patient is completed treatment for Covid 19; plan is to continue to follow inflammatory markers; patient will be transferred to general medical floor 08/28/2019 Patient is seen and evaluated in follow-up on the medical surgical unit awaiting to work with physical therapy. Patient continues to be quite weak requiring 1-2 person assistance with position changes and eating. Patient remains on nasal cannula at 2-3 L and tolerating well. Pulmonary continues to follow. Patient requests to have indwelling Stoddard catheter removed and requesting a bedside commode along with a walker although continues to be quite weak. Case ma nagelena and social work to follow his patient may require ECF rehab. No reports of chest pain, worsening shortness of breath, or palpitations. Patient is afebrile. No reports of nausea or vomiting and patient is tolerating diet. 08/29/2019 Patient is seen in follow-up today and continues to improve. Patient denies any shortness of breath, chest pain, or palpitations. Patient is afebrile. Patient remains on nasal cannula at 2-3 L. Pulmonary following. PT/OT following and working with the patient daily for continued strength and mobility. Patient increasing activity as tolerated. Patient continues to be quite weak requiring some assistance but has improved since yesterday. Case management and social work following for placement at an ECF for continued rehab. No acute overnight issues. Objective - Vital Signs Vital signs: Vital Signs Temp 98.2 F 08/29/19 10:56 Pulse 116 H 08/29/19 10:56 Resp 20 08/29/19 10:56 BP 110/76 08/29/19 10:56 Pulse Ox 92 L 08/29/19 10:56 Intake & Output 08/28/19 08/29/19 08/29/19 18:59 06:59 18:59 Intake Total 360 Output Total 400 1100 Balance -400 -740 Weight 136.1 kg Intake: Oral 360 Output: Urine 400 1100 Uretheral (Stoddard) 400 1100 Other: Voiding Method Indwelling Catheter Indwelling Catheter Indwelling Catheter # Bowel Movements 1 ABP, PAP, CO, CI - Last Documented Arterial Blood Pressure 134/66 - Exam GENERAL: The patient is alert and oriented x3, not in any acute distress, sitting up in the chair. Well developed, well nourished. HEENT: Pupils are round and equally reacting to light. EOMI. No scleral icterus. No conjunctival pallor. Normocephalic, atraumatic. No pharyngeal erythema. No thyromegaly. CARDIOVASCULAR: S1 and S2 present. No murmurs, rubs, or gallops. PULMONARY: Chest is clear to auscultation, no wheezing or crackles. ABDOMEN: Soft, nontender, nondistended, normoactive bowel sounds. No palpable organomegaly. MUSCULOSKELETAL: No joint swelling or deformity. EXTREMITIES: No cyanosis, clubbing, or pedal edema. NEUROLOGICAL: Gross neurological examination did not reveal any focal deficits. SKIN: No rashes. - Labs CBC & Chem 7: 08/29/19 07:36 08/29/19 07:36 Labs: Abnormal Lab Results - Last 24 Hours (Table) 08/29/19 08/29/19 Range/Units 07:36 07:36 Neutrophils # 8.1 H (1.3-7.7) k/uL Glucose 105 H (74-99) mg/dL Assessment and Plan Assessment: Acute hypoxic and hypercapnic respiratory failure secondary to COVID 19 pneumonia Acute upper GI bleed Acute blood loss anemia History of mitral valve prolapse History of gouty arthritis History of uterine cancer Hyperlipidemia GERD Elevated d-dimer DVT prophylaxis: Subcu Lovenox GI prophylaxis: Protonix Plan: To continue current medications, management, and symptomatic treatment. PT/OT following as patient remains quite weak requiring 1-2 person assistance. Patient has improved with transferring to the chair today. Pulmonary is following. GI following and recommending no endoscopy at this time. Patient remains on Protonix and will continue at this time. No active bleeding noted. Hemoglobin is stable at 11.5. Lovenox has been resumed for DVT prophylaxis. Monitor lytes and vitals. DVT and GI prophylaxis. Further recommendations to follow depending on the clinical course of the patient. Case management and social work to follow for possible placement for continued PT/OT therapy for strength and mobility. Possible discharge in 24-48 hours.
[2019-08-29] MEDS: VENLAFAXINE HCL ER 150 MG CAP PO SCH (20:49)
[2019-08-29] MEDS: ATORVASTATIN 20 MG TAB PO SCH (20:49)
[2019-08-29] MEDS ORDERED: Acetaminophen-Codeine 300-30mg TAB PO PRN (21:47)
[2019-08-30] MEDS: ALBUTEROL HFA INHALER INHALATION SCH ×2 (07:44→11:26)
[2019-08-30] MEDS: ZINC SULFATE 220 MG CAP PO SCH (08:35)
[2019-08-30] MEDS: PREGABALIN 100 MG CAP PO SCH (08:35)
[2019-08-30] MEDS: PANTOPRAZOLE 40 MG TABLET PO SCH (08:35)
[2019-08-30] MEDS: ENOXAPARIN 40 MG/0.4 ML SYRINGE SQ SCH (08:36)
--- NOTE | 2019-08-30 10:03 | P.DS ---
Providers Date of admission: 08/14/19 16:42 Expected date of discharge: 08/30/19 Attending physician: Jody Arguelles Consults: 08/14/19 23:10 Consult Physician Routine Consulting Provider: Angelita Arana Consult Reason/Comments: Rule out COVID, ICU management Do you want consulting provider notified?: Yes Primary care physician: Alejandro Parnell Hospital Course: Final diagnosis Acute hypoxic and hypercapnic respiratory failure secondary to COVID 19 pneumonia Acute upper GI bleed Acute blood loss anemia History of mitral valve prolapse History of gouty arthritis History of uterine cancer Hyperlipidemia GERD Elevated d-dimer DVT prophylaxis GI prophylaxis Discharge disposition Patient is being discharged in a stable condition with guarded prognosis to [facility] continue PT/OT therapy. Patient will follow-up with primary care provider Dr. Parnell in the outpatient setting upon discharge. Patient will also need to follow-up with GI and pulmonary in the outpatient setting as well. Patient will continue on Protonix daily until follow-up. Total time taken is 35 minutes. History of present illness This is a 58-year-old female who was recently admitted with acute hypoxic hypercapnic respiratory failure secondary to Covid 19 pneumonia and was being closely monitored. Patient was being monitored in the ICU and was on a mechanical ventilator for quite some time. Patient was extubated successfully and was placed on oxygen and did quite well. Patient currently remains on 2-3 L via nasal cannula tolerating well. During hospitalization patient continued to be quite weak and continues to be weak at this time requiring some rehab for strength and mobility and continued PT/OT therapy. During hospitalization patient did complete course of antibiotics and is maintained on zinc supplements and will continue for an additional 3 weeks. Patient also seen and evaluated by GI for acute upper GI bleed and is recommending outpatient follow-up for pos sible future endoscopy. Patient to remain on Protonix daily until follow-up with primary care provider along with GI services. Patient does have an indwelling Stoddard catheter to maintain strict I&O's although continues to be quite weak and unable to get up on her own to the bedside commode or the bathroom and will continue with an indwelling Stoddard catheter and will have the ECF assess for removal of the catheter once the patient has become more active and is able to get up to the commode and/or bathroom. Currently no reports of chest pain, shortness of breath, or palpitations. Patient has been afebrile. No reports of nausea or vomiting and patient is tolerating a diet status post ventilation patient was requiring soft foods and will continue with his diet at this time and may advance as tolerated. [facility] On exam vital signs are stable. Temp is 98.5F, pulse is 102, respirations are 18, blood pressure is 118/77, oxygen saturation is 92-94% on 3 L via nasal cannula. Cardio S1, S2 are present. Respiratory shows diminished breath sounds otherwise clear to auscultation. Abdomen is soft, obese, nontender. Nervous system shows mild diffuse weakness. Please refer to medication reconciliation sheet for a list of medications. Patient Condition at Discharge: Stable Plan - Discharge Summary Discharge Rx Participant: Yes New Discharge Prescriptions: New Venlafaxine HCl ER [Effexor XR] 150 mg PO HS #3 cap.er.24h Polyethylene Glycol 3350 [Miralax] 17 gm PO DAILY PRN powd.pack PRN Reason: Constipation Zinc Sulfate [Orazinc] 220 mg PO DAILY cap Pantoprazole [Protonix] 40 mg PO AC-BRKFST tablet. Acetaminophen Tab [Tylenol] 650 mg PO Q6HR PRN tab PRN Reason: Mild Pain Or Fever > 100.5 Acetaminophen-Codeine 300-30mg [Tylenol w/codeine #3] 1 each PO Q4HR PRN #12 tab PRN Reason: Pain Albuterol Inhaler [Ventolin Hfa Inhaler] 2 puff INHALATION RT-Q6H puff Continue Pregabalin [Lyrica] 200 mg PO TID Atorvastatin [Lipitor] 20 mg PO HS Lidocaine 5% Patch [Lidoderm 5% Patch] 1 patch TOPICAL DAILY PRN PRN Reason: Pain Diclofenac Sodium [Voltaren] 75 mg PO BID Discontinued HYDROcodone/APAP 7.5-325MG [[place] 7.5-325] 1 tab PO BID Ranitidine HCl [Zantac] 150 mg PO BID Pantoprazole Sodium [Protonix] 40 mg PO BID Venlafaxine HCl [Effexor XR] 150 mg PO DAILY Discharge Medication List Atorvastatin [Lipitor] 20 mg PO HS 10/24/18 [History] Pregabalin [Lyrica] 200 mg PO TID 10/24/18 [History] Diclofenac Sodium [Voltaren] 75 mg PO BID 08/14/19 [History] Lidocaine 5% Patch [Lidoderm 5% Patch] 1 patch TOPICAL DAILY PRN 08/14/19 [History] Acetaminophen Tab [Tylenol] 650 mg PO Q6HR PRN tab 08/30/19 [Rx] Acetaminophen-Codeine 300-30mg [Tylenol w/codeine #3] 1 each PO Q4HR PRN #12 tab 08/30/19 [Rx] Albuterol Inhaler [Ventolin Hfa Inhaler] 2 puff INHALATION RT-Q6H puff 08/30/19 [Rx] Pantoprazole [Protonix] 40 mg PO AC-BRKFST tablet.dr 08/30/19 [Rx] Polyethylene Glycol 3350 [Miralax] 17 gm PO DAILY PRN powd.pack 08/30/19 [Rx] Venlafaxine HCl ER [Effexor XR] 150 mg PO HS #3 cap.er.24h 08/30/19 [Rx] Zinc Sulfate [Orazinc] 220 mg PO DAILY cap 08/30/19 [Rx] Follow up Appointment(s)/Referral(s): Johana Johnson MD [STAFF PHYSICIAN] - 4 Weeks (Student Life Advisor) Lucien Simons DO [Doctor of Osteopathic Medicine] - 2 Weeks (Auto Engine Mechanic) Alejandro Parnell MD [Primary Care Provider] - 1-2 days Activity/Diet/Wound Care/Special Instructions: Patient is going to [facility] Activity as tolerated Continue current diet soft foods please and advance as tolerated Continue with zinc supplement for another 3 weeks Follow-up with GI in the outpatient setting Follow-up with pulmonary in the outpatient setting Follow-up with primary care provider upon discharge Continue working with PT/OT Continue with indwelling Stoddard catheter until activity is increased and able to get up to the bedside commode and/or bathroom. ECF to assess for Stoddard catheter removal once activity is tolerated and then can be discontinued Discharge Disposition: TRANSFER TO SNF/ECF
--- NOTE | 2019-08-30 12:48 | P.PN ---
Subjective Progress Note Date: 08/30/19 On 08/23/2019 patient seen in follow-up in the intensive care unit, she remains intubated, on mechanical ventilator, current vent settings are assist control with a rate of 22, tidal vital 350, FiO2 is 50%, and PEEP of 10, this morning his blood gases have been reviewed showing pO2 of 158, pCO2 of 48, and pH of 7.44, this was done and FiO2 of 50%. Today's chest x-ray has been reviewed after patient had her central line and arterial line replaced and chest x-ray showed no evidence of pneumothorax, central line in appropriate position, ET tube is in appropriate position, and coarse pulmonary interstitial infiltrates, patient is being treated for "with 19 related pneumonia, she remains on IV steroids, and zinc, her Plaquenil has been completed. Fever pattern has been stable, patient has been afebrile, hemodynamically she is stable, maintenance IV fluids 0.9 normal saline at a rate of 10 ML per hour, Diprivan at 25 mics per kilo per minute. Yesterday she was given daily interruption of sedation, and pressure-support trial with pressure support of 10, and CPAP of 5, patient did tolerated for several hours, however she became fatigued, and agitated, and she was placed back on assist control mode of ventilation for night. Today we will give her another daily interruption of sedation, and pressure-support trial with pressure support of 5 and CPAP of 5. Her tube feeding will remain on hold related to vomiting yesterday, will restart at a lower dose if there is no recurrence of vomiting. On 08/24/2019 patient seen in follow-up in the intensive care unit, she remains intubated, sedated, current vent settings are assist-control with a rate of 22, tidal volume 350, FiO2 is 50%, and PEEP of 5, her pulse ox is 98%, this morning blood gases showed pO2 of 102, pCO2 45, and pH of 7.45. IV 0.9 normal saline at rate of 20, Diprivan is a 40 mics per kilo per minute, Cleviprex is currently off. Yesterday she had her triple-lumen central catheter replaced, and her arterial line replaced, she did not have an and the pressure support and CPAP trial yesterday. This morning we'll proceed with daily interruption of sedation, her vital signs have been stable, hemodynamically she is been stable, morning his blood work has been reviewed showing no sign of leukocytosis, white blood cell count is 9.2, hemoglobin is 10.9, d-dimer is 6.62, sodium is 137, potassium is 4.5, chloride is 105, CO2 33, B1 is 29 creatinine 0.5, LDH is slightly down from yesterday, 963, CK is trending down and is down to 247, CRP is stable at 14.6. Today's chest x-ray showed scattered mixed infiltrates without any significant change from previous films. Last night patient developed maroon-colored emesis of approximately 200 mL patient has been on therapeutic doses of Lovenox her concern elevated d-dimer secondary to COVID 19 infection. Lovenox has been discontinued. Today's labs showed hemoglobin of 10.9, patient has had no further evidence of hematemesis, she has been on PPI therapy. On 08/25/2019 patient seen in follow-up in the intensive care unit, she is awake and alert, although confused, moaning, and at times more lethargic. She was successfully weaned and extubated from mechanical ventilator yesterday, on 08/24/2019, after being intubated on 08/15/2019. She is currently on 6 L per high flow nasal cannula, her pulse ox 94-95%, hemodynamically she is stable, she is hypertensive requiring Cleviprex infusion at 6 mg per hour, 9 normal saline at a rate of 10 mL per hour. She has received treatment for acute COVID 19 infection. Today's labs have been reviewed showing white blood cell count of 11.8, hemoglobin of 11.3, yesterday's d-dimer was 6.62, and patient was initially on therapeutic doses of Lovenox however she developed metastasis and the Lovenox remains on hold, however hemoglobin is stable patient has not required blood transfusions, today's sodium is 138, potassium 3.7, chloride is 105, B1 is 21, creatinine 0.49, today's ferritin level has increased to 342 from 279 on yesterday's labs, AST is 72, ALT is 40, LDH is trending up and is at 1516, CK is 960, and CRP is 17.5, seems her inflammatory markers have increased on today's labs. Today's chest x-ray shows improvement in aeration, and lung volumes. On 08/28/2019 patient seen in follow-up on the [facility] medical floor, she is awake and alert, in no acute distress, she is currently on 3 L of oxygen with a pulse ox of 95%, hemodynamically stable, she's been afebrile. She is recovering from COVID 19 related pneumonia, yesterday's chest x-ray showed overall improved aeration in both lungs. Clinically patient is recovering as well. She would like to get up out of bed, and increase her activity, we will consult physical therapy to increase patient's mobility, we'll discontinue the Stoddard catheter. Today's labs have been reviewed. Showing white blood cell count of 9.7, hemoglobin of 11.5, there has been no recurrence of bleeding, patient is back on prophylactic dose of Lovenox 40 mg daily, today's d-dimer is 16.9, electrolytes were unremarkable, with the exception of CO2 of 32, renal profile was within normal limits. LDH is 1403, CRP is 22.5. Patient has completed her treatment for COVID 19 related pneumonia of Plaquenil, azithromycin, IV steroids, zinc. She has done very well, responded well to treatments. Blood cultures have shown no growth. On 08/29/2019 patient seen in follow-up under medical floor, she is up in the recliner today, physical therapy assisted patient out of bed, and then the patient is very weak and could hardly stand with 2 person assistance. Mentation is appropriate, patient is awake and alert and oriented 3, answering questions appropriately, FiO2 is down to 3 L, her pulse ox is 92%, hemodynamically she is stable, she's been afebrile, she is recovering from Covid 19 related pneumonia with acute hypoxic respiratory failure requiring intubation and mechanical ventilation, patient was successfully extubated on 08/24/2019, tolerating extubation quite well. Stoddard catheter remains in place related to patient's impaired mobility and severe generalized weakness. We will monitor her strength and ability to be able to use bedside commode and would like to discontinue the Stoddard catheter. Vital signs have been stable, no acute events overnight, patient is tolerating oral diet, no nausea vomiting or diarrhea. Today's labs have been reviewed, CBC and BMP were done, no inflammatory markers were repeated today, but they were trending down on yesterday's labs. D-dimer however remains elevated at 16.9, patient is just on therapeutic doses of Lovenox, has been no recurrence of GI bleeding, hemoglobin today is 11.5 On 08/30/2019 patient seen in follow-up on a general medical floor, she is awake and alert, she is resting in bed, currently on 3 L of oxygen with a pulse ox of 90-92%, in no acute distress, breathing is comfortable, nonlabored. Patient has completed her treatment for Covid 19 related pneumonitis, she recovered well after requiring intubation and mechanical ventilation, she was successfully extubated 6 days ago. Continue weaning FiO2. She is participating with physical therapy, she still weak, she is being considered for discharge to subacute rehab as soon as a placement is available, today's labs have been reviewed, CBC is unremarkable, neutrophil count is 8.1, d-dimer 16.9, patient has been on therapeutic doses of Lovenox after developing a GI bleed on therapeutic doses of Lovenox, there has been no recurrence of bleeding, electrolytes and renal profile are unremarkable. Blood culture has shown no growth Objective - Vital Signs Vital signs: Vital Signs Temp 98.5 F 08/30/19 07:00 Pulse 102 H 08/30/19 07:00 Resp 18 08/30/19 07:00 BP 118/77 08/30/19 07:00 Pulse Ox 90 L 08/30/19 07:00 Intake & Output 08/29/19 08/30/19 08/30/19 18:59 06:59 18:59 Intake Total 500 Output Total 1000 1050 1600 Balance -500 -1050 -1600 Weight 136.1 kg Intake: Oral 500 Output: Urine 1000 1050 1600 Uretheral (Stoddard) 1000 Other: Voiding Method Indwelling Catheter Indwelling Catheter Indwelling Catheter # Bowel Movements 1 1 ABP, PAP, CO, CI - Last Documented Arterial Blood Pressure 134/66 - Exam GENERAL EXAM: Awake and alert, oriented 3, 58-year-old white female, on 3 L of oxygen with a pulse ox of 93% HEAD: Normocephalic/atraumatic. EYES: Normal reaction of pupils, equal size. Conjunctiva pink, sclera white. NOSE: Clear with pink turbinates. THROAT: No erythema or exudates. NECK: No masses, no JVD, no thyroid enlargement, no adenopathy. CHEST: No chest wall deformity. Symmetrical expansion. LUNGS: Equal air entry with no crackles, wheeze, rhonchi or dullness. CVS: Regular rate and rhythm, normal S1 and S2, no gallops, no murmurs, no rubs ABDOMEN: Soft, nontender. No hepatosplenomegaly, normal bowel sounds, no guarding or rigidity. EXTREMITIES: No clubbing, no edema, no cyanosis, 2+ pulses and upper and lower extremities. MUSCULOSKELETAL: Muscle strength and tone normal. SPINE: No scoliosis or deformity SKIN: No rashes CENTRAL NERVOUS SYSTEM: Awake and alert, oriented 3, No focal deficits, tone is normal in all 4 extremities. - Labs CBC & Chem 7: 08/29/19 07:36 08/29/19 07:36 Assessment and Plan Plan: Assessment: #1. Acute hypoxemic and hypercapnic respiratory failure secondary to COVID 19 related pneumonia, requiring intubation and mechanical ventilatory support. Patient was intubated on all 08/15/2019 and today on 08/23/2019 patient remains on mechanical ventilator support, however did tolerate pressure support trial yesterday, which will be attempted again today. Patient was successfully weaned and extubated on 08/24/2019 On 08/25/2019 patient is tolerating extubation well so far, she was extubated yesterday, she is currently on 6 L per high flow nasal cannula, her mentation is still somewhat lethargic, and confused. Today's chest x-ray shows improvement in aeration, and lung volumes, she's been afebrile, have been stable On 08/28/2019 patient seen in follow-up on general medical surgical floor, patient was successfully extubated on 08/24/2019, tolerating extubation quite well so far, FiO2 is down to 3 L, patient is making stable oxygenation. No shortness of breath or cough, no fever. Patient has recovered from COVID 19 pneumonia On 08/29/2019 patient is doing well, she is recovering from Covid 19 related pneumonia, she is on general medical surgical floor, he is on 3 L of oxygen, her pulse ox is 92%, she does however have severe generalized weakness, but was able to get up in the recliner with 2 person assist from physical therapy #2. Severe sepsis secondary to pneumonitis, improved #3. Elevated d-dimer, ferritin, LDH related to COVID 19 infection #4. History of gouty arthritis #5. History of mitral valve prolapse #6. History of dyslipidemia #7. History of uterine cancer #8. History of depression #9. History of GERD without esophagitis #11. Hematemesis, Lovenox has been placed on hold #12. Confusion, lethargy, likely related to metabolic encephalopathy/delirium, resolved Plan: Patient has remained stable in the last 24 hours, so far she has tolerated extubation quite well, she is status post extubation 6 days ago on 08/24/2019. Currently on 3 L of oxygen, no signs of any respiratory difficulty, vital signs have been stable, she's been afebrile, she is participating with physical therapy, she does have generalized weakness, and she is being considered for subacute rehab placement after discharge. From pulmonary perspective she is stable for discharge as soon as a bed is available. I performed a history & physical examination of the patient and discussed their management with my nurse practitioner, Shanna Castillo. I reviewed the nurse practitioner's note and agree with the documented findings and plan of care. Lung sounds are positive for diminished breath sounds. The findings and the impression was discussed with the patient. I attest to the documentation by the nurse practitioner. Time with Patient: Less than 30
[2019-08-30 13:02] VITALS: BP 126/78; PULSE 96; RESP 17; TEMP 98.4
== END 2019-08-30 13:55 | DRG 870 ==
LOC: EC 13:20 → 3SCARD 16:42 → 2SICU 23:51 → 4SSUR 08-27 13:11
PROVIDERS: ADMIT Internal Medicine; ATTEND Internal Medicine
PROC: 4A133B1 Monitoring of Arterial Pressure, Peripheral, Percutaneous Approach (ICD-10-PCS; principal; 2019-08-15)
PROC: 03HY32Z Insertion of Monitoring Device into Upper Artery, Percutaneous Approach (ICD-10-PCS; principal; 2019-08-15)
PROC: 06HM33Z Insertion of Infusion Device into Right Femoral Vein, Percutaneous Approach (ICD-10-PCS; principal; 2019-08-15)
PROC: 5A1955Z Respiratory Ventilation, Greater than 96 Consecutive Hours (ICD-10-PCS; principal; 2019-08-15)
PROC: 0D9670Z Drainage of Stomach with Drainage Device, Via Natural or Artificial Opening (ICD-10-PCS; principal; 2019-08-15)
PROC: 0BH17EZ Insertion of Endotracheal Airway into Trachea, Via Natural or Artificial Opening (ICD-10-PCS; principal; 2019-08-15)
PROC: 4A133J1 Monitoring of Arterial Pulse, Peripheral, Percutaneous Approach (ICD-10-PCS; principal; 2019-08-15)
PROC: 3E0G76Z Introduction of Nutritional Substance into Upper GI, Via Natural or Artificial Opening (ICD-10-PCS; 2019-08-16)
PROC: 02HV33Z Insertion of Infusion Device into Superior Vena Cava, Percutaneous Approach (ICD-10-PCS; 2019-08-23)
PROC: 03HY32Z Insertion of Monitoring Device into Upper Artery, Percutaneous Approach (ICD-10-PCS; 2019-08-23)
PROC: 4A133J1 Monitoring of Arterial Pulse, Peripheral, Percutaneous Approach (ICD-10-PCS; 2019-08-23)
PROC: 4A133B1 Monitoring of Arterial Pressure, Peripheral, Percutaneous Approach (ICD-10-PCS; 2019-08-23)
DX: A41.89 Other specified sepsis (principal); U07.1 COVID-19; J96.01 Acute respiratory failure with hypoxia; J96.02 Acute respiratory failure with hypercapnia; J12.89 Other viral pneumonia; G93.41 Metabolic encephalopathy; N17.9 Acute kidney failure, unspecified; K92.0 Hematemesis; D62 Acute posthemorrhagic anemia; Z68.42 Body mass index [BMI] 45.0-49.9, adult; E66.01 Morbid (severe) obesity due to excess calories; R65.20 Severe sepsis without septic shock; D72.810 Lymphocytopenia; F32.9 Major depressive disorder, single episode, unspecified; M79.7 Fibromyalgia; I34.1 Nonrheumatic mitral (valve) prolapse; E78.5 Hyperlipidemia, unspecified; K21.9 Gastro-esophageal reflux disease without esophagitis; M06.9 Rheumatoid arthritis, unspecified; M54.30 Sciatica, unspecified side; G89.29 Other chronic pain; M54.9 Dorsalgia, unspecified; M19.90 Unspecified osteoarthritis, unspecified site; K59.00 Constipation, unspecified; Z79.891 Long term (current) use of opiate analgesic; Z79.899 Other long term (current) drug therapy; Z71.3 Dietary counseling and surveillance; Z90.710 Acquired absence of both cervix and uterus; Z96.653 Presence of artificial knee joint, bilateral; Z87.891 Personal history of nicotine dependence; Z87.39 Personal history of other diseases of the musculoskeletal system and connective tissue; Z85.42 Personal history of malignant neoplasm of other parts of uterus; Z98.890 Other specified postprocedural states; Z98.42 Cataract extraction status, left eye; Z98.41 Cataract extraction status, right eye
CPT/HCPCS: 36415; 36600; 71045; 80048; 80053; 81003; 82550; 82728; 82805; 83520; 83605; 83615; 83625; 84132; 84145; 85025; 85379; 86140; 87040; 87502; 87635; 94002; 94003; 94640; 94760; 96360; 96361; 99285

== ENCOUNTER → 2020-02-09 | Outpatient (CLI) | payer OTHER ==
--- NOTE | 2020-02-09 12:49 | MR ---
EXAMINATION TYPE: MR shoulder LT wo con DATE OF EXAM: 02/09/2020 12:24 PM COMPARISON: NONE HISTORY: Pain/strain left shoulder TECHNIQUE: Multiplanar multispin echo imaging of the left shoulder was performed. FINDINGS: Rotator cuff : There is thickening and heterogeneity of the supraspinatus tendon compatible chronic t endinopathy. No evidence of partial or full-thickness tear. The subscapularis constituent of the rota tor cuff is intact. Bursa: No bursal effusion or thickening is seen. Musculature: There is no muscular tear, contusion, or atrophy. Acromioclavicular joint : Lateral downsloping of the acromion and subacromial spurring resulting in i mpingement. Moderate AC joint arthropathy. Osseous structures : There are no fractures or regions of abnormal bone marrow signal intensity. Long biceps tendon : The biceps tendon is normally situated within the bicipital groove. No complete or partial biceps tendon tear is present. Glenohumeral Joint fluid : There is no glenohumeral joint effusion. Cartilage and Bone : No focal hyaline cartilage defects are noted. No Hill-Sachs, reverse Hill-Sachs, or bony Bankart lesions are seen. Labrum : There are no SLAP or soft tissue Bankart lesions. No paralabral cysts are seen. OTHER FINDINGS : none IMPRESSION: 1. Chronic tendinopathy supraspinatus tendon secondary to lateral downsloping of the chromium and sub acromial spurring. No evidence for partial or full-thickness tear.
== END | disposition home or self-care (01) ==
LOC: RADMRIMAIN 11:43
PROVIDERS: ATTEND Orthopaedic Surgery Sports Medicine
DX: M77.8 Other enthesopathies, not elsewhere classified (principal); S46.012A Strain of muscle(s) and tendon(s) of the rotator cuff of left shoulder, initial encounter

== ENCOUNTER → 2020-03-22 | Outpatient (CLI) | payer OTHER ==
--- NOTE | 2020-04-02 10:07 | CT ---
EXAMINATION TYPE: CTA chest w con DATE OF EXAM: 04/02/2020 COMPARISON: 05/20/2018 HISTORY: Shortness of breath CT DLP: 566.70 mGycm Automated exposure control for dose reduction was used. CONTRAST: CTA scan of the chest is performed without and with IV Contrast, patient injected with 100 ml mL of Isovue 300. FINDINGS: LUNGS: Subpleural nodule right upper lobe millimeters is unchanged. Basilar linear atelectasis. No focal consolidation. No pulmonary mass. MEDIASTINUM: There are no greater than 1 cm hilar or mediastinal lymph nodes. No pericardial effusion is seen. Thoracic aorta is of normal caliber. The heart is not enlarged. Moderate fixed hiatal hernia. UPPER ABDOMEN: No significant abnormality appreciated. OTHER: No additional significant abnormality is seen. IMPRESSION: 1. Stable pulmonary nodularity. 2. Moderate fixed hiatal hernia. MTDD
== END | disposition home or self-care (01) ==
LOC: RADCTMAIN 11:58
PROVIDERS: ATTEND Internal Medicine
DX: Z53.9 Procedure and treatment not carried out, unspecified reason (principal)

== ENCOUNTER → 2020-04-17 | Outpatient (CLI) | payer OTHER ==
--- NOTE | 2020-04-17 08:05 | MR ---
EXAMINATION TYPE: MR brain wo/w con DATE OF EXAM: 04/17/2020 COMPARISON: NONE HISTORY: MS, memory loss TECHNIQUE: Multiplanar, multisequence images of the brain and brainstem is performed without and with IV contras t, utilizing 14.5 mL intravenous Gadavist gadolinium contrast is administered intravenously. Demyeli nating disease protocol with additional Sagittal Flair sequence performed. FINDINGS: T2 Lesions Present : Yes Approximate Number of Lesions: Approximately 20 small to tiny lesions Locations Identified : Scattered Size of Reference Lesion(s): 1. 5 x 5 x 4 mm on axial image 19 and sagittal image 8 posterior left superficial frontal lobe. Enhancing Lesion(s) Present: No Change from Prior: n/a Diffusion weighted images demonstrate no evidence of a recent infarct or other diffusion abnormality. There is no worrisome extra-axial fluid collection. The ventricular system and cisternal spaces ar e normal in size and appearance. The brain volume is age appropriate. Midline structures demonstrate normal morphology. The craniocervical junction appears within normal limits. Post contrast images demonstrate no abnormal enhancement. The dural venous sinuses appear pa tent. The visualized sinuses are clear and the globes are intact. IMPRESSION: Mild to borderline moderate nonspecific white matter changes. No enhancing lesions are ev ident.
== END | disposition home or self-care (01) ==
LOC: MERGE 06:00 → RADMRIMAIN 06:05
PROVIDERS: ATTEND Nurse Practitioner
DX: R90.82 White matter disease, unspecified (principal); G35 Multiple sclerosis
CPT/HCPCS: 70553; A9585

== ENCOUNTER → 2020-05-07 | Outpatient (CLI) | payer OTHER ==
[2020-05-08 00:46] LABS: C Reactive Protein <0.4 mg/dL (0.0-0.8)
== END | disposition home or self-care (01) ==
LOC: LABWHC1 09:14
PROVIDERS: ATTEND Nurse Practitioner
DX: M06.9 Rheumatoid arthritis, unspecified (principal); Z73.89 Other problems related to life management difficulty
CPT/HCPCS: 36415; 82306; 82607; 85652; 86140

== ENCOUNTER → 2020-09-04 | Outpatient (CLI) | payer OTHER ==
[2020-09-04 13:44] VITALS: BP 128/75; PULSE 74; RESP 16; TEMP 97.9
--- NOTE | 2020-09-04 13:51 | P.PN ---
Subjective Progress Note Date: 09/04/20 This is a follow-up visit for this 59 years old female with a chronic history of severe low back pain, she is diagnosed with lumbar degenerative disc disease and lumbar spondylosis with lumbar facet arthropathy, currently she is complaining of severe low back pain and, the pain is constant but can lessen the low back area is not agitated the lower extremity, she denies any numbness or tingling sensation, she denies any motor or sensory deficit she denies any fever or night sweats. There is no change in bowel movement or urination Objective - Vital Signs Vital signs: Vital Signs Temp 97.9 F 09/04/20 13:32 Pulse 74 09/04/20 13:32 Resp 16 09/04/20 13:32 BP 128/75 09/04/20 13:32 Pulse Ox 93 L 09/04/20 13:32 - Exam Physical Examinations : -Constitutiona : Cooperative , not in acute distress . -HEENT : nech : supple , no Lymphadenopathy , normal thyroid size . : eyes : no ptosis , no icterus, no photophobia . - neurologic : Cranial nerve II to XII intact , no focal neurological deffecit . -psychatric : alert , oriented X 3 , appropriate affect , intact judgment and insight . -Lymphatic : no Lymphadenopathy . - musculoskeltal : Lumber spine moter stegnth lower extremities ,thigh and legs 5/5 Right side , 5/5 Left side deep tendon reflexes : normal Knee Jerk , normal ankle Jerk lumber facet Loading Test =positive Right , positive Left Range of motion of the lumbar spine Flexion 30 degrees, extension 10 degrees strait leg raising test = negative bilaterally Fabere test= negative bilaterally tenderness over the Sacroiliac joint on the Right , and Left sides MRI of the lumbar spine= multilevel lumbar degenerative disc disease and multilevel lumbar spondylosis with facet arthropathy Assessment and Plan Plan: Assessment and plan=1-lumbar degenerative disc disease. 2-lumbar spondylosis and lumbar facet arthropathy without myelopathy. 3-morbid obesity. Patient will be good candidate for diagnostic medial branch block lumbar area at L3, L4, L5 ( for L4-5, and L5-S1 facet ) Advised patient about the importance of weight loss program - PQRS measures = - Patient's medications are documented in the chart. -Tobacco use is negative and counseling.Given. -Patient's has not received pneumococcal vaccine. -Advanced care planning discussed, patient not eligible. -Opiate contract not signed. -Pain positive and follow-up visit/procedure is scheduled. -Patient's blood pressure measured [ 128/75] , and documented in the record ,and patient will follow up with the primary care. -Patient's weight was measured and body mass index [ 55 ] above the normal limits and counseling was done. and patient instructed to follow-up with the primary care physician. -Patient was not identified as an unhealthy alcohol user Time with Patient: Less than 30
== END ==
LOC: PNWHC3 13:04
PROVIDERS: ATTEND Specialist
DX: M51.36 Other intervertebral disc degeneration, lumbar region (principal); M47.816 Spondylosis without myelopathy or radiculopathy, lumbar region; E66.01 Morbid (severe) obesity due to excess calories; Z68.43 Body mass index [BMI] 50.0-59.9, adult; Z87.891 Personal history of nicotine dependence
CPT/HCPCS: 99211

== ENCOUNTER 2020-09-27 07:21 | Day surgery (SDC) | payer OTHER ==
[2020-09-25 13:51] VITALS: BMI 55.5
[~2020-09-27 07:21] MED LIST changes: -IOPAMIDOL M200 10 ML VIAL ONE; +LACTATED RINGERS 1,000 ML IV SCH; -MIDAZOLAM 2 MG/2 ML VIAL ONE; -fentaNYL (PF) 50 MCG/ML 2 ML AMP ONE; -methylPREDNISolone ACETATE 40 MG/ML 1 ML VIAL ONE
[2020-09-27 07:44] VITALS: TEMP 97.8
[2020-09-27] MEDS ORDERED: MIDAZOLAM 2 MG/2 ML VIAL ONE (08:20)
[2020-09-27] MEDS ORDERED: ROPIVACAINE 5MG/ML 20ML VIAL ONE (08:20)
[2020-09-27] MEDS ORDERED: methylPREDNISolone ACETATE 40 MG/ML 1 ML VIAL ONE (08:20)
[2020-09-27] MEDS ORDERED: fentaNYL (PF) 50 MCG/ML 2 ML AMP ONE (08:20)
--- NOTE | 2020-09-27 08:43 | P.PCN ---
Date of Procedure: 09/27/20 Procedure(s) Performed: PREOPERATIVE DIAGNOSIS : 1- Lumbar spondylosis with Facet Arthropathy without myelopathy . 2- Lumber degenerative disc disease POSTOPERATIVE DIAGNOSIS: 1- Lumbar spondylosis with Facet Arthropathy without myelopathy . 2- Lumber degenerative disc disease PROCEDURE: Diagnostic bilateral L3 , L4 , and L5 medial branch block under fluoroscopy guidance(fluoroscopy images available in the radiology Department ) ( To target the facet joint between L4-5 , and L5-S1 ) ANESTHESIA: Monitored anesthesia care as per anesthesia department. EBL: Minimal COMPLICATION: None PROCEDURE INDICATION: Chronic low back pain secondary to Facet arthropathy unresponsive to conservative treatment. PROCEDURE DESCRIPTION: the patient was seen and identified in the preop holding area , risks and benefits and possible complications of the procedure and alternative were discussed with the patient, and the patient agreed to proceed with the procedure and signed the consent and vital signs monitored during the procedure and fluoroscopy was used to maximize the benefit and accuracy of the needle placement, and sedation was given to decrease patient anxiety, patient was taken to the procedure room and placed in prone position vital signs monitored in the back prepped with chlorhexidine X3 then under strict sterile technique using a right oblique fluoroscopy ,the junction of the transverse process and the superior articulating process of the right L3 , L4 , and L5 vertebra which corresponding to the fluoroscopy image of the eye of the Hernan dog on the block side for the medial branches and subsequently , after local infiltration of skin and subcu tissuies with Ropivacaine 0.5 % , one mL at each level ,then 22-gauge 5 inches long Quincke-type needles , 3 needle was used , each one of them placed at the junction of the base of the transverse process and the superior articular process at the appropriate level, and the needle was advanced until the periosteum contacted, needle placement confirmed with AP oblique and lateral view and after appropriate needle placement confirmed, and after negative aspiration for heme and CSF and there was no paresthesia 1-1/2 mL of Ropivacaine 0.5% mixed with 20 mg Depo-Medrol , then half mL injected at each level after negative aspiration the needle subsequently removed and the same procedure repeated for the left side at left side at L3 , L4 and L5 levels. At the end of the procedure and the needles removed and a bandage applied after the skin was cleaned the cleaning solution patient taken to recovery room in stable condition and monitors in the recovery room for 20-30 minutes and discharged home in stable condition after discharge criteria met and patient will follow up with the pain clinic in 2-4 weeks
[2020-09-27] MEDS ORDERED: IV FLUID CONTINUATION 1,000 ML IV ONE (08:54)
[2020-09-27 09:09] VITALS: BP 137/78; PULSE 78; RESP 18
--- NOTE | 2020-09-27 09:31 | FL ---
Fluoroscopy HISTORY: Pain 18 seconds fluoroscopy time supplied to the referring clinician. 5 intraoperative C-arm images docum ent the procedure. See dictated report from anesthesia.
== END 2020-09-27 09:17 | disposition home or self-care (01) ==
LOC: ORPAIN 07:21
PROVIDERS: ATTEND Specialist
DX: M47.817 Spondylosis without myelopathy or radiculopathy, lumbosacral region (principal); M47.816 Spondylosis without myelopathy or radiculopathy, lumbar region; M51.36 Other intervertebral disc degeneration, lumbar region; M54.5 Low back pain; G89.29 Other chronic pain; I10 Essential (primary) hypertension; M06.9 Rheumatoid arthritis, unspecified; K21.9 Gastro-esophageal reflux disease without esophagitis; Z79.899 Other long term (current) drug therapy; Z86.16 Personal history of COVID-19; I34.1 Nonrheumatic mitral (valve) prolapse
CPT/HCPCS: 64493; 64494; 64495; J2250; J1030; J3010; J2795

== ENCOUNTER 2020-10-11 06:09 | Day surgery (SDC) | payer OTHER ==
[2020-10-11 06:23] VITALS: RESP 16; TEMP 95.5
[2020-10-11] MEDS ORDERED: LACTATED RINGERS 1,000 ML IV ONE ×2 (06:28→07:18)
[2020-10-11] MEDS ORDERED: LIDOCAINE 1% (10MG/ML) FOR IV START INTRADERMA ONE (06:28)
[2020-10-11] MEDS ORDERED: fentaNYL (PF) 50 MCG/ML 2 ML AMP ONE (06:50)
[2020-10-11] MEDS ORDERED: MIDAZOLAM 2 MG/2 ML VIAL ONE (06:50)
[2020-10-11] MEDS ORDERED: ROPIVACAINE 5MG/ML 20ML VIAL ONE (06:52)
[2020-10-11] MEDS ORDERED: TRIAMCINOLONE ACETONIDE 40 MG/ML 1 ML VIAL ONE (06:52)
[2020-10-11] MEDS ORDERED: IOPAMIDOL M200 10 ML VIAL ONE (06:52)
--- NOTE | 2020-10-11 07:14 | P.PCN ---
Date of Procedure: 10/11/20 Description of Procedure: PREOPERATIVE DIAGNOSIS : 1- Lumbar spondylosis with Facet Arthropathy without myelopathy . 2- Lumber degenerative disc disease POSTOPERATIVE DIAGNOSIS: 1- Lumbar spondylosis with Facet Arthropathy without myelopathy . 2- Lumber degenerative disc disease PROCEDURE: Diagnostic bilateral L3 , L4 , and L5 medial branch block under fluoroscopy guidance(fluoroscopy images available in the radiology Department ) ( To target the facet joint between L4-5 , and L5-S1 ) #2 ANESTHESIA: Monitored anesthesia care as per anesthesia department. EBL: Minimal COMPLICATION: None PROCEDURE INDICATION: Chronic low back pain secondary to Facet arthropathy unresponsive to conservative treatment. PROCEDURE DESCRIPTION: the patient was seen and identified in the preop holding area , risks and benefits and possible complications of the procedure and alternative were discussed with the patient, and the patient agreed to proceed with the procedure and signed the consent and vital signs monitored during the procedure and fluoroscopy was used to maximize the benefit and accuracy of the needle placement, and sedation was given to decrease patient anxiety, patient was taken to the procedure room and placed in prone position vital signs monitored in the back prepped with chlorhexidine X3 then under strict sterile technique using a right oblique fluoroscopy ,the junction of the transverse process and the superior articulating process of the right L3 , L4 , and L5 vertebra which corresponding to the fluoroscopy image of the eye of the Hernan dog on the block side for the medial branches and subsequently , after local infiltration of skin and subcu tissuies with Ropivacaine 0.5 % , one mL at each level ,then 25-gauge 5 inches long Quincke-type needles , 3 needle was used , each one of them placed at the junction of the base of the transverse process and the superior articular process at the appropriate level, and the needle was advanced until the periosteum contacted, needle placement confirmed with AP oblique and lateral view and after appropriate needle placement confirmed, and after negative aspiration for heme and CSF and there was no paresthesia 1-1/2 mL of Ropivacaine 0.5% mixed with 20 mg Kenalog then half mL injected at each level after negative aspiration the needle subsequently removed and the same procedure repeated for the left side at left side at L3 , L4 and L5 levels. At the end of the procedure and the needles removed and a bandage applied after the skin was cleaned the cleaning solution patient taken to recovery room in stable condition and monitors in the recovery room for 20-30 minutes and discharged home in stable condition after discharge criteria met and patient will follow up with the pain clinic in 2-4 weeks
[2020-10-11] MEDS ORDERED: IV FLUID CONTINUATION 500 ML IV ONE (07:18)
[2020-10-11 07:38] VITALS: BP 109/63; PULSE 77
--- NOTE | 2020-10-11 08:23 | FL ---
Fluoroscopy HISTORY: Pain 7 seconds fluoroscopy time supplied to the referring clinician. 5 intraoperative C-arm images docume nt the procedure. See dictated report from anesthesia.
== END 2020-10-11 07:51 | disposition home or self-care (01) ==
LOC: ORPAIN 06:09
PROVIDERS: ATTEND Anesthesiology
DX: G89.29 Other chronic pain (principal); M47.816 Spondylosis without myelopathy or radiculopathy, lumbar region; R00.0 Tachycardia, unspecified; E78.5 Hyperlipidemia, unspecified; I34.1 Nonrheumatic mitral (valve) prolapse; R20.2 Paresthesia of skin; K21.9 Gastro-esophageal reflux disease without esophagitis
CPT/HCPCS: 64493; 64494; J2250; J3301; J3010; Q9966; J2795

== ENCOUNTER → 2020-10-14 | Outpatient (CLI) | payer OTHER ==
[2020-10-14 13:49] VITALS: BP 122/90; PULSE 78; RESP 18; TEMP 98.5; BMI 54.2
[2020-10-14 15:07] LABS: HCT 43.9 % (34.0-46.0); HGB 13.9 gm/dL (11.4-16.0); MCH 28.3 pg (25.0-35.0); MCHC 31.7 g/dL (31.0-37.0); MCV 89.4 fL (80.0-100.0); Mean Platelet Volume 7.1; Platelet Count 389 k/uL (150-450); RBC 4.91 m/uL (3.80-5.40); RDW 14.1 % (11.5-15.5); WBC 9.1 k/uL (3.8-10.6)
[2020-10-15 01:22] LABS: African American GFR (CKD) 48.2 (60.0-200.0); Albumin 4.4 g/dL (3.80-4.90); Albumin/Globulin Ratio 1.69 (1.60-3.17); Anion Gap 10.5 mmol/L (4.00-12.00); BUN/Creat Ratio 17.86 Ratio (12.00-20.00); Calcium 10.4 mg/dL (8.7-10.3); Carbon Dioxide 20.5 mmol/L (21.6-31.8); Globulin 2.6 g/dL (1.6-3.3); Non-African American GFR(CKD) 41.6 (60.0-200.0); Potassium 4.5 mmol/L (3.5-5.5); Total Bilirubin 0.4 mg/dL (0.2-1.2)
[2020-10-15 01:50] LABS: Folate, Serum 12.5 ng/mL
[2020-10-15 03:28] LABS: Hemoglobin A1C 5.8 % (4.0-6.0)
--- NOTE | 2020-10-22 12:42 | P.HPBAR ---
Bariatric H&P - History & Physicial H&P Date: 10/14/20 History & Physicial: Visit/CC: initial visit Patient initial contact: Initial weight: Initial weight in pounds: Height: 5 ft 6 in Initial BMI: Last weight: Current weight: 152.407 kg Current weight in pounds: 336.00 Current BMI: 54.2 [place] body weight (based on NIH guidelines): 58.967 kg Excess body weight loss: The patient is a 59 year-old F who presents for Bariatric Assessment. Assessment. She is interested sleep yesterday. Patient is morbidly obese. Her BMI is 54. Past Medical History Past Medical History: Cancer, Mitral Valve Prolapse (MVP), Musculoskeletal Disorder, Osteoarthritis (OA), Rheumatoid Arthritis (RA) Additional Past Medical History / Comment(s): PT HAD COVID 08/07/19-WAS HOSPITALIZED FOR ABOUT 2 WEEKS, THEN TO REHAB FOR 2 WEEKS-WAS ON A VENTILATOR. bulging disc w/sciatic pain going down both legs, hx. uterine cancer 2017, ?RA-one says yes, one has said no History of Any Multi-Drug Resistant Organisms: None Reported Past Surgical History: Hysterectomy, Joint Replacement, Tonsillectomy Additional Past Surgical History / Comment(s): rojelio knees replaced, cataracts removed, PAIN CLINIC PROCEDURES Past Anesthesia/Blood Transfusion Reactions: Postoperative Nausea & Vomiting (PONV) Past Psychological History: No Psychological Hx Reported Smoking Status: Former smoker Past Alcohol Use History: Rare Additional Past Alcohol Use History / Comment(s): quit smoking 16 yrs. ago, smoked <ppd for 20 yrs. Past Drug Use History: None Reported - Past Family History Mother Family Medical History: No Reported History Surgical - Exam Vital Signs Temp Pulse Resp BP 98.5 F 78 18 122/90 10/14/20 13:39 10/14/20 13:39 10/14/20 13:39 10/14/20 13:39 - General well developed, well nourished, no distress - Eyes PERRL - ENT normal pinna, normal nares - Neck no masses - Respiratory normal expansion - Cardiovascular Rhythm: regular - Abdomen Abdomen: soft, non tender Results - Labs 10/14/20 14:05 10/14/20 14:05 Bariatric Assessment & Plan Plan: Morbid obesity. Patient is an excellent understanding see gastric. She'll be undergoing EGD. She'll follow-up in one week after her EGD. Bariatric Checklist Checklist: Plan: Checklist: EGD: 1. Hiatal hernia: 2. H. Pylori: HgbA1c: Vitamin D: Smoking: Former smoker Primary care physician referral: Dr Jayece Cadet Psychiatry clearance: Cardiology clearance: Sleep study: Diet journal: VTE risk score: VTE risk level: Rehab needs at discharge:
== END ==
LOC: BARWHC3 13:21
PROVIDERS: ATTEND Surgery
DX: E66.01 Morbid (severe) obesity due to excess calories (principal); M19.90 Unspecified osteoarthritis, unspecified site; M06.9 Rheumatoid arthritis, unspecified; Z68.43 Body mass index [BMI] 50.0-59.9, adult; Z87.891 Personal history of nicotine dependence
CPT/HCPCS: 84425; 80053; 82607; 82746; 85027; 82306; 83036; 93005; 36415; G0463; 99203

== ENCOUNTER → 2020-11-04 | Outpatient (CLI) | payer OTHER ==
[2020-11-04 13:44] VITALS: BP 140/86; PULSE 77; RESP 18; TEMP 98.7
--- NOTE | 2020-11-07 15:50 | P.PN ---
Subjective Progress Note Date: 11/04/20 This is a follow-up visit for this 59 years old female, with a chronic history of severe low back pain, she is diagnosed with lumbar degenerative disc disease, and lumbar spondylosis with lumbar facet arthropathy, recently we did diagnostic medial branch blocks lumbar area L3 , L4 , L5 bilaterally , on 2 different occasions patient reported that she got 90% improvement of her low back pain after each block , VAS before the block was 7-8/10 dropped to 0-1/10 , the pain relief lasted for few days , he was able to do more activity during that time , and she got similar response after the second diagnostic medial branch block after the second block , currently she is complaining of severe low back pain and, the pain is constant but can lessen the low back area is not agitated the lower extremity, she denies any numbness or tingling sensation, she denies any motor or sensory deficit she denies any fever or night sweats. There is no change in bowel movement or urination Physical Examinations : -Constitutiona : Cooperative , not in acute distress . -HEENT : nech : supple , no Lymphadenopathy , normal thyroid size . : eyes : no ptosis , no icterus, no photophobia . - neurologic : Cranial nerve II to XII intact , no focal neurological deffecit . -psychatric : alert , oriented X 3 , appropriate affect , intact judgment and insight . -Lymphatic : no Lymphadenopathy . - musculoskeltal : Lumber spine moter stegnth lower extremities ,thigh and legs 5/5 Right side , 5/5 Left side deep tendon reflexes : normal Knee Jerk , normal ankle Jerk lumber facet Loading Test =positive Right , positive Left Range of motion of the lumbar spine Flexion 30 degrees, extension 10 degrees strait leg raising test = negative bilaterally Fabere test= negative bilaterally tenderness over the Sacroiliac joint on the Right , and Left sides MRI of the lumbar spine= multilevel lumbar degenerative disc disease and multilevel lumbar spondylosis with facet arthropathy Assessment and plan=1-lumbar degenerative disc disease. 2-lumbar spondylosis and lumbar facet arthropathy without myelopathy. 3-morbid obesity. Patient will be good candidate for RFA medial branch block lumbar area at L3, L4, L5 ( for L4-5, and L5-S1 facet ) Advised patient about the importance of weight loss program - PQRS measures = - Patient's medications are documented in the chart. -Tobacco use is negative and counseling.Given. -Patient's has not received pneumococcal vaccine. -Advanced care planning discussed, patient not eligible. -Opiate contract not signed. -Pain positive and follow-up visit/procedure is scheduled. -Patient's blood pressure measured [ 140/86] , and documented in the record ,and patient will follow up with the primary care. -Patient's weight was measured and body mass index [ 52.8 ] above the normal limits and counseling was done. and patient instructed to follow-up with the primary care physician. -Patient was not identified as an unhealthy alcohol user Objective - Vital Signs Vital signs: Vital Signs Temp 95.5 F L 10/11/20 06:20 Pulse 77 10/11/20 07:33 Resp 16 10/11/20 07:33 BP 109/63 10/11/20 07:33 Pulse Ox 99 10/11/20 07:33
== END | disposition home or self-care (01) ==
LOC: PNWHC3 13:18
PROVIDERS: ATTEND Specialist
DX: M51.36 Other intervertebral disc degeneration, lumbar region (principal); M47.816 Spondylosis without myelopathy or radiculopathy, lumbar region; M46.96 Unspecified inflammatory spondylopathy, lumbar region; E66.01 Morbid (severe) obesity due to excess calories; Z68.43 Body mass index [BMI] 50.0-59.9, adult
CPT/HCPCS: 99211

== ENCOUNTER 2020-11-29 09:20 | Day surgery (SDC) | payer OTHER ==
[2020-11-28 08:48] VITALS: BMI 52.4
[2020-11-29] MEDS ORDERED: LACTATED RINGERS 950 ML IV ONE (10:00)
[2020-11-29 10:03] VITALS: TEMP 96.8
[2020-11-29] MEDS ORDERED: ROPIVACAINE 5MG/ML 20ML VIAL ONE (10:03)
[2020-11-29] MEDS ORDERED: LIDOCAINE 1% INJ 10MG/ML (20 ML MDV) ONE (10:03)
[2020-11-29] MEDS ORDERED: MIDAZOLAM 2 MG/2 ML VIAL ONE (10:03)
[2020-11-29] MEDS ORDERED: fentaNYL (PF) 50 MCG/ML 2 ML AMP ONE (10:03)
[2020-11-29 10:05] LABS: Glucose,Whole Blood 100 mg/dL (75-99)
[2020-11-29] MEDS ORDERED: IV FLUID CONTINUATION 1,000 ML IV ONE (10:48)
[2020-11-29 10:54] VITALS: RESP 16
[2020-11-29 11:06] VITALS: BP 117/79; PULSE 76
--- NOTE | 2020-11-29 11:57 | FL ---
Fluoroscopy HISTORY: Pain 60 seconds fluoroscopy time supplied to the referring clinician. 6 intraoperative C-arm images docum ent the procedure. See dictated report from anesthesia.
--- NOTE | 2020-12-02 10:17 | P.PCN ---
Date of Procedure: 11/29/20 Description of Procedure: PREOPERATIVE DIAGNOSIS: Lumbar Spondylosis POSTOPERATIVE DIAGNOSIS: Same PROCEDURES: Radiofrequency ablation of the L3, L4, L5 medial branches with fluoroscopic guidance bilaterally SURGEON: Gabriele Ruiz MD. ANESTHESIA: Lidocaine 1% 5 mL, Monitored anesthesia care with anesthesia team EBL: Minimal Fluoroscopy was used for the procedure and images were saved in the radiology portion of the chart. PROCEDURE INDICATION: The patient with low back pain secondary to lumbar facet arthropathy who had more than 50% relief of pain with previous diagnostic lumbar medial branch block X2. PROCEDURE DESCRIPTION / TECHNIQUE: The patient was seen and identified in the preoperative area. Risks, benefits, complications, including but not limited to risk of infection ,bleeding , allergic reactions to the medications and incomplete pain relief , and alternatives were discussed with the patient, the patient agreed to proceed with the procedure and signed the consent. IV was started. The operative site was marked. Patient was taken to the OR and time out was completed. The patient was placed in the prone position on the procedure table. The lumbar area was prepped and draped in the usual sterile fashion. . Vital signs were closely monitored during the procedure .IV sedation was used during the procedure to decrease patients anxiety. Using AP and then oblique fluoroscopy, the "eye of the Hernan dog" corresponding to the connection between the superior and transverse articular processes of the [] L4 and L5 as well as the sacral ala were identified, marked, and localized with 1% lidocaine. Subsequently, an 18 guage 150-mm had a minimally radiofrequency cannula with a 10-mm active tip was advanced guided by fluoroscopy to the identified target at each site. Needle positioning was confirmed on AP, oblique and lateral fluoroscopy. Motor testing at 2.5 Hz was done with paraspinal muscle stimulation only, and no radicular symptoms down the legs. Then 1 mL 0.5% ropivacaine was injected in each site. Radiofrequency thermocoagulation at 80 degrees celsius for 90 seconds was then performed. [place] were removed. Sterile dressings were applied. COMPLICATIONS: No acute complications. DISPOSITION / PLANS: The patient was placed in a supine position and transferred to the recovery area in a stable condition for observation and was discharged from the recovery room after meeting discharge criteria. Home discharge instructions given to the patient by the staff. The patient will follow up in clinic in 4 weeks. She is in the pain and he and in mainly when he underwent
== END 2020-11-29 11:24 | disposition home or self-care (01) ==
LOC: ORPAIN 09:20
PROVIDERS: ATTEND Anesthesiology
DX: M47.816 Spondylosis without myelopathy or radiculopathy, lumbar region (principal); E78.5 Hyperlipidemia, unspecified; Z87.891 Personal history of nicotine dependence; E11.9 Type 2 diabetes mellitus without complications; M06.9 Rheumatoid arthritis, unspecified; M19.90 Unspecified osteoarthritis, unspecified site; F32.9 Major depressive disorder, single episode, unspecified; F41.9 Anxiety disorder, unspecified; K21.9 Gastro-esophageal reflux disease without esophagitis; Z79.84 Long term (current) use of oral hypoglycemic drugs; Z79.899 Other long term (current) drug therapy
CPT/HCPCS: 64635; 64636; J2250; J2001; J3010; J2795

== ENCOUNTER → 2020-12-30 | Outpatient (CLI) | payer OTHER ==
[2020-12-30 13:15] VITALS: BP 124/86; PULSE 73; TEMP 98.3
[2020-12-30 13:20] VITALS: RESP 18
--- NOTE | 2020-12-30 13:20 | P.PAINPG ---
Subjective Progress Note Date: 12/30/20 This is a follow-up visit for this 59 years old female, with a chronic history of severe low back pain, she is diagnosed with lumbar degenerative disc disease, and lumbar spondylosis with lumbar facet arthropathy, recently we RFA L3 , L4 , L5 bilaterally. Patient notes near 100% relief from recent procedure. She is very happy with her procedure overall. She does describe some mild muscle soreness but is eager to strengthen her low back muscles. She is also planning on getting bariatric surgery soon. Physical Examinations : -Constitutiona : Cooperative , not in acute distress . -HEENT : nech : supple , no Lymphadenopathy , normal thyroid size . : eyes : no ptosis , no icterus, no photophobia . - neurologic : Cranial nerve II to XII intact , no focal neurological deffecit . -psychatric : alert , oriented X 3 , appropriate affect , intact judgment and insight . -Lymphatic : no Lymphadenopathy . - musculoskeltal : Lumber spine moter stegnth lower extremities ,thigh and legs 5/5 Right side , 5/5 Left side deep tendon reflexes : normal Knee Jerk , normal ankle Jerk lumber facet Loading Test =negative Range of motion of the lumbar spine Flexion 30 degrees, extension 10 degrees strait leg raising test = negative bilaterally Fabere test= negative bilaterally no tenderness over the Sacroiliac joint on the Right , and Left sides mild TTP over lumbar spine MRI of the lumbar spine= multilevel lumbar degenerative disc disease and multilevel lumbar spondylosis with facet arthropathy Assessment and plan=1-lumbar degenerative disc disease. 2-lumbar spondylosis and lumbar facet arthropathy without myelopathy. 3-morbid obesity. She can follow-up as needed moving forward. I did give her a packet of low back exercises to work on her low back and core muscles. I have spent 24 minutes on patient care today. The time was used to review the medical records including relevant urine studies and prescription history, review of the available imaging, evaluation and examination of the patient, coordination of care with the medical staff and if applicable referring physicians, as well as creation of the medical record. - PQRS measures = - Patient's medications are documented in the chart. -Tobacco use is negative and counseling.Given. -Patient's has not received pneumococcal vaccine. -Advanced care planning discussed, patient not eligible. -Opiate contract not signed. -Pain positive and follow-up visit/procedure is scheduled. -Patient's blood pressure measured [ 140/86] , and documented in the record ,and patient will follow up with the primary care. -Patient's weight was measured and body mass index [ 52.8 ] above the normal limits and counseling was done. and patient instructed to follow-up with the primary care physician. -Patient was not identified as an unhealthy alcohol user PQRS Measure Charge Sheet PQRS Narrative: Smoking Status Former smoker Pain Intensity [Lower Back] 0 Scale Used Numeric (1 - 10) Hx Alcohol Use (MH) No Home Medications: Ambulatory Orders Atorvastatin [Lipitor] 20 mg PO HS 10/24/18 Pantoprazole [Protonix] 40 mg PO AC-BRKFST tablet. 08/30/19 Pregabalin [Lyrica] 200 mg PO TID #9 cap 08/30/19 Venlafaxine HCl ER [Effexor XR] 150 mg PO HS #3 cap.er.24h 08/30/19 Diclofenac Sodium [Voltaren] 75 mg PO BID 09/02/20 Metoprolol Tartrate [Lopressor] 25 mg PO HS 09/02/20 Metoprolol Tartrate [Lopressor] 50 mg PO DAILY 09/02/20 buPROPion XL [Wellbutrin Xl] 150 mg PO DAILY 09/02/20 Biotin 10,000 mcg PO DAILY 11/01/20 Cholecalciferol [Vitamin D3 (25 Mcg = 1000 Iu)] 50 mcg PO DAILY 11/01/20 Liraglutide [Saxenda] 1.5 mg SQ DAILY 12/10/20 Omeprazole 20 mg PO BID 12/10/20 Controlled Substance Measures - Controlled Substance Measures Is patient prescribed a controlled substance at discharge?: No
== END | disposition home or self-care (01) ==
LOC: PNWHC3 13:03
PROVIDERS: ATTEND Anesthesiology
DX: M47.896 Other spondylosis, lumbar region (principal); M51.36 Other intervertebral disc degeneration, lumbar region; E66.01 Morbid (severe) obesity due to excess calories
CPT/HCPCS: 99211

== ENCOUNTER 2021-02-03 09:54 | Day surgery (SDC) | payer OTHER ==
[2021-01-30 15:39] VITALS: BMI 51.3
[~2021-02-03 09:54] MED LIST changes: +LIDOCAINE 1% (10MG/ML) FOR IV START INTRADERMA PRN
[2021-02-03 10:40] VITALS: TEMP 96.9
[2021-02-03 10:49] LABS: Glucose,Whole Blood 97 mg/dL (75-99)
[2021-02-03] MEDS ORDERED: PROPOFOL 10 MG/ML 20 ML VIAL IV ONE (11:52)
[2021-02-03] MEDS ORDERED: LIDOCAINE 1% INJ 10MG/ML (20 ML MDV) ONE (11:52)
--- NOTE | 2021-02-03 11:54 | P.GSHP ---
History of Present Illness H&P Date: 02/03/21 Chief Complaint: Morbid obesity, GERD [id number] female with a safer EGD. Patient is undergoing workup for sleeve gastrectomy. She's had issues with GERD. She is obese. Her BMI is 52. Past Medical History Past Medical History: Cancer, Fibromyalgia, GERD/Reflux, Mitral Valve Prolapse (MVP), Musculoskeletal Disorder, Osteoarthritis (OA), Rheumatoid Arthritis (RA) Additional Past Medical History / Comment(s): PT HAD COVID 08/07/19-WAS HOSPITALIZED FOR ABOUT 2 WEEKS, THEN TO REHAB FOR 2 WEEKS-WAS ON A VENTILATOR. bulging disc w/sciatic pain going down both legs, hx. uterine cancer 2017, ?RA-one says yes, one has said no, takes saxzenda for weight loss, not diabetes History of Any Multi-Drug Resistant Organisms: None Reported Past Surgical History: Hysterectomy, Joint Replacement, Tonsillectomy Additional Past Surgical History / Comment(s): rojelio knees replaced, cataracts removed, PAIN CLINIC PROCEDURES Past Anesthesia/Blood Transfusion Reactions: Postoperative Nausea & Vomiting (PONV) Additional Past Anesthesia/Blood Transfusion Reaction / Comment(s): PONV w/ general anesthesia Smoking Status: Former smoker - Past Family History Mother Family Medical History: No Reported History Medications and Allergies Home Medications Medication Instructions Recorded Confirmed Type Atorvastatin [Lipitor] 20 mg PO HS 10/24/18 02/03/21 History Pantoprazole [Protonix] 40 mg PO AC-BRKFST tablet. 08/30/19 02/03/21 Rx Pregabalin [Lyrica] 200 mg PO TID #9 cap 08/30/19 02/03/21 Rx Venlafaxine HCl ER [Effexor XR] 150 mg PO HS #3 cap.er.24h 08/30/19 02/03/21 Rx Diclofenac Sodium [Voltaren] 75 mg PO BID 09/02/20 02/03/21 History Metoprolol Tartrate [Lopressor] 25 mg PO HS 09/02/20 02/03/21 History Metoprolol Tartrate [Lopressor] 50 mg PO DAILY 09/02/20 02/03/21 History buPROPion XL [Wellbutrin Xl] 150 mg PO DAILY 09/02/20 02/03/21 History Biotin 10,000 mcg PO DAILY 11/01/20 02/03/21 History Cholecalciferol [Vitamin D3 (25 50 mcg PO DAILY 11/01/20 02/03/21 History Mcg = 1000 Iu)] Liraglutide [Saxenda] 1.5 mg SQ DAILY 12/10/20 02/03/21 History Omeprazole 20 mg PO BID 12/10/20 02/03/21 History Allergies Allergy/AdvReac Type Severity Reaction Status Date / Time No Known Allergies Allergy Verified 02/03/21 10:34 Surgical - Exam Vital Signs Temp Pulse Resp BP Pulse Ox 96.9 F L 84 20 148/82 94 L 02/03/21 10:38 02/03/21 10:38 02/03/21 10:38 02/03/21 10:38 02/03/21 10:38 - General well developed, well nourished, no distress - Eyes PERRL - ENT normal pinna - Neck no masses - Respiratory normal expansion - Cardiovascular Rhythm: regular - Abdomen Abdomen: soft, non tender Assessment and Plan Assessment: . Morbid obesity, BMI 52 we'll perform EGD.
--- NOTE | 2021-02-03 12:05 | P.OP ---
Date of Procedure: 02/03/21 Preoperative Diagnosis: GERD Morbid obesity Postoperative Diagnosis: Hiatal hernia Antral gastritis Procedure(s) Performed: EGD Anesthesia: MAC Surgeon: Lazaro Russell Pathology: other (Antrum) Condition: stable Disposition: PACU Description of Procedure: Patient's placed on the endoscopy table in the lateral position. She received IV sedation. The gastroscope oropharynx passed in the esophagus into the stomach. Scope was placed through the pylorus. The first and second portion of duodenum appeared normal. Scope was brought back the antrum and the this was minimal inflamed. A biopsies performed. Scope retroflexed remainder of the stomach appeared normal. There was a moderate size hiatal hernia. The GE junction was at 38 cm the distal esophagus. Over the proximal esophagus appeared normal. Scope withdrawn the patient.
[2021-02-03 12:09] VITALS: RESP 16
[2021-02-03 12:26] VITALS: BP 122/86; PULSE 80
== END 2021-02-03 12:40 | disposition home or self-care (01) ==
LOC: ORWHC2ENDO 09:54
PROVIDERS: ATTEND Surgery
DX: K29.70 Gastritis, unspecified, without bleeding (principal); K21.9 Gastro-esophageal reflux disease without esophagitis; I34.1 Nonrheumatic mitral (valve) prolapse; K29.50 Unspecified chronic gastritis without bleeding; K44.9 Diaphragmatic hernia without obstruction or gangrene; M06.9 Rheumatoid arthritis, unspecified; M79.7 Fibromyalgia; E66.01 Morbid (severe) obesity due to excess calories; Z68.43 Body mass index [BMI] 50.0-59.9, adult; Z79.1 Long term (current) use of non-steroidal anti-inflammatories (NSAID); Z79.899 Other long term (current) drug therapy; Z85.42 Personal history of malignant neoplasm of other parts of uterus; Z87.891 Personal history of nicotine dependence
CPT/HCPCS: 43239; 88305; J2001; J2704

== ENCOUNTER → 2021-02-17 | Outpatient (CLI) | payer OTHER ==
[2021-02-17 13:08] VITALS: BP 112/79; PULSE 90; RESP 16; TEMP 98.1; BMI 51.0
--- NOTE | 2021-02-24 17:01 | P.HPBAR ---
Bariatric H&P - History & Physicial H&P Date: 02/17/21 History & Physicial: Visit/CC: Working on Criteria Patient initial contact: Initial weight: 152.407 kg Initial weight in pounds: 336.00 Height: 5 ft 6 in Initial BMI: 54.2 Last weight: Current weight: 143.335 kg Current weight in pounds: 316.00 Current BMI: 51.0 [place] body weight (based on NIH guidelines): 58.967 kg Excess body weight loss: 9.7% The patient is a 60 year-old F who presents for Bariatric Assessment. Patient presents today for presurgical consultation. She is morbidly obese. Her BMI is 51. She is interested in sleeve gastrectomy. She has excellent understanding significant history. We went over the risks and benefits of procedure. Past Medical History Past Medical History: Cancer, Fibromyalgia, GERD/Reflux, Mitral Valve Prolapse (MVP), Musculoskeletal Disorder, Osteoarthritis (OA), Rheumatoid Arthritis (RA) Additional Past Medical History / Comment(s): PT HAD COVID 08/07/19-WAS HOSPITALIZED FOR ABOUT 2 WEEKS, THEN TO REHAB FOR 2 WEEKS-WAS ON A VENTILATOR. bulging disc w/sciatic pain going down both legs, hx. uterine cancer 2017, ?RA-one says yes, one has said no, takes saxzenda for weight loss, not diabetes History of Any Multi-Drug Resistant Organisms: None Reported Past Surgical History: Hysterectomy, Joint Replacement, Tonsillectomy Additional Past Surgical History / Comment(s): rojelio knees replaced, cataracts removed, PAIN CLINIC PROCEDURES Past Anesthesia/Blood Transfusion Reactions: Postoperative Nausea & Vomiting (PONV) Additional Past Anesthesia/Blood Transfusion Reaction / Comm: PONV w/ general anesthesia Past Psychological History: No Psychological Hx Reported Smoking Status: Former smoker Past Alcohol Use History: Rare Additional Past Alcohol Use History / Comment(s): quit smoking 16 yrs. ago, smoked <ppd for 20 yrs. Past Drug Use History: None Reported - Past Family History Mother Family Medical History: No Reported History Surgical - Exam Vital Signs Temp Pulse Resp BP 98.1 F 90 16 112/79 02/17/21 13:06 02/17/21 13:06 02/17/21 13:06 02/17/21 13:06 - General well developed, well nourished, no distress - Eyes PERRL - ENT normal pinna - Neck no masses - Respiratory normal expansion - Cardiovascular Rhythm: regular - Abdomen Abdomen: soft, non tender Bariatric Assessment & Plan Plan: Morbid obesity, BMI 51. Patient will be scheduled for EGD. She has an excellent understanding of sleeve gastrectomy. Bariatric Checklist Checklist: Plan: Checklist: EGD: 1. Hiatal hernia: 2. H. Pylori: HgbA1c: Vitamin D: Smoking: Former smoker Primary care physician referral: Dr Jaycee Cadet Psychiatry clearance: Cardiology clearance: Sleep study: Diet journal: VTE risk score: VTE risk level: Rehab needs at discharge:
== END | disposition home or self-care (01) ==
LOC: BARWHC3 12:55
PROVIDERS: ATTEND Surgery
DX: E66.01 Morbid (severe) obesity due to excess calories (principal); Z68.43 Body mass index [BMI] 50.0-59.9, adult
CPT/HCPCS: 99211

== ENCOUNTER → 2021-02-24 | Outpatient (CLI) | payer OTHER ==
[2021-02-24 15:20] VITALS: BMI 50.8
== END | disposition home or self-care (01) ==
LOC: BARWHC3 08:26
PROVIDERS: ATTEND Surgery
DX: E66.01 Morbid (severe) obesity due to excess calories (principal); Z71.3 Dietary counseling and surveillance
CPT/HCPCS: 97804

== ENCOUNTER → 2021-04-17 | Outpatient (CLI) | payer OTHER ==
[2021-04-17 14:26] LABS: Basophils % (A) 0 %; Eosinophils # (A) 0.1 k/uL (0-0.7); Eosinophils % (A) 1 %; HCT 44.6 % (34.0-46.0); Lymphocytes # (A) 1.6 k/uL (1.0-4.8); Lymphocytes % (A) 28 %; MCH 29.3 pg (25.0-35.0); MCHC 31.5 g/dL (31.0-37.0); Mean Platelet Volume 8.5; Monocytes # (A) 0.3 k/uL (0-1.0); Monocytes % (A) 5 %; Neutrophils # (A) 3.6 k/uL (1.3-7.7); Neutrophils % (A) 64 %; Platelet Count 304 k/uL (150-450); RBC 4.79 m/uL (3.80-5.40); RDW 14.8 % (11.5-15.5); WBC 5.7 k/uL (3.8-10.6)
[2021-04-17 14:34] LABS: Albumin 4.3 g/dL (3.5-5.0); Calcium 10.2 mg/dL (8.4-10.2); Potassium 4.3 mmol/L (3.5-5.1); Total Bilirubin 0.6 mg/dL (0.2-1.3); Total Protein 7.3 g/dL (6.3-8.2)
== END | disposition home or self-care (01) ==
LOC: LABPAT 12:39
PROVIDERS: ATTEND Surgery
DX: Z01.812 Encounter for preprocedural laboratory examination (principal)
CPT/HCPCS: 36415; 80053; 85025

== ENCOUNTER 2021-04-21 06:44 | Inpatient (IN) | payer OTHER ==
[~2021-04-21 06:44] MED LIST changes: +DEXAMETHASONE SOD PHOSPHATE 4 MG/ML 1 ML VIAL IV ONE; +ENOXAPARIN 40 MG/0.4 ML SYRINGE SQ PRN; -LACTATED RINGERS 1,000 ML IV SCH; +MIDAZOLAM 2 MG/2 ML VIAL IV PRN; +ONDANSETRON 4 MG/2 ML VIAL IVP ONE; +ceFAZolin 3 GM in SODIUM CHLORIDE 0.9% 100 ML IVPB PRN
--- NOTE | 2021-04-21 07:44 | P.GSHP ---
History of Present Illness H&P Date: 04/21/21 Chief Complaint: Morbid obesity, BMI 49 This a 60-year-old female who presents today for laparoscopic sleeve gastrectomy. Patient has lifetime problems obesity. Her BMI is 50. Patient is an excellent understanding of sleeve gastrectomy. The Risks of Surgery Including Possible Gastric Leak Obstruction Perforation Past Medical History Past Medical History: Cancer, Fibromyalgia, GERD/Reflux, Hyperlipidemia, Mitral Valve Prolapse (MVP), Musculoskeletal Disorder, Osteoarthritis (OA), Renal Disease, Rheumatoid Arthritis (RA) Additional Past Medical History / Comment(s): Hx Covid 08/07/19, hospitalized 2 wks, on vent, then Rehab 2 wks. Bulging disc w/ hx sciatic pain. hx uterine cancer 2018. ?RA-one says yes, one has said no. Was on saxzenda for weight loss, not diabetes. Kidney disease stage 3. Varicose veins. History of Any Multi-Drug Resistant Organisms: None Reported Past Surgical History: Hysterectomy, Joint Replacement, Tonsillectomy Additional Past Surgical History / Comment(s): rojelio knees replaced, cataracts removed, Pain clinic proc. Colonoscopy, EGD. Past Anesthesia/Blood Transfusion Reactions: Postoperative Nausea & Vomiting (PONV) Additional Past Anesthesia/Blood Transfusion Reaction / Comment(s): PONV w/ general anesthesia Smoking Status: Former smoker - Past Family History Mother Family Medical History: No Reported History Sister(s) Family Medical History: Cancer Additional Family Medical History / Comment(s): 1 with stomach cancer, 1 with skin cancer, 1 with cervical cancer Medications and Allergies Home Medications Medication Instructions Recorded Confirmed Type Atorvastatin [Lipitor] 20 mg PO HS 10/24/18 04/16/21 History Pantoprazole [Protonix] 40 mg PO AC-BRKFST tablet. 08/30/19 04/16/21 Rx Pregabalin [Lyrica] 200 mg PO TID #9 cap 08/30/19 04/16/21 Rx Venlafaxine HCl ER [Effexor XR] 150 mg PO HS #3 cap.er.24h 08/30/19 04/16/21 Rx Diclofenac Sodium [Voltaren] 75 mg PO DAILY 09/02/20 04/16/21 History Metoprolol Tartrate [Lopressor] 25 mg PO HS 09/02/20 04/16/21 History Metoprolol Tartrate [Lopressor] 50 mg PO DAILY 09/02/20 04/16/21 History buPROPion XL [Wellbutrin Xl] 150 mg PO DAILY 09/02/20 04/16/21 History Biotin 10,000 mcg PO DAILY 11/01/20 04/16/21 History Cholecalciferol [Vitamin D3 (25 50 mcg PO DAILY 11/01/20 04/16/21 History Mcg = 1000 Iu)] Liraglutide [Saxenda] 1.5 mg SQ DAILY 12/10/20 04/16/21 History Omeprazole 20 mg PO DAILY@1400,2100 12/10/20 04/16/21 History ALPRAZolam [Xanax] 0.25 mg PO DAILY PRN 04/16/21 04/16/21 History Fluticasone Propionate 110 Mcg 1 puff INHALATION BID PRN 04/16/21 04/16/21 History [Flovent 110 Mcg Inhaler (Mhu)] Allergies Allergy/AdvReac Type Severity Reaction Status Date / Time No Known Allergies Allergy Verified 04/16/21 15:49 Surgical - Exam - General well developed, well nourished, no distress - Eyes PERRL - ENT normal pinna - Neck no masses - Respiratory normal expansion - Cardiovascular Rhythm: regular - Abdomen Abdomen: soft, non tender Assessment and Plan Assessment: Morbid obesity. Patient will undergo sleeve gastrectomy today.
[2021-04-21] MEDS ORDERED: SCOPOLAMINE 1.5MG/72HR PATCH TRANSDERM ONE (07:57)
[2021-04-21] MEDS: LACTATED RINGERS 1,000 ML IV SCH (08:00)
[2021-04-21] MEDS ORDERED: .fentaNYL (PF) 50 MCG/ML 2 ML AMP ONE (08:15)
[2021-04-21] MEDS ORDERED: NEOSTIGMINE 1 MG/ML 10 ML VIAL ONE (08:15)
[2021-04-21] MEDS ORDERED: MIDAZOLAM 2 MG/2 ML VIAL ONE (08:15)
[2021-04-21] MEDS ORDERED: SUCCINYLCHOLINE CHLORIDE 100 MG/5 ML SYR IV ONE (08:15)
[2021-04-21] MEDS ORDERED: PHENYLEPHRINE-0.9% NACL SYG 1,000 MCG/10 ML SYRINGE ONE (08:15)
[2021-04-21] MEDS ORDERED: PROPOFOL 10 MG/ML 20 ML VIAL IV ONE (08:15)
[2021-04-21] MEDS ORDERED: ePHEDrine 50 MG/ML 1 ML AMP ONE (08:15)
[2021-04-21] MEDS ORDERED: HYDROmorphone (PF) 1 MG/ML ONE (08:15)
[2021-04-21] MEDS ORDERED: GLYCOPYRROLATE 0.2 MG/ML 2 ML VIAL ONE (08:15)
[2021-04-21] MEDS ORDERED: WATER FOR INJECTION, STERILE 10 ML VIAL IV ONE (08:15)
[2021-04-21] MEDS ORDERED: LIDOCAINE 1% INJ 10MG/ML (20 ML MDV) ONE (08:15)
[2021-04-21] MEDS ORDERED: ROCURONIUM 10 MG/ML (5 ML VIAL) IV ONE (08:15)
[2021-04-21] MEDS ORDERED: BUPIVACAIN-EPI 0.25%-1:200,000 30 ML VIAL SQ ONE (08:56)
[2021-04-21] MEDS ORDERED: LACTATED RINGERS 1,000 ML IV ONE ×2 (09:25→13:20)
[2021-04-21] MEDS ORDERED: diphenhydrAMINE 50 MG/ML 1 ML VIAL IVP PRN (09:53)
[2021-04-21] MEDS ORDERED: ONDANSETRON 4 MG/2 ML VIAL IVP PRN (09:53)
[2021-04-21] MEDS ORDERED: HYDROcodone/APAP 15 ML SOLUTION PO PRN (09:53)
[2021-04-21] MEDS ORDERED: HYOSCYAMINE ORAL DROPS 1.875 MG/15 ML BOTTLE PO PRN (09:53)
[2021-04-21] MEDS ORDERED: HYDROmorphone 1 MG/ML 1 ML SYRINGE IVP PRN (09:53)
[2021-04-21] MEDS ORDERED: NALOXONE 0.4 MG/ML 1 ML VIAL IV PRN (09:53)
--- NOTE | 2021-04-21 09:53 | P.OP ---
Date of Procedure: 04/21/21 Preoperative Diagnosis: Morbid obesity, BMI 48 Postoperative Diagnosis: Morbid obesity, BMI 48 Hiatal hernia Procedure(s) Performed: Laparoscopic sleeve gastrectomy Laparoscopic repair of paraesophageal hiatal hernia Anesthesia: JEAN-PAUL Surgeon: Lazaro Russell Estimated Blood Loss (ml): 25 Pathology: other (Stomach) Condition: stable Disposition: PACU Description of Procedure: The patient was placed on the operating room table in the supine position. She received general anesthesia and then was placed in dorsal lithotomy position. Her abdomen was prepped and draped in sterile fashion. The skin incision sites were anesthetized 1% local Xylocaine. And then the skin was incised with an 11 blade in the left lateral position. Using a blade less trocar under direct visualization the peritoneal cavity was entered. The abdomen was insufflated and then a 5 mm laparoscope was placed into the peritoneal cavity. A 5 mm trocar was placed in the right epigastric, and right lateral position. A 15 mm trocar was placed in the supra-umbilical position and another 5 mm trocar was placed in the left lateral position. The left lateral lobe of the liver was retracted. The patient had a moderate large hiatal hernia. The hernia sac was dissected free in a 360 fashion around the crura. Stomach was then reduced into the perineal cavity. The crural defect was then closed with 2-0 Ethibond suture. A 40-Beninese dilator had been placed into the esophagus. The crural repair was very loose around the dilator to approximately the size of a 58-Beninese dilator. The stomach was visualized. The greater curvature of the stomach was then dissected using the Harmonic scissors. The dissection occurred approximately 5 cm from the pylorus to the level of the left christ. There was no hiatal hernia seen. At this point a 40-Beninese bougie dilator was placed the oropharynx and passed into the esophagus and into the stomach by the LOGISTICS RESEARCH ENGINEER. The sleeve gastrectomy was performed by using the powered echelon stapler with a seam guard buttress material. Sequential firings of the stapler were performed. The gastric remnant was then brought out through the 15 mm trocar site. The dilator was withdrawn. And a orogastric tube was replaced into the stomach. The stomach was insufflated with 200 mL of methylene blue normal saline. There was no evidence of extravasation. The abdomen was irrigated there is no bleeding seen. The Tom-Urban device was used to close the 15 mm trocar with 0 Vicryl. Skin was closed with interrupted 3-0 Monocryl sutures once the trochars withdrawn. Dermabond dressing was applied. Patient was sent to recovery in s table condition.
[2021-04-21] MEDS ORDERED: ONDANSETRON 4 MG/2 ML VIAL IVP ONE (10:38)
[2021-04-21] MEDS: HYDROmorphone 0.5 MG/0.5 ML SYRINGE IVP PRN ×4 (10:39→15:30)
[2021-04-21] MEDS ORDERED: KETOROLAC 15 MG/ML 1 ML VIAL IVP ONE (10:58)
[2021-04-21] MEDS: SIMETHICONE 40 MG/0.6 ML DROPS 2,000 MG/30 ML BOTTLE PO PRN ×2 (12:53→19:38)
[2021-04-21] MEDS ORDERED: ACETAMINOPHEN IV (For NPO) 1,000 MG/100 ML VIAL IVPB ONE (15:32)
[2021-04-21] MEDS: KETOROLAC 30 MG/ML 1 ML VIAL IVP SCH ×2 (17:49→23:42)
[2021-04-21] MEDS: 0.9% NACL WITH KCL 20 MEQ/L 1,000 ML IV SCH ×2 (17:50→23:42)
--- NOTE | 2021-04-21 18:19 | CONS ---
CONSULTATION DATE OF SERVICE: 04/21/2021 REASON FOR CONSULTATION: Advice regarding hypertension and multiple medical problems, requested by Dr. Russell. HISTORY OF PRESENT ILLNESS: This 60-year-old woman with a past medical history of fibromyalgia, GERD, hyperlipidemia, history of mitral valve prolapse, underwent laparoscopic sleeve gastrectomy and laparoscopic repair of paraesophageal hiatal hernia by Dr. Russell for morbid obesity. There is no history of any fever, rigors or chills. No history of chest pain, palpitations, headache, loss of consciousness, seizures at this time. The patient is complaining of some shoulder pain postsurgically, as expected. PAST MEDICAL HISTORY: History of fibromyalgia, GERD, hypertension, history of mitral valve prolapse, history of DJD, history of renal disease, history of rheumatoid arthritis. HOME MEDICATIONS: Reviewed. They include Wellbutrin, Effexor, Lyrica, Protonix, omeprazole, Lopressor, and Voltaren, biotin, Lipitor, Xanax. Doses are reviewed. ALLERGIES: NONE. FAMILY HISTORY: History of stomach cancer, skin cancer and cervical cancer. SOCIAL HISTORY: Previous history of smoking. Occasional alcohol intake. REVIEW OF SYSTEMS: ENT: No diminished hearing. No diminished vision. CARDIOVASCULAR SYSTEM: No angina, palpitations. RESPIRATORY SYSTEM: As mentioned earlier. GI: As mentioned earlier. : No dysuria. NERVOUS SYSTEM: No numbness, weakness. ALLERGY/IMMUNOLOGY: No asthma or hay fever. MUSCULOSKELETAL: As mentioned earlier. HEMATOLOGY/ONCOLOGY: No history of anemia. ENDOCRINE: No history of diabetes or hypothyroidism. CONSTITUTIONAL: As mentioned earlier. DERMATOLOGY: Negative. RHEUMATOLOGY: Negative. PSYCHIATRY: As mentioned earlier. PHYSICAL EXAMINATION: Patient is alert, oriented x3. The pulse is 92, blood pressure 126/59, respiration 16, temperature normal, pulse ox 84% on room air, improved to 96% on 3 L. HEENT: Conjunctivae normal. NECK: No jugular venous distention. CARDIOVASCULAR: S1, S2 muffled. RESPIRATION: Breath sounds diminished at the bases. Scattered rhonchi. ABDOMEN: Soft, obese. Status post surgery. LEGS: No edema. No swelling. NERVOUS SYSTEM: Higher functions as mentioned earlier. Moves all 4 limbs. No focal motor or sensory deficit. LYMPHATICS: No lymph node palpable in neck, axillae or groin. SKIN: No ulcer, rash, bleeding. JOINTS: No active deforming arthropathy. LABS: Preoperative labs, CBC normal. Creatinine was 1.2. Preoperative labs are reviewed. ASSESSMENT: 1. Status post laparoscopic sleeve gastrectomy and laparoscopic repair of paraesophageal hiatal hernia. 2. Hypertension. 3. Possible chronic kidney disease, stage 2. 4. History of fibromyalgia. 5. Gastroesophageal reflux disease. 6. Mitral valve prolapse. 7. History of degenerative joint disease. 8. History of rheumatoid arthritis. 9. History of COVID in 2019. 10.History of degenerative joint disease. 11.History of hysterectomy. 12.History of anxiety, depression. 13.History of nicotine dependence. 14.Obesity with body mass index 48. RECOMMENDATIONS AND DISCUSSION: In this 60-year-old woman who presented with multiple complex medical issues, at this time I recommend continue with current medications. Resume the home medications when the patient is p.o. Monitor blood sugars closely. Incentive spirometry. DVT prophylaxis. Monitor fluid/electrolyte balance closely and repeat labs may be ordered for tomorrow. Will follow the patient closely with you. The patient may be asked to follow with her primary closely after discharge. Thank you, Dr. Russell, for letting us participate in the care of this patient. MMODL / IJN: [id number] /
[2021-04-21] MEDS ORDERED: ALPRAZolam 0.25 MG TAB PO PRN (18:55)
[2021-04-21] MEDS ORDERED: FLUTICASONE 110 MCG INHALER INHALATION PRN (18:55)
[2021-04-21] MEDS: ALBUTEROL NEBULIZED 2.5 MG/3 ML INHALATION SCH ×2 (19:23→19:24)
[2021-04-21] MEDS ORDERED: ENOXAPARIN 40 MG/0.4 ML SYRINGE SQ SCH (20:00)
[2021-04-21] MEDS: ATORVASTATIN 20 MG TAB PO SCH (20:14)
[2021-04-21] MEDS: PREGABALIN 100 MG CAP PO SCH (20:18)
[2021-04-21] MEDS: VENLAFAXINE HCL ER 150 MG CAP PO SCH (20:18)
[2021-04-21] MEDS: PANTOPRAZOLE 40 MG/10 ML VIAL IV SCH (20:19)
[2021-04-21] MEDS: METOPROLOL TARTRATE 25 MG TAB PO SCH (20:19)
[2021-04-21 20:53] LABS: Glucose,Whole Blood 125 mg/dL (75-99)
[2021-04-21] MEDS: INSULIN ASPART (NovoLOG) 100 UNIT/ML VIAL SQ SCH (21:10)
[2021-04-22] MEDS: KETOROLAC 30 MG/ML 1 ML VIAL IVP SCH ×3 (05:35→17:03)
[2021-04-22] MEDS: LACTATED RINGERS 1,000 ML IV SCH (05:45)
[2021-04-22] MEDS: 0.9% NACL WITH KCL 20 MEQ/L 1,000 ML IV SCH ×2 (05:45→12:48)
[2021-04-22 07:22] LABS: Glucose,Whole Blood 96 mg/dL (75-99)
[2021-04-22] MEDS: INSULIN ASPART (NovoLOG) 100 UNIT/ML VIAL SQ SCH ×4 (07:27→21:18)
[2021-04-22] MEDS: PREGABALIN 100 MG CAP PO SCH ×3 (07:37→21:18)
[2021-04-22] MEDS: CHOLECALCIFEROL 25 MCG (1000 IU) TABLET PO SCH (07:37)
[2021-04-22] MEDS: METOPROLOL TARTRATE 50 MG TAB PO SCH (07:37)
[2021-04-22] MEDS: PANTOPRAZOLE 40 MG/10 ML VIAL IV SCH ×2 (07:38→21:18)
[2021-04-22] MEDS: LIRAGLUTIDE 3 MG/0.5 ML SQ SCH (07:38)
[2021-04-22] MEDS: ENOXAPARIN 40 MG/0.4 ML SYRINGE SQ SCH (07:38)
[2021-04-22] MEDS: buPROPion XL 150 MG TAB.ER.24H PO SCH (07:40)
[2021-04-22] MEDS ORDERED: PANTOPRAZOLE 40 MG/10 ML VIAL IV SCH (09:00)
[2021-04-22] MEDS ORDERED: NON FORMULARY DRUG (Biotin [Biotin] 10,000 MCG Capsule) PO SCH (09:00)
[2021-04-22] MEDS: ALBUTEROL NEBULIZED 2.5 MG/3 ML INHALATION SCH ×4 (09:50→20:46)
[2021-04-22 10:50] LABS: Basophils # (A) 0.01 X 10*3/uL (0.00-0.10); Basophils % (A) 0.1 %; Eosinophils # (A) 0.04 X 10*3/uL (0.04-0.35); Eosinophils % (A) 0.5 %; HCT 38.3 % (37.2-46.3); HGB 11.7 g/dL (12.0-15.0); Lymphocytes % (A) 15.5 %; MCH 28.9 pg (27.0-32.0); MCHC 30.5 g/dL (32.0-37.0); MCV 94.6 fL (80.0-97.0); Mean Platelet Volume 11.6 fL (9.5-12.2); Monocytes % (A) 6.5 %; Neutrophils # (A) 5.95 X 10*3/uL (1.80-7.70); Platelet Count 216 X 10*3/uL (140-440); RBC 4.05 X 10*6/uL (4.10-5.20); RDW 14.9 % (11.5-14.5); WBC 7.73 X 10*3/uL (4.50-10.00)
[2021-04-22 11:27] LABS: Phosphorus 2.7 mg/dL (2.4-5.1)
[2021-04-22 11:28] LABS: Magnesium 2.2 mg/dL (1.5-2.4)
[2021-04-22 11:42] LABS: Glucose,Whole Blood 89 mg/dL (75-99)
[2021-04-22 11:43] LABS: African American GFR (CKD) 72.6 (60.0-200.0); Anion Gap 14.9 mmol/L (10.00-18.00); Blood Urea Nitrogen 17.3 mg/dL (9.0-27.0); Calcium 8.7 mg/dL (8.7-10.3); Carbon Dioxide 19.4 mmol/L (20.0-27.5); Non-African American GFR(CKD) 62.7 (60.0-200.0); Potassium 4.7 mmol/L (3.5-5.5)
[2021-04-22] MEDS: SIMETHICONE 40 MG/0.6 ML DROPS 2,000 MG/30 ML BOTTLE PO PRN (11:43)
[2021-04-22] MEDS: DEXAMETHASONE SOD PHOSPHATE 4 MG/ML 1 ML VIAL IVP SCH ×2 (11:43→17:03)
--- NOTE | 2021-04-22 11:57 | FL ---
SINGLE CONTRAST UPPER GI EXAMINATION: CLINICAL HISTORY: 60-year-old female postop bariatric surgery. Patient with hiatal hernia repair and sleeve gastrectomy. TECHNIQUE: Single contrast exam performed with 40 mL Isovue-370 contrast. Total fluoroscopy time: 2 minutes 58 seconds. Total images: 31. FINDINGS: The patient swallowed oral contrast without difficulty or delay. There is initial hang-up of contras t at the distal esophagus but then intermittent passage across the GE junction into the proximal stom ach. However, there is a subsequent moderate to severe obstruction along the level of the sleeve aleksey rectomy. Recurrent episodes of intraesophageal reflux are encountered. Only a thin sliver of contrast is eventually seen along the gastric sleeve and the ingested 40 mL oral contrast accumulates to the level of the patient's collar bones. After a 7 to 10 minute wait, oral contrast has come down in the thoracic esophagus to the mid chest level and contrast is seen into the distal esophagus. Trace postsurgical free air below the right hemidiaphragm. No extravasation of contrast to suggest le ak. IMPRESSION: 1. Moderate to severe obstruction at the level of the sleeve gastrectomy probably due to postoperativ e edema. 40 mL of contrast was ingested and accumulated in the esophagus to the level of the patient' s collar bones. 2. After a 7 to 10 minute wait, contrast comes down to the mid chest level. The sleeve is thinly deli neated with contrast and some contrast enter into the distal stomach. 3. No leak is identified. Trace postsurgical free air below the right hemidiaphragm.
[2021-04-22 12:04] VITALS: BMI 48.0
--- NOTE | 2021-04-22 13:04 | P.PN ---
Subjective Progress Note Date: 04/22/21 CHIEF COMPLAINT: Morbid obesity HISTORY OF PRESENT ILLNESS: Status post laparoscopic sleeve gastrectomy and repair of paraesophageal hiatal hernia. Patient is postop day #1. Upper GI shows moderate to severe obstruction at the level of the sleeve gastrectomy probably due to postoperative edema. No leak identified. Trace postsurgical free air below the right hemidiaphragm. Afebrile. WBC is 7.73 Hgb 11.7 platelets 216 patient reports her pain is controlled. Denies any nausea currently. She did have some nausea for the night. Denies any flatus. Currently urinating without difficulty. PHYSICAL EXAM: VITAL SIGNS: Reviewed. GENERAL: Well-developed in no acute distress. HEENT: No sclera icterus. Extraocular movements grossly intact. Moist buccal mucosa. Head is atraumatic, normocephalic. ABDOMEN: Soft. Nondistended. NEUROLOGIC: Alert and oriented. Cranial nerves II through XII grossly intact. ASSESSMENT: 1. Morbid obesity status post laparoscopic sleeve gastrectomy and repair of paraesophageal hiatal hernia 2. Moderate to severe obstruction noted on UGI likely due to postoperative edema PLAN: -Start dexamethasone 4 mg IV every 6 hours for moderate to severe obstruction -Start bariatric clear liquid diet -Continue IV fluids -Continue pain medication as needed -Continue antiemetics -Encourage patient to ambulate -Encourage patient to use incentive spirometer -DVT prophylaxis Lovenox and GI prophylaxis Protonix Physician Route [employer] note has been reviewed by physician. Signing provider agrees with the documented findings, assessment, and plan of care. Objective - Vital Signs Vital signs: Vital Signs Temp 98.6 F 04/22/21 08:00 Pulse 83 04/22/21 08:00 Resp 18 04/22/21 08:00 BP 141/68 04/22/21 08:00 Pulse Ox 94 L 04/22/21 08:00 Intake & Output 04/21/21 04/22/21 04/22/21 18:59 06:59 18:59 Intake Total 2099 Output Total 10 Balance 2089 Weight 135 kg 135 kg Intake: IV 2100 Output: Estimated Blood Loss 10 Other: Voiding Method Toilet # Voids 3 - Labs CBC & Chem 7: 04/22/21 06:31 04/22/21 06:31 Labs: Abnormal Lab Results - Last 24 Hours (Table) 04/21/21 04/22/21 04/22/21 Range/Units 20:51 06:31 06:31 RBC 4.05 L (4.10-5.20) X 10*6/uL Hgb 11.7 L (12.0-15.0) g/dL MCHC 30.5 L (32.0-37.0) g/dL RDW 14.9 H (11.5-14.5) % Carbon Dioxide 19.4 L (20.0-27.5) mmol/L POC Glucose (mg/dL) 125 H (75-99) mg/dL
[2021-04-22] MEDS: 1: THIAMINE 100 MG, FOLIC ACID 1 MG, POTASSIUM CHLORIDE 20 MEQ in SODIUM CHLORIDE 0.9% 1 IVP SCH ×10 (13:44→21:26)
[2021-04-22 16:49] LABS: Glucose,Whole Blood 124 mg/dL (75-99)
[2021-04-22 21:01] LABS: Glucose,Whole Blood 139 mg/dL (75-99)
[2021-04-22] MEDS: METOPROLOL TARTRATE 25 MG TAB PO SCH (21:18)
[2021-04-22] MEDS: VENLAFAXINE HCL ER 150 MG CAP PO SCH (21:18)
[2021-04-22] MEDS: ATORVASTATIN 20 MG TAB PO SCH (21:18)
[2021-04-23] MEDS: KETOROLAC 30 MG/ML 1 ML VIAL IVP SCH ×3 (00:02→11:30)
[2021-04-23] MEDS: DEXAMETHASONE SOD PHOSPHATE 4 MG/ML 1 ML VIAL IVP SCH ×3 (00:02→11:30)
--- NOTE | 2021-04-23 01:29 | P.PN ---
Subjective Progress Note Date: 04/22/21 This is a 60-year-old female who was recently admitted with surgical services and underwent gastric sleeve and hernia repair and is being closely monitored. Patient underwent repeat xr series which is currently pending and patient being started on bariatric clears per surgical recommendations. Patient has incentive spirometer at the bedside and achieving over 2000. Encouraged continued use at least 10 times every hours and increase activity as tolerated. Patient reports to some mild discomfort although states she feels well and anticipating discharge soon. Patient denies and chest pain, shortness of breath, or palpitations. Patient is afebrile. Labs: WBC is 7.73, hemoglobin is 11.7, platelets are 216, sodium is 142, potassium is 4.7, BUN is 17.3, creatinine is 1.0, calcium is 8.7, phosphorus is 2.7, magnesium is 2.2 Review of systems: Constitutional: No reports of fatigue, fever, or chills Cardiovascular: No reports of chest pain or palpitations Respiratory: No reports of shortness of breath or cough GI: No reports of nausea, vomiting, or diarrhea : No reports of dysuria or retention Neurovascular: No reports of weakness or numbness All medications have been reviewed Active Medications Hydrocodone Bitart/Acetaminophen (Hydrocodone/Apap 15 Ml Solution) 30 ml PO Q6HR PRN PRN Reason: Severe Pain Albuterol Sulfate (Albuterol Nebulized 2.5 Mg/3 Ml) 2.5 mg INHALATION RT-QID [facility] Last Admin: 04/22/21 11:57 Dose: Not Given Documented by: Alprazolam (Alprazolam 0.25 Mg Tab) 0.25 mg PO DAILY PRN PRN Reason: Anxiety Atorvastatin Calcium (Atorvastatin 20 Mg Tab) 20 mg PO HS [facility] Last Admin: 04/21/21 20:14 Dose: Not Given Documented by: Bupropion HCl (Bupropion Xl 150 Mg Tab.Er.24h) 150 mg PO DAILY [facility] Last Admin: 04/22/21 07:40 Dose: 150 mg Documented by: Cholecalciferol (Cholecalciferol 25 Mcg (1000 Iu) Tablet) 50 mcg PO DAILY [facility] Last Admin: 04/22/21 07:37 Dose: 50 mcg Documented by: Dexamethasone Sodium Phosphate (Dexamethasone Sod Phosphate 4 Mg/Ml 1 Ml Vial) 4 mg IVP Q6HR [facility] Last Admin: 04/22/21 11:43 Dose: 4 mg Documented by: Diphenhydramine HCl (Diphenhydramine 50 Mg/Ml 1 Ml Vial) 25 mg IVP Q6HR PRN PRN Reason: Itching Enoxaparin Sodium (Enoxaparin 40 Mg/0.4 Ml Syringe) 40 mg SQ DAILY [facility] Last Admin: 04/22/21 07:38 Dose: 40 mg Documented by: Fluticasone Propionate (Fluticasone 110 Mcg Inhaler) 1 puff INHALATION BID PRN PRN Reason: Shortness Of Breath Hydromorphone HCl (Hydromorphone 1 Mg/Ml 1 Ml Syringe) 1 mg IVP Q3HR PRN PRN Reason: Pain Hyoscyamine (Hyoscyamine Oral Drops 1.875 Mg/15 Ml Bottle) 0.125 mg PO Q6HR PRN PRN Reason: Esophageal Spasm Lactated Ringer's (Lactated Ringers) 1,000 mls @ 20 mls/hr IV .Q24H [facility] Last Admin: 04/22/21 05:45 Dose: Not Given Documented by: Thiamine HCl 100 mg/ Folic Acid 1 mg/ Potassium Chloride 20 meq/ Sodium Chloride 1,011.2 mls @ 100 mls/hr IVP .BY DURATION [facility] Last Admin: 04/22/21 13:44 Dose: Not Given Documented by: Potassium Chloride/Sodium Chloride (Ns-Kcl 20 Meq/L Iv Solution) 1,000 mls @ 100 mls/hr IVP .BY DURATION [facility] Insulin Aspart (Insulin Aspart (Novolog) 100 Unit/Ml Vial) 0 unit SQ ACHS [facility]; Protocol Last Admin: 04/22/21 12:50 Dose: Not Given Documented by: Ketorolac Tromethamine (Ketorolac 30 Mg/Ml 1 Ml Vial) 15 mg IVP Q6HR [facility] Stop: 04/23/21 12:01 Last Admin: 04/22/21 11:42 Dose: 15 mg Documented by: Lidocaine HCl (Lidocaine 1% (10mg/Ml) For Iv Start) 0.1 ml INTRADERMA PER PROTOCOL PRN PRN Reason: IV Start Last Admin: 04/21/21 07:56 Dose: 0.1 ml Documented by: Metoprolol Tartrate (Metoprolol Tartrate 25 Mg Tab) 25 mg PO HS [facility] Last Admin: 04/21/21 20:19 Dose: 25 mg Documented by: Metoprolol Tartrate (Metoprolol Tartrate 50 Mg Tab) 50 mg PO DAILY [facility] Last Admin: 04/22/21 07:37 Dose: 50 mg Documented by: Naloxone HCl (Naloxone 0.4 Mg/Ml 1 Ml Vial) 0.2 mg IV Q2M PRN PRN Reason: Opioid Reversal Non-Formulary Medication (Liraglutide [Saxenda]) 1.5 mg SQ DAILY [facility] Last Admin: 04/22/21 07:38 Dose: Not Given Documented by: Ondansetron HCl (Ondansetron 4 Mg/2 Ml Vial) 4 mg IVP Q6HR PRN PRN Reason: Nausea And Vomiting Pantoprazole Sodium (Pantoprazole 40 Mg/10 Ml Vial) 40 mg IV BID [facility] Last Admin: 04/22/21 07:38 Dose: 40 mg Documented by: Pregabalin (Pregabalin 100 Mg Cap) 200 mg PO TID [facility] Last Admin: 04/22/21 15:05 Dose: 200 mg Documented by: Simethicone (Simethicone 40 Mg/0.6 Ml Drops 2,000 Mg/30 Ml Bottle) 40 mg PO Q6HR PRN PRN Reason: Bloating Last Admin: 04/22/21 11:43 Dose: 40 mg Documented by: Venlafaxine HCl (Venlafaxine Hcl Er 150 Mg Cap) 150 mg PO HS [facility] Last Admin: 04/21/21 20:18 Dose: 150 mg Documented by: Physical exam: Gen: This is a 60-year-old female awake, alert and oriented x3. Well developed, well nourished, morbidly obese . Temp is 98.6 F, pulse is 83, respirations are 18, blood pressure 141/68, oxygen saturation is 94% on room air HEENT: Head is atraumatic, normocephalic. Pupils equal, round. Sclerae is anic teric. Oral mucosa is dry NECK: Supple. No JVD. No lymphadenopathy. No thyromegaly. LUNGS: diminished breath sounds at the bases with No wheezes or rhonchi. No intercostal retractions. HEART: S1, S2 muffled ABDOMEN: Soft. obese. Bowel sounds are present. No masses. No tenderness. EXTREMITIES: No pedal edema. No calf tenderness. NEUROLOGICAL: Patient is awake, alert and oriented x3. Cranial nerves 2 through 12 are grossly intact. Assessment: Status post laparoscopic sleeve gastrectomy and laparoscopic repair of paraesophageal hiatal hernia Hypertension Possible chronic kidney disease, stage II history of fibromyalgia Gastroesophageal reflux disease Mitral valve prolapse History of degenerative joint disease history of rheumatoid arthritis History of Covid in 2019 History of hysterectomy history of anxiety, depression history of nicotine dependence Obesity with a body mass index of 48.0 Full code Plan: Recommend to continue current medications and management. Following closely with surgery. Patient underwent follow up imaging and is currently pending. Patient being started on bariatric clears and will monitor for tolerance. Recommend to use sliding scale as needed. IS being used and encouraged at least 10 times every hours while awake. Increase activity as tolerated. Will continue to follow with surgery during hospitalization. Patient anticipates discharge in 24-48 hours. Thank you for this consultation. Further recommendations to follow based on the clinical course of the patient. Objective - Vital Signs Vital signs: Vital Signs Temp 98.6 F 04/22/21 08:00 Pulse 83 04/22/21 08:00 Resp 18 04/22/21 08:00 BP 141/68 04/22/21 08:00 Pulse Ox 94 L 04/22/21 08:00 Intake & Output 04/21/21 04/22/21 04/22/21 18:59 06:59 18:59 Intake Total 2100 Output Total 10 Balance 2089 Weight 135 kg Intake: IV 2100 Output: Estimated Blood Loss 10 Other: Voiding Method Toilet # Voids 3 - Labs CBC & Chem 7: 04/22/21 06:31 04/22/21 06:31 Labs: Abnormal Lab Results - Last 24 Hours (Table) 04/21/21 Range/Units 20:51 POC Glucose (mg/dL) 125 H (75-99) mg/dL
[2021-04-23 02:28] VITALS: RESP 16
[2021-04-23] MEDS: 1: THIAMINE 100 MG, FOLIC ACID 1 MG, POTASSIUM CHLORIDE 20 MEQ in SODIUM CHLORIDE 0.9% 1 IVP SCH ×5 (05:30)
[2021-04-23] MEDS: LACTATED RINGERS 1,000 ML IV SCH (06:10)
[2021-04-23 07:40] LABS: Glucose,Whole Blood 117 mg/dL (75-99)
[2021-04-23] MEDS: INSULIN ASPART (NovoLOG) 100 UNIT/ML VIAL SQ SCH ×2 (07:51→12:04)
[2021-04-23] MEDS: LIRAGLUTIDE 3 MG/0.5 ML SQ SCH (08:33)
[2021-04-23] MEDS: PREGABALIN 100 MG CAP PO SCH (08:34)
[2021-04-23] MEDS: ENOXAPARIN 40 MG/0.4 ML SYRINGE SQ SCH (08:34)
[2021-04-23] MEDS: buPROPion XL 150 MG TAB.ER.24H PO SCH (08:34)
[2021-04-23] MEDS: CHOLECALCIFEROL 25 MCG (1000 IU) TABLET PO SCH (08:34)
[2021-04-23] MEDS: METOPROLOL TARTRATE 50 MG TAB PO SCH (08:35)
[2021-04-23] MEDS: SIMETHICONE 40 MG/0.6 ML DROPS 2,000 MG/30 ML BOTTLE PO PRN (08:37)
[2021-04-23] MEDS: PANTOPRAZOLE 40 MG/10 ML VIAL IV SCH (08:42)
[2021-04-23] MEDS: ALBUTEROL NEBULIZED 2.5 MG/3 ML INHALATION SCH ×3 (08:52→17:03)
[2021-04-23 11:22] LABS: Glucose,Whole Blood 121 mg/dL (75-99)
[2021-04-23 14:13] VITALS: BP 121/67; PULSE 67; TEMP 97.6
--- NOTE | 2021-04-23 15:13 | P.DS ---
Providers Date of admission: 04/21/21 06:44 Expected date of discharge: 04/23/21 Attending physician: Lazaro Russell Consults: 04/21/21 09:53 Consult Physician Routine Consulting Provider: Thien Bear Consult Reason/Comments: Medical management Do you want consulting provider notified?: Yes Primary care physician: Alejandro Parnell Hospital Course: Discharge diagnosis 1. Morbid obesity status post laparoscopic sleeve gastrectomy and repair of paraesophageal hiatal hernia 2. Moderate to severe obstruction noted on UGI likely due to postoperative edema Hospital course This is a 60-year-old female with history of morbid obesity. She is status post laparoscopic sleeve gastrectomy and repair of paraesophageal hiatal hernia. Patient did have evidence of moderate to severe obstruction noted on the upper GI likely due to postoperative edema. She was treated with IV dexamethasone. Patient is tolerating bariatric clear liquid diet. She denies any difficulty swallowing. She reports that her pain is controlled. She is having flatus. Denies any nausea or vomiting. She is up and ambulating. Denies any difficulty urinating. She's afebrile. She still for discharge. Please refer to chart for any further details. Physician Migration Agent note has been reviewed by physician. Signing provider agrees with the documented findings, assessment, and plan of care. Patient Condition at Discharge: Stable Plan - Discharge Summary Discharge Rx Participant: Yes New Discharge Prescriptions: New Ondansetron Odt [Zofran Odt] 4 mg PO Q8HR PRN #9 tab PRN Reason: Nausea bisacodyL [Dulcolax] 5 mg PO DAILY PRN #10 tab PRN Reason: Constipation Simethicone 40 mg/0.6 ml Drops [Mylicon Drops] 40 mg PO PCHS PRN #30 ml PRN Reason: Gas HYDROcodone/APAP 5-325MG [[place] 5-325] 1 tab PO Q6HR PRN 2 Days #5 tab PRN Reason: Pain Continue Atorvastatin [Lipitor] 20 mg PO HS Venlafaxine HCl ER [Effexor XR] 150 mg PO HS #3 cap.er.24h Pantoprazole [Protonix] 40 mg PO AC-BRKFST tablet. Pregabalin [Lyrica] 200 mg PO TID #9 cap Metoprolol Tartrate [Lopressor] 25 mg PO HS buPROPion XL [Wellbutrin XL] 150 mg PO DAILY Biotin 10,000 mcg PO DAILY ALPRAZolam [Xanax] 0.25 mg PO DAILY PRN PRN Reason: Anxiety Metoprolol Tartrate [Lopressor] 50 mg PO DAILY Cholecalciferol [Vitamin D3 (25 Mcg = 1000 Iu)] 50 mcg PO DAILY Omeprazole 20 mg PO DAILY@1400,2100 Liraglutide [Saxenda] 1.5 mg SQ DAILY Fluticasone Propionate 110 Mcg [Flovent 110 Mcg Inhaler (Mhu)] 1 puff INHALATION BID PRN PRN Reason: Shortness Of Breath Discontinued Diclofenac Sodium [Voltaren] 75 mg PO DAILY Discharge Medication List Atorvastatin [Lipitor] 20 mg PO HS 10/24/18 [History] Pantoprazole [Protonix] 40 mg PO AC-BRKFST tablet. 08/30/19 [Rx] Pregabalin [Lyrica] 200 mg PO TID #9 cap 08/30/19 [Rx] Venlafaxine HCl ER [Effexor XR] 150 mg PO HS #3 cap.er.24h 08/30/19 [Rx] Metoprolol Tartrate [Lopressor] 25 mg PO HS 09/02/20 [History] Metoprolol Tartrate [Lopressor] 50 mg PO DAILY 09/02/20 [History] buPROPion XL [Wellbutrin XL] 150 mg PO DAILY 09/02/20 [History] Biotin 10,000 mcg PO DAILY 11/01/20 [History] Cholecalciferol [Vitamin D3 (25 Mcg = 1000 Iu)] 50 mcg PO DAILY 11/01/20 [History] Liraglutide [Saxenda] 1.5 mg SQ DAILY 12/10/20 [History] Omeprazole 20 mg PO DAILY@1400,2100 12/10/20 [History] ALPRAZolam [Xanax] 0.25 mg PO DAILY PRN 04/16/21 [History] Fluticasone Propionate 110 Mcg [Flovent 110 Mcg Inhaler (Mhu)] 1 puff INHALATION BID PRN 04/16/21 [History] HYDROcodone/APAP 5-325MG [[place] 5-325] 1 tab PO Q6HR PRN 2 Days #5 tab 04/23/21 [Rx] Ondansetron Odt [Zofran Odt] 4 mg PO Q8HR PRN #9 tab 04/23/21 [Rx] Simethicone 40 mg/0.6 ml Drops [Mylicon Drops] 40 mg PO PCHS PRN #30 ml 04/23/21 [Rx] bisacodyL [Dulcolax] 5 mg PO DAILY PRN #10 tab 04/23/21 [Rx] Follow [facility] [facility] [place] [place] [facility] [place] [facility] Week Activity/Diet/Wound Care/Special Instructions: No driving while taking [place] No lifting over 10 pounds You may shower. No soaking or tub baths for 2 weeks Very light activity until you are reevaluated at your follow up appointment with your surgeon No straws or carbonated beverages Discharge Disposition: HOME SELF-CARE
--- NOTE | 2021-04-24 08:52 | P.PN ---
Subjective Progress Note Date: 04/23/21 This is a 60-year-old female who was recently admitted with surgical services and underwent gastric sleeve and hernia repair and is being closely monitored. Patient underwent repeat xr series which is currently pending and patient being started on bariatric clears per surgical recommendations. Patient has incentive spirometer at the bedside and achieving over 2000. Encouraged continued use at least 10 times every hours and increase activity as tolerated. Patient reports to some mild discomfort although states she feels well and anticipating discharge soon. Patient denies and chest pain, shortness of breath, or palpitations. Patient is afebrile. 04/23/2021 Patient is seen and evaluated in follow-up this morning states she is feeling well. Patient reports passing small amount of gas today with no bowel movement. Patient is tolerating bariatric clear liquids with no reports of nausea or vo miting. Patient has some mild abdominal tenderness although has improved since surgery. Patient has been working on incentive spirometer and continues to reach 2000 and her goal is 2500. Encouraged incentive spirometer use even in the outpatient setting. Patient anticipates being discharged today. Patient denies any chest pain, shortness of breath, or palpitations. Review of systems: Constitutional: No reports of fatigue, fever, or chills Cardiovascular: No reports of chest pain or palpitations Respiratory: No reports of shortness of breath or cough GI: No reports of nausea, vomiting, or diarrhea : No reports of dysuria or retention Neurovascular: No reports of weakness or numbness All medications have been reviewed Active Medications Hydrocodone Bitart/Acetaminophen (Hydrocodone/Apap 15 Ml Solution) 30 ml PO Q6HR PRN PRN Reason: Severe Pain Last Admin: 04/22/21 15:09 Dose: 30 ml Documented by: Albuterol Sulfate (Albuterol Nebulized 2.5 Mg/3 Ml) 2.5 mg INHALATION RT-QID [facility] Last Admin: 04/23/21 12:51 Dose: Not Given Documented by: Alprazolam (Alprazolam 0.25 Mg Tab) 0.25 mg PO DAILY PRN PRN Reason: Anxiety Atorvastatin Calcium (Atorvastatin 20 Mg Tab) 20 mg PO HS [facility] Last Admin: 04/22/21 21:18 Dose: 20 mg Documented by: Bupropion HCl (Bupropion Xl 150 Mg Tab.Er.24h) 150 mg PO DAILY [facility] Last Admin: 04/23/21 08:34 Dose: 150 mg Documented by: Cholecalciferol (Cholecalciferol 25 Mcg (1000 Iu) Tablet) 50 mcg PO DAILY [facility] Last Admin: 04/23/21 08:34 Dose: 50 mcg Documented by: Dexamethasone Sodium Phosphate (Dexamethasone Sod Phosphate 4 Mg/Ml 1 Ml Vial) 4 mg IVP Q6HR [facility] Last Admin: 04/23/21 11:30 Dose: 4 mg Documented by: Diphenhydramine HCl (Diphenhydramine 50 Mg/Ml 1 Ml Vial) 25 mg IVP Q6HR PRN PRN Reason: Itching Enoxaparin Sodium (Enoxaparin 40 Mg/0.4 Ml Syringe) 40 mg SQ DAILY [facility] Last Admin: 04/23/21 08:34 Dose: 40 mg Documented by: Fluticasone Propionate (Fluticasone 110 Mcg Inhaler) 1 puff INHALATION BID PRN PRN Reason: Shortness Of Breath Hydromorphone HCl (Hydromorphone 1 Mg/Ml 1 Ml Syringe) 1 mg IVP Q3HR PRN PRN Reason: Pain Hyoscyamine (Hyoscyamine Oral Drops 1.875 Mg/15 Ml Bottle) 0.125 mg PO Q6HR PRN PRN Reason: Esophageal Spasm Lactated Ringer's (Lactated Ringers) 1,000 mls @ 20 mls/hr IV .Q24H [facility] Last Admin: 04/23/21 06:10 Dose: Not Given Documented by: Thiamine HCl 100 mg/ Folic Acid 1 mg/ Potassium Chloride 20 meq/ Sodium Chloride 1,011.2 mls @ 100 mls/hr IVP .BY DURATION [facility] Last Admin: 04/23/21 05:30 Dose: 100 mls/hr Documented by: Potassium Chloride/Sodium Chloride (Ns-Kcl 20 Meq/L Iv Solution) 1,000 mls @ 100 mls/hr IVP .BY DURATION [facility] Last Admin: 04/22/21 21:26 Dose: 100 mls/hr Documented by: Insulin Aspart (Insulin Aspart (Novolog) 100 Unit/Ml Vial) 0 unit SQ ACHS [facility]; Protocol Last Admin: 04/23/21 12:04 Dose: Not Given Documented by: Lidocaine HCl (Lidocaine 1% (10mg/Ml) For Iv Start) 0.1 ml INTRADERMA PER PROTOCOL PRN PRN Reason: IV Start Last Admin: 04/21/21 07:56 Dose: 0.1 ml Documented by: Metoprolol Tartrate (Metoprolol Tartrate 25 Mg Tab) 25 mg PO [facility] Last Admin: 04/22/21 21:18 Dose: 25 mg Documented by: Metoprolol Tartrate (Metoprolol Tartrate 50 Mg Tab) 50 mg PO DAILY [facility] Last Admin: 04/23/21 08:35 Dose: 50 mg Documented by: Naloxone HCl (Naloxone 0.4 Mg/Ml 1 Ml Vial) 0.2 mg IV Q2M PRN PRN Reason: Opioid Reversal Non-Formulary Medication (Liraglutide [Saxenda]) 1.5 mg SQ DAILY [facility] Last Admin: 04/23/21 08:33 Dose: Not Given Documented by: Ondansetron HCl (Ondansetron 4 Mg/2 Ml Vial) 4 mg IVP Q6HR PRN PRN Reason: Nausea And Vomiting Pantoprazole Sodium (Pantoprazole 40 Mg/10 Ml Vial) 40 mg IV BID [facility] Last Admin: 04/23/21 08:42 Dose: 40 mg Documented by: Pregabalin (Pregabalin 100 Mg Cap) 200 mg PO TID [facility] Last Admin: 04/23/21 08:34 Dose: 200 mg Documented by: Simethicone (Simethicone 40 Mg/0.6 Ml Drops 2,000 Mg/30 Ml Bottle) 40 mg PO Q6HR PRN PRN Reason: Bloating Last Admin: 04/23/21 08:37 Dose: 40 mg Documented by: Venlafaxine HCl (Venlafaxine Hcl Er 150 Mg Cap) 150 mg PO HS [facility] Last Admin: 04/22/21 21:18 Dose: 150 mg Documented by: Physical exam: Gen: This is a 60-year-old female awake, alert and oriented x3. Well developed, well nourished, morbidly obese . Temp is 97.7 F, pulse is 62, respirations are 16, blood pressure 124/75, oxygen saturation is 95% on room air HEENT: Head is atraumatic, normocephalic. Pupils equal, round. Sclerae is anicteric. Oral mucosa is dry NECK: Supple. No JVD. No lymphadenopathy. No thyromegaly. LUNGS: diminished breath sounds at the bases with No wheezes or rhonchi. No intercostal retractions. HEART: S1, S2 muffled ABDOMEN: Soft. obese. Bowel sounds are present. No masses. No tenderness. EXTREMITIES: No pedal edema. No calf tenderness. NEUROLOGICAL: Patient is awake, alert and oriented x3. Cranial nerves 2 through 12 are grossly intact. Assessment: Status post laparoscopic sleeve gastrectomy and laparoscopic repair of paraesophageal hiatal hernia Hypertension Possible chronic kidney disease, stage II history of fibromyalgia Gastroesophageal reflux disease Mitral valve prolapse History of degenerative joint disease history of rheumatoid arthritis History of Covid in 2019 History of hysterectomy history of anxiety, depression history of nicotine dependence Obesity with a body mass index of 48.0 Full code Plan: Recommend to continue current medications and management. Following closely with surgery. Patient has been tolerating bariatric clears with no reports of nausea or vomiting. She reports to passing gas this morning with no bowel movement yet. IS being used and encouraged at least 10 times every hours while awake. Increase activity as tolerated. Will continue to follow with surgery during hospitalization. Patient anticipates discharge this afternoon. Thank you for this consultation. Further recommendations to follow based on the clinical course of the patient. Encouraged the patient to continue with bariatric restrictions and close follow-up in the outpatient setting with surgery and patient also to follow-up with primary care provider on discharge. Objective - Vital Signs Vital signs: Vital Signs Temp 97.7 F 04/23/21 07:30 Pulse 62 04/23/21 07:30 Resp 16 04/23/21 07:30 BP 124/75 04/23/21 07:30 Pulse Ox 95 04/23/21 07:30 Intake & Output 04/22/21 04/23/21 04/23/21 18:59 06:59 18:59 Weight 135 kg Other: Voiding Method Toilet - Labs CBC & Chem 7: 04/22/21 06:31 04/22/21 06:31 Labs: Abnormal Lab Results - Last 24 Hours (Table) 04/22/21 04/22/21 04/22/21 Range/Units 06:31 06:31 16:48 RBC 4.05 L (4.10-5.20) X 10*6/uL Hgb 11.7 L (12.0-15.0) g/dL MCHC 30.5 L (32.0-37.0) g/dL RDW 14.9 H (11.5-14.5) % Carbon Dioxide 19.4 L (20.0-27.5) mmol/L POC Glucose (mg/dL) 124 H (75-99) mg/dL 04/22/21 04/23/21 Range/Units 20:56 06:58 RBC (4.10-5.20) X 10*6/uL Hgb (12.0-15.0) g/dL MCHC (32.0-37.0) g/dL RDW (11.5-14.5) % Carbon Dioxide (20.0-27.5) mmol/L POC Glucose (mg/dL) 139 H 117 H (75-99) mg/dL
== END 2021-04-23 17:08 | disposition home or self-care (01) | DRG 621 ==
LOC: 2ORMAIN 06:44 → 4SSUR 15:53
PROVIDERS: ADMIT Surgery; ATTEND Surgery
PROC: 0BQT4ZZ Repair Diaphragm, Percutaneous Endoscopic Approach (ICD-10-PCS; 2021-04-21)
PROC: 0DB64Z3 Excision of Stomach, Percutaneous Endoscopic Approach, Vertical (ICD-10-PCS; principal; 2021-04-21 08:25)
DX: E66.01 Morbid (severe) obesity due to excess calories (principal); Z68.43 Body mass index [BMI] 50.0-59.9, adult; M06.9 Rheumatoid arthritis, unspecified; Z20.822 Contact with and (suspected) exposure to COVID-19; N18.2 Chronic kidney disease, stage 2 (mild); I12.9 Hypertensive chronic kidney disease with stage 1 through stage 4 chronic kidney disease, or unspecified chronic kidney disease; K44.9 Diaphragmatic hernia without obstruction or gangrene; E78.5 Hyperlipidemia, unspecified; I34.1 Nonrheumatic mitral (valve) prolapse; R60.9 Edema, unspecified; K21.9 Gastro-esophageal reflux disease without esophagitis; I83.90 Asymptomatic varicose veins of unspecified lower extremity; M54.30 Sciatica, unspecified side; M79.7 Fibromyalgia; M19.90 Unspecified osteoarthritis, unspecified site; F32.A Depression, unspecified; F41.9 Anxiety disorder, unspecified; Z90.710 Acquired absence of both cervix and uterus; Z96.653 Presence of artificial knee joint, bilateral; Z98.49 Cataract extraction status, unspecified eye; Z98.890 Other specified postprocedural states; Z79.899 Other long term (current) drug therapy; Z87.891 Personal history of nicotine dependence; Z86.16 Personal history of COVID-19; Z85.42 Personal history of malignant neoplasm of other parts of uterus; Z80.0 Family history of malignant neoplasm of digestive organs; Z80.49 Family history of malignant neoplasm of other genital organs
CPT/HCPCS: 74240; 80051; 82310; 82565; 83735; 84100; 84520; 85025; 87635; 88307

== ENCOUNTER → 2021-04-25 | Outpatient (CLI) | payer OTHER ==
[2021-04-25 11:56] VITALS: BP 125/76; PULSE 76; TEMP 97.9; BMI 51.4
== END | disposition home or self-care (01) ==
LOC: BARWHC3 11:04
PROVIDERS: ATTEND Surgery
DX: E66.01 Morbid (severe) obesity due to excess calories (principal)
CPT/HCPCS: 99211

== ENCOUNTER → 2021-04-28 | Outpatient (CLI) | payer OTHER ==
[2021-04-28 14:38] VITALS: BP 110/79; PULSE 70; RESP 18; TEMP 97.6; BMI 48.2
--- NOTE | 2021-04-28 16:34 | P.HPBAR ---
Bariatric H&P - History & Physicial H&P Date: 04/28/21 History & Physicial: Visit/CC: follow up Patient initial contact: Initial weight: 152.407 kg Initial weight in pounds: 336.00 Height: 5 ft 6 in Initial BMI: 54.2 Last weight: Current weight: 135.624 kg Current weight in pounds: 299.00 Current BMI: 48.2 [place] body weight (based on NIH guidelines): 59 kg Excess body weight loss: 17.9% The patient is a 60 year-old F who presents for Bariatric Assessment. Patient presents today for bariatric follow-up. She is postop sleeve gastrectomy. She's doing quite well. She has no complaints. Past Medical History Past Medical History: Cancer, Fibromyalgia, GERD/Reflux, Hyperlipidemia, Mitral Valve Prolapse (MVP), Musculoskeletal Disorder, Osteoarthritis (OA), Renal Disease, Rheumatoid Arthritis (RA) Additional Past Medical History / Comment(s): Hx Covid 08/07/19, hospitalized 2 wks, on vent, then Rehab 2 wks. Bulging disc w/ hx sciatic pain. hx uterine cancer 2018. ?RA-one says yes, one has said no. Was on saxzenda for weight loss, not diabetes. Kidney disease stage 3. Varicose veins. History of Any Multi-Drug Resistant Organisms: None Reported Past Surgical History: Bariatric Surgery, Hysterectomy, Joint Replacement, Tonsillectomy Additional Past Surgical History / Comment(s): rojelio knees replaced, cataracts removed, Pain clinic proc. Colonoscopy, EGD. sleeve gastrectomy 04-21-21 Past Anesthesia/Blood Transfusion Reactions: Postoperative Nausea & Vomiting (PONV) Additional Past Anesthesia/Blood Transfusion Reaction / Comm: PONV w/ general anesthesia Past Psychological History: Anxiety, Depression Smoking Status: Never smoker Past Alcohol Use History: Rare Additional Past Alcohol Use History / Comment(s): quit smoking 2002 est, smoked <ppd for 20 yrs. Past Drug Use History: None Reported - Past Family History Mother Family Medical History: No Reported History Sister(s) Family Medical History: Cancer Additional Family Medical History / Comment(s): 1 with stomach cancer, 1 with skin cancer, 1 with cervical cancer Surgical - Exam Vital Signs Temp Pulse Resp BP 97.6 F 70 18 110/79 04/28/21 14:25 04/28/21 14:25 04/28/21 14:25 04/28/21 14:25 - General well developed, well nourished, no distress - Eyes PERRL - ENT normal pinna - Neck no masses - Respiratory normal expansion - Cardiovascular Rhythm: regular - Abdomen Abdomen: soft, non tender Bariatric Assessment & Plan Plan: Improving lumbar obesity. Patient will follow-up in 2 weeks. Bariatric Checklist Checklist: Plan: Checklist: EGD: 1. Hiatal hernia: 2. H. Pylori: HgbA1c: Vitamin D: Smoking: Former smoker Primary care physician referral: Dr Jaycee Cadet Psychiatry clearance: Cardiology clearance: Sleep study: Diet journal: VTE risk score: VTE risk level: Rehab needs at discharge:
== END | disposition home or self-care (01) ==
LOC: BARWHC3 13:46
PROVIDERS: ATTEND Surgery
DX: E66.01 Morbid (severe) obesity due to excess calories (principal); Z71.3 Dietary counseling and surveillance
CPT/HCPCS: 97803; G0463; 99211

== ENCOUNTER → 2021-05-12 | Outpatient (CLI) | payer OTHER ==
[2021-05-12 14:10] VITALS: BP 146/78; PULSE 76; TEMP 98.2; BMI 46.6
--- NOTE | 2021-05-14 13:30 | P.HPBAR ---
Bariatric H&P - History & Physicial H&P Date: 05/12/21 History & Physicial: Visit/CC: sleeve follow up Patient initial contact: Initial weight: 152.407 kg Initial weight in pounds: 336.00 Height: 5 ft 6 in Initial BMI: 54.2 Last weight: Current weight: 131.088 kg Current weight in pounds: 289.00 Current BMI: 46.6 [place] body weight (based on NIH guidelines): 58.967 kg Excess body weight loss: 22.8% The patient is a 60 year-old F who presents for Bariatric Assessment. Patient presents today for sleeve follow-up. She is feeling well. She has no complaints. Past Medical History Past Medical History: Cancer, Fibromyalgia, GERD/Reflux, Hyperlipidemia, Mitral Valve Prolapse (MVP), Musculoskeletal Disorder, Osteoarthritis (OA), Renal Disease, Rheumatoid Arthritis (RA) Additional Past Medical History / Comment(s): Hx Covid 08/07/19, hospitalized 2 wks, on vent, then Rehab 2 wks. Bulging disc w/ hx sciatic pain. hx uterine cancer 2017. ?RA-one says yes, one has said no. Was on saxzenda for weight loss, not diabetes. Kidney disease stage 3. Varicose veins. History of Any Multi-Drug Resistant Organisms: None Reported Past Surgical History: Bariatric Surgery, Hysterectomy, Joint Replacement, Tonsillectomy Additional Past Surgical History / Comment(s): rojelio knees replaced, cataracts removed, Pain clinic proc. Colonoscopy, EGD. sleeve gastrectomy 04-21-21 Past Anesthesia/Blood Transfusion Reactions: Postoperative Nausea & Vomiting (PONV) Additional Past Anesthesia/Blood Transfusion Reaction / Comm: PONV w/ general anesthesia Past Psychological History: Anxiety, Depression Smoking Status: Never smoker Past Alcohol Use History: Rare Additional Past Alcohol Use History / Comment(s): quit smoking 2002 est, smoked <ppd for 20 yrs. Past Drug Use History: None Reported - Past Family History Mother Family Medical History: No Reported History Sister(s) Family Medical History: Cancer Additional Family Medical History / Comment(s): 1 with stomach cancer, 1 with skin cancer, 1 with cervical cancer Surgical - Exam Vital Signs Temp Pulse BP 98.2 F 76 146/78 05/12/21 14:07 05/12/21 14:07 05/12/21 14:07 - General well developed, well nourished, no distress - Eyes PERRL - ENT normal pinna - Neck no masses - Respiratory normal expansion - Cardiovascular Rhythm: regular - Abdomen Abdomen: soft, non tender Bariatric Assessment & Plan Plan: Status post sleeve gastric. Patient is doing well. She'll follow-up in 2 weeks. Bariatric Checklist Checklist: Plan: Checklist: EGD: 1. Hiatal hernia: 2. H. Pylori: HgbA1c: Vitamin D: Smoking: Former smoker Primary care physician referral: Dr Jaycee Cadet Psychiatry clearance: Cardiology clearance: Sleep study: Diet journal: VTE risk score: VTE risk level: Rehab needs at discharge:
== END | disposition home or self-care (01) ==
LOC: BARWHC3 13:20
PROVIDERS: ATTEND Surgery
DX: Z98.84 Bariatric surgery status (principal)
CPT/HCPCS: 99211

== ENCOUNTER → 2021-06-30 | Outpatient (CLI) | payer OTHER ==
[2021-06-30 14:01] VITALS: BP 111/78; PULSE 65; TEMP 98.2; BMI 44.5
--- NOTE | 2021-06-30 15:20 | P.HPBAR ---
Bariatric H&P - History & Physicial H&P Date: 06/30/21 History & Physicial: Visit/CC: two month follow up Patient initial contact: Initial weight: 152.407 kg Initial weight in pounds: 336.00 Height: 5 ft 6 in Initial BMI: 54.2 Last weight: Current weight: 125.191 kg Current weight in pounds: 276.00 Current BMI: 44.5 [place] body weight (based on NIH guidelines): 58.967 kg Excess body weight loss: 29.1% The patient is a 60 year-old F who presents for Bariatric Assessment. Patient presents today for bariatric follow-up. She lost another 10 pounds. She's had some mild GERD. Past Medical History Past Medical History: Cancer, Fibromyalgia, GERD/Reflux, Hyperlipidemia, Mitral Valve Prolapse (MVP), Musculoskeletal Disorder, Osteoarthritis (OA), Renal Disease, Rheumatoid Arthritis (RA) Additional Past Medical History / Comment(s): Hx Covid 08/07/19, hospitalized 2 wks, on vent, then Rehab 2 wks. Bulging disc w/ hx sciatic pain. hx uterine cancer 2018. ?RA-one says yes, one has said no. Was on saxzenda for weight loss, not diabetes. Kidney disease stage 3. Varicose veins. History of Any Multi-Drug Resistant Organisms: None Reported Past Surgical History: Bariatric Surgery, Hysterectomy, Joint Replacement, Tonsillectomy Additional Past Surgical History / Comment(s): rojelio knees replaced, cataracts removed, Pain clinic proc. Colonoscopy, EGD. sleeve gastrectomy 04-21-21 Past Anesthesia/Blood Transfusion Reactions: Postoperative Nausea & Vomiting (PONV) Additional Past Anesthesia/Blood Transfusion Reaction / Comm: PONV w/ general anesthesia Smoking Status: Never smoker - Past Family History Mother Family Medical History: No Reported History Sister(s) Family Medical History: Cancer Additional Family Medical History / Comment(s): 1 with stomach cancer, 1 with skin cancer, 1 with cervical cancer Surgical - Exam Vital Signs Temp Pulse BP 98.2 F 65 111/78 06/30/21 13:59 06/30/21 13:59 06/30/21 13:59 - General well developed, well nourished, no distress - Eyes PERRL - ENT normal pinna - Neck no masses - Respiratory normal expansion - Cardiovascular Rhythm: regular - Abdomen Abdomen: soft, non tender Bariatric Assessment & Plan Plan: Improving morbid obesity. Patient is minimal and will be observed. Her BMI is 44.5 Bariatric Checklist Checklist: Plan: Checklist: EGD: 1. Hiatal hernia: 2. H. Pylori: HgbA1c: Vitamin D: Smoking: Former smoker Primary care physician referral: Dr Jaycee Cadet Psychiatry clearance: Cardiology clearance: Sleep study: Diet journal: VTE risk score: VTE risk level: Rehab needs at discharge:
== END | disposition home or self-care (01) ==
LOC: BARWHC3 12:15
PROVIDERS: ATTEND Surgery
DX: E66.01 Morbid (severe) obesity due to excess calories (principal); Z68.41 Body mass index [BMI] 40.0-44.9, adult
CPT/HCPCS: 99211

== ENCOUNTER → 2021-08-11 | Outpatient (CLI) | payer OTHER ==
[2021-08-11 13:14] VITALS: BP 111/70; PULSE 71; RESP 16; TEMP 97.7; BMI 42.1
[2021-08-12 14:57] LABS: Zinc, Serum 57 ug/dL (60-130)
[2021-08-13 06:05] LABS: Vitamin A 57 ug/dL (38-106)
[2021-08-13 12:27] LABS: Vit B1(Thiamine) 65 ug/L (38-122)
== END | disposition home or self-care (01) ==
LOC: BARWHC3 12:51
PROVIDERS: ATTEND Surgery
DX: E66.01 Morbid (severe) obesity due to excess calories (principal); D50.8 Other iron deficiency anemias; E44.0 Moderate protein-calorie malnutrition; E55.9 Vitamin D deficiency, unspecified; T56.894A Toxic effect of other metals, undetermined, initial encounter
CPT/HCPCS: 84255; 84425; 82607; 82746; 84443; 84590; 84630; 97803; G0463; 99211

== ENCOUNTER → 2021-08-11 | Outpatient (CLI) | payer OTHER ==
[2021-08-11 15:03] LABS: Appearance,Urine Turbid (Clear); Bacteria,Urine Moderate /hpf; Bilirubin,Urine Negative (Negative); Blood,Urine Negative (Negative); Calcium Oxalate Crystals,Urine Moderate /hpf; Color,Urine Yellow; Glucose,Urine (UA) Negative (Negative); Ketones,Urine Negative (Negative); Leukocyte Esterase,Urine Large (Negative); Mucus,Urine Few /hpf; Nitrite,Urine Negative (Negative); PH, Urine 5.5 (5.0-8.0); Protein,Urine Trace (Negative); Squamous Epithelial Cell,Urine 60 /hpf (0-4); WBC,Urine 13 /hpf (0-5)
[2021-08-11 18:39] LABS: Ferritin 34.3 ng/mL (10.0-291.0)
[2021-08-11 19:10] LABS: Basophils # (A) 0.03 X 10*3/uL (0.00-0.10); Basophils % (A) 0.4 %; Eosinophils % (A) 1.3 %; HCT 44.7 % (37.2-46.3); HGB 14.4 g/dL (12.0-15.0); Immature Grans, Automated 0.4 %; Lymphocytes # (A) 1.91 X 10*3/uL (0.90-5.00); Lymphocytes % (A) 24.4 %; MCH 29.4 pg (27.0-32.0); MCHC 32.2 g/dL (32.0-37.0); MCV 91.4 fL (80.0-97.0); Mean Platelet Volume 11.1 fL (9.5-12.2); Monocytes # (A) 0.71 X 10*3/uL (0.20-1.00); Monocytes % (A) 9.1 %; NRBC Per 100 WBC 0 /100 WBCS (0.0-0.0); Neutrophils # (A) 5.06 X 10*3/uL (1.80-7.70); Neutrophils % (A) 64.4 %; Platelet Count 282 X 10*3/uL (140-440); RBC 4.89 X 10*6/uL (4.10-5.20); RDW 15.9 % (11.5-14.5); WBC 7.84 X 10*3/uL (4.50-10.00)
[2021-08-11 23:59] LABS: African American GFR (CKD) 60.1 (60.0-200.0); Albumin 4.3 g/dL (3.8-4.9); Albumin/Globulin Ratio 1.64 (1.60-3.17); Anion Gap 17.9 mmol/L (10.00-18.00); BUN/Creat Ratio 19.91 Ratio (12.00-20.00); Blood Urea Nitrogen 23.1 mg/dL (9.0-27.0); Calcium 10.2 mg/dL (8.7-10.3); Carbon Dioxide 18.1 mmol/L (20.0-27.5); Globulin 2.6 g/dL (1.6-3.3); Non-African American GFR(CKD) 51.9 (60.0-200.0); Potassium 4.3 mmol/L (3.5-5.5); Total Bilirubin 0.6 mg/dL (0.30-1.20); Total Protein 6.9 g/dL (6.2-8.2); Uric Acid 5.3 mg/dL (2.9-7.7)
[2021-08-12 00:25] LABS: Phosphorus 3.4 mg/dL (2.4-5.1)
== END | disposition home or self-care (01) ==
LOC: LABWHC1 13:48
PROVIDERS: ATTEND Nurse Practitioner Family
DX: N17.9 Acute kidney failure, unspecified (principal); D64.9 Anemia, unspecified; N39.0 Urinary tract infection, site not specified; N25.81 Secondary hyperparathyroidism of renal origin; E55.9 Vitamin D deficiency, unspecified; M10.9 Gout, unspecified
CPT/HCPCS: 36415; 80053; 81001; 82306; 82728; 83540; 83550; 83735; 83970; 84100; 84550; 85025; 87086

== ENCOUNTER → 2022-02-03 | Outpatient (CLI) | payer MEDICARE, OTHER ==
[2022-02-03 19:51] LABS: Basophils # (A) 0.03 X 10*3/uL (0.00-0.10); Basophils % (A) 0.4 %; Eosinophils # (A) 0.12 X 10*3/uL (0.04-0.35); Eosinophils % (A) 1.6 %; HCT 43.8 % (37.2-46.3); HGB 14.1 g/dL (12.0-15.0); Immature Grans, Automated 0.4 %; Lymphocytes # (A) 2.29 X 10*3/uL (0.90-5.00); Lymphocytes % (A) 29.7 %; MCH 29.4 pg (27.0-32.0); MCHC 32.2 g/dL (32.0-37.0); MCV 91.4 fL (80.0-97.0); Mean Platelet Volume 10.5 fL (9.5-12.2); Monocytes # (A) 0.65 X 10*3/uL (0.20-1.00); Monocytes % (A) 8.4 %; NRBC Per 100 WBC 0 /100 WBCS (0.0-0.0); Neutrophils # (A) 4.58 X 10*3/uL (1.80-7.70); Neutrophils % (A) 59.5 %; Platelet Count 281 X 10*3/uL (140-440); RBC 4.79 X 10*6/uL (4.10-5.20); RDW 14.4 % (11.5-14.5)
[2022-02-03 19:56] LABS: African American GFR (CKD) 63.6 (60.0-200.0); Albumin 4.5 g/dL (3.8-4.9); Albumin/Globulin Ratio 1.88 (1.60-3.17); Anion Gap 13.5 mmol/L (10.00-18.00); BUN/Creat Ratio 10.45 Ratio (12.00-20.00); Blood Urea Nitrogen 11.5 mg/dL (9.0-27.0); Calcium 10.1 mg/dL (8.7-10.3); Carbon Dioxide 24.5 mmol/L (20.0-27.5); Globulin 2.4 g/dL (1.6-3.3); Magnesium 2.2 mg/dL (1.5-2.4); Non-African American GFR(CKD) 54.9 (60.0-200.0); Phosphorus 3.1 mg/dL (2.4-5.1); Potassium 4.7 mmol/L (3.5-5.5); Total Bilirubin 0.7 mg/dL (0.30-1.20); Total Protein 6.9 g/dL (6.2-8.2); Uric Acid 6.7 mg/dL (2.9-7.7)
[2022-02-03 23:37] LABS: Appearance,Urine Cloudy (Clear); Bilirubin,Urine Negative (Negative); Blood,Urine Negative (Negative); Color,Urine Yellow (Yellow); Ketones,Urine Negative (Negative); Nitrite,Urine Negative (Negative); PH, Urine 6.5 (5.0-8.0); Specific Gravity,Urine 1.009 (1.001-1.030)
[2022-02-04 00:19] LABS: Bacteria,Urine 3+ /HPF (None Seen)
== END | disposition home or self-care (01) ==
LOC: LABWHC1 13:03
PROVIDERS: ATTEND Nurse Practitioner Family
DX: N17.9 Acute kidney failure, unspecified (principal); D64.9 Anemia, unspecified; N39.0 Urinary tract infection, site not specified; N25.81 Secondary hyperparathyroidism of renal origin; E55.9 Vitamin D deficiency, unspecified; M10.9 Gout, unspecified
CPT/HCPCS: 36415; 80053; 81001; 82306; 83735; 83970; 84100; 84550; 85025

== ENCOUNTER → 2022-06-01 | Outpatient (CLI) | payer MEDICARE ==
[2022-06-01 18:39] LABS: HCT 44.8 % (37.2-46.3); HGB 14.3 g/dL (12.0-15.0); MCH 30.3 pg (27.0-32.0); MCHC 31.9 g/dL (32.0-37.0); MCV 94.9 fL (80.0-97.0); Mean Platelet Volume 10.3 fL (9.5-12.2); NRBC Per 100 WBC 0 /100 WBCS (0.0-0.0); Platelet Count 264 X 10*3/uL (140-440); RBC 4.72 X 10*6/uL (4.10-5.20); RDW 13.2 % (11.5-14.5); WBC 5.57 X 10*3/uL (4.50-10.00)
[2022-06-01 18:59] LABS: % Iron Saturation 27.97 (12.00-45.00); African American GFR (CKD) 57.3 (60.0-200.0); Albumin 4.3 g/dL (3.8-4.9); Albumin/Globulin Ratio 1.72 (1.60-3.17); Anion Gap 9.7 mmol/L (10.00-18.00); BUN/Creat Ratio 15.17 Ratio (12.00-20.00); Blood Urea Nitrogen 18.2 mg/dL (9.0-27.0); Calcium 10.1 mg/dL (8.7-10.3); Carbon Dioxide 25.3 mmol/L (20.0-27.5); Globulin 2.5 g/dL (1.6-3.3); Non-African American GFR(CKD) 49.4 (60.0-200.0); Phosphorus 3.4 mg/dL (2.4-5.1); Potassium 4.3 mmol/L (3.5-5.5); Total Bilirubin 0.7 mg/dL (0.30-1.20); Total Protein 6.8 g/dL (6.2-8.2); Uric Acid 6.1 mg/dL (2.9-7.7)
[2022-06-01 19:56] LABS: Ferritin 30.6 ng/mL (10.0-291.0)
[2022-06-01 20:02] LABS: Appearance,Urine Clear (Clear); Bilirubin,Urine Negative (Negative); Blood,Urine Negative (Negative); Color,Urine Yellow (Yellow); Ketones,Urine Negative (Negative); Nitrite,Urine Negative (Negative); PH, Urine 5.5 (5.0-8.0); Specific Gravity,Urine 1.008 (1.001-1.030); Urobilinogen,Urine 0.2 (0.2,1.0)
[2022-06-01 20:13] LABS: Bacteria,Urine Trace /HPF (None Seen)
[2022-06-01 23:21] LABS: Urine Creatinine 48.2 mg/dL (28.0-217.0)
== END | disposition home or self-care (01) ==
LOC: LABWHC1 12:04
PROVIDERS: ATTEND Internal Medicine
DX: N17.9 Acute kidney failure, unspecified (principal); D64.9 Anemia, unspecified; N39.0 Urinary tract infection, site not specified; N25.81 Secondary hyperparathyroidism of renal origin; E55.9 Vitamin D deficiency, unspecified; M10.9 Gout, unspecified
CPT/HCPCS: 36415; 80053; 81001; 82043; 82306; 82570; 82728; 83540; 83550; 83735; 83970; 84100; 84550; 85027

== ENCOUNTER → 2022-10-12 | Outpatient (CLI) | payer MEDICARE ==
[2022-10-12 14:02] VITALS: BP 116/81; PULSE 76; TEMP 98; BMI 32.4
--- NOTE | 2022-10-13 08:34 | P.HPBAR ---
Bariatric H&P - History & Physicial H&P Date: 10/12/22 History & Physicial: Visit/CC: F/U Patient initial contact: Initial weight: 152.407 kg Initial weight in pounds: 336.00 Height: 5 ft 6 in Initial BMI: 54.2 Last weight: Current weight: 91.172 kg Current weight in pounds: 201.00 Current BMI: 32.4 [place] body weight (based on NIH guidelines): 58.967 kg Excess body weight loss: 65.5% The patient is a 61 year-old F who presents for Bariatric Assessment. This a 61-year-old female who presents today for bariatric follow-up. Patient's current weight is 201 pounds. She presents with 261 pounds. She's had some complaints of GERD and dysphagia. She states her her stomach feels full when she eats very quickly. Past Medical History Past Medical History: Cancer, Fibromyalgia, GERD/Reflux, Hyperlipidemia, Mitral Valve Prolapse (MVP), Musculoskeletal Disorder, Osteoarthritis (OA), Renal Disease, Rheumatoid Arthritis (RA) Additional Past Medical History / Comment(s): Hx Covid 08/07/19, hospitalized 2 wks, on vent, then Rehab 2 wks. Bulging disc w/ hx sciatic pain. hx uterine cancer 2018. ?RA-one says yes, one has said no. Was on saxzenda for weight loss, not diabetes. Kidney disease stage 3. Varicose veins. History of Any Multi-Drug Resistant Organisms: None Reported Past Surgical History: Bariatric Surgery, Hysterectomy, Joint Replacement, Tonsillectomy Additional Past Surgical History / Comment(s): rojelio knees replaced, cataracts removed, Pain clinic proc. Colonoscopy, EGD. sleeve gastrectomy 04-21-21 Past Anesthesia/Blood Transfusion Reactions: Postoperative Nausea & Vomiting (PONV) Additional Past Anesthesia/Blood Transfusion Reaction / Comm: PONV w/ general anesthesia Past Psychological History: Anxiety, Depression Smoking Status: Never smoker Past Alcohol Use History: Rare Additional Past Alcohol Use History / Comment(s): quit smoking 2002 est, smoked <ppd for 20 yrs. Past Drug Use History: None Reported - Past Family History Mother Family Medical History: No Reported History Sister(s) Family Medical History: Cancer Additional Family Medical History / Comment(s): 1 with stomach cancer, 1 with skin cancer, 1 with cervical cancer Surgical - Exam Vital Signs Temp Pulse BP 98 F 76 116/81 10/12/22 13:52 10/12/22 13:52 10/12/22 13:52 - General well developed, well nourished, no distress - Eyes PERRL - ENT normal pinna - Neck no masses - Respiratory normal expansion - Cardiovascular Rhythm: regular - Abdomen Abdomen: soft, non tender Bariatric Assessment & Plan Plan: Status post sleeve gastrectomy. Patient's excellent weight loss. Patient will undergo esophagram to evaluate her GERD and dysphagia symptoms. Bariatric Checklist Checklist: Plan: Checklist: EGD: 1. Hiatal hernia: 2. H. Pylori: HgbA1c: Vitamin D: Smoking: Former smoker Primary care physician referral: Dr Jaycee Cadet Psychiatry clearance: Cardiology clearance: Sleep study: Diet journal: VTE risk score: VTE risk level: Rehab needs at discharge:
== END ==
LOC: BARWHC3 13:42
PROVIDERS: ATTEND Surgery
DX: E66.01 Morbid (severe) obesity due to excess calories (principal); K21.9 Gastro-esophageal reflux disease without esophagitis; Z98.84 Bariatric surgery status; Z68.32 Body mass index [BMI] 32.0-32.9, adult; M79.7 Fibromyalgia; E78.5 Hyperlipidemia, unspecified; I34.1 Nonrheumatic mitral (valve) prolapse; M06.9 Rheumatoid arthritis, unspecified; Z87.891 Personal history of nicotine dependence
CPT/HCPCS: 99211

== ENCOUNTER → 2022-10-12 | Outpatient (CLI) | payer MEDICARE ==
[2022-10-12 19:55] LABS: HCT 43.9 %; MCH 29.5 pg; MCHC 31.9 d/dL; MCV 92.6 FL; Mean Platelet Volume 9.6 FL; NRBC Per 100 WBC 0 X 10*3/uL; Platelet Count 297 X 10*3/uL; RBC 4.74 X 10*6/uL; RDW 13.6 %; WBC 5.07 X 10*3/uL
[2022-10-12 20:59] LABS: % Iron Saturation 28.77; ALT 16 U/L; AST 20 U/L; Albumin 4.5 d/dL; Albumin/Globulin Ratio 2.14 Ratio; Alkaline Phosphatase 88 U/L; BUN/Creat Ratio 10.27 Ratio; Blood Urea Nitrogen 11.3 mg/dL; Carbon Dioxide 26.2 mmol/L; Chloride 101 mmol/L; Globulin 2.1 d/dL; Glucose 98 mg/dL; Iron 105 UG/DL; Magnesium 2.3 mg/dL; Potassium 4.5 mmol/L; Sodium 141 mmol/L; Total Bilirubin 0.5 mg/dL; Total Iron Binding Capacity 365 UG/DL; Total Protein 6.6 d/dL
[2022-10-13 00:59] LABS: Ferritin 28 ng/mL
[2022-10-13 12:59] LABS: Zinc, Serum 92 ug/dL (60-130)
[2022-10-14 06:52] LABS: Vitamin A 56 ug/dL (38-106)
== END ==
LOC: LABWHC1 14:25
PROVIDERS: ATTEND Surgery
DX: E66.01 Morbid (severe) obesity due to excess calories (principal); D50.8 Other iron deficiency anemias; E44.0 Moderate protein-calorie malnutrition; E55.9 Vitamin D deficiency, unspecified; T56.894A Toxic effect of other metals, undetermined, initial encounter; E45 Retarded development following protein-calorie malnutrition
CPT/HCPCS: 36415; 80053; 82306; 82607; 82728; 82746; 83540; 83550; 83735; 84255; 84425; 84443; 84590; 84630; 85027

== ENCOUNTER → 2022-11-05 | Outpatient (CLI) | payer MEDICARE ==
--- NOTE | 2022-11-05 12:03 | FL ---
EXAMINATION TYPE: FL barium swallow DATE OF EXAM: 11/05/2022 11:42 AM COMPARISON: Upper GI 04/22/2021 CLINICAL INDICATION:Female, 61 years old with history of R13.10 DYSPHAGIA, UNSPECIFIED; PH, TECHNIQUE: The procedure was explained and patient history elicited. All patient questions were ans wered prior to start of procedure. Multiple spot fluoroscopic images of the esophagus were obtained a fter the oral ingestion of liquid barium as the contrast agent. Fluoroscopic time: 20 seconds Fluoroscopic images: 137 Total DAP: 2680.74 mGym2 FINDINGS: The esophagus demonstrates normal primary and secondary peristalsis. The esophageal mucosa is smooth without evidence of focal stricture, ulceration, or abnormal outpouching. Postsurgical changes from gastric sleeve. No evidence for obstruction or leak. No significant narrowing at the GE junction to s uggest a stricture. No gastroesophageal reflux disease was identified. IMPRESSION: Post surgical change from gastric sleeve without evidence for obstruction or leak. No significant moses rowing at the GE junction.
== END | disposition home or self-care (01) ==
LOC: RADUSWWP 10:58
PROVIDERS: ATTEND Surgery
DX: R13.10 Dysphagia, unspecified (principal); Z98.84 Bariatric surgery status
CPT/HCPCS: 74220

== ENCOUNTER → 2022-11-16 | Outpatient (CLI) | payer MEDICARE ==
[2022-11-16 13:49] VITALS: BP 118/75; PULSE 76; TEMP 97.8; BMI 31.3
--- NOTE | 2022-12-04 09:44 | P.HPBAR ---
Bariatric H&P - History & Physicial H&P Date: 11/16/22 History & Physicial: Visit/CC: esophagram F/U Patient initial contact: Initial weight: 152.407 kg Initial weight in pounds: 336.00 Height: 5 ft 6 in Initial BMI: 54.2 Last weight: Current weight: 87.997 kg Current weight in pounds: 194.00 Current BMI: 31.3 [place] body weight (based on NIH guidelines): 58.967 kg Excess body weight loss: 68.9% The patient is a 61 year-old F who presents for Bariatric Assessment. Patient presents today for Rojas fall. She's had some mild GERD. Past Medical History Past Medical History: Cancer, Fibromyalgia, GERD/Reflux, Hyperlipidemia, Mitral Valve Prolapse (MVP), Musculoskeletal Disorder, Osteoarthritis (OA), Renal Disease, Rheumatoid Arthritis (RA) Additional Past Medical History / Comment(s): Hx Covid 08/07/19, hospitalized 2 wks, on vent, then Rehab 2 wks. Bulging disc w/ hx sciatic pain. hx uterine cancer 2018. ?RA-one says yes, one has said no. Was on saxzenda for weight loss, not diabetes. Kidney disease stage 3. Varicose veins. History of Any Multi-Drug Resistant Organisms: None Reported Past Surgical History: Bariatric Surgery, Hysterectomy, Joint Replacement, Tonsillectomy Additional Past Surgical History / Comment(s): rojelio knees replaced, cataracts removed, Pain clinic proc. Colonoscopy, EGD. sleeve gastrectomy 04-21-21 Past Anesthesia/Blood Transfusion Reactions: Postoperative Nausea & Vomiting (PONV) Additional Past Anesthesia/Blood Transfusion Reaction / Comm: PONV w/ general anesthesia Past Psychological History: Anxiety, Depression Smoking Status: Never smoker Past Alcohol Use History: Rare Additional Past Alcohol Use History / Comment(s): quit smoking 2002 est, smoked <ppd for 20 yrs. Past Drug Use History: None Reported - Past Family History Mother Family Medical History: No Reported History Sister(s) Family Medical History: Cancer Additional Family Medical History / Comment(s): 1 with stomach cancer, 1 with skin cancer, 1 with cervical cancer Surgical - Exam Vital Signs Temp Pulse BP 97.8 F 76 118/75 11/16/22 13:44 11/16/22 13:44 11/16/22 13:44 - General well developed, well nourished - Abdomen Abdomen: soft, non tender Bariatric Assessment & Plan Plan: Patient has some complaints of GERD and dysphagia. She'll undergo EGD. Bariatric Checklist Checklist: Plan: Checklist: EGD: 1. Hiatal hernia: 2. H. Pylori: HgbA1c: Vitamin D: Smoking: Former smoker Primary care physician referral: Dr Jaycee Cadet Psychiatry clearance: Cardiology clearance: Sleep study: Diet journal: VTE risk score: VTE risk level: Rehab needs at discharge:
== END ==
LOC: BARWHC3 13:24
PROVIDERS: ATTEND Surgery
DX: E66.01 Morbid (severe) obesity due to excess calories (principal); K21.9 Gastro-esophageal reflux disease without esophagitis; M79.7 Fibromyalgia; E78.5 Hyperlipidemia, unspecified; M19.90 Unspecified osteoarthritis, unspecified site; M06.9 Rheumatoid arthritis, unspecified; Z68.31 Body mass index [BMI] 31.0-31.9, adult; Z87.891 Personal history of nicotine dependence
CPT/HCPCS: 99211